=== PATIENT | female | born 1950 | race Caucasian/White ===

== ENCOUNTER → 2017-10-21 | Outpatient (CLI) | payer OTHER, SELFPAY ==
[~2017-10-21] MED LIST: ABAT250V; AMIL5 PO; ANAFRANIL PO; ASCO500 PO; ASPI81CH PO; ATEN25 PO; Ativan1 MG PO; CALCIUM CITRAT1 EAC7 PO; CHOL10002; CHOL10002 PO; CLON.5 PO; CLON1 PO; Calcium Citrat1 EA10 PO; Cipro250 MG PO; Clomipramine HC50 MG PO; DIVA250ER PO; ERGO400 PO; ESZO1 PO; ESZO3 PO; FISH OIL OMEGA1 EAC2 PO; FISH1000 PO; FLUV50 PO; FLUVOXAMINE MA150 MG PO; Fludrocortison0.1 MG; Fludrocortison0.1 MG PO; GABA300 PO; HYDACE5 PO; HYDMOR2 PO; Hydrocodone-Ap1 EA20 PO; LAVAP17G PO; LINZESS145 MCG PO; LISI20 PO; LISI5 PO; LORA1 PO; LOVA20 PO; LOVA40; LOVA40 PO; METCAR500 PO; METO25; METO25ER PO; MIDO2.5; MIDO5 PO; MSM; MSM PO; MSM1000 MG PO; MSM500 MG PO; MULVITMIND PO; MYRBETRIQ50 MG PO; Midodrine HCl10 MG PO; Multivitamin1 EAC1 PO; NORTHERA100 MG PO; NORTHERA300 MG PO; NUVIGIL50 MG PO; Norco 10-325 T1 EACH PO; OLAN2.5 PO; OLAN5 PO; OMEP20ER; POTCIT10 PO; SERT100 PO; SOLI5; SOLI5 PO; SUMA25 PO; Sm Glucosamine1 EACH PO; TRAZ50 PO; VIT B6 PO; Vesicare10 MG PO; [UNRECOGNIZED DRUG - OTHER] PO
[2017-10-21 15:15] LABS: Microalbumin, Urine Quant. <5.000 mg/L (0.000-20.000); Protein, Urine Quantitative <5.0 mg/dL (0.0-11.9)
== END ==
LOC: LAB SHORT 14:22
PROVIDERS: Internal Medicine Nephrology
DX: N18.3 Chronic kidney disease, stage 3 (moderate) (principal); D63.1 Anemia in chronic kidney disease; R80.9 Proteinuria, unspecified
CPT/HCPCS: 81050; 82043; 82570; 84156

== ENCOUNTER 2017-11-24 10:57 | Day surgery (SDC) | payer OTHER, SELFPAY ==
[~2017-11-24 10:57] MED LIST changes: -ABAT250V; -CALCIUM CITRAT1 EAC7 PO; -Fludrocortison0.1 MG PO; -GABA300 PO; -MSM1000 MG PO; -Multivitamin1 EAC1 PO; -NORTHERA300 MG PO; -POTCIT10 PO; -SOLI5 PO; -SUMA25 PO; -Vesicare10 MG PO
[2017-11-24] MEDS ORDERED: GABA300 PO (14:11)
[2017-11-24] MEDS ORDERED: Fludrocortison0.1 MG PO (14:11)
[2017-11-24] MEDS ORDERED: MSM1000 MG PO (14:12)
[2017-11-24] MEDS ORDERED: POTCIT10 PO (14:13)
[2017-11-24] MEDS ORDERED: SUMA25 PO (14:13)
[2017-11-24] MEDS ORDERED: ABAT250V (14:14)
[2017-11-24] MEDS ORDERED: Vesicare10 MG PO (14:14)
== END 2017-11-24 15:45 | disposition home or self-care (01) ==
LOC: ATC 10:57
DX: E86.0 Dehydration (principal); I12.9 Hypertensive chronic kidney disease with stage 1 through stage 4 chronic kidney disease, or unspecified chronic kidney disease; N18.3 Chronic kidney disease, stage 3 (moderate); E87.1 Hypo-osmolality and hyponatremia; E83.30 Disorder of phosphorus metabolism, unspecified; E78.00 Pure hypercholesterolemia, unspecified; N25.81 Secondary hyperparathyroidism of renal origin; R03.1 Nonspecific low blood-pressure reading; E86.9 Volume depletion, unspecified; Z79.899 Other long term (current) drug therapy
CPT/HCPCS: 96360; 96361; J7030

== ENCOUNTER 2018-04-14 08:14 | Observation (INO) | payer OTHER, SELFPAY ==
[~2018-04-14] VITALS: Ht 162.6 cm; Wt 77.2 kg
[~2018-04-14 08:14] MED LIST changes: +ABAT250V; +Fludrocortison0.1 MG PO; +GABA300 PO; +MSM1000 MG PO; +POTCIT10 PO; +SUMA25 PO; +Vesicare10 MG PO
[2018-04-14] MEDS ORDERED: LINZESS145 MCG PO (08:29)
[2018-04-14] MEDS ORDERED: NORTHERA300 MG PO (08:33)
[2018-04-14] MEDS ORDERED: MSM1000 MG PO (08:34)
[2018-04-14] MEDS ORDERED: POTCIT10 PO (08:38)
[2018-04-14] MEDS ORDERED: SOLI5 PO (08:38)
[2018-04-14] MEDS ORDERED: OLAN5 PO (08:38)
[2018-04-14 09:34] LABS: BASOPHILS ABSOLUTE AUTO 0.04 K/mm3 (0.00-0.23); BASOPHILS PERCENT AUTO 1 % (0-2); EOSINOPHILS ABSOLUTE AUTO 0.36 K/mm3 (0.00-0.68); EOSINOPHILS PERCENT AUTO 5 % (0-6); Hematocrit 40.6 % (33.0-51.0); Hemoglobin 13.4 g/dL (11.5-16.0); IMMATURE GRAN ABSOLUTE AUTO 0.01 K/mm3 (0.00-0.10); IMMATURE GRAN PERCENT AUTO 0 % (0-1); LYMPHOCYTES ABSOLUTE AUTO 0.73 K/mm3 (0.84-5.20); LYMPHOCYTES PERCENT AUTO 9 % (21-46); MONOCYTES PERCENT AUTO 8 % (4-13); Mean Corpuscular HGB 31.8 pg (26.0-34.0); Mean Corpuscular Volume 96 fL (80-100); NEUTROPHILS ABSOLUTE AUTO 6.17 K/mm3 (1.96-9.15); NEUTROPHILS PERCENT AUTO 78 % (41-73); Platelet Count 261 K/mm3 (150-400); RDW Coefficient Variation 12.8 % (11.7-14.2); RDW Standard Deviation 45.8 fL (35.1-46.3); Red Blood Cell Count 4.21 M/mm3 (3.80-5.20); White Blood Cell Count 7.91 K/mm3 (4.00-11.30)
[2018-04-14 10:00] LABS: Ethanol (Alcohol), Blood, Med <3 mg/dL; Salicylate <1.7 mg/dL (2.8-20.0)
[2018-04-14 10:01] LABS: Alanine Aminotransfer (ALT/SGP 18 U/L (12-78); Albumin, Blood 2.7 g/dL (3.4-5.0); Albumin/Globulin Ratio 0.6 (0.8-1.8); Alk Phos 84 U/L (50-136); Anion Gap 8 mmol/L (6-16); Aspartate Aminotrans (AST/SGOT 19 U/L (12-37); Bilirubin, Total 0.1 mg/dL (0.1-1.0); Blood Urea Nitrogen 24 mg/dL (8-24); Bun/Creatinine Ratio 18.6 (12.0-20.0); CO2, Blood 24 mmol/L (21-32); Calcium, Blood 8.9 mg/dL (8.5-10.1); Chloride, Blood 107 mmol/L (98-108); Creatinine, Blood 1.29 mg/dL (0.40-1.00); Globulin, Blood 4.9 g/dL (2.2-4.0); Glomerular Filtration Rate 44 (60-); Glucose, Blood 145 mg/dL (70-99); Potassium, Blood 4.5 mmol/L (3.5-5.5); Sodium, Blood 139 mmol/L (136-145); Total Protein, Blood 7.6 g/dL (6.4-8.2)
[2018-04-14 10:30] LABS: Acetaminophen, Random <2.0 ug/mL (10.0-30.0)
[2018-04-14] MEDS ORDERED: CALCIUM CITRAT1 EAC7 PO (14:59)
[2018-04-14] MEDS ORDERED: METCAR500 PO (15:12)
[2018-04-14] MEDS ORDERED: MSM500 MG PO (15:14)
[2018-04-14] MEDS ORDERED: NUVIGIL50 MG PO (15:16)
[2018-04-14] MEDS ORDERED: Multivitamin1 EAC1 PO (15:17)
[2018-04-14 23:09] LABS: Source, Urine Voided
[2018-04-14 23:12] LABS: Bilirubin, Urine Neg (Neg); Blood, Urine Neg (Neg); Glucose Qualitative, Urine Neg (Neg); Ketones, Urine Neg (Neg); Leukocyte Esterase, Urine Neg (Neg); Nitrite, Urine Neg (Neg); Protein, Urine Neg (Neg); Specific Gravity, Urine 1.005 (1.003-1.022); Urobilinogen, Urine NORM (Normal)
[2018-04-14 23:17] LABS: Appearance, Urine Clear (Clear); Color, Urine Yellow (P-Yellow)
[2018-04-14 23:23] LABS: U Amphetamine Screen Not Detected; U Barbituate Screen Not Detected; U Benzodiazapine Screen DETECTED; U Buprenorphine Screen Not Detected; U Cannabinoids Screen Not Detected; U Cocaine Screen Not Detected; U Methadone Screen Not Detected; U Methamphetamine Screen Not Detected; U Opiates Screen Not Detected; U Oxycodone Screen Not Detected; U Phencyclidine Screen Not Detected; U Propoxyphene Screen Not Detected
[2018-04-15 04:18] LABS: BASOPHILS ABSOLUTE AUTO 0.03 K/mm3 (0.00-0.23); BASOPHILS PERCENT AUTO 1 % (0-2); EOSINOPHILS ABSOLUTE AUTO 0.43 K/mm3 (0.00-0.68); EOSINOPHILS PERCENT AUTO 7 % (0-6); Hematocrit 39.1 % (33.0-51.0); Hemoglobin 12.8 g/dL (11.5-16.0); IMMATURE GRAN ABSOLUTE AUTO 0.02 K/mm3 (0.00-0.10); IMMATURE GRAN PERCENT AUTO 0 % (0-1); LYMPHOCYTES ABSOLUTE AUTO 0.89 K/mm3 (0.84-5.20); LYMPHOCYTES PERCENT AUTO 14 % (21-46); MONOCYTES ABSOLUTE AUTO 0.43 K/mm3 (0.16-1.47); MONOCYTES PERCENT AUTO 7 % (4-13); Mean Corpuscular HGB 30.9 pg (26.0-34.0); Mean Corpuscular HGB Conc 32.7 g/dL (31.5-36.5); Mean Corpuscular Volume 94 fL (80-100); Mean Platelet Volume 10.2 fL (9.1-12.4); NEUTROPHILS ABSOLUTE AUTO 4.73 K/mm3 (1.96-9.15); NEUTROPHILS PERCENT AUTO 72 % (41-73); Platelet Count 239 K/mm3 (150-400); RDW Coefficient Variation 12.7 % (11.7-14.2); RDW Standard Deviation 44.2 fL (35.1-46.3); Red Blood Cell Count 4.14 M/mm3 (3.80-5.20); White Blood Cell Count 6.53 K/mm3 (4.00-11.30)
[2018-04-15 04:43] LABS: Bun/Creatinine Ratio 18.9 (12.0-20.0); Calcium, Blood 8.6 mg/dL (8.5-10.1); Creatinine, Blood 1.27 mg/dL (0.40-1.00); Potassium, Blood 4.1 mmol/L (3.5-5.5)
== END 2018-04-15 12:42 | disposition home or self-care (01) ==
LOC: ER 08:14 → PCU 08:15
PROVIDERS: Internal Medicine; Physician Assistant
DX: T42.8X1A Poisoning by antiparkinsonism drugs and other central muscle-tone depressants, accidental (unintentional), initial encounter (principal); F32.9 Major depressive disorder, single episode, unspecified; G89.29 Other chronic pain; Z79.82 Long term (current) use of aspirin; E03.9 Hypothyroidism, unspecified; I12.9 Hypertensive chronic kidney disease with stage 1 through stage 4 chronic kidney disease, or unspecified chronic kidney disease; N18.9 Chronic kidney disease, unspecified
CPT/HCPCS: 36415; 80048; 80053; 81003; 84443; 85025; 96372; 99285-25; G0378; G0480; J1650; J7030

== ENCOUNTER → 2018-10-09 | Outpatient (CLI) | payer MEDICARE, OTHER ==
[~2018-10-09] MED LIST changes: +CALCIUM CITRAT1 EAC7 PO; +Multivitamin1 EAC1 PO; +NORTHERA300 MG PO; +SOLI5 PO
[2018-10-13 12:15] LABS: Creatinine Urine 24.4 mg/dL (27.00-270.00)
[2018-10-13 13:32] LABS: Microalb/Creat Ratio UR, Rand Unable to Calculate mg/g (0.000-30.000); Microalbumin, Random Urine <5.000 mg/L (0.000-20.000); Protein, Urine Random <5.0 mg/dL (0.0-11.9); Protein/Creat Ratio, Ur Random Unable to Calculate
== END | disposition home or self-care (01) ==
LOC: LAB SHORT 11:45 → LAB 11:45 → LAB SHORT 10-13 08:14 → LAB 10-13 11:45
PROVIDERS: Family Medicine
DX: N18.3 Chronic kidney disease, stage 3 (moderate) (principal); D63.1 Anemia in chronic kidney disease; N25.81 Secondary hyperparathyroidism of renal origin; E55.9 Vitamin D deficiency, unspecified; E78.00 Pure hypercholesterolemia, unspecified; R76.9 Abnormal immunological finding in serum, unspecified; R94.5 Abnormal results of liver function studies; R94.6 Abnormal results of thyroid function studies
CPT/HCPCS: 81050; 82043; 82570; 84156

== ENCOUNTER → 2018-12-17 | Outpatient (CLI) | payer MEDICARE, OTHER ==
[2018-12-18 14:42] LABS: Microalbumin, Urine Quant. <5.000 mg/L (0.000-20.000); Protein, Urine Quantitative <5.0 mg/dL (0.0-11.9)
== END | disposition home or self-care (01) ==
LOC: EDSTATUS 12-14 14:25 → LAB FUT 12-14 14:25 → LAB SHORT 11:15 → LAB 11:15
PROVIDERS: Internal Medicine Nephrology
DX: N18.3 Chronic kidney disease, stage 3 (moderate) (principal); D63.1 Anemia in chronic kidney disease; R80.9 Proteinuria, unspecified
CPT/HCPCS: 81050; 82043; 82570; 84156

== ENCOUNTER 2019-03-17 13:48 | Day surgery (SDC) | payer MEDICARE, SELFPAY ==
[2019-03-17] MEDS ORDERED: FURO20 (14:45)
--- NOTE | 2019-03-17 15:35 | NUR ---
THIS DEPARTMENT HAD A CANCELLATION AND THIS RN CALLED DR. BOWER TO SEE IF WE COULD GIVE 1 LITER OVER 1 HOUR INSTEAD OF ORIGINAL ORDER OF 1.5 LITERS OVER 2 TO 3 HOURS. OUR SCHEDULE IS TIGHT TODAY AND DR. BOWER AGREED THAT PT COULD HAVE 1 LITER NORMAL SALINE OVER 1 HOUR AND WAS APPRECIATIVE THAT WE COULD ACCOMMADATE THIS PATIENT TODAY. HOWEVER THIS DEPARTMENT HAS SEEN THIS PT IN THE PAST AND STAFF HAS HAD ISSUES WITH BEING OVERBEARING AND AGGRESSIVE WITH STAFF. THIS RN WAS TRYING TO DO ADMITTING NURSING HX, PATIENTS KEPT ON INTERUPTING THE PATIENT AND MYSELF. THIS RN AND OTHER STAFF FEAR FOR THIS PATIENT, AND FEEL THAT THERE POSSIBLY COULD BE SOME TYPE OF MENTAL ABUSE GOING ON SINCE PT SAID "YES, I CAN ANSWER MY OWN QUESTION" WHEN ASKED BUT PT'S INTERRUPTS AND SAYS, "I HAVE CONTROL OVER HER MEDICATIONS AND SHE DOES NOT KNOW WHAT SHE HAS AND HASN'T" THIS RN STOPPED ASKING QUESTIONS AND CAME OUT AND CALLED DR. BOWER EXPRESSING MY CONCERNS AND ASKING IF PATIENT IS COMPETENT TO ANSWER HER OWN QUESTIONS. DR. BOWER SAID, THAT THE PATIENT IS COMPETENT ENOUGH TO ANSWER HER OWN QUESTIONS AND HE UNDERSTANDS THE CAN BE CONTROLLING. THIS RN INFORMED THE PATIENT AND THE MILO THAT DR. BOWER WAS CALLED AND HE SAID THAT THE PATIENT CAN ANSWER HER OWN HISTORY/ADMITTING QUESTIONS. PATIENT ANSWERED THEM APPROPRIATELY. THIS RN GOT THE PATIENT CRANBERRY JUICE AND WARM BLANKET. THIS RN ALSO CALLED THE NURSING VICE PRESIDENT REGULATORY FELIPE INMAN TO INFORM HIM OF THESE ISSUES.DURING INFUSION PTS WAS GOING IN AND OUT OF ROOM AND APPEARED UPSET. PT WAS INFUSED AND DISCHARGED HOME AND PT HAD NO COMPLAINTS.
== END 2019-03-17 22:42 | disposition home or self-care (01) ==
LOC: ATC 13:48
DX: E86.9 Volume depletion, unspecified (principal); I12.9 Hypertensive chronic kidney disease with stage 1 through stage 4 chronic kidney disease, or unspecified chronic kidney disease; N18.3 Chronic kidney disease, stage 3 (moderate); D63.1 Anemia in chronic kidney disease; E55.9 Vitamin D deficiency, unspecified; Z79.899 Other long term (current) drug therapy
CPT/HCPCS: 96360; J7030

== ENCOUNTER 2019-03-19 14:52 | Emergency (ER) | payer MEDICARE, SELFPAY ==
[~2019-03-19] VITALS: Ht 162.6 cm; Wt 77.1 kg
[~2019-03-19 14:52] MED LIST changes: +FURO20
[2019-03-19 15:30] LABS: BASOPHILS ABSOLUTE AUTO 0.04 K/mm3 (0.00-0.23); BASOPHILS PERCENT AUTO 1 % (0-2); EOSINOPHILS ABSOLUTE AUTO 0.42 K/mm3 (0.00-0.68); EOSINOPHILS PERCENT AUTO 7 % (0-6); Hematocrit 37.5 % (33.0-51.0); Hemoglobin 12.3 g/dL (11.5-16.0); IMMATURE GRAN ABSOLUTE AUTO 0.02 K/mm3 (0.00-0.10); IMMATURE GRAN PERCENT AUTO 0 % (0-1); LYMPHOCYTES ABSOLUTE AUTO 1.03 K/mm3 (0.84-5.20); LYMPHOCYTES PERCENT AUTO 16 % (21-46); MONOCYTES ABSOLUTE AUTO 0.59 K/mm3 (0.16-1.47); MONOCYTES PERCENT AUTO 9 % (4-13); Mean Corpuscular HGB 33.2 pg (26.0-34.0); Mean Corpuscular HGB Conc 32.8 g/dL (31.5-36.5); Mean Corpuscular Volume 101 fL (80-100); Mean Platelet Volume 10.3 fL (9.1-12.4); NEUTROPHILS ABSOLUTE AUTO 4.17 K/mm3 (1.96-9.15); NEUTROPHILS PERCENT AUTO 67 % (41-73); Platelet Count 241 K/mm3 (150-400); RDW Coefficient Variation 12.1 % (11.7-14.2); RDW Standard Deviation 44.8 fL (35.1-46.3); Red Blood Cell Count 3.71 M/mm3 (3.80-5.20); White Blood Cell Count 6.27 K/mm3 (4.00-11.30)
[2019-03-19 15:48] LABS: Albumin, Blood 2.8 g/dL (3.4-5.0); Albumin/Globulin Ratio 0.6 (0.8-1.8); Bilirubin, Total 0.2 mg/dL (0.1-1.0); Calcium, Blood 9.3 mg/dL (8.5-10.1); Creatinine, Blood 1.57 mg/dL (0.40-1.00); Globulin, Blood 4.4 g/dL (2.2-4.0); Potassium, Blood 4.4 mmol/L (3.5-5.5); Total Protein, Blood 7.2 g/dL (6.4-8.2)
[2019-03-19] MEDS ORDERED: DIVA125EC PO (16:27)
[2019-03-19] MEDS ORDERED: SIME80CH PO (16:29)
[2019-03-19] MEDS ORDERED: MOTION RELIEF25 MG PO (16:32)
[2019-03-19] MEDS ORDERED: NORTHERA300 MG PO (16:34)
[2019-03-19] MEDS ORDERED: MYRBETRIQ25 MG PO (16:34)
[2019-03-19] MEDS ORDERED: MODA200 PO (16:35)
[2019-03-19] MEDS ORDERED: ONDA8 PO (16:35)
[2019-03-19] MEDS ORDERED: POTA8 PO (16:35)
[2019-03-19] MEDS ORDERED: OLAN5 PO (16:35)
[2019-03-19] MEDS ORDERED: SUMA25 PO (16:36)
== END 2019-03-19 18:51 | disposition home or self-care (01) ==
LOC: ER 14:52
PROVIDERS: Physician Assistant
DX: I12.9 Hypertensive chronic kidney disease with stage 1 through stage 4 chronic kidney disease, or unspecified chronic kidney disease (principal); N18.9 Chronic kidney disease, unspecified; E86.9 Volume depletion, unspecified; E86.0 Dehydration; Z79.899 Other long term (current) drug therapy; Z79.82 Long term (current) use of aspirin; F32.9 Major depressive disorder, single episode, unspecified; E03.9 Hypothyroidism, unspecified
CPT/HCPCS: 80053; 85025; 93005; 93010; 96360; 96361; 99283-25; J7030

== ENCOUNTER 2019-03-20 10:34 | Day surgery (SDC) | payer MEDICARE, SELFPAY ==
[~2019-03-20 10:34] MED LIST changes: +DIVA125EC PO; +MODA200 PO; +MOTION RELIEF25 MG PO; +MYRBETRIQ25 MG PO; +ONDA8 PO; +POTA8 PO; +SIME80CH PO
--- NOTE | 2019-03-20 11:37 | NUR ---
1045: TELEPHONE ORDER FROM DR BOWER TO GIVE ANOTHER 1 LITER OF NS TOMORROW 03/21/19. DR NUÑEZ PT RECEIVED 1 LITER YESTERDAY IN ER AND IS RECEIVING 1 LITER TODAY THROUGH [facility].
== END 2019-03-20 11:59 | disposition home or self-care (01) ==
LOC: ATC 10:34
DX: E86.9 Volume depletion, unspecified (principal); N18.3 Chronic kidney disease, stage 3 (moderate); I12.9 Hypertensive chronic kidney disease with stage 1 through stage 4 chronic kidney disease, or unspecified chronic kidney disease; Z79.899 Other long term (current) drug therapy; D63.1 Anemia in chronic kidney disease; N25.81 Secondary hyperparathyroidism of renal origin; E78.00 Pure hypercholesterolemia, unspecified; E55.9 Vitamin D deficiency, unspecified
CPT/HCPCS: 96360; J7030

== ENCOUNTER 2019-03-21 10:47 | Day surgery (SDC) | payer MEDICARE, OTHER | END 2019-03-21 12:02 | disposition home or self-care (01) | LOC: ATC 10:47 | DX: E86.9 Volume depletion, unspecified (principal); I12.9 Hypertensive chronic kidney disease with stage 1 through stage 4 chronic kidney disease, or unspecified chronic kidney disease; N18.3 Chronic kidney disease, stage 3 (moderate); D63.1 Anemia in chronic kidney disease; E78.00 Pure hypercholesterolemia, unspecified; E55.9 Vitamin D deficiency, unspecified; Z79.899 Other long term (current) drug therapy | CPT/HCPCS: 96360; J7030 ==

== ENCOUNTER 2019-04-08 00:16 | Day surgery (SDC) | payer MEDICARE, OTHER ==
--- NOTE | 2019-04-08 17:20 | NUR ---
LABS DRAWN AFTER IV HYDRATION COMPLETED.
[2019-04-08 17:37] LABS: Albumin, Blood 2.1 g/dL (3.4-5.0); Anion Gap 8 mmol/L (6-16); Blood Urea Nitrogen 22 mg/dL (8-24); Bun/Creatinine Ratio 18.6 (12.0-20.0); CO2, Blood 23 mmol/L (21-32); Calcium, Blood 6.8 mg/dL (8.5-10.1); Chloride, Blood 117 mmol/L (98-108); Creatinine, Blood 1.18 mg/dL (0.40-1.00); Glomerular Filtration Rate 48 (60-); Glucose, Blood 114 mg/dL (70-99); Phosphorus, Blood 2.4 mg/dL (2.5-4.9); Potassium, Blood 3.3 mmol/L (3.5-5.5); Sodium, Blood 148 mmol/L (136-145)
== END 2019-04-08 17:12 | disposition home or self-care (01) ==
LOC: ATC 00:16
PROVIDERS: Internal Medicine Nephrology
DX: E86.9 Volume depletion, unspecified (principal); I12.9 Hypertensive chronic kidney disease with stage 1 through stage 4 chronic kidney disease, or unspecified chronic kidney disease; N18.3 Chronic kidney disease, stage 3 (moderate); D63.1 Anemia in chronic kidney disease; N25.81 Secondary hyperparathyroidism of renal origin; E78.00 Pure hypercholesterolemia, unspecified; E55.9 Vitamin D deficiency, unspecified; Z79.899 Other long term (current) drug therapy
CPT/HCPCS: 80069; 96360; 96361; J7030

== ENCOUNTER 2019-04-28 00:09 | Day surgery (SDC) | payer MEDICARE, OTHER | END 2019-04-28 15:42 | disposition home or self-care (01) | LOC: ATC 00:09 | DX: E86.9 Volume depletion, unspecified (principal); I12.9 Hypertensive chronic kidney disease with stage 1 through stage 4 chronic kidney disease, or unspecified chronic kidney disease; N18.3 Chronic kidney disease, stage 3 (moderate); D63.1 Anemia in chronic kidney disease; N25.81 Secondary hyperparathyroidism of renal origin; E55.9 Vitamin D deficiency, unspecified; Z79.899 Other long term (current) drug therapy; Z79.82 Long term (current) use of aspirin | CPT/HCPCS: 96360; 96361; J7030 ==

== ENCOUNTER 2019-05-24 00:19 | Day surgery (SDC) | payer MEDICARE, OTHER ==
[2019-05-24 16:10] LABS: Anion Gap 6 mmol/L (6-16); Blood Urea Nitrogen 28 mg/dL (8-24); Bun/Creatinine Ratio 21.5 (12.0-20.0); CO2, Blood 26 mmol/L (21-32); Calcium, Blood 9.7 mg/dL (8.5-10.1); Chloride, Blood 102 mmol/L (98-108); Glomerular Filtration Rate 43 (60-); Glucose, Blood 93 mg/dL (70-99); Phosphorus, Blood 3.5 mg/dL (2.5-4.9); Potassium, Blood 4.1 mmol/L (3.5-5.5); Sodium, Blood 134 mmol/L (136-145)
== END 2019-05-24 15:20 | disposition home or self-care (01) ==
LOC: ATC 00:19
PROVIDERS: Internal Medicine Nephrology
DX: E86.9 Volume depletion, unspecified (principal); I12.9 Hypertensive chronic kidney disease with stage 1 through stage 4 chronic kidney disease, or unspecified chronic kidney disease; N18.3 Chronic kidney disease, stage 3 (moderate); D63.1 Anemia in chronic kidney disease; E78.00 Pure hypercholesterolemia, unspecified; E55.9 Vitamin D deficiency, unspecified; N25.81 Secondary hyperparathyroidism of renal origin
CPT/HCPCS: 80069; 96360; J7030

== ENCOUNTER 2019-06-11 00:39 | Day surgery (SDC) | payer MEDICARE, OTHER | END 2019-06-11 15:25 | disposition home or self-care (01) | LOC: ATC 00:39 | DX: E86.9 Volume depletion, unspecified (principal); I12.9 Hypertensive chronic kidney disease with stage 1 through stage 4 chronic kidney disease, or unspecified chronic kidney disease; N18.3 Chronic kidney disease, stage 3 (moderate); N25.81 Secondary hyperparathyroidism of renal origin; D63.1 Anemia in chronic kidney disease; E78.00 Pure hypercholesterolemia, unspecified; Z79.82 Long term (current) use of aspirin; Z79.899 Other long term (current) drug therapy | CPT/HCPCS: 96360; J7030 ==

== ENCOUNTER 2019-07-02 00:23 | Day surgery (SDC) | payer MEDICARE, OTHER | END 2019-07-02 15:05 | disposition home or self-care (01) | LOC: ATC 00:23 | DX: E86.9 Volume depletion, unspecified (principal); I12.9 Hypertensive chronic kidney disease with stage 1 through stage 4 chronic kidney disease, or unspecified chronic kidney disease; N18.3 Chronic kidney disease, stage 3 (moderate); D63.1 Anemia in chronic kidney disease; N25.81 Secondary hyperparathyroidism of renal origin; E78.00 Pure hypercholesterolemia, unspecified; Z79.899 Other long term (current) drug therapy; Z79.82 Long term (current) use of aspirin | CPT/HCPCS: 96360; J7030 ==

== ENCOUNTER 2019-07-23 00:17 | Day surgery (SDC) | payer MEDICARE, OTHER | END 2019-07-23 15:39 | disposition home or self-care (01) | LOC: ATC 00:17 | DX: E86.9 Volume depletion, unspecified (principal); I12.9 Hypertensive chronic kidney disease with stage 1 through stage 4 chronic kidney disease, or unspecified chronic kidney disease; N18.3 Chronic kidney disease, stage 3 (moderate); D63.1 Anemia in chronic kidney disease; N25.81 Secondary hyperparathyroidism of renal origin; E78.00 Pure hypercholesterolemia, unspecified; Z79.82 Long term (current) use of aspirin; Z79.899 Other long term (current) drug therapy | CPT/HCPCS: 96360; J7030 ==

== ENCOUNTER 2019-08-13 00:17 | Day surgery (SDC) | payer MEDICARE, OTHER | END 2019-08-13 15:10 | disposition home or self-care (01) | LOC: ATC 00:17 | DX: E86.9 Volume depletion, unspecified (principal); I12.9 Hypertensive chronic kidney disease with stage 1 through stage 4 chronic kidney disease, or unspecified chronic kidney disease; N18.3 Chronic kidney disease, stage 3 (moderate); D63.1 Anemia in chronic kidney disease; N25.81 Secondary hyperparathyroidism of renal origin; E78.00 Pure hypercholesterolemia, unspecified; E55.9 Vitamin D deficiency, unspecified; Z79.82 Long term (current) use of aspirin; Z79.899 Other long term (current) drug therapy | CPT/HCPCS: 96360; J7030 ==

== ENCOUNTER 2019-08-24 00:09 | Day surgery (SDC) | payer MEDICARE, OTHER | END 2019-08-24 16:05 | disposition home or self-care (01) | LOC: ATC 00:09 | DX: E86.9 Volume depletion, unspecified (principal); I12.9 Hypertensive chronic kidney disease with stage 1 through stage 4 chronic kidney disease, or unspecified chronic kidney disease; N18.3 Chronic kidney disease, stage 3 (moderate); D63.1 Anemia in chronic kidney disease; N25.81 Secondary hyperparathyroidism of renal origin; E78.00 Pure hypercholesterolemia, unspecified; E55.9 Vitamin D deficiency, unspecified; R03.1 Nonspecific low blood-pressure reading; Z79.899 Other long term (current) drug therapy | CPT/HCPCS: 96360; J7030 ==

== ENCOUNTER 2019-09-08 00:03 | Day surgery (SDC) | payer MEDICARE, OTHER | END 2019-09-08 16:46 | disposition home or self-care (01) | LOC: ATC 00:03 | DX: E86.9 Volume depletion, unspecified (principal); I12.9 Hypertensive chronic kidney disease with stage 1 through stage 4 chronic kidney disease, or unspecified chronic kidney disease; N18.3 Chronic kidney disease, stage 3 (moderate); D63.1 Anemia in chronic kidney disease; N25.81 Secondary hyperparathyroidism of renal origin; E78.00 Pure hypercholesterolemia, unspecified; E55.9 Vitamin D deficiency, unspecified; Z79.82 Long term (current) use of aspirin; Z79.899 Other long term (current) drug therapy | CPT/HCPCS: 96360; J7030 ==

== ENCOUNTER 2019-09-11 14:53 | Day surgery (SDC) | payer MEDICARE, OTHER | END 2019-09-11 16:50 | disposition home or self-care (01) | LOC: ATC 14:53 | DX: E86.9 Volume depletion, unspecified (principal); I12.9 Hypertensive chronic kidney disease with stage 1 through stage 4 chronic kidney disease, or unspecified chronic kidney disease; N18.3 Chronic kidney disease, stage 3 (moderate); D63.1 Anemia in chronic kidney disease; N25.81 Secondary hyperparathyroidism of renal origin; E78.00 Pure hypercholesterolemia, unspecified; E55.9 Vitamin D deficiency, unspecified; Z79.82 Long term (current) use of aspirin; Z79.899 Other long term (current) drug therapy | CPT/HCPCS: 96360; J7030 ==

== ENCOUNTER 2019-10-29 00:33 | Day surgery (SDC) | payer MEDICARE, SELFPAY | END 2019-10-29 17:09 | disposition home or self-care (01) | LOC: ATC 00:33 | DX: E86.9 Volume depletion, unspecified (principal) | CPT/HCPCS: 96360; 96361; J7030 ==

== ENCOUNTER 2019-11-13 00:15 | Day surgery (SDC) | payer MEDICARE, SELFPAY | END 2019-11-13 15:20 | disposition home or self-care (01) | LOC: ATC 00:15 | DX: E86.9 Volume depletion, unspecified (principal); N18.3 Chronic kidney disease, stage 3 (moderate) | CPT/HCPCS: 96360; 96361; J7030 ==

== ENCOUNTER 2019-12-10 00:05 | Day surgery (SDC) | payer MEDICARE, SELFPAY ==
[2019-12-10 14:56] LABS: Albumin, Blood 3.2 g/dL (3.4-5.0); Anion Gap 7 mmol/L (6-16); Blood Urea Nitrogen 37 mg/dL (8-24); Bun/Creatinine Ratio 22.4 (12.0-20.0); CO2, Blood 27 mmol/L (21-32); Calcium, Blood 9.8 mg/dL (8.5-10.1); Chloride, Blood 104 mmol/L (98-108); Creatinine, Blood 1.65 mg/dL (0.40-1.00); Glomerular Filtration Rate 33 (60-); Glucose, Blood 99 mg/dL (70-99); Phosphorus, Blood 4.1 mg/dL (2.5-4.9); Potassium, Blood 4.7 mmol/L (3.5-5.5); Sodium, Blood 138 mmol/L (136-145)
== END 2019-12-10 16:28 | disposition home or self-care (01) ==
LOC: ATC 00:05
PROVIDERS: Internal Medicine Nephrology
DX: E86.9 Volume depletion, unspecified (principal); N18.3 Chronic kidney disease, stage 3 (moderate); Z79.52 Long term (current) use of systemic steroids; Z79.82 Long term (current) use of aspirin; Z79.899 Other long term (current) drug therapy
CPT/HCPCS: 80069; 85018; 96360; 96361; J7030; J7040

== ENCOUNTER 2020-01-03 00:11 | Day surgery (SDC) | payer MEDICARE, SELFPAY | END 2020-01-03 11:54 | disposition home or self-care (01) | LOC: ATC 00:11 | DX: E86.0 Dehydration (principal); I12.9 Hypertensive chronic kidney disease with stage 1 through stage 4 chronic kidney disease, or unspecified chronic kidney disease; N18.3 Chronic kidney disease, stage 3 (moderate); Z79.899 Other long term (current) drug therapy | CPT/HCPCS: 96360; 96361; J7070 ==

== ENCOUNTER → 2020-01-03 | Outpatient (CLI) | payer MEDICARE, SELFPAY ==
[2020-01-03 13:24] LABS: Microalbumin, Urine Quant. <5.000 mg/L (0.000-20.000); Protein, Urine Quantitative <5.0 mg/dL (0.0-11.9)
== END | disposition home or self-care (01) ==
LOC: LAB SHORT 09:00 → LAB 09:00
PROVIDERS: Internal Medicine Nephrology
DX: N18.3 Chronic kidney disease, stage 3 (moderate) (principal); D63.1 Anemia in chronic kidney disease; N25.81 Secondary hyperparathyroidism of renal origin; E55.9 Vitamin D deficiency, unspecified; E78.00 Pure hypercholesterolemia, unspecified; R76.9 Abnormal immunological finding in serum, unspecified; R94.5 Abnormal results of liver function studies; R94.6 Abnormal results of thyroid function studies
CPT/HCPCS: 81050; 82043; 82570; 84156

== ENCOUNTER 2020-01-10 00:18 | Day surgery (SDC) | payer MEDICARE, SELFPAY | END 2020-01-10 12:05 | disposition home or self-care (01) | LOC: ATC 00:18 | DX: E86.0 Dehydration (principal); I12.9 Hypertensive chronic kidney disease with stage 1 through stage 4 chronic kidney disease, or unspecified chronic kidney disease; N18.3 Chronic kidney disease, stage 3 (moderate); D63.1 Anemia in chronic kidney disease; N25.81 Secondary hyperparathyroidism of renal origin; E87.1 Hypo-osmolality and hyponatremia; E78.00 Pure hypercholesterolemia, unspecified; E55.9 Vitamin D deficiency, unspecified; Z79.899 Other long term (current) drug therapy | CPT/HCPCS: J7060; J7070 ==

== ENCOUNTER 2020-01-27 00:04 | Day surgery (SDC) | payer MEDICARE, SELFPAY | END 2020-01-27 11:32 | disposition home or self-care (01) | LOC: ATC 00:04 | DX: E86.0 Dehydration (principal); I12.9 Hypertensive chronic kidney disease with stage 1 through stage 4 chronic kidney disease, or unspecified chronic kidney disease; N18.3 Chronic kidney disease, stage 3 (moderate); Z79.899 Other long term (current) drug therapy; D63.1 Anemia in chronic kidney disease; N25.81 Secondary hyperparathyroidism of renal origin; E87.1 Hypo-osmolality and hyponatremia; E78.00 Pure hypercholesterolemia, unspecified; E55.9 Vitamin D deficiency, unspecified | CPT/HCPCS: 36415; 96360; 96361; J7070 ==

== ENCOUNTER 2020-02-03 00:06 | Day surgery (SDC) | payer MEDICARE, SELFPAY ==
[~2020-02-03 00:06] MED LIST changes: -FURO20; +FURO20 PO; +MECL25 PO; -MOTION RELIEF25 MG PO; +Robaxin-750750 MG PO
[2020-02-03] MEDS ORDERED: CLON.1 PO (16:16)
[2020-02-03] MEDS ORDERED: MIRALAX17 GM PO (16:48)
[2020-02-03] MEDS ORDERED: Potassium Citra5 MEQ PO (16:51)
[2020-02-03] MEDS ORDERED: TAMS.4ER PO (16:54)
== END 2020-02-03 13:02 | disposition home or self-care (01) ==
LOC: ATC 00:06
DX: E86.0 Dehydration (principal); I12.9 Hypertensive chronic kidney disease with stage 1 through stage 4 chronic kidney disease, or unspecified chronic kidney disease; N18.3 Chronic kidney disease, stage 3 (moderate); D63.1 Anemia in chronic kidney disease; N25.81 Secondary hyperparathyroidism of renal origin; E78.00 Pure hypercholesterolemia, unspecified; E55.9 Vitamin D deficiency, unspecified; Z79.899 Other long term (current) drug therapy; E23.6 Other disorders of pituitary gland
CPT/HCPCS: 96360; 96361; J7060; J7070

== ENCOUNTER → 2020-02-16 | Outpatient (CLI) | payer MEDICARE, OTHER ==
[~2020-02-16] MED LIST changes: +ACET325 PO; +AMOCLA500 PO; -ASPI81CH PO; +Aspirin EC81 MG PO; +CLON.1 PO; +Divalproex Sod125 M1 PO; +FISH OIL 1,0001 EAC4 PO; +K-TAB ER20 ME1 PO; +LIDO5TO TOP; +MIRALAX17 GM PO; +MOTION RELIEF25 MG PO; +MSM1000 M2 PO; +N-ACETYL-L-CYS600 MG PO; +NEURONTIN300 MG PO; +OLANZAPINE5 M1 PO; +PROBIOTIC ACID PO; +PYRI100 PO; +Pacerone400 MG PO; +Potassium Citra5 MEQ PO; +SODCHL1 PO; +TAMS.4ER PO; +TAMSULOSIN HCL0.4 M1 PO; +VITAMIN C 500500 MG PO; +Vitamin D2000 UNIT PO; +ZOFRAN4 MG PO
== END | disposition home or self-care (01) ==
LOC: LAB 14:16 → LAB SHORT 14:16
DX: N18.3 Chronic kidney disease, stage 3 (moderate) (principal); D63.1 Anemia in chronic kidney disease; N25.81 Secondary hyperparathyroidism of renal origin; E55.9 Vitamin D deficiency, unspecified; E78.00 Pure hypercholesterolemia, unspecified; R76.9 Abnormal immunological finding in serum, unspecified; R94.5 Abnormal results of liver function studies; R94.6 Abnormal results of thyroid function studies
CPT/HCPCS: 86335

== ENCOUNTER 2020-02-18 15:15 | Inpatient (IN) | payer MEDICARE, OTHER ==
[~2020-02-18] VITALS: Ht 162.6 cm; Wt 83.9 kg
[~2020-02-18 15:15] MED LIST changes: -ACET325 PO; -AMOCLA500 PO; -Divalproex Sod125 M1 PO; -FISH OIL 1,0001 EAC4 PO; -K-TAB ER20 ME1 PO; -LIDO5TO TOP; -MOTION RELIEF25 MG PO; -MSM1000 M2 PO; -N-ACETYL-L-CYS600 MG PO; -NEURONTIN300 MG PO; -OLANZAPINE5 M1 PO; -PROBIOTIC ACID PO; -PYRI100 PO; -Pacerone400 MG PO; -SODCHL1 PO; -TAMSULOSIN HCL0.4 M1 PO; -VITAMIN C 500500 MG PO; -Vitamin D2000 UNIT PO; -ZOFRAN4 MG PO
[2020-02-18] MEDS ORDERED: Clomipramine HC50 MG PO (19:40)
[2020-02-18] MEDS ORDERED: FISH OIL 1,0001 EAC4 PO (19:40)
[2020-02-18] MEDS ORDERED: K-TAB ER20 ME1 PO (19:41)
[2020-02-18] MEDS ORDERED: LIDO5TO TOP (19:42)
[2020-02-18] MEDS ORDERED: MSM1000 M2 PO (19:43)
[2020-02-18] MEDS ORDERED: MODA200 PO (19:44)
[2020-02-18] MEDS ORDERED: SODCHL1 PO (19:44)
[2020-02-18] MEDS ORDERED: PYRI100 PO (19:44)
[2020-02-18] MEDS ORDERED: VITAMIN C 500500 MG PO (19:45)
[2020-02-18] MEDS ORDERED: Vitamin D2000 UNIT PO (19:45)
[2020-02-18 20:50] LABS: BASOPHILS ABSOLUTE AUTO 0.06 K/mm3 (0.00-0.23); BASOPHILS PERCENT AUTO 1 % (0-2); EOSINOPHILS ABSOLUTE AUTO 0.08 K/mm3 (0.00-0.68); EOSINOPHILS PERCENT AUTO 1 % (0-6); Hematocrit 37.3 % (33.0-51.0); IMMATURE GRAN ABSOLUTE AUTO 0.08 K/mm3 (0.00-0.10); IMMATURE GRAN PERCENT AUTO 1 % (0-1); LYMPHOCYTES PERCENT AUTO 8 % (21-46); MONOCYTES ABSOLUTE AUTO 0.94 K/mm3 (0.16-1.47); MONOCYTES PERCENT AUTO 9 % (4-13); Mean Corpuscular HGB 31.4 pg (26.0-34.0); Mean Corpuscular HGB Conc 32.2 g/dL (31.5-36.5); Mean Corpuscular Volume 98 fL (80-100); Mean Platelet Volume 10.2 fL (9.1-12.4); NEUTROPHILS ABSOLUTE AUTO 8.23 K/mm3 (1.96-9.15); NEUTROPHILS PERCENT AUTO 81 % (41-73); Platelet Count 269 K/mm3 (150-400); RDW Coefficient Variation 13.8 % (11.7-14.2); RDW Standard Deviation 48.6 fL (35.1-46.3); Red Blood Cell Count 3.82 M/mm3 (3.80-5.20); White Blood Cell Count 10.19 K/mm3 (4.00-11.30)
[2020-02-18 21:15] LABS: Albumin, Blood 2.4 g/dL (3.4-5.0); Albumin/Globulin Ratio 0.5 (0.8-1.8); Bilirubin, Total 0.3 mg/dL (0.1-1.0); Bun/Creatinine Ratio 23.8 (12.0-20.0); Creatinine, Blood 1.85 mg/dL (0.40-1.00); Globulin, Blood 4.6 g/dL (2.2-4.0); Potassium, Blood 4.6 mmol/L (3.5-5.5)
[2020-02-18 21:23] LABS: Troponin I 0.552 ng/mL (0.000-0.040)
[2020-02-18] MEDS ORDERED: Divalproex Sod125 M1 PO (21:39)
[2020-02-18] MEDS ORDERED: LISI5 PO (21:40)
[2020-02-18] MEDS ORDERED: TAMSULOSIN HCL0.4 M1 PO (21:40)
[2020-02-18] MEDS ORDERED: OLANZAPINE5 M1 PO (21:40)
[2020-02-18] MEDS ORDERED: NEURONTIN300 MG PO (21:41)
[2020-02-19] MEDS ORDERED: Clomipramine HC50 MG PO (02:30)
[2020-02-19] MEDS ORDERED: CLON.1 PO (02:32)
[2020-02-19] MEDS ORDERED: Norco 10-325 T1 EACH PO (02:33)
[2020-02-19] MEDS ORDERED: MOTION RELIEF25 MG PO (02:35)
[2020-02-19] MEDS ORDERED: POTCIT10 PO (02:38)
[2020-02-19 05:47] LABS: Bun/Creatinine Ratio 21.8 (12.0-20.0); Calcium, Blood 8.8 mg/dL (8.5-10.1); Creatinine, Blood 1.88 mg/dL (0.40-1.00); Potassium, Blood 4.2 mmol/L (3.5-5.5)
[2020-02-19 05:53] LABS: Troponin I 0.759 ng/mL (0.000-0.040)
--- NOTE | 2020-02-19 06:28 | NUR ---
patient submitted for pneumonia with elevated Troponins with no complaints of chest pain and some slight complain of shortness of breath tolerating 2L nasal cannula well. Overnight the patient had a change in cardiac rhythm that appeared to be an intermittent LBBB, at which time the patient remained stable with no changes in vital signs or physical distress. At around 6 AM a critical lab results for troponin was reported to me and I notified Dr. Patel Cardenas, and I also notified him of the change in rhythm, to watch the plan still remains to do any cardio gram and further cardiac work up.
--- NOTE | 2020-02-19 11:43 | NUR ---
echocardiogram complete
--- NOTE | 2020-02-19 15:03 | NUR ---
PT HRR THIS MORNING WAS ELEVATED AT 115 WITH UNREADABLE RHYTHM ON THE MONITOR ORDER RECEIVED FOR EKG 12L SHOWS WIDE QRS WITH CONSISTENT PVC'S. PROVIDER MADE AWARE ORAL PRESSOR PRN GIVEN, PT TRANSITION BACK TO SINUS WITH BBB RATE STAYED ON THE 90'S. PT WAS ALSO GIVEN ATIVAN FOR ANXIETY. ORDER PLACED FOR IV LOPRESSOR 5MG PRN IF HR IS ABOVE 100'S. PT DENIES CHEST PAIN/PRESSURE. AT THE BEDSIDE, PT CONTINUES ON IV ABO FOR PNA. BP SYSTOLIC REMAINS ON 115'S, AFEBRILE, 94% ON 2L OF O2, SOB WITH EXERTION. WILL MONITOR
--- NOTE | 2020-02-19 19:26 | NUR ---
PT SUMMARY: SEE PREVIOUS NOTES PT CONVERTED BACK TO ABNORMAL RHYTHM WIDE QRS WITH CONSECUTIVE PVC'S RATE ON THE 100'S, PT IS ASYMPTOMATIC, IV 5MG METOPROLOL GIVEN X1 WITH NO EFFECT. PT ALSO GIVEN ATIVAN X2 FOR THE SHIFT PER REQUEST, BP SYSTOLIC 120'S, SATS ABOVE 94% ON 2L O2. CONTINUES ON IV ABO FOR PNA. PT CURRENTLY RESTING IN BED CALL LIGHTS WITHIN REACH. REPORT GIVEN TO DIET TECH NURSE
[2020-02-20 04:37] LABS: BASOPHILS ABSOLUTE AUTO 0.07 K/mm3 (0.00-0.23); BASOPHILS PERCENT AUTO 1 % (0-2); EOSINOPHILS ABSOLUTE AUTO 0.46 K/mm3 (0.00-0.68); EOSINOPHILS PERCENT AUTO 6 % (0-6); Hematocrit 39.3 % (33.0-51.0); Hemoglobin 12.3 g/dL (11.5-16.0); IMMATURE GRAN ABSOLUTE AUTO 0.04 K/mm3 (0.00-0.10); IMMATURE GRAN PERCENT AUTO 1 % (0-1); LYMPHOCYTES ABSOLUTE AUTO 1.33 K/mm3 (0.84-5.20); LYMPHOCYTES PERCENT AUTO 16 % (21-46); MONOCYTES ABSOLUTE AUTO 0.87 K/mm3 (0.16-1.47); MONOCYTES PERCENT AUTO 11 % (4-13); Mean Corpuscular HGB 31.3 pg (26.0-34.0); Mean Corpuscular HGB Conc 31.3 g/dL (31.5-36.5); Mean Corpuscular Volume 100 fL (80-100); Mean Platelet Volume 10.1 fL (9.1-12.4); NEUTROPHILS ABSOLUTE AUTO 5.44 K/mm3 (1.96-9.15); NEUTROPHILS PERCENT AUTO 66 % (41-73); Platelet Count 291 K/mm3 (150-400); RDW Coefficient Variation 14.1 % (11.7-14.2); Red Blood Cell Count 3.93 M/mm3 (3.80-5.20); White Blood Cell Count 8.21 K/mm3 (4.00-11.30)
[2020-02-20 04:56] LABS: Albumin, Blood 2.2 g/dL (3.4-5.0); Albumin/Globulin Ratio 0.5 (0.8-1.8); Bilirubin, Total 0.3 mg/dL (0.1-1.0); Calcium, Blood 8.5 mg/dL (8.5-10.1); Globulin, Blood 4.5 g/dL (2.2-4.0); Total Protein, Blood 6.7 g/dL (6.4-8.2)
--- NOTE | 2020-02-20 06:31 | NUR ---
patient admitted for pneumonia with elevated troponin's remain stable throughout the entire shift. Her troponin's peaked at 0.7X we are now down trending around 0.5X. Patient does not complain of chest pain, pressure, shortness of breath, palpitations, or any other cardio pulmonary related symptoms. patient vital signs remain stable throughout the shift on 2 L of oxygen maintain saturations in the high 90s.
--- NOTE | 2020-02-20 10:30 | NUR ---
PT WAS TACHYCARDIC UP TO 200'S THIS MORNING, PT WAS ASSISTED BY CLERGY MEMBER IN THE BATHROOM, PT WAS ASYMPTOMATIC NO CHEST PAIN/PALPITATIONS OR DIZZINESS. EKG 12L WAS DONE PT WAS SHOWING SVT ON THE 200'S-220'S. DR BARNES CAME BY AND SAW PT SINCE DR STRATTON ALREADY MADE HIM AWARE OF THE PT'S ELEVATED TROPONIN. DR BARNES ORDER TO GIVE PT ADENOSINE PUSH 6MG NOT EFFECTIVE PT ALSO INSTRUCTED TO DO VALSALVA MANEUVER AND WAS ALSO NOT EFFECTIVE. ANOTHER DOSE OF 12MG OF ADENOSINE WAS GIVEN AFTER STILL NOT EFFECTIVE. 5MG OF IV METOPROLOL WAS ADMINISTERED STILL NO RESPONSE, DR BARNES ORDER TO PROCEED WITH CARDIOVERSION. PROCEDURE STARTED AT 0905 WITH 3 RN'S, [address] BARNES IN THE ROOM PT WAS SEDATED WITH FENTANYL AND VERSED. 150J OF ELECTRICITY WAS DELIVERED AND PT CONVERTED BACK TO SINUS RHYTHM ON THE 80'S. PT TOLERATED THE PROCEDURE WELL BP STARTED DROPPING LOW ON THE 80'S-90'S 500CC ON NS BOLUS GIVEN. PT'S LAST BP SYSTOLIC ON THE 100'S. PT CURRENTLY NOW RESTING IN BED, DENIES CHEST PAIN/PRESSURE, SATS ABOVE 94% ON 3L OF O2, AT THE BEDSIDE AWARE OF THE SITUATION. DR STRATTON ALSO SAW PT PRE-PROCEDURE THIS MORNING. WILL MONITOR PT.
[2020-02-21 03:59] LABS: BASOPHILS ABSOLUTE AUTO 0.05 K/mm3 (0.00-0.23); BASOPHILS PERCENT AUTO 1 % (0-2); EOSINOPHILS PERCENT AUTO 5 % (0-6); Hematocrit 37.3 % (33.0-51.0); Hemoglobin 11.5 g/dL (11.5-16.0); IMMATURE GRAN ABSOLUTE AUTO 0.06 K/mm3 (0.00-0.10); IMMATURE GRAN PERCENT AUTO 1 % (0-1); LYMPHOCYTES ABSOLUTE AUTO 0.95 K/mm3 (0.84-5.20); LYMPHOCYTES PERCENT AUTO 11 % (21-46); MONOCYTES ABSOLUTE AUTO 0.81 K/mm3 (0.16-1.47); MONOCYTES PERCENT AUTO 9 % (4-13); Mean Corpuscular HGB Conc 30.8 g/dL (31.5-36.5); Mean Corpuscular Volume 101 fL (80-100); Mean Platelet Volume 9.8 fL (9.1-12.4); NEUTROPHILS ABSOLUTE AUTO 6.49 K/mm3 (1.96-9.15); NEUTROPHILS PERCENT AUTO 74 % (41-73); Platelet Count 293 K/mm3 (150-400); RDW Coefficient Variation 14.1 % (11.7-14.2); RDW Standard Deviation 50.5 fL (35.1-46.3); Red Blood Cell Count 3.71 M/mm3 (3.80-5.20); White Blood Cell Count 8.76 K/mm3 (4.00-11.30)
[2020-02-21 04:22] LABS: Albumin, Blood 2.1 g/dL (3.4-5.0); Albumin/Globulin Ratio 0.5 (0.8-1.8); Bilirubin, Total 0.3 mg/dL (0.1-1.0); Bun/Creatinine Ratio 17.5 (12.0-20.0); Calcium, Blood 8.3 mg/dL (8.5-10.1); Creatinine, Blood 1.77 mg/dL (0.40-1.00); Globulin, Blood 4.4 g/dL (2.2-4.0); Potassium, Blood 4.1 mmol/L (3.5-5.5); Total Protein, Blood 6.5 g/dL (6.4-8.2)
[2020-02-21 04:32] LABS: Troponin I 0.72 ng/mL (0.000-0.040)
--- NOTE | 2020-02-21 05:03 | NUR ---
assumed care of this patient at 7 PM on February 19, patient initially admitted for pneumonia and elevated troponin. No acute changes overnight. Troponin levels remain elevated but, patient denies chest pain chest pressure, shortness of breath. Patient remained in normal sinus rhythm with RBBB and occasional PVCs but no significant rhythm changes overnight. Amiodarone running at 0.5 mg/min with a stop time for around 7 PM February 20.
--- NOTE | 2020-02-21 06:40 | NUR ---
1224 TOTAL INFUSED AMOUNT SINCE IV PUMP LAST CLEARED, NOT TOTAL AMOUNT FOR SHIFT
[2020-02-21 14:31] LABS: International Normalized Ratio 1.07; Prothrombin Time Results 11.4 Sec (9.7-11.5)
--- NOTE | 2020-02-21 15:27 | NUR ---
PT ALERT AND ORIENTED, AFEBRILE, HRR STILL SR WITH BBB 70'S-80'S PT REMAINS ON THE AMIODARONE GTT AT 16.6MLS/HR PT TOLERATING WELL, PT HAD SHORT EVENT OF IDIOVENTRICULAR HEART RHYTHM ON THE 120'S UPON GETTING UP TO USE THE COMMODE CONVERTED BACK TO NSR WITH BBB AFTER PT WAS BACK IN BED. PT DENIES ANY CHEST PAIN/PALPITATIONS. DR MARTINEZ IS AWARE, PLAN TO GET DR BOWER CONSULTED REGARDING KIDNEY FUNCTION PRIOR TO DOING ANGIOGRAM DUE TO TROPONIN TRENDS, ORDER A LIFE VEST PRIOR TO DISCHARGE AND GET CARDIAC MRI OUTPATIENT. DR MARTINEZ DISCUSSED PLAN WITH IN THE ROOM. RAPID COVID DONE AND WAS NEGATIVE, ALSO PLAN TO DO TAP PROCEDURE LATEST CHEST XRAY PROCEDURE DONE SHOWS RIGH PLEURAL EFFUSION WITH 600MLS OF FLUIDS, PT HAD ASPIRIN AND LOVENOX THIS MORNING PROCEDURE WAS HELD TODAY WILL PROCEED IN THE MORNING. POWERGLIDE IN PLACE ON LEFT UPPER ARM SINGLE LUMEN PATENT FLUSHES WITH GOOD BLOOD RETURN. PT ABLE TO MAKE NEEDS KNOWN AT BEDSIDE CALL LIGHTS WITHIN REACH WILL MONITOR
[2020-02-22 03:33] LABS: BASOPHILS ABSOLUTE AUTO 0.05 K/mm3 (0.00-0.23); BASOPHILS PERCENT AUTO 1 % (0-2); EOSINOPHILS ABSOLUTE AUTO 0.37 K/mm3 (0.00-0.68); EOSINOPHILS PERCENT AUTO 4 % (0-6); Hematocrit 36.8 % (33.0-51.0); Hemoglobin 11.5 g/dL (11.5-16.0); IMMATURE GRAN ABSOLUTE AUTO 0.04 K/mm3 (0.00-0.10); IMMATURE GRAN PERCENT AUTO 0 % (0-1); LYMPHOCYTES ABSOLUTE AUTO 0.89 K/mm3 (0.84-5.20); LYMPHOCYTES PERCENT AUTO 10 % (21-46); MONOCYTES ABSOLUTE AUTO 0.85 K/mm3 (0.16-1.47); MONOCYTES PERCENT AUTO 9 % (4-13); Mean Corpuscular HGB Conc 31.3 g/dL (31.5-36.5); Mean Corpuscular Volume 99 fL (80-100); Mean Platelet Volume 9.8 fL (9.1-12.4); NEUTROPHILS ABSOLUTE AUTO 6.92 K/mm3 (1.96-9.15); NEUTROPHILS PERCENT AUTO 76 % (41-73); NRBC ABSOLUTE 0.02 K/mm3 (0.00-0.02); NRBC Auto 0.2 /100 WBC (0.0-0.2); Platelet Count 315 K/mm3 (150-400); RDW Coefficient Variation 14.3 % (11.7-14.2); Red Blood Cell Count 3.71 M/mm3 (3.80-5.20); White Blood Cell Count 9.12 K/mm3 (4.00-11.30)
[2020-02-22 03:47] LABS: Albumin, Blood 2.1 g/dL (3.4-5.0); Anion Gap 6 mmol/L (6-16); Blood Urea Nitrogen 30 mg/dL (8-24); Bun/Creatinine Ratio 18.5 (12.0-20.0); CO2, Blood 27 mmol/L (21-32); Calcium, Blood 8.3 mg/dL (8.5-10.1); Chloride, Blood 110 mmol/L (98-108); Creatinine, Blood 1.62 mg/dL (0.40-1.00); Glomerular Filtration Rate 33 (60-); Glucose, Blood 103 mg/dL (70-99); Magnesium, Blood 2.2 mg/dL (1.6-2.4); Phosphorus, Blood 3.1 mg/dL (2.5-4.9); Potassium, Blood 3.8 mmol/L (3.5-5.5); Sodium, Blood 143 mmol/L (136-145)
--- NOTE | 2020-02-22 05:33 | NUR ---
SHIFT SUMMARY PT SLEEPING IN ROOM COMFORTABLY AT THIS TIME. NO ACUTE CHANGES IN STATUS T/O NIGHT. PT SLEPT WELL. WOKE EASILY TO VERBAL. DENIED ANY CP OR SOB T/O NIGHT PT WORE 1L NC DURING SLEEP FOR COMFORT. RESP EVEN EVEN UNLABORED W/ SATS >92%. CALL LIGHT IN REACH.
[2020-02-22 12:34] LABS: Automated BF WBC Count 0.834 K/mm3 (0-999); Body Fluid WBC Count 834 /mm3 (0-999)
[2020-02-22 12:40] LABS: Glucose, Body Fluid 112 mg/dL
[2020-02-22 12:43] LABS: Lactate Dehydrogenase, Body Fl 132 U/L
[2020-02-22 13:14] LABS: RBC Count, Body Fluid 1425 /mm3 (0-0)
[2020-02-22 13:21] LABS: Appearance, Body Fluid Hazy (Clear); Color, Body Fluid Yellow (None-Yellow); Total Cell Count, Body Fluid 100
--- NOTE | 2020-02-22 17:07 | NUR ---
SHIFT SUMMARY PT A&Ox4; ANXIOUS BUT COOPERATIVE WITH CARE. PT RESTING IN BED DURING SHIFT, UP TO BATHROOM WITH 1 PERSON ASSIST. PT HAD US OF RENAL AND US THORACENTESIS THIS AM. PT DENIES PAIN, CHEST PAIN/PRESSURE, AND NAUSEA. PT REPORTS SOB WITH ACTIVITY. PT ON 1L O2 VIA NC FOR COMFORT. PT RECEIVING IV ANTIBIOTICS. VSS. NO OTHER ACUTE CHANGES NOTED DURING SHIFT. WILL CONTINUE TO MONITOR UNITL REPORT TO ONCOMING RN.
[2020-02-23 04:32] LABS: BASOPHILS ABSOLUTE AUTO 0.06 K/mm3 (0.00-0.23); BASOPHILS PERCENT AUTO 1 % (0-2); EOSINOPHILS ABSOLUTE AUTO 0.46 K/mm3 (0.00-0.68); EOSINOPHILS PERCENT AUTO 4 % (0-6); Hematocrit 39.6 % (33.0-51.0); IMMATURE GRAN ABSOLUTE AUTO 0.05 K/mm3 (0.00-0.10); IMMATURE GRAN PERCENT AUTO 1 % (0-1); LYMPHOCYTES ABSOLUTE AUTO 1.25 K/mm3 (0.84-5.20); LYMPHOCYTES PERCENT AUTO 12 % (21-46); MONOCYTES ABSOLUTE AUTO 1.15 K/mm3 (0.16-1.47); MONOCYTES PERCENT AUTO 11 % (4-13); Mean Corpuscular HGB 30.5 pg (26.0-34.0); Mean Corpuscular HGB Conc 30.3 g/dL (31.5-36.5); Mean Corpuscular Volume 101 fL (80-100); NEUTROPHILS ABSOLUTE AUTO 7.42 K/mm3 (1.96-9.15); NEUTROPHILS PERCENT AUTO 71 % (41-73); Platelet Count 342 K/mm3 (150-400); RDW Coefficient Variation 14.2 % (11.7-14.2); RDW Standard Deviation 51.8 fL (35.1-46.3); Red Blood Cell Count 3.93 M/mm3 (3.80-5.20); White Blood Cell Count 10.39 K/mm3 (4.00-11.30)
[2020-02-23 04:53] LABS: Magnesium, Blood 2.2 mg/dL (1.6-2.4)
[2020-02-23 04:54] LABS: Albumin, Blood 2.2 g/dL (3.4-5.0); Anion Gap 5 mmol/L (6-16); Blood Urea Nitrogen 26 mg/dL (8-24); CO2, Blood 28 mmol/L (21-32); Calcium, Blood 8.6 mg/dL (8.5-10.1); Chloride, Blood 109 mmol/L (98-108); Creatinine, Blood 1.63 mg/dL (0.40-1.00); Glomerular Filtration Rate 33 (60-); Glucose, Blood 91 mg/dL (70-99); Phosphorus, Blood 3.1 mg/dL (2.5-4.9); Potassium, Blood 3.8 mmol/L (3.5-5.5); Sodium, Blood 142 mmol/L (136-145)
--- NOTE | 2020-02-23 04:55 | NUR ---
SHIFT SUMMARY PT A&O; DENIES CHEST PAIN; VSS MOST OF SHIFT; ONE EPISODE OF TACHY WHEN ABULATED TO BATHROOM; HR 150'S; PO MEDS GIVEN, AMIODORONE & METOPROLOL; HR 80'S AFTER 45-50 MINUTES OF MEDS PASS; BSC USED FOR ADDITIONAL BATHROOM NEEDS; NO ADDITIONAL TACHY EPISODES NOTED; NSR W/ BBB & PVC'S PER PEDIATRIC IMMUNOLOGIST; O2 SATS >94 ON 1L NC; RESPIRATIONS EVEN/UNLABORED; DENIES SOB; PT CURRENTLY SLEEPING; CALL LIGHT IN REACH; BED IN LOWEST POSITION; BED ALARM ON; WILL CONTINUE TO MONITOR CLOSELY UNTIL HAND OFF TO DAY SHIFT RN.
--- NOTE | 2020-02-23 15:59 | NUR ---
Spiritual care visit attempted. Patient is lying in bed and alert. Spouse, Guido, is bedside. Guido is friendly and warm, patient acts annoyed at the disturbance of my questions and intrusion on her rest. Guido explains the patient's medical issues, and the care plan going forward. As Guido talks patient reaches over and squeezes Guido's hand and he stops talking and patient thanks me for coming. Patient states that she is not interested in visits from the spiritual care department in the future. I take that as my cue to go and I do so. I will continue to remain available to patient and family.
--- NOTE | 2020-02-23 19:43 | NUR ---
SHIFT SUMMARY PT A&Ox3; CALM AND COOPERATIVE WITH CARE. PT FORGETFUL AT TIMES. PT 1 PERSON ASSIST TO BSC; HR ELEVATED WITH ACTIVITY. PT DENIES PAIN, CHEST PAIN/PRESSURE, SOB, NAUSEA AND DIZZINESS. PT TO LABEL PINKER THIS AM, RIGHT RADIAL SITE; TR BAND RECOVERED PER ORDERS, TEGADERM IN PLACE. MINIMAL BRUISING NOTED AROUND CATH SITE. BRUISING NOTED ABOVED RADIAL SITE, OLD IV SITE. SPO2 > 90 ON 1L O2 VIA NC. PT HAD 2 EPISODES OF HR IN 120-140'S MEDICATED 1ST TIME WITH SCHEDULE AM MEDICATIONS AND 2ND TIME WITH PRN IV LOPRESSOR. OTHER VSS. NO OTHER ACUTE CHANGES NOTED DURING SHIFT. REPORT GIVEN TO ONCOMING RN.
[2020-02-24 06:14] LABS: BASOPHILS ABSOLUTE AUTO 0.08 K/mm3 (0.00-0.23); BASOPHILS PERCENT AUTO 1 % (0-2); EOSINOPHILS ABSOLUTE AUTO 0.39 K/mm3 (0.00-0.68); EOSINOPHILS PERCENT AUTO 5 % (0-6); Hematocrit 39.3 % (33.0-51.0); Hemoglobin 12.2 g/dL (11.5-16.0); IMMATURE GRAN ABSOLUTE AUTO 0.04 K/mm3 (0.00-0.10); IMMATURE GRAN PERCENT AUTO 1 % (0-1); LYMPHOCYTES ABSOLUTE AUTO 1.12 K/mm3 (0.84-5.20); LYMPHOCYTES PERCENT AUTO 14 % (21-46); MONOCYTES ABSOLUTE AUTO 0.72 K/mm3 (0.16-1.47); MONOCYTES PERCENT AUTO 9 % (4-13); Mean Corpuscular HGB 30.7 pg (26.0-34.0); Mean Corpuscular Volume 99 fL (80-100); Mean Platelet Volume 10.1 fL (9.1-12.4); NEUTROPHILS PERCENT AUTO 71 % (41-73); Platelet Count 367 K/mm3 (150-400); RDW Coefficient Variation 14.3 % (11.7-14.2); RDW Standard Deviation 51.3 fL (35.1-46.3); Red Blood Cell Count 3.98 M/mm3 (3.80-5.20); White Blood Cell Count 8.15 K/mm3 (4.00-11.30)
--- NOTE | 2020-02-24 06:24 | NUR ---
patient will overnight, no acute events. Patient's heart rate and heart rhythm stayed within normal limits throughout the shift. Patient on oxygen a 1 L with no respiratory distress or any other car do you pulmonary symptoms. Denies chest pain, chest pressure, shortness of breath
--- NOTE | 2020-02-24 06:25 | NUR ---
patient was admitted for a stroke and not eligible for TPA. Patient remained GCS of 10 throughout the shift which appear to be a change from his initial GCS in the emergency department. Teachers changing GCS we obtained a CT head without contrast overnight. By the end of the night the patient was able to speak some words which showed a slight improvement in GCS. Patient was able to move all extremities it's still remains slightly weaker on the right side. Sun remain at bedside all night to help with translation and comfort for the patient and was very cooperative and helpful in the care
[2020-02-24 06:41] LABS: Magnesium, Blood 2.3 mg/dL (1.6-2.4)
[2020-02-24 06:52] LABS: Albumin, Blood 2.2 g/dL (3.4-5.0); Anion Gap 6 mmol/L (6-16); Blood Urea Nitrogen 23 mg/dL (8-24); Bun/Creatinine Ratio 13.2 (12.0-20.0); CO2, Blood 27 mmol/L (21-32); Calcium, Blood 8.5 mg/dL (8.5-10.1); Chloride, Blood 110 mmol/L (98-108); Creatinine, Blood 1.74 mg/dL (0.40-1.00); Glomerular Filtration Rate 31 (60-); Glucose, Blood 95 mg/dL (70-99); Phosphorus, Blood 3.2 mg/dL (2.5-4.9); Potassium, Blood 4.1 mmol/L (3.5-5.5); Sodium, Blood 143 mmol/L (136-145)
--- NOTE | 2020-02-24 13:13 | NUR ---
DR STRATTON AND DR MARTINEZ CALLED PT HAS RETURNED TO A WIDE COMPLEX RHYTHM AT 120. NEW ORDERS OBTAINED FROM DR STRATTON. MESSAGE LEFT FOR DR MARTINEZ
[2020-02-24 13:18] LABS: Amylase, Blood 65 U/L (25-115)
[2020-02-24 13:31] LABS: Alanine Aminotransfer (ALT/SGP 28 U/L (12-78); Albumin, Blood 2.2 g/dL (3.4-5.0); Albumin/Globulin Ratio 0.5 (0.8-1.8); Alk Phos 86 U/L (50-136); Aspartate Aminotrans (AST/SGOT 20 U/L (12-37); Bilirubin, Direct <0.1 mg/dL (0.0-0.3); Bilirubin, Indirect Unable to Calculate mg/dL (0.1-0.7); Bilirubin, Total 0.4 mg/dL (0.1-1.0); Globulin, Blood 4.5 g/dL (2.2-4.0); Total Protein, Blood 6.7 g/dL (6.4-8.2)
[2020-02-24] MEDS ORDERED: ACET325 PO (13:51)
[2020-02-24] MEDS ORDERED: N-ACETYL-L-CYS600 MG PO (13:52)
[2020-02-24] MEDS ORDERED: Pacerone400 MG PO (13:53)
[2020-02-24] MEDS ORDERED: ZOFRAN4 MG PO (13:54)
[2020-02-24] MEDS ORDERED: AMOCLA500 PO (14:04)
[2020-02-24] MEDS ORDERED: PROBIOTIC ACID PO (14:05)
--- NOTE | 2020-02-24 17:33 | NUR ---
SHIFT NOTE PT A/O X3, ANSWERS QUESTIONS APPROPRIATELY. PT HAS REQUIRED ATIVAN T/O THE DAY FOR ANXIETY. PT DID HAVE A SHORT RUN OF A-FLUTTER WHICH RESOLVED WITHOUT MEDICATION INTERVENTION. PT WILL BE STAYING ANOTHER NIGHT TONIGHT HER LIFE VEST HAS NOT YET BEEN APPROVED, PT IS AWARE THAT SHE DUC BE STAYING TONIGHT. S/O AND SERVICE ANIMAL ARE AT BEDSIDE. PT HAS BEEN INDEPENDANT UP TO BATHROOM T/O THE DAY. DENIES CP AND SOB T/O THE DAY
[2020-02-25 04:55] LABS: BASOPHILS ABSOLUTE AUTO 0.06 K/mm3 (0.00-0.23); BASOPHILS PERCENT AUTO 1 % (0-2); EOSINOPHILS ABSOLUTE AUTO 0.44 K/mm3 (0.00-0.68); EOSINOPHILS PERCENT AUTO 5 % (0-6); Hematocrit 38.3 % (33.0-51.0); Hemoglobin 12.1 g/dL (11.5-16.0); IMMATURE GRAN ABSOLUTE AUTO 0.04 K/mm3 (0.00-0.10); IMMATURE GRAN PERCENT AUTO 1 % (0-1); LYMPHOCYTES ABSOLUTE AUTO 1.14 K/mm3 (0.84-5.20); LYMPHOCYTES PERCENT AUTO 14 % (21-46); MONOCYTES ABSOLUTE AUTO 0.73 K/mm3 (0.16-1.47); MONOCYTES PERCENT AUTO 9 % (4-13); Mean Corpuscular HGB 31.4 pg (26.0-34.0); Mean Corpuscular HGB Conc 31.6 g/dL (31.5-36.5); Mean Corpuscular Volume 100 fL (80-100); Mean Platelet Volume 10.1 fL (9.1-12.4); NEUTROPHILS ABSOLUTE AUTO 5.67 K/mm3 (1.96-9.15); NEUTROPHILS PERCENT AUTO 70 % (41-73); Platelet Count 344 K/mm3 (150-400); RDW Coefficient Variation 14.4 % (11.7-14.2); RDW Standard Deviation 51.8 fL (35.1-46.3); Red Blood Cell Count 3.85 M/mm3 (3.80-5.20); White Blood Cell Count 8.08 K/mm3 (4.00-11.30)
[2020-02-25 05:12] LABS: Bun/Creatinine Ratio 13.7 (12.0-20.0); Calcium, Blood 8.7 mg/dL (8.5-10.1); Creatinine, Blood 1.61 mg/dL (0.40-1.00); Magnesium, Blood 2.2 mg/dL (1.6-2.4)
--- NOTE | 2020-02-25 06:28 | NUR ---
patient did well overnight, with stable vital signs and no acute events. Patient denies chest pain, chest pressure, or any shortness of breath. Patient remains in 2 L of oxygen nasal cannula. patient was instructed to use the call light if needed assistance.
--- NOTE | 2020-02-25 10:35 | NUR ---
CARE ASSUMED REPORT RECEIVED, CARE ASSUMED AT 0700 FROM DONNA CARVALHO. PT RESTING IN BED, AROUSES EASILY FOR ASSESSMENT. VITALS STABLE. PT DENIES PAIN/DISCOMFORT. DISCHARGE PENDING DELIVERY OF [employer] FOR APPLICATION PRIOR TO DISCHARGE. PT AGREEABLE TO PLAN.
[2020-02-25] MEDS ORDERED: ELIQUIS2.5 MG PO (16:21)
[2020-02-25] MEDS ORDERED: AMOCLA500 PO (16:21)
--- NOTE | 2020-02-25 18:45 | NUR ---
DISCHARGE LIFE VEST PLACED BY [employer] REP. DISCHARGE EDUCATION COMPLETED WITH BOTH PT AND . ALL QUESTIONS ANSWERED. INSTRUCTED PT AND ON USE OF OXYGEN. [facility] CALLED WITH RX AT APPROX 1600. REQUESTING CONFIRMED AVAILABILITY OF MEDICATIONS WHICH WAS VERIFIED BY PHARMACIST. VITALS STABLE. PT DENIES PAIN/DISCOMFORT. ASSISTED BY [employer]AS[employer] TO 'S VEHICLE. PER , THEY ARE HEADED STRAIGHT TO PHARMACY TO DISEASE AND INSECT CONTROL BOSS PRESCRIPTIONS.
[2020-02-26 08:10] LABS: HBSAG SCREEN Negative (Negative); HEP B CORE AB, TOT Negative (Negative); HEP C VIRUS AB <0.1 (0.0-0.9)
[2020-04-14] MEDS ORDERED: ONDA4ODT MM (11:54)
[2020-04-14] MEDS ORDERED: CALCIUM CIT 311 EACH PO (11:54)
[2020-04-14] MEDS ORDERED: NORTHERA100 MG PO (11:55)
[2020-04-14] MEDS ORDERED: Depakote125 MG PO (11:55)
[2020-04-14] MEDS ORDERED: FISH OIL-VIT D1 EACH PO (11:56)
[2020-04-14] MEDS ORDERED: HYDMOR4 PO (11:56)
[2020-04-14] MEDS ORDERED: Robaxin750 MG PO (11:57)
[2020-04-14] MEDS ORDERED: NORTHERA300 MG PO (11:57)
[2020-04-14] MEDS ORDERED: MSM1000 M3 PO (11:57)
[2020-04-14] MEDS ORDERED: Vesicare10 MG PO (11:58)
[2020-04-14] MEDS ORDERED: LINZESS290 MCG PO (11:59)
[2020-04-14] MEDS ORDERED: GLUC500 PO (12:00)
== END 2020-02-25 18:30 | disposition home or self-care (01) | DRG 193 ==
LOC: ER 15:15 → PCU 15:16
PROVIDERS: Emergency Medicine; Family Medicine; Internal Medicine Nephrology; ADMIT Internal Medicine
PROC: 0W993ZZ Drainage of Right Pleural Cavity, Percutaneous Approach (ICD-10-PCS; principal; 2020-02-22)
PROC: B2111ZZ Fluoroscopy of Multiple Coronary Arteries using Low Osmolar Contrast (ICD-10-PCS; 2020-02-23)
DX: J18.9 Pneumonia, unspecified organism (principal); I21.A1 Myocardial infarction type 2; I50.23 Acute on chronic systolic (congestive) heart failure; N18.4 Chronic kidney disease, stage 4 (severe); N25.81 Secondary hyperparathyroidism of renal origin; N17.9 Acute kidney failure, unspecified; I48.92 Unspecified atrial flutter; I13.0 Hypertensive heart and chronic kidney disease with heart failure and stage 1 through stage 4 chronic kidney disease, or unspecified chronic kidney disease; Z79.82 Long term (current) use of aspirin; E03.9 Hypothyroidism, unspecified; F41.9 Anxiety disorder, unspecified; F32.9 Major depressive disorder, single episode, unspecified; E66.9 Obesity, unspecified; I95.9 Hypotension, unspecified; Z20.828 Contact with and (suspected) exposure to other viral communicable diseases; R32 Unspecified urinary incontinence; Z68.31 Body mass index [BMI] 31.0-31.9, adult; E88.09 Other disorders of plasma-protein metabolism, not elsewhere classified; I25.10 Atherosclerotic heart disease of native coronary artery without angina pectoris; R91.1 Solitary pulmonary nodule
CPT/HCPCS: 32555; 36415; 71045; 76705; 76770; 76937; 80048; 80053; 80069; 80076; 82150; 82248; 82945; 83615; 83690; 83735; 83880; 84484; 85025; 85610; 86704; 86708; 86803; 87070; 87205; 87340; 89051; 93005; 93010; 93306; 93454; 94761; 96365; 96372; 96375; 96376; 99152; 99153; 99285-25; A9270; A9270-GY; C1769; C1894; C8929; G0378; J0153; J0282; J1644; J1650; J1940; J2250; J2310; J2543; J3010; J7030; J7060; Q9957; Q9967; U0002

== ENCOUNTER → 2020-03-20 | Outpatient (CLI) | payer MEDICARE, OTHER ==
[~2020-03-20] MED LIST changes: +ACET325 PO; +AMOCLA500 PO; +CALCIUM CIT 311 EACH PO; +Depakote125 MG PO; +Divalproex Sod125 M1 PO; +ELIQUIS2.5 MG PO; +FISH OIL 1,0001 EAC4 PO; +FISH OIL-VIT D1 EACH PO; +GLUC500 PO; +HYDMOR4 PO; +K-TAB ER20 ME1 PO; +LIDO5TO TOP; +LINZESS290 MCG PO; +MOTION RELIEF25 MG PO; +MSM1000 M2 PO; +MSM1000 M3 PO; +N-ACETYL-L-CYS600 MG PO; +NEURONTIN300 MG PO; +OLANZAPINE5 M1 PO; +ONDA4ODT MM; +PROBIOTIC ACID PO; +PYRI100 PO; +Pacerone400 MG PO; +Robaxin750 MG PO; +SODCHL1 PO; +TAMSULOSIN HCL0.4 M1 PO; +VITAMIN C 500500 MG PO; +Vitamin D2000 UNIT PO; +ZOFRAN4 MG PO
[2020-03-20 15:14] LABS: Sodium, Urine 21 mmol/L (20-110)
[2020-03-20 15:22] LABS: Microalbumin, Urine Quant. <5.000 mg/L (0.000-20.000); Protein, Urine Quantitative <5.0 mg/dL (0.0-11.9)
== END | disposition home or self-care (01) ==
LOC: LAB SHORT 13:12 → LAB 13:12 → LAB FUT 12-31 13:50
PROVIDERS: Internal Medicine Nephrology
DX: N18.3 Chronic kidney disease, stage 3 (moderate) (principal); D63.1 Anemia in chronic kidney disease; N25.81 Secondary hyperparathyroidism of renal origin; E55.9 Vitamin D deficiency, unspecified; E78.00 Pure hypercholesterolemia, unspecified; R76.9 Abnormal immunological finding in serum, unspecified; R94.5 Abnormal results of liver function studies; R94.6 Abnormal results of thyroid function studies; R80.9 Proteinuria, unspecified
CPT/HCPCS: 81050; 82043; 82530; 82570; 84156; 84300

== ENCOUNTER 2020-04-17 06:59 | Day surgery (SDC) | payer MEDICARE, OTHER ==
[~2020-04-17] VITALS: Ht 162.6 cm; Wt 79.0 kg
--- NOTE | 2020-04-17 12:16 | NUR ---
PT RETURNED TO [facility] RECOVER ROOM POST ANESTHEIA. PT ABLE TO SPEAK IN SHORT SENTENCES WITHOUT COMPLICATIONS OR PAIN. VSS. PT SATS 96% ON ROOM AIR. HR MID 70'S. WILL CONTINUE TO MONITOR.
--- NOTE | 2020-04-17 12:30 | NUR ---
DRESSINGS INTACT ON MID AND LEFT CHEST WALL; PRESSURE DRESSING MID-CHEST INTACT. PT DENIES CHEST PAIN AND CALL LIGHT IN REACH.
--- NOTE | 2020-04-17 13:00 | NUR ---
DR MARTINEZ IN ROOM TO SEE PT.
--- NOTE | 2020-04-17 18:43 | NUR ---
SUMMARY PT ADMITTED FROM THE COURIER AFTER ICD PLACEMENT. SHE IS A&O X4, ON ROOM AIR, VSS, DENIES CP/PRESSURE. PT HAS VOIDED AND IS TOLERATING PO INTAKE WITH NO PROBLEMS. PT HAS 3 DRSG'S TO HER CHEST, ALL 3 REMAIN C/D/I. WASIN TO SPEAK WITH THE PT & HER AFTER THE PROCEDURE, BOTH STATED UNDERSTANDING & ASKED APPROPRIATE QUESTIONS. WCTM AT THIS TIME, REPORT TO BE GIVEN TO NOC RN. CALL LIGHT IN REACH
--- NOTE | 2020-04-18 04:51 | NUR ---
SHIFT SUMMARY: PATIENT ANXIOUS ABOUT HIGH BLOOD PRESSURES, AFTER PATIENT FELL TO SLEEP; HER SBP DROPPED DOWN INTO THE 120'S TO 130'S. ALL OTHER VSS. TYLENOL X1 FOR SURGICAL SITE PAIN, NO OTHER ISSUES. CALL LIGHT WITHIN REACH, BED LOW AND LOCKED.
--- NOTE | 2020-04-18 08:58 | NUR ---
UPDATE PT ALERT AND ORIENTED. PT MILDLY ANXIOUS THIS AM. VS STABLE. DR. MARTINEZ IN TO CHANGE DRESSING TO WOUNDS. DISCHARGE INSTRUCTIONS PROVIDED TO PT AND HER . PT EDUCATED ON MEDICATION CHANGES. ALL QUESTIONS ANSWERED. IV REMOVED. PT TO GET DRESSED AND BE TAKEN OUT BY WC.
== END 2020-04-18 09:13 | disposition home or self-care (01) ==
LOC: MHTC 06:59 → PCU 10:25 → MHTC 04-18 09:13
DX: I47.2 Ventricular tachycardia (principal); I42.8 Other cardiomyopathies; I12.9 Hypertensive chronic kidney disease with stage 1 through stage 4 chronic kidney disease, or unspecified chronic kidney disease; N18.9 Chronic kidney disease, unspecified; E78.5 Hyperlipidemia, unspecified; I48.92 Unspecified atrial flutter; E66.9 Obesity, unspecified; F32.9 Major depressive disorder, single episode, unspecified; J90 Pleural effusion, not elsewhere classified; Q61.3 Polycystic kidney, unspecified; I65.23 Occlusion and stenosis of bilateral carotid arteries; I25.10 Atherosclerotic heart disease of native coronary artery without angina pectoris; Z79.899 Other long term (current) drug therapy; Z79.82 Long term (current) use of aspirin; Z79.01 Long term (current) use of anticoagulants; Z68.30 Body mass index [BMI] 30.0-30.9, adult
CPT/HCPCS: 33270; 71045; 71046; A9270; A9270-GY; C1722; C1896; J0690; J1644; J2001; J2405; J3010; J7040; J7050; J7120

== ENCOUNTER → 2021-01-09 | Outpatient (CLI) | payer MEDICARE, SELFPAY ==
[2021-01-09 21:04] LABS: Microalbumin, Urine Quant. <5.000 mg/L (0.000-20.000); Protein, Urine Quantitative <5.0 mg/dL (0.0-11.9)
== END | disposition home or self-care (01) ==
LOC: LAB 07:00 → LAB SHORT 07:00
PROVIDERS: Internal Medicine Nephrology
DX: N18.30 Chronic kidney disease, stage 3 unspecified (principal); D63.1 Anemia in chronic kidney disease; R80.9 Proteinuria, unspecified; R76.9 Abnormal immunological finding in serum, unspecified
CPT/HCPCS: 81050; 82043; 82570; 84156

== ENCOUNTER 2021-06-12 14:51 | Inpatient (IN) | payer MEDICARE ==
[~2021-06-12] VITALS: Ht 162.6 cm; Wt 82.2 kg
[2021-06-12] MEDS ORDERED: Ativan1 MG PO (15:29)
[2021-06-12] MEDS ORDERED: CLOMIPRAMINE HC50 M1 PO ×2 (15:32→19:19)
[2021-06-12 15:37] LABS: BASOPHILS ABSOLUTE AUTO 0.06 K/mm3 (0.00-0.23); BASOPHILS PERCENT AUTO 1 % (0-2); EOSINOPHILS ABSOLUTE AUTO 0.39 K/mm3 (0.00-0.68); EOSINOPHILS PERCENT AUTO 4 % (0-6); Hematocrit 24.8 % (33.0-51.0); Hemoglobin 8.3 g/dL (11.5-16.0); IMMATURE GRAN ABSOLUTE AUTO 0.06 K/mm3 (0.00-0.10); IMMATURE GRAN PERCENT AUTO 1 % (0-1); LYMPHOCYTES ABSOLUTE AUTO 1.31 K/mm3 (0.84-5.20); LYMPHOCYTES PERCENT AUTO 13 % (21-46); MONOCYTES ABSOLUTE AUTO 0.76 K/mm3 (0.16-1.47); MONOCYTES PERCENT AUTO 7 % (4-13); Mean Corpuscular HGB Conc 33.5 g/dL (31.5-36.5); Mean Corpuscular Volume 102 fL (80-100); Mean Platelet Volume 10.4 fL (9.1-12.4); NEUTROPHILS ABSOLUTE AUTO 7.74 K/mm3 (1.96-9.15); NEUTROPHILS PERCENT AUTO 75 % (41-73); Platelet Count 296 K/mm3 (150-400); RDW Coefficient Variation 13.4 % (11.7-14.2); RDW Standard Deviation 47.8 fL (35.1-46.3); Red Blood Cell Count 2.44 M/mm3 (3.80-5.20); White Blood Cell Count 10.32 K/mm3 (4.00-11.30)
[2021-06-12 15:57] LABS: Albumin, Blood 2.6 g/dL (3.4-5.0); Albumin/Globulin Ratio 0.6 (0.8-1.8); Bilirubin, Total 0.2 mg/dL (0.1-1.0); Bun/Creatinine Ratio 22.5 (12.0-20.0); Calcium, Blood 8.8 mg/dL (8.5-10.1); Creatinine, Blood 1.69 mg/dL (0.40-1.00); Globulin, Blood 4.2 g/dL (2.2-4.0); Potassium, Blood 4.1 mmol/L (3.5-5.5); Total Protein, Blood 6.8 g/dL (6.4-8.2)
[2021-06-12] MEDS ORDERED: ELIQUIS2.5 M1 PO (16:58)
[2021-06-12] MEDS ORDERED: OLANZAPINE PO ×2 (16:59→17:01)
[2021-06-12] MEDS ORDERED: LORA1 PO (17:00)
[2021-06-12] MEDS ORDERED: IMITREX50 M2 PO (17:01)
[2021-06-12] MEDS ORDERED: POTASSIUM CITRA PO (17:01)
[2021-06-12] MEDS ORDERED: LOSA50 PO (17:01)
[2021-06-12] MEDS ORDERED: CLOMIPRAMINE HC PO (17:01)
[2021-06-12] MEDS ORDERED: NEURONTIN300 MG PO (17:02)
[2021-06-12] MEDS ORDERED: METOPROLOL SUCC25 MG PO (17:02)
[2021-06-12] MEDS ORDERED: MODAFINIL200 MG PO (17:02)
[2021-06-12] MEDS ORDERED: Divalproex Sod125 M1 PO (17:02)
[2021-06-12] MEDS ORDERED: AMLODIPINE BESYL5 MG PO (17:03)
[2021-06-12 18:20] LABS: SARS-Cov-2 (COVID-19) PCR, MMC NEGATIVE (NEGATIVE)
--- NOTE | 2021-06-12 19:00 | NUR ---
ADMISSION PATIENT ARRIVED FROM ER TO PCU 11, BESIDE REPORT RECIEVED FROM ER NURSE. BLOOD TRANSFUSION INFUSING. PATIENT ABLE TO STAND PIVOT TO PCU BED WITH MINIMAL ASSISTANCE. UPON COMPLETING ADMISSION HX, SUICIDE SCALE WAS DISCUSSED WITH PATIENT. MODERATE PRECAUTIONS GENERATED, PATIENT DENIES ANY CURRENT SI BUT HAS HAD AN ATTEMPT IN THE PAST. SPOKE WITH DAY AND NIGHT COURT SPECIALIST ABOUT PRECAUTIONS AND NO PRECAUTIONS IN PLACE AT THIS TIME.
[2021-06-12] MEDS ORDERED: HYDMOR2 PO (22:16)
[2021-06-12] MEDS ORDERED: FLUDROCORTISON0.1 M1 PO (22:17)
[2021-06-12] MEDS ORDERED: MECL25 PO (22:18)
[2021-06-12] MEDS ORDERED: MIDO5 PO (22:20)
[2021-06-12] MEDS ORDERED: NARCAN4 M1 ×2 (22:21→22:22)
[2021-06-12] MEDS ORDERED: NORTHERA300 MG PO (22:24)
[2021-06-12] MEDS ORDERED: ONDA4ODT (22:25)
[2021-06-12] MEDS ORDERED: Micro-K8 MEQ (22:27)
[2021-06-12] MEDS ORDERED: TAMS.4ER PO (22:28)
[2021-06-12 23:16] LABS: Hematocrit 26.5 % (33.0-51.0); Hemoglobin 8.9 g/dL (11.5-16.0)
[2021-06-13 03:54] LABS: Hematocrit 25.5 % (33.0-51.0); Hemoglobin 8.4 g/dL (11.5-16.0); Mean Corpuscular HGB 33.2 pg (26.0-34.0); Mean Corpuscular HGB Conc 32.9 g/dL (31.5-36.5); Mean Corpuscular Volume 101 fL (80-100); Mean Platelet Volume 10.4 fL (9.1-12.4); Platelet Count 260 K/mm3 (150-400); RDW Coefficient Variation 14.5 % (11.7-14.2); RDW Standard Deviation 51.5 fL (35.1-46.3); Red Blood Cell Count 2.53 M/mm3 (3.80-5.20); White Blood Cell Count 6.75 K/mm3 (4.00-11.30)
[2021-06-13 04:11] LABS: Albumin, Blood 2.3 g/dL (3.4-5.0); Anion Gap 4 mmol/L (6-16); Blood Urea Nitrogen 32 mg/dL (8-24); Bun/Creatinine Ratio 18.8 (12.0-20.0); CO2, Blood 27 mmol/L (21-32); Calcium, Blood 8.7 mg/dL (8.5-10.1); Chloride, Blood 114 mmol/L (98-108); Glomerular Filtration Rate 30 (60-); Glucose, Blood 97 mg/dL (70-99); Phosphorus, Blood 3.3 mg/dL (2.5-4.9); Potassium, Blood 4.4 mmol/L (3.5-5.5); Sodium, Blood 145 mmol/L (136-145)
--- NOTE | 2021-06-13 05:49 | NUR ---
SHIFT SUMMARY PATIENT ALERT AND ORIENTED T/O SHIFT. VSS. PATIENT RECIEVED 1 UNIT PRBC TOTAL. NO HEMATEMESIS OR BLOODY STOOL THIS SHIFT. SOFT B/P'S WHEN SLEEPING BUT AWAKES EASY AND BP INCREASES. PATIENT HAS BEEN SLEEPING MOST OF SHIFT. PATIENT REPORTED SHE WEARS A CPAP AT HOME BUT DOES NOT WANT TO WEAR ONE HERE, PLACED ON 2L NC DUE TO SATURATIONS MID 80'S WHEN SLEEPING. NO OTHER SIGNIFICANT CHANGES TO PATIENT'S STATUS THIS SHIFT.
[2021-06-13 11:12] LABS: Hematocrit 27.1 % (33.0-51.0)
[2021-06-13] MEDS ORDERED: CLOMIPRAMINE HC50 M1 PO (15:24)
[2021-06-13] MEDS ORDERED: MSM1000 M2 PO (15:47)
[2021-06-13] MEDS ORDERED: NORTHERA300 MG PO (15:51)
[2021-06-13] MEDS ORDERED: MULVITA PO (15:52)
[2021-06-13] MEDS ORDERED: LIDO5TO TOP (15:52)
[2021-06-13] MEDS ORDERED: SIME80CH PO (15:53)
[2021-06-13] MEDS ORDERED: SODCHL1 PO (15:54)
[2021-06-13] MEDS ORDERED: PYRI100 PO (15:55)
--- NOTE | 2021-06-13 17:18 | NUR ---
BROUGHT TO [facility] ADMISSION TO UNIT STARTED VSS.
--- NOTE | 2021-06-13 18:26 | NUR ---
06/13/21 1826 Cody Mendez See Anesthesia record DR JOSHUA. Bite Block Placed. History, Chart, Medications and Allergies reviewed before start of procedure. MONITOR INTACT WITH CONTINUOUS PULSE OXIMETRY AND INTERMITTENT BP. O2 VIA N/C INTACT THROUGHOUT SEDATION/PROCEDURE.
--- NOTE | 2021-06-13 19:21 | NUR ---
[facility] CAME IN AND TURNED BACK ON DEFIBILATTOR PATIENT TAKEN BACK TO PCU ROOM.
--- NOTE | 2021-06-13 19:32 | NUR ---
PT'S SUBQICD THERAPIES TURNED OFF EARLIER FOR DAY SURGERY UPPER ENDOSCOPY, TURNED BACK ON AFTER PROCEDURE
[2021-06-14 03:34] LABS: Hematocrit 29.5 % (33.0-51.0); Hemoglobin 9.8 g/dL (11.5-16.0); Mean Corpuscular HGB 33.7 pg (26.0-34.0); Mean Corpuscular HGB Conc 33.2 g/dL (31.5-36.5); Mean Corpuscular Volume 101 fL (80-100); Mean Platelet Volume 9.6 fL (9.1-12.4); Platelet Count 206 K/mm3 (150-400); RDW Coefficient Variation 14.4 % (11.7-14.2); RDW Standard Deviation 51.6 fL (35.1-46.3); Red Blood Cell Count 2.91 M/mm3 (3.80-5.20); White Blood Cell Count 6.52 K/mm3 (4.00-11.30)
[2021-06-14 03:49] LABS: Bun/Creatinine Ratio 14.7 (12.0-20.0); Calcium, Blood 8.6 mg/dL (8.5-10.1); Creatinine, Blood 1.56 mg/dL (0.40-1.00); Potassium, Blood 4.4 mmol/L (3.5-5.5)
--- NOTE | 2021-06-14 07:36 | NUR ---
SHFIT SUMMARY PATIENT IS RESTING COMFORTABLY IN BED. BED IS IN LOW POSTION. CALL LIGHT IS IN REACH. VITALS WERE STABLE DURING THE NIGHT. NO ACUTE EVENTS DURING THE SHIFT. THE PATIENT DID WELL DURING THE NIGHT ON A FULL LIQUID DIET AND HAS BEEN ASKED WHEN SHE CAN HAVE FOOD. PATIENT WAS ANIXIOUS DURING THE NIGHT AND WAS MEDICATED APPROPRIETES. NO OTHER COMPLAINTS. PATIENT NEEDED 2 L NC DURING THE NIGHT WHEN SHE WAS SLEEPING SHE DESTURATED TO 85% BUT WAS ABLE TO TURN IT OFF THE MORNING ABOVE 90% ON RA. NO COMPLAINTS OF N/V OR TARRY STOOL WILL CONTINUE TO MONITOR. REPORT GIVENT TO DAY SHIFT RN.
[2021-06-14] MEDS ORDERED: OMEPRAZOLE MAGN20 M1 PO (11:37)
--- NOTE | 2021-06-14 13:48 | NUR ---
PATIENT DISCHARGING VIA WHEELCHAIR. NO FURTHER COMPLAINTS OF WEAKNESS, DIZZINESS, BLOODY URINE OR STOOL (NO BM TODAY). NO S/S CARDIO PULMONARY DISTRESS OBSERVED OR NOTED. VERBALIZED UNDERSTANDING REGARDING ALL DISCHARGE TEACHING.
== END 2021-06-14 14:07 | disposition home or self-care (01) | DRG 811 ==
LOC: ER 14:51 → PCU 18:55
PROVIDERS: Emergency Medicine; Physician Assistant; Student in an Organized Health Care Education/Training Program; ADMIT Internal Medicine
PROC: 0DJ08ZZ Inspection of Upper Intestinal Tract, Via Natural or Artificial Opening Endoscopic (ICD-10-PCS; 2021-06-13)
PROC: 30233N1 Transfusion of Nonautologous Red Blood Cells into Peripheral Vein, Percutaneous Approach (ICD-10-PCS; principal; 2021-06-13 17:30)
DX: D62 Acute posthemorrhagic anemia (principal); K25.4 Chronic or unspecified gastric ulcer with hemorrhage; I48.92 Unspecified atrial flutter; N18.4 Chronic kidney disease, stage 4 (severe); Z20.822 Contact with and (suspected) exposure to COVID-19; I25.10 Atherosclerotic heart disease of native coronary artery without angina pectoris; E03.9 Hypothyroidism, unspecified; F32.9 Major depressive disorder, single episode, unspecified; K44.9 Diaphragmatic hernia without obstruction or gangrene; I12.9 Hypertensive chronic kidney disease with stage 1 through stage 4 chronic kidney disease, or unspecified chronic kidney disease; G47.33 Obstructive sleep apnea (adult) (pediatric); Z90.49 Acquired absence of other specified parts of digestive tract; Z79.01 Long term (current) use of anticoagulants; Z79.82 Long term (current) use of aspirin; Z79.899 Other long term (current) drug therapy
CPT/HCPCS: 36415; 36430; 71045; 80048; 80053; 80069; 82272; 83880; 84484; 85014; 85018; 85025; 85027; 86850; 86900; 86901; 86923; 93005; 93010; 93287; 96374; 99285-25; A9270; C9113; J2704; J7030; J7120; P9016; U0004

== ENCOUNTER 2021-07-12 05:31 | Day surgery (SDC) | payer MEDICARE ==
[~2021-07-12 05:31] MED LIST changes: +AMLODIPINE BESYL5 MG PO; +CLOMIPRAMINE HC PO; +CLOMIPRAMINE HC50 M1 PO; +ELIQUIS2.5 M1 PO; +FLUDROCORTISON0.1 M1 PO; +IMITREX50 M2 PO; +LOSA50 PO; +METOPROLOL SUCC25 MG PO; +MODAFINIL200 MG PO; +MULVITA PO; +Micro-K8 MEQ; +NARCAN4 M1; +OLANZAPINE PO; +OMEPRAZOLE MAGN20 M1 PO; +ONDA4ODT; +POTASSIUM CITRA PO
[2021-07-12] MEDS ORDERED: NAPR220 PO (16:57)
[2021-07-12] MEDS ORDERED: [UNRECOGNIZED DRUG - OTHER] PO (17:06)
[2021-07-12] MEDS ORDERED: GABA300 PO (17:11)
[2021-07-12] MEDS ORDERED: FURO20 PO (17:12)
[2021-07-12] MEDS ORDERED: ACET500 PO (17:21)
[2021-07-12] MEDS ORDERED: PYRI100 PO (17:21)
[2021-07-12] MEDS ORDERED: OLAN5 PO (17:23)
== END 2021-07-12 16:10 | disposition home or self-care (01) ==
LOC: ATC 05:31
DX: I12.9 Hypertensive chronic kidney disease with stage 1 through stage 4 chronic kidney disease, or unspecified chronic kidney disease (principal); N18.32 Chronic kidney disease, stage 3b; D63.1 Anemia in chronic kidney disease; N25.81 Secondary hyperparathyroidism of renal origin; E03.9 Hypothyroidism, unspecified
CPT/HCPCS: 96365; J2916

== ENCOUNTER 2021-07-13 04:27 | Day surgery (SDC) | payer MEDICARE, OTHER ==
[~2021-07-13 04:27] MED LIST changes: +ACET500 PO; +NAPR220 PO; +[UNRECOGNIZED DRUG - OTHER] PO
[2021-09-19] MEDS ORDERED: GLUCHON PO (08:52)
== END 2021-07-13 16:03 | disposition home or self-care (01) ==
LOC: ATC 04:27
DX: I12.9 Hypertensive chronic kidney disease with stage 1 through stage 4 chronic kidney disease, or unspecified chronic kidney disease (principal); N18.32 Chronic kidney disease, stage 3b; D63.1 Anemia in chronic kidney disease; N25.81 Secondary hyperparathyroidism of renal origin; Z79.899 Other long term (current) drug therapy
CPT/HCPCS: 96365; J2916

== ENCOUNTER 2021-07-14 14:52 | Day surgery (SDC) | payer MEDICARE, OTHER ==
[2021-09-19] MEDS ORDERED: GLUCHON PO (08:52)
== END 2021-07-14 16:00 | disposition home or self-care (01) ==
LOC: ATC 14:52
DX: I12.9 Hypertensive chronic kidney disease with stage 1 through stage 4 chronic kidney disease, or unspecified chronic kidney disease (principal); N18.4 Chronic kidney disease, stage 4 (severe); D63.1 Anemia in chronic kidney disease; N25.81 Secondary hyperparathyroidism of renal origin; E03.9 Hypothyroidism, unspecified; Z79.01 Long term (current) use of anticoagulants; Z79.82 Long term (current) use of aspirin; Z79.899 Other long term (current) drug therapy
CPT/HCPCS: 96365; J2916

== ENCOUNTER 2021-07-15 14:45 | Day surgery (SDC) | payer MEDICARE, OTHER ==
[2021-09-19] MEDS ORDERED: GLUCHON PO (08:52)
== END 2021-07-15 22:51 | disposition home or self-care (01) ==
LOC: ATC 14:45
DX: I12.9 Hypertensive chronic kidney disease with stage 1 through stage 4 chronic kidney disease, or unspecified chronic kidney disease (principal); N18.4 Chronic kidney disease, stage 4 (severe); D63.1 Anemia in chronic kidney disease; N25.81 Secondary hyperparathyroidism of renal origin; E03.9 Hypothyroidism, unspecified; Z79.01 Long term (current) use of anticoagulants; Z79.82 Long term (current) use of aspirin; Z79.899 Other long term (current) drug therapy
CPT/HCPCS: 96365; J2916

== ENCOUNTER 2021-07-16 00:02 | Day surgery (SDC) | payer MEDICARE ==
--- NOTE | 2021-07-16 14:53 | NUR ---
OLD IV SITE TO RFA IS RED AND WARM. 2 INCH DIAMETER OF REDNESS NOTED. NO DRAINAGE FROM SITE. APPEARS TO BE A POSSIBLE PHLEBITIS. INSTRUCTED PT TO USE WARM PACKS AND ELEVATE. PT ALSO INSTRUCTED TO CALL MD IF NO CHANGE, WORSENING SYMPTOMS OR IMPAIRED CIRCULATION TO R HAND/ARM NOTED. PT VERBALIZED UNDERSTANDING. WARM PACK APPLIED AND ELEVATED ON PILLOW AT THIS TIME.
== END 2021-07-16 15:31 | disposition home or self-care (01) ==
LOC: ATC 00:02
DX: I12.9 Hypertensive chronic kidney disease with stage 1 through stage 4 chronic kidney disease, or unspecified chronic kidney disease (principal); N18.4 Chronic kidney disease, stage 4 (severe); D63.1 Anemia in chronic kidney disease; N25.81 Secondary hyperparathyroidism of renal origin; E86.9 Volume depletion, unspecified; E55.9 Vitamin D deficiency, unspecified; Z95.810 Presence of automatic (implantable) cardiac defibrillator; E03.9 Hypothyroidism, unspecified; Z79.01 Long term (current) use of anticoagulants; F31.9 Bipolar disorder, unspecified
CPT/HCPCS: 96365; J2916

== ENCOUNTER → 2021-07-20 | Outpatient (CLI) | payer MEDICARE ==
[2021-07-24 13:54] LABS: Stool Occult Bld Immuno 1 Negative (NEGATIVE)
== END ==
LOC: LAB SHORT 11:00
PROVIDERS: Internal Medicine Gastroenterology
DX: D50.0 Iron deficiency anemia secondary to blood loss (chronic) (principal)
CPT/HCPCS: G0328

== ENCOUNTER 2021-09-07 10:41 | Emergency (ER) | payer OTHER ==
[~2021-09-07] VITALS: Ht 162.6 cm; Wt 79.4 kg
[2021-09-07 11:22] LABS: BASOPHILS ABSOLUTE AUTO 0.02 K/mm3 (0.00-0.23); BASOPHILS PERCENT AUTO 0 % (0-2); EOSINOPHILS ABSOLUTE AUTO 0.28 K/mm3 (0.00-0.68); EOSINOPHILS PERCENT AUTO 5 % (0-6); Hematocrit 38.2 % (33.0-51.0); Hemoglobin 12.7 g/dL (11.5-16.0); IMMATURE GRAN ABSOLUTE AUTO 0.02 K/mm3 (0.00-0.10); IMMATURE GRAN PERCENT AUTO 0 % (0-1); LYMPHOCYTES ABSOLUTE AUTO 0.91 K/mm3 (0.84-5.20); LYMPHOCYTES PERCENT AUTO 16 % (21-46); MONOCYTES PERCENT AUTO 9 % (4-13); Mean Corpuscular HGB 30.6 pg (26.0-34.0); Mean Corpuscular HGB Conc 33.2 g/dL (31.5-36.5); Mean Corpuscular Volume 92 fL (80-100); Mean Platelet Volume 10.2 fL (9.1-12.4); NEUTROPHILS ABSOLUTE AUTO 3.92 K/mm3 (1.96-9.15); NEUTROPHILS PERCENT AUTO 69 % (41-73); Platelet Count 284 K/mm3 (150-400); RDW Coefficient Variation 16.1 % (11.7-14.2); RDW Standard Deviation 55.7 fL (35.1-46.3); Red Blood Cell Count 4.15 M/mm3 (3.80-5.20); White Blood Cell Count 5.65 K/mm3 (4.00-11.30)
[2021-09-07 11:33] LABS: Alanine Aminotransfer (ALT/SGP 22 U/L (12-78); Albumin, Blood 2.9 g/dL (3.4-5.0); Albumin/Globulin Ratio 0.6 (0.8-1.8); Alk Phos 80 U/L (50-136); Anion Gap 8 mmol/L (6-16); Aspartate Aminotrans (AST/SGOT 16 U/L (12-37); Bilirubin, Total 0.2 mg/dL (0.1-1.0); Blood Urea Nitrogen 37 mg/dL (8-24); Bun/Creatinine Ratio 21.5 (12.0-20.0); CO2, Blood 22 mmol/L (21-32); Chloride, Blood 103 mmol/L (98-108); Creatinine, Blood 1.72 mg/dL (0.40-1.00); Globulin, Blood 5.2 g/dL (2.2-4.0); Glomerular Filtration Rate 29 (60-); Glucose, Blood 114 mg/dL (70-99); Potassium, Blood 4.9 mmol/L (3.5-5.5); Sodium, Blood 133 mmol/L (136-145); Total Protein, Blood 8.1 g/dL (6.4-8.2); Troponin I <0.015 ng/mL (0.000-0.040)
--- NOTE | 2021-09-08 09:41 | NUR ---
Received a phone call from pt's Guido asking for the name of the mechanic industrial truck who was adoption coordinator when Renetta visited the ER on 09/07/21. No name of mechanic industrial truck found in ER documentation. Guido states he will contact the hospital bias machine operator to see if they are able to let him know which mechanic industrial truck was on when pt was in the ER.
== END 2021-09-07 15:25 | disposition home or self-care (01) ==
LOC: ER 10:41
PROVIDERS: Physician Assistant
DX: T82.897A Other specified complication of cardiac prosthetic devices, implants and grafts, initial encounter (principal); I12.9 Hypertensive chronic kidney disease with stage 1 through stage 4 chronic kidney disease, or unspecified chronic kidney disease; N18.9 Chronic kidney disease, unspecified; E03.9 Hypothyroidism, unspecified; Z79.899 Other long term (current) drug therapy; Z79.01 Long term (current) use of anticoagulants; Y83.1 Surgical operation with implant of artificial internal device as the cause of abnormal reaction of the patient, or of later complication, without mention of misadventure at the time of the procedure
CPT/HCPCS: 36415; 80053; 84484; 85025; 93005; 93010

== ENCOUNTER 2021-09-28 10:48 | Day surgery (SDC) | payer OTHER ==
[~2021-09-28] VITALS: Ht 162.6 cm; Wt 84.9 kg
[~2021-09-28 10:48] MED LIST changes: +GLUCHON PO
--- NOTE | 2021-09-28 12:25 | NUR ---
09/28/21 1225 Thad Baker AWAITING [facility] FROM [facility] TO TURN OFF DIBILLATOR FOR PROCEDURE.
--- NOTE | 2021-09-28 12:47 | NUR ---
09/28/21 1247 Thad Baker SPOKE WITH PATIENT AND . DIFIBILLATOR DOESNT NEED TO BE TURNED OFF AND MAGNET WILL BE USED IF NEEDED.
== END 2021-09-28 13:27 | disposition home or self-care (01) ==
LOC: ORSCSDS 10:48
PROVIDERS: Internal Medicine Gastroenterology
PROC: 0DB78ZX Excision of Stomach, Pylorus, Via Natural or Artificial Opening Endoscopic, Diagnostic (ICD-10-PCS; principal; 2021-09-28 12:00)
DX: K25.9 Gastric ulcer, unspecified as acute or chronic, without hemorrhage or perforation (principal); K29.70 Gastritis, unspecified, without bleeding; K44.9 Diaphragmatic hernia without obstruction or gangrene; I10 Essential (primary) hypertension; I25.10 Atherosclerotic heart disease of native coronary artery without angina pectoris; G47.33 Obstructive sleep apnea (adult) (pediatric); N18.9 Chronic kidney disease, unspecified; I48.92 Unspecified atrial flutter; Z79.01 Long term (current) use of anticoagulants; Z79.899 Other long term (current) drug therapy
CPT/HCPCS: 88305; 88341; 88342; J2001; J2704; J7120

== ENCOUNTER 2021-11-03 11:01 | Inpatient (IN) | payer OTHER ==
[~2021-11-03] VITALS: Ht 162.6 cm; Wt 83.5 kg
[2021-11-03 11:52] LABS: BASOPHILS ABSOLUTE AUTO 0.01 K/mm3 (0.00-0.23); BASOPHILS PERCENT AUTO 0 % (0-2); EOSINOPHILS ABSOLUTE AUTO 0.16 K/mm3 (0.00-0.68); EOSINOPHILS PERCENT AUTO 2 % (0-6); Hematocrit 38.7 % (33.0-51.0); Hemoglobin 12.6 g/dL (11.5-16.0); IMMATURE GRAN ABSOLUTE AUTO 0.06 K/mm3 (0.00-0.10); IMMATURE GRAN PERCENT AUTO 1 % (0-1); LYMPHOCYTES PERCENT AUTO 14 % (21-46); MONOCYTES ABSOLUTE AUTO 0.68 K/mm3 (0.16-1.47); MONOCYTES PERCENT AUTO 8 % (4-13); Mean Corpuscular HGB Conc 32.6 g/dL (31.5-36.5); Mean Corpuscular Volume 95 fL (80-100); Mean Platelet Volume 10.5 fL (9.1-12.4); NEUTROPHILS PERCENT AUTO 75 % (41-73); Platelet Count 290 K/mm3 (150-400); RDW Standard Deviation 44.9 fL (35.1-46.3); Red Blood Cell Count 4.06 M/mm3 (3.80-5.20); White Blood Cell Count 8.31 K/mm3 (4.00-11.30)
[2021-11-03 12:00] LABS: Calcium, Ionized (POC) 1.25 mmol/L (1.10-1.46); Chloride (POC) 102 mmol/L (98-108); Creatinine (POC) 1.8 mg/dL (0.6-1.0); Glucose (ISTAT POC) 116 mg/dL (70-99); Hemoglobin (POC) 13.6 g/dL (12.0-16.0); Potassium (POC) 5.3 mmol/L (3.5-5.5); Sodium (POC) 135 mmol/L (135-148); Total CO2 (POC) 26 mmol/L (21-32)
[2021-11-03 12:09] LABS: Bun/Creatinine Ratio 18.7 (12.0-20.0); Calcium, Blood 9.8 mg/dL (8.5-10.1); Creatinine, Blood 1.55 mg/dL (0.40-1.00); Potassium, Blood 5.7 mmol/L (3.5-5.5); Thyroid Stimulating Hormone 0.156 uIU/mL (0.360-4.800)
[2021-11-03] MEDS ORDERED: OLAN10 PO (15:01)
[2021-11-03] MEDS ORDERED: METO25 (15:30)
[2021-11-03] MEDS ORDERED: OMEP20ER PO (15:31)
[2021-11-03] MEDS ORDERED: SOLI5 (15:32)
[2021-11-03 17:03] LABS: Influenza A, PCR NEGATIVE (NEGATIVE); Influenza B, PCR NEGATIVE (NEGATIVE); Resp Syncytial Virus, PCR NEGATIVE (NEGATIVE); SARS-Cov-2 (COVID-19) PCR, MMC NEGATIVE (NEGATIVE)
[2021-11-03 17:29] LABS: International Normalized Ratio 1.04; Prothrombin Time Results 10.9 Sec (9.7-11.5)
--- NOTE | 2021-11-03 19:19 | NUR ---
SHIFT SUMMARY PT ARRIVED FROM TIRE ROOM SUPERVISOR AT 1400. A&OX4. TEMPORARY PACEMAKER INSERTION SITE IS R UPPER ARM. SITE WNL. RATE: 60, OUPUT: 10. SENS: 1. PT IN INTRINSIC SR. PLACED ON 2L NC. TREATED FOR ANXIETY WITH PO ATIVAN PER PT REQUEST. AT BEDSIDE.
--- NOTE | 2021-11-03 19:29 | NUR ---
REPORT CALLED TO RN AT [facility]
--- NOTE | 2021-11-03 20:57 | NUR ---
Summary. Assumed care at 1900, report received from usman THOMPSON. Pt resting in bed, on via NC at 2 L/min. Stable VS. Transvenous pacer in place, SHERICE access, rate 60, output 10, sens 1. IV access in L/AC. Pt alert and oriented, awaiting transfer to [place]. Report given [facility] transport team, Pt transferred at 2044.
== END 2021-11-03 20:45 | disposition short-term general hospital (02) | DRG 260 ==
LOC: ER 11:01 → ICUW 12:56 → ICUE 13:46
PROVIDERS: Student in an Organized Health Care Education/Training Program; ADMIT Internal Medicine
PROC: 02HK3JZ Insertion of Pacemaker Lead into Right Ventricle, Percutaneous Approach (ICD-10-PCS; principal; 2021-11-03)
PROC: 5A1223Z Performance of Cardiac Pacing, Continuous (ICD-10-PCS; 2021-11-03)
DX: I44.2 Atrioventricular block, complete (principal); R57.0 Cardiogenic shock; I42.8 Other cardiomyopathies; I13.0 Hypertensive heart and chronic kidney disease with heart failure and stage 1 through stage 4 chronic kidney disease, or unspecified chronic kidney disease; Z20.822 Contact with and (suspected) exposure to COVID-19; I48.92 Unspecified atrial flutter; I47.2 Ventricular tachycardia; I50.9 Heart failure, unspecified; G47.33 Obstructive sleep apnea (adult) (pediatric); N18.9 Chronic kidney disease, unspecified; E03.9 Hypothyroidism, unspecified; F32.A Depression, unspecified; I25.10 Atherosclerotic heart disease of native coronary artery without angina pectoris; Z79.899 Other long term (current) drug therapy; Z28.21 Immunization not carried out because of patient refusal; Z95.810 Presence of automatic (implantable) cardiac defibrillator; Z90.722 Acquired absence of ovaries, bilateral; Z79.01 Long term (current) use of anticoagulants
CPT/HCPCS: 0241U; 33210; 80047; 80048; 83880; 84443; 84484; 85014; 85025; 85610; 85730; 93005; 93010; 93308; 93321; 96365-59; 99285-25; A9270; C1769; C1894; J0461; J1265; J1644; J7030; J7050

== ENCOUNTER → 2021-11-22 | Outpatient (CLI) | payer OTHER ==
[~2021-11-22] MED LIST changes: +OLAN10 PO; +OMEP20ER PO
[2021-11-23 11:10] LABS: BASOPHILS ABSOLUTE AUTO 0.01 K/mm3 (0.00-0.23); BASOPHILS PERCENT AUTO 0 % (0-2); EOSINOPHILS ABSOLUTE AUTO 0.25 K/mm3 (0.00-0.68); EOSINOPHILS PERCENT AUTO 3 % (0-6); Hematocrit 37.6 % (33.0-51.0); IMMATURE GRAN ABSOLUTE AUTO 0.05 K/mm3 (0.00-0.10); IMMATURE GRAN PERCENT AUTO 1 % (0-1); LYMPHOCYTES ABSOLUTE AUTO 1.12 K/mm3 (0.84-5.20); LYMPHOCYTES PERCENT AUTO 13 % (21-46); MONOCYTES ABSOLUTE AUTO 0.51 K/mm3 (0.16-1.47); MONOCYTES PERCENT AUTO 6 % (4-13); Mean Corpuscular HGB Conc 31.9 g/dL (31.5-36.5); Mean Corpuscular Volume 97 fL (80-100); Mean Platelet Volume 11.2 fL (9.1-12.4); NEUTROPHILS ABSOLUTE AUTO 6.54 K/mm3 (1.96-9.15); NEUTROPHILS PERCENT AUTO 77 % (41-73); Platelet Count 290 K/mm3 (150-400); RDW Coefficient Variation 13.6 % (11.7-14.2); RDW Standard Deviation 48.1 fL (35.1-46.3); Red Blood Cell Count 3.87 M/mm3 (3.80-5.20); White Blood Cell Count 8.48 K/mm3 (4.00-11.30)
[2021-11-23 11:20] LABS: Albumin, Blood 2.9 g/dL (3.4-5.0); Albumin/Globulin Ratio 0.7 (0.8-1.8); Bilirubin, Total 0.2 mg/dL (0.1-1.0); Bun/Creatinine Ratio 13.8 (12.0-20.0); Calcium, Blood 9.7 mg/dL (8.5-10.1); Creatinine, Blood 1.67 mg/dL (0.40-1.00); Globulin, Blood 4.3 g/dL (2.2-4.0); Potassium, Blood 4.7 mmol/L (3.5-5.5); Thyroid Stimulating Hormone 1.31 uIU/mL (0.360-4.800); Total Protein, Blood 7.2 g/dL (6.4-8.2)
== END | disposition home or self-care (01) ==
LOC: LAB SHORT 09:47 → LAB 09:47
PROVIDERS: Family Medicine
DX: I10 Essential (primary) hypertension (principal); M62.81 Muscle weakness (generalized); M85.80 Other specified disorders of bone density and structure, unspecified site; E88.09 Other disorders of plasma-protein metabolism, not elsewhere classified; F32.A Depression, unspecified
CPT/HCPCS: 80053; 82306; 84134; 84443; 85025

== ENCOUNTER 2022-01-20 05:59 | Emergency (ER) | payer OTHER ==
[~2022-01-20] VITALS: Ht 157.5 cm; Wt 81.7 kg
[2022-01-20 06:40] LABS: Hematocrit 36.3 % (33.0-51.0); Mean Corpuscular HGB Conc 33.1 g/dL (31.5-36.5); Mean Corpuscular Volume 100 fL (80-100); Mean Platelet Volume 9.7 fL (9.1-12.4); Platelet Count 237 K/mm3 (150-400); RDW Coefficient Variation 13.4 % (11.7-14.2); RDW Standard Deviation 49.2 fL (35.1-46.3); Red Blood Cell Count 3.64 M/mm3 (3.80-5.20); White Blood Cell Count 7.46 K/mm3 (4.00-11.30)
[2022-01-20 07:11] LABS: BAND PERCENT MAN 38 % (0-8); BASOPHILS PERCENT MAN 0 % (0-2); EOSINOPHILS ABSOLUTE MAN 0.29 K/mm3 (0.00-0.68); EOSINOPHILS PERCENT MAN 4 % (0-6); LYMPHOCYTES ABSOLUTE MAN 1.04 K/mm3 (0.84-5.20); LYMPHOCYTES PERCENT MAN 14 % (21-46); MONOCYTES ABSOLUTE MAN 0.59 K/mm3 (0.16-1.47); MONOCYTES PERCENT MAN 8 % (4-13); NEUTROPHILS ABSOLUTE MAN 5.52 K/mm3 (1.96-9.15); SEG NEUTROPHILS PERCENT MAN 36 % (41-73); TOTAL CELLS COUNTED 100
[2022-01-20 07:40] LABS: Albumin, Blood 2.5 g/dL (3.4-5.0); Albumin/Globulin Ratio 0.5 (0.8-1.8); Bilirubin, Total 0.3 mg/dL (0.1-1.0); Bun/Creatinine Ratio 15.2 (12.0-20.0); Calcium, Blood 8.7 mg/dL (8.5-10.1); Creatinine, Blood 1.91 mg/dL (0.40-1.00); Globulin, Blood 4.6 g/dL (2.2-4.0); Potassium, Blood 3.7 mmol/L (3.5-5.5); Total Protein, Blood 7.1 g/dL (6.4-8.2)
[2022-01-20 07:41] LABS: Source, Urine Clean Catch
[2022-01-20 07:49] LABS: Appearance, Urine Clear (Clear); Bilirubin, Urine Neg (Neg); Blood, Urine 2+ (Neg); Color, Urine Yellow (P-Yellow); Glucose Qualitative, Urine Neg (Neg); Ketones, Urine Neg (Neg); Leukocyte Esterase, Urine 3+ (Neg); Nitrite, Urine Pos (Neg); Protein, Urine 1+ (Neg); Urobilinogen, Urine NORM (Normal)
[2022-01-20 07:52] LABS: Thyroid Stimulating Hormone 2.55 uIU/mL (0.360-4.800)
[2022-01-20 07:59] LABS: Bacteria Many /hpf; Red Blood Cells, Urine 0-2 /hpf (0-2); Squamous Epithelial Cells Mod /hpf (Few)
[2022-01-20] MEDS ORDERED: CEFD300 PO (10:19)
== END 2022-01-20 11:20 | disposition home or self-care (01) ==
LOC: ER 05:59
PROVIDERS: Emergency Medicine
DX: N39.0 Urinary tract infection, site not specified (principal); R53.1 Weakness; I13.0 Hypertensive heart and chronic kidney disease with heart failure and stage 1 through stage 4 chronic kidney disease, or unspecified chronic kidney disease; N18.9 Chronic kidney disease, unspecified; I50.9 Heart failure, unspecified; Z79.899 Other long term (current) drug therapy; Z79.01 Long term (current) use of anticoagulants
CPT/HCPCS: 80053; 81001; 83735; 84443; 85025; J0696; P9612

== ENCOUNTER 2022-01-20 19:22 | Emergency (ER) | payer OTHER ==
[~2022-01-20] VITALS: Ht 157.5 cm; Wt 81.7 kg
[~2022-01-20 19:22] MED LIST changes: +CEFD300 PO; +FURO40 PO; -OLAN10 PO; -POTASSIUM CITRA PO
[2022-01-20 20:24] LABS: BASOPHILS ABSOLUTE AUTO 0.03 K/mm3 (0.00-0.23); BASOPHILS PERCENT AUTO 0 % (0-2); Hematocrit 39.2 % (33.0-51.0); Hemoglobin 12.8 g/dL (11.5-16.0); LYMPHOCYTES PERCENT AUTO 7 % (21-46); MONOCYTES ABSOLUTE AUTO 1.02 K/mm3 (0.16-1.47); MONOCYTES PERCENT AUTO 11 % (4-13); Mean Corpuscular HGB 32.3 pg (26.0-34.0); Mean Corpuscular HGB Conc 32.7 g/dL (31.5-36.5); Mean Corpuscular Volume 99 fL (80-100); Mean Platelet Volume 9.9 fL (9.1-12.4); Platelet Count 224 K/mm3 (150-400); RDW Coefficient Variation 13.3 % (11.7-14.2); RDW Standard Deviation 48.3 fL (35.1-46.3); Red Blood Cell Count 3.96 M/mm3 (3.80-5.20); White Blood Cell Count 9.42 K/mm3 (4.00-11.30)
[2022-01-20 20:26] LABS: EOSINOPHILS ABSOLUTE AUTO 0.05 K/mm3 (0.00-0.68); EOSINOPHILS PERCENT AUTO 1 % (0-6); IMMATURE GRAN ABSOLUTE AUTO 0.06 K/mm3 (0.00-0.10); IMMATURE GRAN PERCENT AUTO 1 % (0-1); NEUTROPHILS ABSOLUTE AUTO 7.56 K/mm3 (1.96-9.15); NEUTROPHILS PERCENT AUTO 80 % (41-73)
[2022-01-20 20:43] LABS: Albumin, Blood 2.5 g/dL (3.4-5.0); Albumin/Globulin Ratio 0.5 (0.8-1.8); Bilirubin, Total 0.3 mg/dL (0.1-1.0); Bun/Creatinine Ratio 14.9 (12.0-20.0); Calcium, Blood 9.4 mg/dL (8.5-10.1); Creatinine, Blood 2.01 mg/dL (0.40-1.00); Globulin, Blood 4.7 g/dL (2.2-4.0); Potassium, Blood 3.4 mmol/L (3.5-5.5); Total Protein, Blood 7.2 g/dL (6.4-8.2)
== END 2022-01-20 23:59 | disposition home or self-care (01) ==
LOC: ER 19:22
PROVIDERS: Emergency Medicine
DX: N39.0 Urinary tract infection, site not specified (principal); E03.9 Hypothyroidism, unspecified; I13.0 Hypertensive heart and chronic kidney disease with heart failure and stage 1 through stage 4 chronic kidney disease, or unspecified chronic kidney disease; N18.30 Chronic kidney disease, stage 3 unspecified; I50.9 Heart failure, unspecified; Z95.810 Presence of automatic (implantable) cardiac defibrillator; Z79.899 Other long term (current) drug therapy; Z79.01 Long term (current) use of anticoagulants
CPT/HCPCS: 36415; 80053; 83605; 85025; 93005; 93010; 99284-25

== ENCOUNTER 2022-01-22 00:25 | Inpatient (IN) | payer OTHER ==
[~2022-01-22] VITALS: Ht 157.5 cm; Wt 84.2 kg
[2022-01-22 02:37] LABS: Hematocrit 34.1 % (33.0-51.0); Mean Corpuscular HGB 32.4 pg (26.0-34.0); Mean Corpuscular HGB Conc 32.3 g/dL (31.5-36.5); Mean Corpuscular Volume 100 fL (80-100); Mean Platelet Volume 10.1 fL (9.1-12.4); Platelet Count 213 K/mm3 (150-400); RDW Coefficient Variation 13.2 % (11.7-14.2); RDW Standard Deviation 48.9 fL (35.1-46.3); White Blood Cell Count 10.35 K/mm3 (4.00-11.30)
[2022-01-22 02:42] LABS: Albumin, Blood 2.2 g/dL (3.4-5.0); Albumin/Globulin Ratio 0.5 (0.8-1.8); Bilirubin, Total 0.2 mg/dL (0.1-1.0); Bun/Creatinine Ratio 15.3 (12.0-20.0); Calcium, Blood 8.6 mg/dL (8.5-10.1); Creatinine, Blood 2.42 mg/dL (0.40-1.00); Globulin, Blood 4.5 g/dL (2.2-4.0); Potassium, Blood 3.7 mmol/L (3.5-5.5); Total Protein, Blood 6.7 g/dL (6.4-8.2)
[2022-01-22 03:17] LABS: BAND PERCENT MAN 7 % (0-8); BASOPHILS PERCENT MAN 0 % (0-2); EOSINOPHILS PERCENT MAN 0 % (0-6); LYMPHOCYTES PERCENT MAN 1 % (21-46); MONOCYTES ABSOLUTE MAN 0.51 K/mm3 (0.16-1.47); MONOCYTES PERCENT MAN 5 % (4-13); NEUTROPHILS ABSOLUTE MAN 9.72 K/mm3 (1.96-9.15); SEG NEUTROPHILS PERCENT MAN 87 % (41-73); TOTAL CELLS COUNTED 100
[2022-01-22 05:49] LABS: Free Thyroxine 0.93 ng/dL (0.70-1.60)
[2022-01-22 05:50] LABS: Thyroid Stimulating Hormone 1.41 uIU/mL (0.360-4.800)
[2022-01-22 07:45] LABS: Hematocrit 32.4 % (33.0-51.0); Hemoglobin 10.8 g/dL (11.5-16.0); Mean Corpuscular HGB 32.9 pg (26.0-34.0); Mean Corpuscular HGB Conc 33.3 g/dL (31.5-36.5); Mean Corpuscular Volume 99 fL (80-100); Mean Platelet Volume 9.7 fL (9.1-12.4); Platelet Count 210 K/mm3 (150-400); RDW Coefficient Variation 13.3 % (11.7-14.2); RDW Standard Deviation 48.5 fL (35.1-46.3); Red Blood Cell Count 3.28 M/mm3 (3.80-5.20); White Blood Cell Count 10.17 K/mm3 (4.00-11.30)
[2022-01-22 08:10] LABS: BAND PERCENT MAN 35 % (0-8); BASOPHILS PERCENT MAN 0 % (0-2); EOSINOPHILS PERCENT MAN 1 % (0-6); LYMPHOCYTES PERCENT MAN 3 % (21-46); MONOCYTES PERCENT MAN 4 % (4-13); NEUTROPHILS ABSOLUTE MAN 9.35 K/mm3 (1.96-9.15); SEG NEUTROPHILS PERCENT MAN 57 % (41-73); TOTAL CELLS COUNTED 100
[2022-01-22 08:19] LABS: Albumin, Blood 2.1 g/dL (3.4-5.0); Albumin/Globulin Ratio 0.5 (0.8-1.8); Bilirubin, Total 0.2 mg/dL (0.1-1.0); Bun/Creatinine Ratio 16.7 (12.0-20.0); Calcium, Blood 8.8 mg/dL (8.5-10.1); Creatinine, Blood 2.09 mg/dL (0.40-1.00); Globulin, Blood 4.3 g/dL (2.2-4.0); Potassium, Blood 3.5 mmol/L (3.5-5.5); Total Protein, Blood 6.4 g/dL (6.4-8.2)
[2022-01-22 11:33] LABS: Source, Urine Straight Cath
[2022-01-22 11:55] LABS: Influenza A, PCR NEGATIVE (NEGATIVE); Influenza B, PCR NEGATIVE (NEGATIVE); Resp Syncytial Virus, PCR NEGATIVE (NEGATIVE); SARS-Cov-2 (COVID-19) PCR, MMC NEGATIVE (NEGATIVE)
[2022-01-22 12:02] LABS: Appearance, Urine Clear (Clear); Bilirubin, Urine Neg (Neg); Blood, Urine Neg (Neg); Color, Urine Yellow (P-Yellow); Glucose Qualitative, Urine Neg (Neg); Ketones, Urine Neg (Neg); Leukocyte Esterase, Urine Neg (Neg); Nitrite, Urine Neg (Neg); Protein, Urine 1+ (Neg); Urobilinogen, Urine NORM (Normal)
--- NOTE | 2022-01-22 13:23 | NUR ---
NURSING PCU DAYSHIFT: Assumed care of pt at approx 1130. Arrived from ER via delores buenrostro to unit bed via slider sheet. Lethargic/weak though will respond slowly to verbal stimuli. Skin is cool/clammy and pale. No significant breakdown noted though blanchable red/purple area present on buttocks/coccyx. Denies any pain/discomfort at rest. Tele in place, NSR, no c/o CP/pressure, SBP 115 upon arrival, no noted edema, ICD present in LCW. L/S w/bibasilar crackles, c/o dyspnea w/minimal exertion, O2 sat low to mid 90's on 4L NC, occ dry/KINDERGARTEN TEACHER cough. Abd SNT, BT+, FC w/stat lock in place and draining well. 22g PIV to L hand, 20g PG placed to RUE, NS infusing at 100cc/hr w/abx as scheduled. Pt appears to be resting comfortably at this time w/no s/s of acute distress. New d/o from PMD received and reviewed. Pt denies any current needs or questions regarding plan of care, call light in reach, bed alarm set for safety purposes
[2022-01-22] MEDS ORDERED: DROXIDOPA100 MG PO (15:14)
[2022-01-22] MEDS ORDERED: POTA10T PO (15:23)
[2022-01-22] MEDS ORDERED: MYRBETRIQ50 MG PO (15:25)
[2022-01-22] MEDS ORDERED: OLAN10 PO (15:25)
[2022-01-22] MEDS ORDERED: SUCR1 PO (15:34)
--- NOTE | 2022-01-22 17:38 | NUR ---
NURSING PCU DAYSHIFT SUMMARY: Pt has been more awake t/o the afternoon since arrival to unit. Currently sitting up in bed watching tv and having supper w/SO at bedside and small dog laying on the bed. BP remains stable at 107, HR 80's. O2 sat mid 90's on 2L NC, respiratory status otherwise unchanged. S/O provided with and update, plan of care discussed, questions answered. Home meds brought in for verification, med list updated, PMD notified and orders received. Pt appears to be comfortable at this time w/no s/s of acute distress. Call light remains in reach, bed alarm set. Cont to monitor for any changes.
[2022-01-23 04:19] LABS: BASOPHILS ABSOLUTE AUTO 0.04 K/mm3 (0.00-0.23); BASOPHILS PERCENT AUTO 1 % (0-2); Hematocrit 32.1 % (33.0-51.0); Hemoglobin 10.4 g/dL (11.5-16.0); LYMPHOCYTES ABSOLUTE AUTO 0.67 K/mm3 (0.84-5.20); LYMPHOCYTES PERCENT AUTO 8 % (21-46); MONOCYTES ABSOLUTE AUTO 1.05 K/mm3 (0.16-1.47); MONOCYTES PERCENT AUTO 13 % (4-13); Mean Corpuscular HGB 32.3 pg (26.0-34.0); Mean Corpuscular HGB Conc 32.4 g/dL (31.5-36.5); Mean Corpuscular Volume 100 fL (80-100); Mean Platelet Volume 10.9 fL (9.1-12.4); Platelet Count 200 K/mm3 (150-400); RDW Coefficient Variation 13.2 % (11.7-14.2); RDW Standard Deviation 48.5 fL (35.1-46.3); Red Blood Cell Count 3.22 M/mm3 (3.80-5.20); White Blood Cell Count 8.13 K/mm3 (4.00-11.30)
[2022-01-23 04:23] LABS: EOSINOPHILS PERCENT AUTO 3 % (0-6); IMMATURE GRAN ABSOLUTE AUTO 0.07 K/mm3 (0.00-0.10); IMMATURE GRAN PERCENT AUTO 1 % (0-1); NEUTROPHILS PERCENT AUTO 75 % (41-73)
[2022-01-23 04:37] LABS: Bun/Creatinine Ratio 15.9 (12.0-20.0); Calcium, Blood 8.2 mg/dL (8.5-10.1); Creatinine, Blood 1.95 mg/dL (0.40-1.00); Potassium, Blood 3.7 mmol/L (3.5-5.5)
--- NOTE | 2022-01-23 05:39 | NUR ---
[employer] MAINFRAME DEVELOPER SUMMARY THE PT REMAINS VERY LETHARGIC BUT IS AROUSABLE TO SPEECH. PT COMMUNICATING BUT IS CONFUSED AND GETS LOST MID CONVERSATION. BP REMAINS LOW BUT WNL. TELE SHOWING SR80-90'S THIS SHIFT. PT HAD PEAK TEMP OF 100.9 THIS SHIFT. O2 SATS >90% ON 4-5L NC. VIVAS CATHETER PATENT AND DRAINING 1100ML CLEAR YELLOW URINE THIS SHIFT. PT DENYING ANY PAIN OR NAUSEA THIS SHIFT. WILL REPORT TO ONCOMING RN.
--- NOTE | 2022-01-23 18:21 | NUR ---
PT HAS BECOME MORE ALERT AND ORIENTED T/O THE DAY. ATE LUNCH AND DINNER, DRINKING PLENTY OF PO FLUIDS, GOOD URINE OUTPUT. BPs 90-100s TODAY. 02 NEEDS DECREASED FROM 5L TO 2L THIS EVENING. AT BEDSIDE, BROUGHT IN HOME MEDICATION, CONTACTED DR FRIAS FOR ORDERS TO USE, MEDICATION SENT TO [facility] FOR LABEL. PT DECLINED PT/OT EVALS TODAY. DISCHARGE PLANNING IN PROGRESS, SEE CASE MANAGEMENT NOTES. NO ACUTE EVENTS. PT ABLE TO USE CALL LIGHT APPROPRIATELY. WILL CONTINUE TO MONITOR AND GIVE REPORT TO ONCOMING NOC SHIFT RN.
[2022-01-23 19:45] LABS: Adenovirus F 40/41 Not Detected (NOT DETECT); Astrovirus Not Detected (NOT DETECT); Campylobacter Sp Not Detected (NOT DETECT); Cryptosporidium Not Detected (NOT DETECT); Cyclospora Cayetanensis Not Detected (NOT DETECT); E. Coli O157 Not Detected (NOT DETECT); Entamoeba Histolytica Not Detected (NOT DETECT); Enteroaggregative E. coli-EAEC Not Detected (NOT DETECT); Enteropathogenic E. coli-EPEC Not Detected (NOT DETECT); Enterotoxigenic E. coli-ETEC Not Detected (NOT DETECT); Giardia Lamblia Not Detected (NOT DETECT); Norovirus GI/GII Not Detected (NOT DETECT); Plesiomonas Shigelloides Not Detected (NOT DETECT); Rotavirus A Not Detected (NOT DETECT); Salmonella Sp Not Detected (NOT DETECT); Sapovirus Not Detected (NOT DETECT); Shiga Toxin-prod E. coli-STEC Not Detected (NOT DETECT); Shigella/Enteroin E. coli-EIEC Not Detected (NOT DETECT); Vibrio Cholerae Not Detected (NOT DETECT); Vibrio Sp Not Detected (NOT DETECT); Yersinia Enterocolitica Not Detected (NOT DETECT)
[2022-01-24 04:33] LABS: Hematocrit 30.5 % (33.0-51.0); Hemoglobin 10.1 g/dL (11.5-16.0); Mean Corpuscular HGB 32.5 pg (26.0-34.0); Mean Corpuscular HGB Conc 33.1 g/dL (31.5-36.5); Mean Corpuscular Volume 98 fL (80-100); Mean Platelet Volume 10.1 fL (9.1-12.4); Platelet Count 197 K/mm3 (150-400); RDW Coefficient Variation 13.3 % (11.7-14.2); RDW Standard Deviation 47.8 fL (35.1-46.3); Red Blood Cell Count 3.11 M/mm3 (3.80-5.20); White Blood Cell Count 5.48 K/mm3 (4.00-11.30)
[2022-01-24 04:52] LABS: Bun/Creatinine Ratio 17.1 (12.0-20.0); Calcium, Blood 8.7 mg/dL (8.5-10.1); Creatinine, Blood 1.64 mg/dL (0.40-1.00); Potassium, Blood 3.4 mmol/L (3.5-5.5)
[2022-01-24 05:24] LABS: BAND PERCENT MAN 25 % (0-8); BASOPHILS PERCENT MAN 0 % (0-2); EOSINOPHILS PERCENT MAN 2 % (0-6); LYMPHOCYTES ABSOLUTE MAN 0.21 K/mm3 (0.84-5.20); LYMPHOCYTES PERCENT MAN 4 % (21-46); MONOCYTES ABSOLUTE MAN 0.43 K/mm3 (0.16-1.47); MONOCYTES PERCENT MAN 8 % (4-13); NEUTROPHILS ABSOLUTE MAN 4.71 K/mm3 (1.96-9.15); SEG NEUTROPHILS PERCENT MAN 61 % (41-73); TOTAL CELLS COUNTED 100
--- NOTE | 2022-01-24 05:47 | NUR ---
MEDICAL LEGAL INVESTIGATOR SUMMARY PT IS MUCH MORE ALERT THIS SHIFT COMPARED TO PREVIOUS NIGHTSHIFT. O2 SATS >90% ON 2L NC AND CPAP W3L BLEEDIN WHILE ASLEEP. BP WNL AND STABLE THIS SHIFT. TELE SHOWING SR IN THE 90'S THIS SHIFT. PT AFEBRILE THIS SHIFT. PT HAD 2 LARGE LOOSE STOOLS THIS SHIFT. PT SLEPT FOR MAJORITY OF THE NIGHT WITH THE CALL LIGHT WITHIN REACH. WILL REPOR TO ONCOMING RN.
--- NOTE | 2022-01-24 17:55 | NUR ---
ASSUMED CARE OF PT AT 0700. MULTIPLE LOOSE WATERY STOOLS T/O THE DAY, PT IS INCONTENENT. PT WORKED WITH PT/OT AND WAS UP TO CHAIR FOR SEVERAL HOURS TODAY, BACK TO BED AFTER LUNCH AND APPEARED TO SLEEP FOR A FEW HOURS. O2 2L NC APPLIED WHILE SLEEPING FOR SATS 88% ON RA. PT USED I.S. AND FLUTTER VALVE AT BEDSIDE. TMAX TODAY OF 101.3, RESPONDED WELL TO TYLENOL. PT HAS GOOD PO INTAKE AND URINE OUTPUT. SEE DOCUMENTED VS FOR SHIFT. NO ACUTE EVENTS. PT COOPERATIVE, ADAM AND ABLE TO USE CALL LIGHT APPROPRIATELY. AT BEDSIDE THIS EVENING. WILL CONTINUE TO MONITOR AND GIVE REPORT TO NOC SHIFT RN.
--- NOTE | 2022-01-24 18:20 | NUR ---
Met with pt today, introduced myself. She was pleasant, alert and oriented. I introduced myself and she began to tell me about her new pacemaker. We talked for several minutes, when I asked her if she was familiar with the term "Code Status". She states she vaguely is, and asked more about it. I began by explaining that her current "Code Status" is a full code. We continued our conversation, but she abruptly tells me, "This is just not something I was to talk about at all while i'm in the hospital, but thank you anyway". I quickly changed the subject, and we finished up chatting shortly after. This appears to be an uncomfortable subject for the patient at this time, so no further questions will be asked by this RN regarding POLST or Code Status.
[2022-01-25 04:21] LABS: Albumin, Blood 1.5 g/dL (3.4-5.0); Anion Gap 7 mmol/L (6-16); Blood Urea Nitrogen 25 mg/dL (8-24); Bun/Creatinine Ratio 15.2 (12.0-20.0); CO2, Blood 22 mmol/L (21-32); Calcium, Blood 8.6 mg/dL (8.5-10.1); Chloride, Blood 111 mmol/L (98-108); Creatinine, Blood 1.64 mg/dL (0.40-1.00); Glomerular Filtration Rate 33 (60-); Glucose, Blood 113 mg/dL (70-99); Magnesium, Blood 1.9 mg/dL (1.6-2.4); Phosphorus, Blood 2.3 mg/dL (2.5-4.9); Potassium, Blood 3.4 mmol/L (3.5-5.5); Sodium, Blood 140 mmol/L (136-145)
--- NOTE | 2022-01-25 06:02 | NUR ---
SHIFT SUMMARY NO ACUTE CHANGES OVERNIGHT. PT ALERT, ORIENTED. PT'S IN ROOM WITH DOG UNTIL ABOUT 2129. FEBRILE, TYLENOL GIVEN X1 WITH SUCCESS. SOFT BP THIS AM. PT DENIED PAIN. VIVAS CATHETER DRAINING TO GRAVITY. ONE SMALL SMEAR BM THIS SHIFT. C/D ATTENDS IN PLACE. PT REPOSITIONED OFTEN W/ PILLOWS IN BED. PT SLEPT MOST OF NIGHT, LETHARGIC BUT WOULD AWAKEN TO ANSWER QUESTIONS. NS INFUSED PER EMAR. CALL LIGHT IN REACH.
[2022-01-25 08:11] LABS: Hematocrit 30.8 % (33.0-51.0); Hemoglobin 9.9 g/dL (11.5-16.0); Mean Corpuscular HGB 32.4 pg (26.0-34.0); Mean Corpuscular HGB Conc 32.1 g/dL (31.5-36.5); Mean Corpuscular Volume 101 fL (80-100); Mean Platelet Volume 11.4 fL (9.1-12.4); Platelet Count 209 K/mm3 (150-400); RDW Coefficient Variation 13.4 % (11.7-14.2); RDW Standard Deviation 50.5 fL (35.1-46.3); Red Blood Cell Count 3.06 M/mm3 (3.80-5.20); White Blood Cell Count 8.24 K/mm3 (4.00-11.30)
[2022-01-25 08:40] LABS: BAND PERCENT MAN 22 % (0-8); BASOPHILS ABSOLUTE MAN 0.08 K/mm3 (0.00-0.23); BASOPHILS PERCENT MAN 1 % (0-2); EOSINOPHILS ABSOLUTE MAN 0.16 K/mm3 (0.00-0.68); EOSINOPHILS PERCENT MAN 2 % (0-6); LYMPHOCYTES ABSOLUTE MAN 0.08 K/mm3 (0.84-5.20); LYMPHOCYTES PERCENT MAN 1 % (21-46); MONOCYTES ABSOLUTE MAN 0.41 K/mm3 (0.16-1.47); MONOCYTES PERCENT MAN 5 % (4-13); MYELOCYTE ABSOLUTE MAN 0.08 K/mm3 (0.00-0.00); MYELOCYTE PERCENT MAN 1 % (0-0); NEUTROPHILS ABSOLUTE MAN 7.41 K/mm3 (1.96-9.15); SEG NEUTROPHILS PERCENT MAN 68 % (41-73); TOTAL CELLS COUNTED 100
--- NOTE | 2022-01-25 09:51 | NUR ---
CARE ASSUMPTION THIS RN ASSUMED CARE FROM JEANNETTE THOMPSON AT 0700. VSS. SPO2 >90% ON RA. PATIENT NEURO IS INTACT, ALERT AND ORIENTED X4. PERRLA. PATIENT NEEDED POSITIVE ENCOURAGEMENT WHEN EATING THIS MORNING, STATING SHE IS UNABLE TO FEED HERSELF. THIS RN ASSESSED HER AND PATIENT IS ABLE TO FEED HERSELF, JUST NEEDED ENCOURAGEMENT. LUNG SOUNDS CLEAR DIM, NO SHORTNESS OF BREATH. NO CHEST PAIN. STRONG RADIA AND PEDIS. NO EDEMA NOTED. ABD SOFT NONTENDER AND DISTENSION THAT PATIENT STATES IS NORMAL. NO BM THIS AM, WILL MONITOR. VIVAS CATH DRAINING WIH GRAVITY. SKIN HAS REDDNESS TO BOTTOM. PATIENT REPROTS NO PAIN. SEE SHIFT ASSESSMEN FOR FURTHER DETAILS. MD FONSECA AND MD CAUSEY IN TO SEE PATIENT THIS AM. PATIENT IS AWARE OF THE PLAN OF CARE AND HAS NO QUESTIONS OR CONCERNS AT THIS TIME. PATIENT USES CALL LIGHT APPRORPIATELY. PATIENT ABLE TO PERFOROM HER OWN ADLS, AND IS A STAND BY ASSIST. THIS RN USED THERAPEUTIC COMMUNICATION AND ACTIVE LISTENING WITH ALL COMMUNICATION. CALL LIGHT WITHIN REACH AND PATIENT SITING IN CHAIR. WILL CONTINUE TO MONITOR AND PROVIDE CARE UNTIL HAND OFF WITH NEXT SHIFT.
[2022-01-25 16:49] LABS: SARS-Cov-2 (COVID-19) PCR, MMC NEGATIVE (NEGATIVE)
--- NOTE | 2022-01-25 17:01 | NUR ---
SHIFT SUMMARY PATIENT IS MED STATUS WITH TELE. COVID TEST CAME BACK NEGATIVE. PLAN IS FOR PATIENT TO GO TO [facility] TOMORROW. VSS. NO ACUTE CHANGES THIS SHIFT. PATIENT HAS REFUSED REPOSITIONING THROUGHOUT THE SHIFT. PATIENT HAD A SMALL BM THIS AFTERNOON. CALL LIGHT WITHIN REACH AND BED IN LOWEST POSITION. WILL CONTINUE TO MONITOR AND PROVIDE CARE UNTIL HAND OFF WITH NEXT SHIFT.
--- NOTE | 2022-01-25 20:00 | NUR ---
RECIEVED HAND OFF FROM JILLIAN FIELD USING SBAR. AAO X3 WITH MILD CONFUSION, DELAYED SPEECH, AND DELAYED MOVEMENT NOTED. SPOUSE AT BEDSIDE WITH THEIR 3 YR OLD FEMALE TOY POODLE. IS COOPERATIVE WITH ASSESSMENT AND ABLE TO ANSWER QUESTIONS WHEN ASKED. REORIENTED TO ROOM, CALL SYSTEM, AND POC, VOICES UNDERSTANDING. RESPIRATIONS EVEN AND UNLABORED ON ROOM AIR, O2 SAT >90%. HYPOACTIVE BOWEL TONES NOTED IN ALL QUADS. CONTACT PRECAUTIONS FOR (+) C. DIFF CULTURE. VIVAS CATH DRAINING CLEAR YELLOW URINE TO GRAVITY. SCATTERED ABRASION NOTED TO BLE. DENIES FURTHER NEEDS OR WANTS AT THIS TIME. SAFETY MEASURES IN PLACE. WILL CONTINUE TO MONITOR AND ADDRESS NEEDS THEY ARISE.
--- NOTE | 2022-01-26 02:00 | NUR ---
3RD LOOSE, BROWN, MODERATE SIZED BM CLEANED THIS SHIFT. ABRADED BLEEDING AREA NOTED TO ABNER REGALADO APPLIED FOR COMFORT. GIVEN ICE WATER PER REQUEST. DENIES FURTHER NEEDS AT THIS TIME. SAFETY MEAURES IN PLACE. WILL CONTINUE TO MONITOR AND ATTEND TO NEEDS THEY ARISE.
--- NOTE | 2022-01-26 02:26 | NUR ---
GIVEN TYLENOL PER REQUEST FOR LEFT SIDED PAIN OF 03/10. DENIES FURTHER NEEDS OR WANTS AT THIS TIME. SAFETY MEASURES IN PLACE. WILL CONTINUE TO MONITOR AND ADDRESS NEEDS THEY ARISE.
[2022-01-26 04:58] LABS: Albumin, Blood 1.6 g/dL (3.4-5.0); Anion Gap 6 mmol/L (6-16); Blood Urea Nitrogen 23 mg/dL (8-24); Bun/Creatinine Ratio 16.1 (12.0-20.0); CO2, Blood 23 mmol/L (21-32); Calcium, Blood 8.9 mg/dL (8.5-10.1); Chloride, Blood 114 mmol/L (98-108); Creatinine, Blood 1.43 mg/dL (0.40-1.00); Glomerular Filtration Rate 39 (60-); Glucose, Blood 96 mg/dL (70-99); Phosphorus, Blood 2.8 mg/dL (2.5-4.9); Potassium, Blood 3.4 mmol/L (3.5-5.5); Sodium, Blood 143 mmol/L (136-145)
--- NOTE | 2022-01-26 06:14 | NUR ---
SHIFT SUMMARY LYING IN HIGH FOWLERS WITH EYES CLOSED. AAO X3, ADAM, FOLLOWS ALL COMMANDS. HAS RESTED WELL THIS SHIFT. ON CONTACT PREAUTION D/T C. DIFF IN FECES. CONTINUES TO HAVE MULTIPLE LOOSE STOOLS PER SHIFT. ALEEVEN APPLIED TO COCCYX REDENED AREA WITH SMALL AMOUNT OF BLEEDING NOTED TO AREA. TELE SHOWS SR WITH PVC'S 83 PER TT. DENIES PAIN, DISCOMFORT, OR OTHER NEEDS AT THIS TIME. WILL GIVE HAND OFF TO ONCOMING SHIFT USING SBAR AND CONTINUE TO MONITOR AND ADDRESS ALL NEEDS THEY ARISE.
--- NOTE | 2022-01-26 13:57 | NUR ---
TRANSFER SUMMARY: PATIENT HAS BEEN IMPROVING THROUGHT THE DAY, BLOOD PRESSURE NORMOTENSIVE, DENIES CHEST PAIN, SOB. ALERT AND ORIENTED X 3-4, PATIENT HAS HAD MULTIPLE LIQUID BM'S, HAS JUST BEEN CHANGED INTO CLEAN LINENS AND SHEETS. PATIENT HAS IS LESS ANXIOUS AFTER PRN ANXIETY MEDICATION AND KNOWING PLAN OF DC TO SNF TOMORROW. PATIENT HAS BEEN A 1-2 TRANSFER WITH FWW AND GAIT BELT. PATIENT IS IN BED AND GOING TO BE TRANSFERRED TO ROOM 341 MEDICAL RN AROUND 1430. REPORT HAS ALREADY BEEN GIVEN JUST AWAITING AGREED ON TIME TO TRANSPORT. PATIENT HAS BEEN EDUCATED AND AGREES TO PLAN WITH NO QUESTIONS COMMENTS OR CONCERNS.
--- NOTE | 2022-01-26 15:19 | NUR ---
ASSUMED CARE OF PT. REPORT RECEIVED FROM ALVIN THOMPSON. PT ARRIVED TO UNIT IN . TX TO BED WITH ONE PERSON ASSIST. PT A/O X4. PT DENIED PAIN/NAUSEA ON ARRIVAL. PT ASSISTED TO BED AND ORIENTED TO CALL LIGHT/MED FLOOR. BED IN LOW POSITION AND BED ALARM INITIATED FOR PT SAFETY. PT GIVEN ICE WATER AND NEW PILLOW REQUESTED. HOME MEDICATIONS PLACED IN LOCKED DRAWER OUTSIDE OF ROOM. NO ACUTE CONCERNS AT THIS TIME.
--- NOTE | 2022-01-26 18:50 | NUR ---
SHIFT SUMMARY: PT A/O X 4 ONE PERSON ASSIST W/GB & WALKER. PT PLEASANT AND COOPERATIVE WITH CARES. PT CONTINUES TO HAVE SOFT BROWN GRAINY STOOLS. CATHETER PATENT AND DRAINING CLEAR YELLOW URINE. PT TOLERATING PO MEDICATIONS BUT HAS POOR APPETITE. PT DEVELOPING EXCORIATION TO BOTTOM. CALMOSEPTINE APPLIED DURING BRIEF CHANGES.
[2022-01-27 06:07] LABS: Albumin, Blood 1.7 g/dL (3.4-5.0); Anion Gap 7 mmol/L (6-16); Blood Urea Nitrogen 18 mg/dL (8-24); Bun/Creatinine Ratio 14.4 (12.0-20.0); CO2, Blood 24 mmol/L (21-32); Calcium, Blood 9.3 mg/dL (8.5-10.1); Chloride, Blood 113 mmol/L (98-108); Creatinine, Blood 1.25 mg/dL (0.40-1.00); Glomerular Filtration Rate 46 (60-); Glucose, Blood 101 mg/dL (70-99); Phosphorus, Blood 3.7 mg/dL (2.5-4.9); Potassium, Blood 3.4 mmol/L (3.5-5.5); Sodium, Blood 144 mmol/L (136-145)
--- NOTE | 2022-01-27 06:18 | NUR ---
DIRECTOR PROCESS ENGINEERING SUMMARY ADMITTED FOR HYPOTENSION (RESOLVED). SHE IS A FULL CODE. PT IS C. DIFF POSITIVE AND HAVING BMS VERY FREQUENTLY. PT HAS VIVAS IN PLACE DRAINING CLEAR YELLOW URINE - LARGE OUTPUT. SHE IS ALERT AND ORIENTED X3-4. PT HAS HISTORY OF OCD AND IS VERY OBSESSIVE OVER HER BANANA FLAKES SAYING "I CAN'T EAT ANYTHING SO THOSE ARE MY FOOD." PT AT 92% ON RA BUT DROPS TO 88% WHEN LYING FLAT DURING ATTENDS CHANGES. PLAN FOR DC TO SNF TODAY.
--- NOTE | 2022-01-27 15:38 | NUR ---
AOX3, WITH FOGETFUL MOMENTS, ASKS REPEATIVE QUESTIONS. ISO PRECATION FOR C-DIFF; MULTIPLE STOOLS DURING SHIFT. REDDENED AREA AROUND ANUS AND COCCYX; CLEANSED AND ALEEVEN APPLIED TO AREAS. 1 PERSON ASST WITH FWW AT BASELINE. PT COOPERATIVE WITH MEDICATIONS AND CARE. PT HAS VIVAS; PATENT, OUTPUT CLEAR AND YELLOW. CURRENTLY DENIES PAIN. NO ACUTE CHANGES. CALL-LIGHT WITHIN REACH, BED IN LOWEST POSITION.
--- NOTE | 2022-01-28 03:49 | NUR ---
SHIFT SUMMARY NO ACUTE CHANGES OVERNIGHT. PT TOLERATING PO INTAKE. DENIES NAUSEA/ VOMITING. VSS. PT ON ROOMAIR, USE CPAP AT NIGHT. VIVAS IN PLACE, PATENT, GRAVITY AND OFF FLOOR. PT SLEPT GOOD ALMOST ALL NIGHT. PT HAD 2 STOOL/BM LAST NIGHT. PT REPORTS SOME L SIDE THIGH PAIN, MEDICATED WITH TYELNOL. ENC REPOSITIONING. CALL LIGHT WITHIN REACH. WILL CONTINUE TO MONITOR AND WILL PROVIDE REPORT TO ONCOMING NURSE.
[2022-01-28 05:29] LABS: Hematocrit 34.1 % (33.0-51.0); Hemoglobin 11.1 g/dL (11.5-16.0); Mean Corpuscular HGB Conc 32.6 g/dL (31.5-36.5); Mean Corpuscular Volume 98 fL (80-100); Mean Platelet Volume 10.3 fL (9.1-12.4); Platelet Count 311 K/mm3 (150-400); RDW Coefficient Variation 13.4 % (11.7-14.2); RDW Standard Deviation 47.6 fL (35.1-46.3); Red Blood Cell Count 3.47 M/mm3 (3.80-5.20); White Blood Cell Count 6.67 K/mm3 (4.00-11.30)
[2022-01-28 05:46] LABS: Albumin, Blood 1.8 g/dL (3.4-5.0); Anion Gap 8 mmol/L (6-16); Blood Urea Nitrogen 14 mg/dL (8-24); Bun/Creatinine Ratio 11.4 (12.0-20.0); CO2, Blood 25 mmol/L (21-32); Calcium, Blood 9.2 mg/dL (8.5-10.1); Chloride, Blood 114 mmol/L (98-108); Creatinine, Blood 1.23 mg/dL (0.40-1.00); Glomerular Filtration Rate 47 (60-); Glucose, Blood 94 mg/dL (70-99); Magnesium, Blood 2.1 mg/dL (1.6-2.4); Phosphorus, Blood 4.4 mg/dL (2.5-4.9); Potassium, Blood 3.4 mmol/L (3.5-5.5); Sodium, Blood 147 mmol/L (136-145)
[2022-01-28 05:59] LABS: BAND PERCENT MAN 8 % (0-8); BASOPHILS PERCENT MAN 0 % (0-2); EOSINOPHILS ABSOLUTE MAN 0.13 K/mm3 (0.00-0.68); EOSINOPHILS PERCENT MAN 2 % (0-6); LYMPHOCYTES PERCENT MAN 18 % (21-46); METAMYELOCYTE PERCENT MAN 3 % (0-0); MONOCYTES ABSOLUTE MAN 0.53 K/mm3 (0.16-1.47); MONOCYTES PERCENT MAN 8 % (4-13); MYELOCYTE PERCENT MAN 6 % (0-0); NEUTROPHILS ABSOLUTE MAN 4.13 K/mm3 (1.96-9.15); PROMYELOCYTE ABSOLUTE MAN 0.06 K/mm3 (0.00-0.00); PROMYELOCYTE PERCENT MAN 1 % (0-0); SEG NEUTROPHILS PERCENT MAN 54 % (41-73); TOTAL CELLS COUNTED 100
--- NOTE | 2022-01-28 17:34 | NUR ---
SHIFT SUMMARY A/OX4, 1 ASSIST WITH FWW AND GB. ANXIOUS AT TIMES, MEDICATED PER EMAR. MINIMAL ASSISTANCE FOR ATTENDS CHANGE. APPROX FIVE LOOSE BM'S THIS SHIFT. DENIES PAIN OR SOB. VSS, NO ACUTE CHANGES AT THIS TIME. BED IN LOWEST POSITION WITH CALL LIGHT IN REACH. WILL CONTINUE TO MONITOR AND REPORT TO ONCOMING RN.
--- NOTE | 2022-01-29 06:38 | NUR ---
SUMMARY NO NEW ISSUES REPORTED. PT HAD NO NOTABLE BM THIS SHIFT. PT SLEPT COMFORTABLY T/OUT SHIFT. PT CURRENTLY BREATHING EASY ON O2 @ 2LPM, NC. PT SPO2 >90%. CALL LIGHT IN REACH.
[2022-01-29 07:16] LABS: Bun/Creatinine Ratio 11.9 (12.0-20.0); Calcium, Blood 9.9 mg/dL (8.5-10.1); Creatinine, Blood 1.18 mg/dL (0.40-1.00); Potassium, Blood 4.1 mmol/L (3.5-5.5)
[2022-01-29 13:00] LABS: SARS-Cov-2 (COVID-19) PCR, MMC NEGATIVE (NEGATIVE)
[2022-01-29] MEDS ORDERED: VANCOCIN HCL125 MG PO (15:48)
[2022-01-29] MEDS ORDERED: BANATROL PLUS1 EAC1 PO (15:49)
[2022-01-29] MEDS ORDERED: VISBIOME 112.51 EACH PO (15:50)
--- NOTE | 2022-01-29 18:05 | NUR ---
DISCHARGE SUMMARY PATIENT IS ALERT AND ORIENTED X3. PATIENT IS PLEASENT AND COOPERATIVE WITH CARE. PATIENT HAD NO ACUTE EVENTS THIS SHIFT. VITAL SIGNS REVIEWED. PATIENT WAS DISCHARGE TO SNF. [facility] TRANSFER WHEELED OUT PATIENT AT 1800.
== END 2022-01-29 17:56 | DRG 871 ==
LOC: ER 00:25 → ICUW 04:49 → PCU 04:49 → MEDS 01-26 14:52
PROVIDERS: Emergency Medicine; Family Medicine; Internal Medicine; Student in an Organized Health Care Education/Training Program; ADMIT Internal Medicine
PROC: 3E03329 Introduction of Other Anti-infective into Peripheral Vein, Percutaneous Approach (ICD-10-PCS; principal; 2022-01-22)
PROC: 5A09357 Assistance with Respiratory Ventilation, Less than 24 Consecutive Hours, Continuous Positive Airway Pressure (ICD-10-PCS; 2022-01-23)
DX: A41.9 Sepsis, unspecified organism (principal); J96.01 Acute respiratory failure with hypoxia; J18.9 Pneumonia, unspecified organism; N17.9 Acute kidney failure, unspecified; I48.92 Unspecified atrial flutter; A04.72 Enterocolitis due to Clostridium difficile, not specified as recurrent; N39.0 Urinary tract infection, site not specified; Z51.5 Encounter for palliative care; I13.0 Hypertensive heart and chronic kidney disease with heart failure and stage 1 through stage 4 chronic kidney disease, or unspecified chronic kidney disease; Z20.822 Contact with and (suspected) exposure to COVID-19; I95.9 Hypotension, unspecified; R65.20 Severe sepsis without septic shock; N18.30 Chronic kidney disease, stage 3 unspecified; I50.9 Heart failure, unspecified; F32.A Depression, unspecified; E03.9 Hypothyroidism, unspecified; Z95.0 Presence of cardiac pacemaker; Z90.721 Acquired absence of ovaries, unilateral; Z98.890 Other specified postprocedural states; Z79.01 Long term (current) use of anticoagulants; Z79.899 Other long term (current) drug therapy
CPT/HCPCS: 0241U; 36415; 51702; 71045; 80048; 80053; 80069; 83605; 83735; 83880; 84145; 84439; 84443; 85025; 87040; 87324; 87507; 93005; 93010; 94660; 94760; 94762; 96374-59; 97110; 97116; 97162; 97166; 97530; 97535; 99285-25; A9270; C1751; J0696; J0744; J1956; J3480; J7030; J7040; U0004

== ENCOUNTER 2022-06-20 09:46 | Day surgery (SDC) | payer OTHER ==
[~2022-06-20] VITALS: Ht 210.8 cm; Wt 83.3 kg
[~2022-06-20 09:46] MED LIST changes: +BANATROL PLUS1 EAC1 PO; +DROXIDOPA100 MG PO; +OLAN10 PO; +POTA10T PO; +SUCR1 PO; +VANCOCIN HCL125 MG PO; +VISBIOME 112.51 EACH PO
[2022-06-20] MEDS ORDERED: CALCIUM CIT 311 EAC7 (10:21)
[2022-06-20] MEDS ORDERED: DIVA125 (10:21)
[2022-06-20] MEDS ORDERED: SUCR1 (10:22)
[2022-06-20] MEDS ORDERED: SIME40L (10:22)
[2022-06-20] MEDS ORDERED: METO100ER (10:22)
[2022-06-20] MEDS ORDERED: NARCAN4 M1 (10:22)
[2022-06-20] MEDS ORDERED: MIDO5 (10:22)
--- NOTE | 2022-06-20 10:50 | NUR ---
06/20/22 1050 Kay Holley TWO ATTEMPTS AT IV. FIRST ATTEMPT BY LUPE IN R HAND VEIM COLLAPSED. SECOND ATTEMPT IM R HAND BY RN SUCESSFUL.
== END 2022-06-20 12:00 | disposition home or self-care (01) ==
LOC: ORSCSDS 09:46
PROVIDERS: Internal Medicine Gastroenterology
PROC: 0D758ZZ Dilation of Esophagus, Via Natural or Artificial Opening Endoscopic (ICD-10-PCS; principal; 2022-06-20 11:15)
DX: R11.2 Nausea with vomiting, unspecified (principal); Z87.11 Personal history of peptic ulcer disease; K20.80 Other esophagitis without bleeding; K22.2 Esophageal obstruction; K44.9 Diaphragmatic hernia without obstruction or gangrene; I25.2 Old myocardial infarction; I25.10 Atherosclerotic heart disease of native coronary artery without angina pectoris; E78.5 Hyperlipidemia, unspecified; R06.02 Shortness of breath; G47.33 Obstructive sleep apnea (adult) (pediatric); I12.9 Hypertensive chronic kidney disease with stage 1 through stage 4 chronic kidney disease, or unspecified chronic kidney disease; N18.9 Chronic kidney disease, unspecified; E66.9 Obesity, unspecified; Z68.33 Body mass index [BMI] 33.0-33.9, adult; Z79.899 Other long term (current) drug therapy; Z79.01 Long term (current) use of anticoagulants
CPT/HCPCS: C1726; J2704; J7120

== ENCOUNTER 2022-06-26 02:25 | Day surgery (SDC) | payer OTHER ==
[~2022-06-26 02:25] MED LIST changes: +CALCIUM CIT 311 EAC7; +DIVA125; +METO100ER; +MIDO5; +SIME40L; +SUCR1
== END 2022-06-26 14:45 | disposition home or self-care (01) ==
LOC: ATC 02:25
DX: I12.9 Hypertensive chronic kidney disease with stage 1 through stage 4 chronic kidney disease, or unspecified chronic kidney disease (principal); N18.4 Chronic kidney disease, stage 4 (severe); E86.9 Volume depletion, unspecified; E55.9 Vitamin D deficiency, unspecified; Z79.82 Long term (current) use of aspirin
CPT/HCPCS: 96360; J7030

== ENCOUNTER → 2022-07-08 | Outpatient (CLI) | payer OTHER ==
[2022-07-08 15:46] LABS: Hematocrit 41.3 % (33.0-51.0); Hemoglobin 13.3 g/dL (11.5-16.0)
[2022-07-08 17:51] LABS: Albumin, Blood 3.3 g/dL (3.4-5.0); Anion Gap 5 mmol/L (6-16); Blood Urea Nitrogen 30 mg/dL (8-24); Bun/Creatinine Ratio 13.2 (12.0-20.0); CO2, Blood 28 mmol/L (21-32); Calcium, Blood 9.8 mg/dL (8.5-10.1); Chloride, Blood 104 mmol/L (98-108); Creatinine, Blood 2.27 mg/dL (0.40-1.00); Glomerular Filtration Rate 23 (60-); Glucose, Blood 105 mg/dL (70-99); Phosphorus, Blood 3.8 mg/dL (2.5-4.9); Potassium, Blood 4.3 mmol/L (3.5-5.5); Sodium, Blood 137 mmol/L (136-145)
== END ==
LOC: LAB SHORT 12:00 → LAB 12:00
PROVIDERS: Family Medicine
DX: N18.30 Chronic kidney disease, stage 3 unspecified (principal)
CPT/HCPCS: 80069; 85014; 85018

== ENCOUNTER 2022-07-09 03:49 | Day surgery (SDC) | payer OTHER ==
--- NOTE | 2022-07-09 16:24 | NUR ---
PTS ANNOYED AT THIS RN ASKING ABOUT ALLERGIES AND MEDICATION CHANGE. INFORMED HIM POLITELY THAT WE REQUIRE THESE QUESTIONS AT EVERY VISIT. THIS PTS HAS BEEN A PROBLEM BEFORE. SEE PREVIOUS VISITS THROUGHOUT PTS HISTORY A PT HERE IN ATC/MATTHIEU
== END 2022-07-09 12:15 | disposition home or self-care (01) ==
LOC: ATC 03:49
DX: E86.9 Volume depletion, unspecified (principal); N18.4 Chronic kidney disease, stage 4 (severe)
CPT/HCPCS: 96360; J7030

== ENCOUNTER 2022-07-12 00:51 | Day surgery (SDC) | payer OTHER | END 2022-07-12 11:41 | disposition home or self-care (01) | LOC: ATC 00:51 | DX: E86.9 Volume depletion, unspecified (principal); N18.4 Chronic kidney disease, stage 4 (severe); I12.9 Hypertensive chronic kidney disease with stage 1 through stage 4 chronic kidney disease, or unspecified chronic kidney disease; D63.1 Anemia in chronic kidney disease; N25.81 Secondary hyperparathyroidism of renal origin; E55.9 Vitamin D deficiency, unspecified | CPT/HCPCS: 96360; J7030 ==

== ENCOUNTER 2022-07-16 09:12 | Day surgery (SDC) | payer OTHER | END 2022-07-16 11:45 | disposition home or self-care (01) | LOC: ATC 09:12 | DX: E86.9 Volume depletion, unspecified (principal); N18.4 Chronic kidney disease, stage 4 (severe); I12.9 Hypertensive chronic kidney disease with stage 1 through stage 4 chronic kidney disease, or unspecified chronic kidney disease; D63.1 Anemia in chronic kidney disease; N25.81 Secondary hyperparathyroidism of renal origin; D50.9 Iron deficiency anemia, unspecified; E55.9 Vitamin D deficiency, unspecified; N28.1 Cyst of kidney, acquired | CPT/HCPCS: 96360; J7030 ==

== ENCOUNTER 2022-07-19 00:18 | Day surgery (SDC) | payer OTHER ==
[2022-07-19 15:25] LABS: BASOPHILS ABSOLUTE AUTO 0.01 K/mm3 (0.00-0.23); BASOPHILS PERCENT AUTO 0 % (0-2); EOSINOPHILS ABSOLUTE AUTO 0.18 K/mm3 (0.00-0.68); EOSINOPHILS PERCENT AUTO 3 % (0-6); Hematocrit 37.5 % (33.0-51.0); Hemoglobin 12.6 g/dL (11.5-16.0); IMMATURE GRAN ABSOLUTE AUTO 0.02 K/mm3 (0.00-0.10); IMMATURE GRAN PERCENT AUTO 0 % (0-1); LYMPHOCYTES ABSOLUTE AUTO 0.89 K/mm3 (0.84-5.20); LYMPHOCYTES PERCENT AUTO 14 % (21-46); MONOCYTES ABSOLUTE AUTO 0.51 K/mm3 (0.16-1.47); MONOCYTES PERCENT AUTO 8 % (4-13); Mean Corpuscular HGB 29.7 pg (26.0-34.0); Mean Corpuscular HGB Conc 33.6 g/dL (31.5-36.5); Mean Corpuscular Volume 88 fL (80-100); Mean Platelet Volume 12.3 fL (9.1-12.4); NEUTROPHILS ABSOLUTE AUTO 4.62 K/mm3 (1.96-9.15); NEUTROPHILS PERCENT AUTO 74 % (41-73); Platelet Count 296 K/mm3 (150-400); RDW Coefficient Variation 14.6 % (11.7-14.2); RDW Standard Deviation 46.5 fL (35.1-46.3); Red Blood Cell Count 4.24 M/mm3 (3.80-5.20); White Blood Cell Count 6.23 K/mm3 (4.00-11.30)
== END 2022-07-19 11:48 | disposition home or self-care (01) ==
LOC: ATC 00:18
PROVIDERS: Internal Medicine Nephrology
DX: E86.9 Volume depletion, unspecified (principal); N18.4 Chronic kidney disease, stage 4 (severe); I12.9 Hypertensive chronic kidney disease with stage 1 through stage 4 chronic kidney disease, or unspecified chronic kidney disease; D63.1 Anemia in chronic kidney disease; E55.9 Vitamin D deficiency, unspecified; N28.1 Cyst of kidney, acquired; D50.9 Iron deficiency anemia, unspecified
CPT/HCPCS: 85025; 96360; J7030

== ENCOUNTER 2022-07-26 00:14 | Day surgery (SDC) | payer OTHER ==
[2022-07-26 12:20] LABS: BASOPHILS ABSOLUTE AUTO 0.01 K/mm3 (0.00-0.23); BASOPHILS PERCENT AUTO 0 % (0-2); EOSINOPHILS PERCENT AUTO 3 % (0-6); Hematocrit 39.7 % (33.0-51.0); IMMATURE GRAN ABSOLUTE AUTO 0.03 K/mm3 (0.00-0.10); IMMATURE GRAN PERCENT AUTO 0 % (0-1); LYMPHOCYTES ABSOLUTE AUTO 0.99 K/mm3 (0.84-5.20); LYMPHOCYTES PERCENT AUTO 13 % (21-46); MONOCYTES ABSOLUTE AUTO 0.57 K/mm3 (0.16-1.47); MONOCYTES PERCENT AUTO 7 % (4-13); Mean Corpuscular HGB 29.1 pg (26.0-34.0); Mean Corpuscular HGB Conc 32.7 g/dL (31.5-36.5); Mean Corpuscular Volume 89 fL (80-100); Mean Platelet Volume 11.2 fL (9.1-12.4); NEUTROPHILS ABSOLUTE AUTO 6.04 K/mm3 (1.96-9.15); NEUTROPHILS PERCENT AUTO 77 % (41-73); Platelet Count 266 K/mm3 (150-400); RDW Coefficient Variation 13.9 % (11.7-14.2); RDW Standard Deviation 45.4 fL (35.1-46.3); Red Blood Cell Count 4.47 M/mm3 (3.80-5.20); White Blood Cell Count 7.84 K/mm3 (4.00-11.30)
[2022-07-26 13:04] LABS: Alanine Aminotransfer (ALT/SGP 18 U/L (12-78); Albumin, Blood 3.2 g/dL (3.4-5.0); Albumin/Globulin Ratio 0.6 (0.8-1.8); Alk Phos 95 U/L (50-136); Anion Gap 7 mmol/L (6-16); Aspartate Aminotrans (AST/SGOT 19 U/L (12-37); Bilirubin, Direct <0.1 mg/dL (0.0-0.3); Bilirubin, Indirect Unable to Calculate mg/dL (0.1-0.7); Bilirubin, Total 0.2 mg/dL (0.1-1.0); Blood Urea Nitrogen 38 mg/dL (8-24); Bun/Creatinine Ratio 19.4 (12.0-20.0); CO2, Blood 28 mmol/L (21-32); Calcium, Blood 9.8 mg/dL (8.5-10.1); Chloride, Blood 103 mmol/L (98-108); Creatinine, Blood 1.96 mg/dL (0.40-1.00); Globulin, Blood 5.1 g/dL (2.2-4.0); Glomerular Filtration Rate 27 (60-); Glucose, Blood 135 mg/dL (70-99); Phosphorus, Blood 3.2 mg/dL (2.5-4.9); Potassium, Blood 3.6 mmol/L (3.5-5.5); Sodium, Blood 138 mmol/L (136-145); Total Protein, Blood 8.3 g/dL (6.4-8.2)
== END 2022-07-26 11:45 | disposition home or self-care (01) ==
LOC: ATC 00:14
PROVIDERS: Internal Medicine Nephrology
DX: I12.9 Hypertensive chronic kidney disease with stage 1 through stage 4 chronic kidney disease, or unspecified chronic kidney disease (principal); N18.4 Chronic kidney disease, stage 4 (severe); D63.1 Anemia in chronic kidney disease; R94.5 Abnormal results of liver function studies; N25.81 Secondary hyperparathyroidism of renal origin; E55.9 Vitamin D deficiency, unspecified
CPT/HCPCS: 80053; 82248; 84100; 85025; J7030

== ENCOUNTER 2022-07-27 01:15 | Day surgery (SDC) | payer OTHER | END 2022-07-27 09:16 | disposition home or self-care (01) | LOC: ATC 01:15 | DX: E86.9 Volume depletion, unspecified (principal); I12.9 Hypertensive chronic kidney disease with stage 1 through stage 4 chronic kidney disease, or unspecified chronic kidney disease; N18.4 Chronic kidney disease, stage 4 (severe); D63.1 Anemia in chronic kidney disease; N25.81 Secondary hyperparathyroidism of renal origin; D50.9 Iron deficiency anemia, unspecified; E55.9 Vitamin D deficiency, unspecified | CPT/HCPCS: J7030 ==

== ENCOUNTER 2022-07-30 00:13 | Day surgery (SDC) | payer OTHER | END 2022-07-30 12:07 | disposition home or self-care (01) | LOC: ATC 00:13 | DX: E86.9 Volume depletion, unspecified (principal); N18.4 Chronic kidney disease, stage 4 (severe); I12.9 Hypertensive chronic kidney disease with stage 1 through stage 4 chronic kidney disease, or unspecified chronic kidney disease; D63.1 Anemia in chronic kidney disease; D50.9 Iron deficiency anemia, unspecified; E56.9 Vitamin deficiency, unspecified; N28.1 Cyst of kidney, acquired | CPT/HCPCS: 96360; J7030 ==

== ENCOUNTER 2022-08-01 03:36 | Day surgery (SDC) | payer OTHER ==
--- NOTE | 2022-08-01 10:43 | NUR ---
PT DECLINES LABWORK TODAY. IV LINE TO RIGHT AC IS NOT DRAWING BACK ADEQUATE AMOUNT OF BLOOD VOLUME TO DRAW ALL LABS OFF IV LINE PER HOSPITAL PROTOCOL. PT REPORTS SHE WOULD PREFER LABS DRAWN TOMORROW WITH POWERGLIDE PLACEMENT.
== END 2022-08-01 11:41 | disposition home or self-care (01) ==
LOC: ATC 03:36
DX: E86.9 Volume depletion, unspecified (principal); N18.4 Chronic kidney disease, stage 4 (severe); I12.9 Hypertensive chronic kidney disease with stage 1 through stage 4 chronic kidney disease, or unspecified chronic kidney disease; D63.1 Anemia in chronic kidney disease; N25.81 Secondary hyperparathyroidism of renal origin; E55.9 Vitamin D deficiency, unspecified; N28.1 Cyst of kidney, acquired
CPT/HCPCS: 96360; J7030

== ENCOUNTER 2022-08-10 12:43 | Day surgery (SDC) | payer OTHER | END 2022-08-10 14:10 | disposition home or self-care (01) | LOC: ATC 12:43 | DX: I12.9 Hypertensive chronic kidney disease with stage 1 through stage 4 chronic kidney disease, or unspecified chronic kidney disease (principal); N18.4 Chronic kidney disease, stage 4 (severe); E86.9 Volume depletion, unspecified; D63.1 Anemia in chronic kidney disease; N25.81 Secondary hyperparathyroidism of renal origin | CPT/HCPCS: 96360; J7030 ==

== ENCOUNTER 2022-08-30 23:18 | Emergency (ER) | payer OTHER ==
[~2022-08-30] VITALS: Ht 157.5 cm; Wt 82.5 kg
[2022-08-31 00:13] LABS: BASOPHILS ABSOLUTE AUTO 0.02 K/mm3 (0.00-0.23); BASOPHILS PERCENT AUTO 0 % (0-2); EOSINOPHILS ABSOLUTE AUTO 0.03 K/mm3 (0.00-0.68); EOSINOPHILS PERCENT AUTO 0 % (0-6); Hematocrit 39.6 % (33.0-51.0); Hemoglobin 13.2 g/dL (11.5-16.0); IMMATURE GRAN ABSOLUTE AUTO 0.04 K/mm3 (0.00-0.10); IMMATURE GRAN PERCENT AUTO 0 % (0-1); LYMPHOCYTES ABSOLUTE AUTO 0.52 K/mm3 (0.84-5.20); LYMPHOCYTES PERCENT AUTO 4 % (21-46); MONOCYTES ABSOLUTE AUTO 0.88 K/mm3 (0.16-1.47); MONOCYTES PERCENT AUTO 6 % (4-13); Mean Corpuscular HGB 29.1 pg (26.0-34.0); Mean Corpuscular HGB Conc 33.3 g/dL (31.5-36.5); Mean Corpuscular Volume 87 fL (80-100); Mean Platelet Volume 10.3 fL (9.1-12.4); NEUTROPHILS ABSOLUTE AUTO 12.52 K/mm3 (1.96-9.15); NEUTROPHILS PERCENT AUTO 89 % (41-73); Platelet Count 194 K/mm3 (150-400); RDW Coefficient Variation 14.6 % (11.7-14.2); RDW Standard Deviation 46.9 fL (35.1-46.3); Red Blood Cell Count 4.53 M/mm3 (3.80-5.20); White Blood Cell Count 14.01 K/mm3 (4.00-11.30)
[2022-08-31 00:31] LABS: Albumin, Blood 2.9 g/dL (3.4-5.0); Albumin/Globulin Ratio 0.5 (0.8-1.8); Bilirubin, Total 0.5 mg/dL (0.1-1.0); Bun/Creatinine Ratio 15.2 (12.0-20.0); Calcium, Blood 9.7 mg/dL (8.5-10.1); Creatinine, Blood 1.97 mg/dL (0.40-1.00); Globulin, Blood 5.5 g/dL (2.2-4.0); Total Protein, Blood 8.4 g/dL (6.4-8.2)
[2022-08-31 02:07] LABS: Influenza A, PCR NEGATIVE (NEGATIVE); Influenza B, PCR NEGATIVE (NEGATIVE); Resp Syncytial Virus, PCR NEGATIVE (NEGATIVE); SARS-Cov-2 (COVID-19) PCR, MMC NEGATIVE (NEGATIVE)
[2022-08-31 04:49] LABS: Source, Urine Clean Catch
[2022-08-31 04:56] LABS: Bilirubin, Urine Neg (Neg); Blood, Urine 5+ (Neg); Glucose Qualitative, Urine Neg (Neg); Ketones, Urine Neg (Neg); Leukocyte Esterase, Urine 3+ (Neg); Nitrite, Urine Pos (Neg); Protein, Urine 2+ (Neg); Specific Gravity, Urine 1.005 (1.003-1.022); Urobilinogen, Urine NORM (Normal)
[2022-08-31 05:27] LABS: Appearance, Urine Hazy (Clear); Color, Urine Yellow (P-Yellow)
[2022-08-31 05:29] LABS: Red Blood Cells, Urine 0-2 /hpf (0-2)
[2022-08-31 05:30] LABS: Bacteria Many /hpf; Squamous Epithelial Cells Rare /hpf (Few)
[2022-08-31] MEDS ORDERED: CEPH500 PO (06:44)
== END 2022-08-31 08:01 | disposition home or self-care (01) ==
LOC: ER 23:18
PROVIDERS: Student in an Organized Health Care Education/Training Program
DX: N39.0 Urinary tract infection, site not specified (principal); D72.829 Elevated white blood cell count, unspecified; I13.0 Hypertensive heart and chronic kidney disease with heart failure and stage 1 through stage 4 chronic kidney disease, or unspecified chronic kidney disease; N18.30 Chronic kidney disease, stage 3 unspecified; I50.9 Heart failure, unspecified; Z79.01 Long term (current) use of anticoagulants; Z79.899 Other long term (current) drug therapy
CPT/HCPCS: 0241U; 36415; 71046; 80053; 81001; 84484; 85025; 87077; 87086; 87186; 93005; 93010; 96365; 96366; 99285-25; J0696; J7030

== ENCOUNTER 2022-09-18 04:40 | Day surgery (SDC) | payer OTHER ==
[~2022-09-18 04:40] MED LIST changes: +CEPH500 PO
== END 2022-09-18 10:44 | disposition home or self-care (01) ==
LOC: ATC 04:40
DX: N39.0 Urinary tract infection, site not specified (principal)
CPT/HCPCS: 51798

== ENCOUNTER → 2023-02-03 | Outpatient (CLI) | payer OTHER ==
[2023-02-03 15:51] LABS: Source, Urine Voided
[2023-02-03 16:39] LABS: Appearance, Urine Clear (Clear); Bilirubin, Urine Neg (Neg); Blood, Urine Neg (Neg); Color, Urine Yellow (P-Yellow); Glucose Qualitative, Urine Neg (Neg); Ketones, Urine Neg (Neg); Leukocyte Esterase, Urine Neg (Neg); Nitrite, Urine Neg (Neg); Protein, Urine Neg (Neg); Urobilinogen, Urine NORM (Normal)
== END | disposition home or self-care (01) ==
LOC: LAB 15:49 → LAB SHORT 15:49
PROVIDERS: Family Medicine
DX: N39.0 Urinary tract infection, site not specified (principal)
CPT/HCPCS: 81003

== ENCOUNTER → 2023-03-10 | Outpatient (CLI) | payer OTHER ==
[2023-03-10 12:39] LABS: Source, Urine Clean Catch
[2023-03-10 14:29] LABS: Appearance, Urine Clear (Clear); Bilirubin, Urine Neg (Neg); Blood, Urine Neg (Neg); Color, Urine Yellow (P-Yellow); Glucose Qualitative, Urine Neg (Neg); Ketones, Urine Neg (Neg); Leukocyte Esterase, Urine Neg (Neg); Nitrite, Urine Neg (Neg); Protein, Urine Neg (Neg); Urobilinogen, Urine NORM (Normal)
== END | disposition home or self-care (01) ==
LOC: LAB 12:38 → LAB SHORT 12:38
PROVIDERS: Family Medicine
DX: N39.0 Urinary tract infection, site not specified (principal)
CPT/HCPCS: 81003

== ENCOUNTER → 2023-04-25 | Outpatient (CLI) | payer OTHER ==
[~2023-04-25] MED LIST changes: +DIVA500EC PO; -SIME40L; +SIME40L PO; +THERA-D2000 UNIT PO; -Vitamin D2000 UNIT PO
[2023-04-25 14:02] LABS: BASOPHILS PERCENT AUTO 0 % (0-2); EOSINOPHILS ABSOLUTE AUTO 0.26 K/mm3 (0.00-0.68); EOSINOPHILS PERCENT AUTO 3 % (0-6); Hematocrit 38.3 % (33.0-51.0); Hemoglobin 12.8 g/dL (11.5-16.0); IMMATURE GRAN ABSOLUTE AUTO 0.05 K/mm3 (0.00-0.10); IMMATURE GRAN PERCENT AUTO 1 % (0-1); LYMPHOCYTES ABSOLUTE AUTO 1.34 K/mm3 (0.84-5.20); LYMPHOCYTES PERCENT AUTO 15 % (21-46); MONOCYTES ABSOLUTE AUTO 0.85 K/mm3 (0.16-1.47); MONOCYTES PERCENT AUTO 9 % (4-13); Mean Corpuscular HGB 30.7 pg (26.0-34.0); Mean Corpuscular HGB Conc 33.4 g/dL (31.5-36.5); Mean Corpuscular Volume 92 fL (80-100); Mean Platelet Volume 10.6 fL (9.1-12.4); NEUTROPHILS ABSOLUTE AUTO 6.77 K/mm3 (1.96-9.15); NEUTROPHILS PERCENT AUTO 73 % (41-73); Platelet Count 240 K/mm3 (150-400); RDW Coefficient Variation 14.2 % (11.7-14.2); RDW Standard Deviation 47.9 fL (35.1-46.3); Red Blood Cell Count 4.17 M/mm3 (3.80-5.20); White Blood Cell Count 9.27 K/mm3 (4.00-11.30)
[2023-04-25 14:25] LABS: Albumin, Blood 2.9 g/dL (3.4-5.0); Anion Gap 6 mmol/L (6-16); Blood Urea Nitrogen 42 mg/dL (8-24); Bun/Creatinine Ratio 21.6 (12.0-20.0); CO2, Blood 29 mmol/L (21-32); Calcium, Blood 9.7 mg/dL (8.5-10.1); Chloride, Blood 104 mmol/L (98-108); Creatinine, Blood 1.94 mg/dL (0.40-1.00); Glomerular Filtration Rate 27 (60-); Glucose, Blood 100 mg/dL (70-99); Phosphorus, Blood 3.2 mg/dL (2.5-4.9); Potassium, Blood 3.7 mmol/L (3.5-5.5); Sodium, Blood 139 mmol/L (136-145)
== END ==
LOC: LAB SHORT 13:00 → LAB 13:00
PROVIDERS: Internal Medicine Nephrology
DX: N18.4 Chronic kidney disease, stage 4 (severe) (principal); D63.1 Anemia in chronic kidney disease
CPT/HCPCS: 80069; 85025

== ENCOUNTER 2023-05-03 18:47 | Inpatient (IN) | payer OTHER ==
[~2023-05-03] VITALS: Ht 160 cm; Wt 79.3 kg
[~2023-05-03 18:47] MED LIST changes: -DIVA500EC PO
[2023-05-03 19:39] LABS: BASOPHILS ABSOLUTE AUTO 0.02 K/mm3 (0.00-0.23); BASOPHILS PERCENT AUTO 0 % (0-2); EOSINOPHILS ABSOLUTE AUTO 0.02 K/mm3 (0.00-0.68); EOSINOPHILS PERCENT AUTO 0 % (0-6); Hematocrit 43.6 % (33.0-51.0); Hemoglobin 14.7 g/dL (11.5-16.0); IMMATURE GRAN ABSOLUTE AUTO 0.06 K/mm3 (0.00-0.10); IMMATURE GRAN PERCENT AUTO 1 % (0-1); LYMPHOCYTES ABSOLUTE AUTO 0.85 K/mm3 (0.84-5.20); LYMPHOCYTES PERCENT AUTO 8 % (21-46); MONOCYTES ABSOLUTE AUTO 0.82 K/mm3 (0.16-1.47); MONOCYTES PERCENT AUTO 7 % (4-13); Mean Corpuscular HGB 30.9 pg (26.0-34.0); Mean Corpuscular HGB Conc 33.7 g/dL (31.5-36.5); Mean Corpuscular Volume 92 fL (80-100); Mean Platelet Volume 10.4 fL (9.1-12.4); NEUTROPHILS ABSOLUTE AUTO 9.24 K/mm3 (1.96-9.15); NEUTROPHILS PERCENT AUTO 84 % (41-73); Platelet Count 238 K/mm3 (150-400); RDW Coefficient Variation 14.2 % (11.7-14.2); RDW Standard Deviation 47.8 fL (35.1-46.3); Red Blood Cell Count 4.75 M/mm3 (3.80-5.20); White Blood Cell Count 11.01 K/mm3 (4.00-11.30)
[2023-05-03 19:55] LABS: Albumin/Globulin Ratio 0.6 (0.8-1.8); Bilirubin, Total 0.3 mg/dL (0.1-1.0); Bun/Creatinine Ratio 19.7 (12.0-20.0); Calcium, Blood 10.1 mg/dL (8.5-10.1); Creatinine, Blood 2.44 mg/dL (0.40-1.00); Globulin, Blood 5.1 g/dL (2.2-4.0); Potassium, Blood 3.4 mmol/L (3.5-5.5); Total Protein, Blood 8.1 g/dL (6.4-8.2)
[2023-05-03 20:08] LABS: C-REACTIVE PROTEIN, EXT RANGE 1.22 mg/dL (0.000-0.300); Magnesium, Blood 2.6 mg/dL (1.6-2.4)
[2023-05-03 20:11] LABS: Source, Urine Straight Cath
[2023-05-03 20:13] LABS: Bilirubin, Urine Neg (Neg); Blood, Urine Neg (Neg); Glucose Qualitative, Urine Neg (Neg); Ketones, Urine Neg (Neg); Leukocyte Esterase, Urine 1+ (Neg); Nitrite, Urine Neg (Neg); Protein, Urine Neg (Neg); Urobilinogen, Urine NORM (Normal)
[2023-05-03 20:23] LABS: Appearance, Urine Clear (Clear); Bacteria Mod /hpf; Color, Urine Yellow (P-Yellow); Red Blood Cells, Urine Not Seen /hpf (0-2); Squamous Epithelial Cells Few /hpf (Few)
[2023-05-04 00:44] VITALS: BP 134/82
[2023-05-04 01:06] LABS: Free Thyroxine 0.77 ng/dL (0.70-1.60); Phosphorus, Blood 3.5 mg/dL (2.5-4.9); Thyroid Stimulating Hormone 1.3 uIU/mL (0.360-4.800)
--- NOTE | 2023-05-04 01:21 | NUR ---
ADMIT NOTE; PT ARRIVES FROM ED VIA GURNEY, THE PT IS AXO X4 UPON ADMIT. THE PT IS MILDLY ANXIOUS. THE PT ARRIVES W/ 2L NC IN PLACE WELL NS AND KCL INFUSING. THE PT DENIES ANY ACUTE NEEDS AT TIME OF ARRIVAL. THE PT ENDORSES OVERALL WEAKNESS. THE PT IS NPO, LEMON SWABS OFFERED. THE PT IS BEDREST R/T TO WEAKNESS THEREFORE A PUREWICK WAS PLACED. THE PT DENIES ANY SOB, CHEST PAIN/PRESSURE, N/V OR PAIN. CURRENTLY THE PT IS SLEEPING IN BED WITH THE BED IN THE LOWEST POSITION AND THE CALL LIGHT AT BEDSIDE.
[2023-05-04] MEDS ORDERED: DIVA500EC PO (02:13)
--- NOTE | 2023-05-04 04:24 | NUR ---
SHIFT SUMMARY; NO ACUTE CHANGES SINCE ADMIT. THE PT IS AXO X3-4, ANXIOUS AT TIMES. THE PT IS BEDREST R/T TO INCREASED WEAKNESS. THE PT IS INCONTINENT SO A PUREWICK IS IN PLACE. THE PT IS ON TELE-NSR IN THE 'S. THE PT DOES HAVE A SLIGHT TREMOR IN HER BILAT HANDS, PT STATES BASELINE SINCE ONSET OF WEAKNESS IN JANUARY OF 2023. THE PT DENIES ANY SOB, CHEST PAIN/PRESSURE, PAIN OR N/V. CURRENTLY THE PT IS SLEEPING IN BED WITH THE BED IN THE LOWEST POSITION AND THE CALL LIGHT AT BEDSIDE. FIRE SAFETY MAINTAINED T/O THE NIGHT.
[2023-05-04 04:35] VITALS: BP 105/65
[2023-05-04 05:20] LABS: BASOPHILS ABSOLUTE AUTO 0.01 K/mm3 (0.00-0.23); BASOPHILS PERCENT AUTO 0 % (0-2); EOSINOPHILS ABSOLUTE AUTO 0.12 K/mm3 (0.00-0.68); EOSINOPHILS PERCENT AUTO 1 % (0-6); Hematocrit 42.6 % (33.0-51.0); Hemoglobin 14.3 g/dL (11.5-16.0); IMMATURE GRAN ABSOLUTE AUTO 0.06 K/mm3 (0.00-0.10); IMMATURE GRAN PERCENT AUTO 1 % (0-1); LYMPHOCYTES ABSOLUTE AUTO 1.75 K/mm3 (0.84-5.20); LYMPHOCYTES PERCENT AUTO 21 % (21-46); MONOCYTES ABSOLUTE AUTO 0.89 K/mm3 (0.16-1.47); MONOCYTES PERCENT AUTO 11 % (4-13); Mean Corpuscular HGB 31.2 pg (26.0-34.0); Mean Corpuscular HGB Conc 33.6 g/dL (31.5-36.5); Mean Corpuscular Volume 93 fL (80-100); Mean Platelet Volume 10.4 fL (9.1-12.4); NEUTROPHILS ABSOLUTE AUTO 5.53 K/mm3 (1.96-9.15); NEUTROPHILS PERCENT AUTO 66 % (41-73); Platelet Count 232 K/mm3 (150-400); RDW Coefficient Variation 14.5 % (11.7-14.2); RDW Standard Deviation 49.3 fL (35.1-46.3); Red Blood Cell Count 4.58 M/mm3 (3.80-5.20); White Blood Cell Count 8.36 K/mm3 (4.00-11.30)
[2023-05-04 05:42] LABS: Albumin, Blood 2.9 g/dL (3.4-5.0); Albumin/Globulin Ratio 0.6 (0.8-1.8); Bilirubin, Total 0.4 mg/dL (0.1-1.0); Bun/Creatinine Ratio 19.8 (12.0-20.0); Calcium, Blood 9.6 mg/dL (8.5-10.1); Creatinine, Blood 2.37 mg/dL (0.40-1.00); Globulin, Blood 4.9 g/dL (2.2-4.0); Potassium, Blood 3.7 mmol/L (3.5-5.5); Total Protein, Blood 7.8 g/dL (6.4-8.2)
[2023-05-04 07:57] VITALS: BP 120/56
--- NOTE | 2023-05-04 14:39 | NUR ---
NOTE: NOTIFIED BY TELE OF A [address] BE[address] RUN OF [address]ACH. [address] GAXIOLA NOTIFIED. NO NEW ORDERS AT THIS TIME. THE TELE STRIP IS LOCATED IN THE CHART.
[2023-05-04 17:05] VITALS: BP 109/61
[2023-05-04 20:14] VITALS: BP 109/53
--- NOTE | 2023-05-05 04:35 | NUR ---
SHIFT SUMMARY; NO ACUTE CHANGES OVERNIGHT. THE PT IS AXO X3-4 AND BEDREST R/T WEAKNESS. THE PT HAS 3L NC IN PLACE, O2 SATS HAVE BEEN 91-95% T/O THE NIGHT. THE PT HAS TELE IN PLACE-NSR IN THE 'S. THE PT HAS A PUREWICK IN PLACE. THE PT DENIES ANY SOB, CHEST PAIN/PRESSURE, N/V OR PAIN T/O THE NIGHT. CURRENTLY THE PT IS SLEEPING IN BED WITH THE BED IN THE LOWEST POSITION AND THE CALL LIGHT AT BEDSIDE. FIRE SAFETY MAINTAINED T/O THE NIGHT.
[2023-05-05 05:49] VITALS: BP 116/61
[2023-05-05 07:18] VITALS: BP 112/63
[2023-05-05 08:15] LABS: Bun/Creatinine Ratio 21.8 (12.0-20.0); Calcium, Blood 9.8 mg/dL (8.5-10.1); Creatinine, Blood 2.16 mg/dL (0.40-1.00); Potassium, Blood 3.1 mmol/L (3.5-5.5)
[2023-05-05 15:30] VITALS: BP 113/63
--- NOTE | 2023-05-05 16:37 | NUR ---
SHIFT SUMMARY PT AOX4, I ASSIST PIVOT TO THE CHAIR. PT WORKED WITH HER TODAY AND GOT HER INTO A CHAIR, SHE IS TOLERATING IT WELL. THIS NURSE INFORMED HER THAT WE SHOULD ATTEMPT TO EAT MEALS IN THE CHAIR, PT ADVISED WELL. POTASSIUM WAS REPLACED WITH ORAL SUPPLEMENT THIS SHIFT. PT C/O A COLON POTENTIAL MIGRAINE AND WAS MEDICATED PER THE EMAR. NO OTHER COMPLAINTS AT THIS TIME. STILL WAITING FOR HER TO BRING IN HER NECESSARY HOME MEDICATION. CALL LIGHT WITHIN REACH, BED IN THE LOWEST POSITION. WILL REPORT TO ONCOMING NURSE.
[2023-05-05 19:26] VITALS: BP 117/63
--- NOTE | 2023-05-05 22:02 | NUR ---
NURSE NOTE AWAKE, TOLERATED HAS MEDS WELL, VOICED "SHAKING" (NOTED SLIGHT SHAKLING OF HAND) STATED HX OF ANXIETY AND REQUSETED "ATIVAN". MD NOTIFIED AND PT TAKES 0.5 MF PO Q 8 PRN AT HOME, SO MD ORDERED IT HERE IN THE HOSPITAL. PT VOICED THANKS. NO NOTED S/S DISTRESS OTHERWISE. VSS. O2 PER NC AT 3L/MIN. SATS IN THE 90'S. PUREWICK IN USE. CALL LIGHT IN REACH. WILL CONTINUE TO MONITOR
[2023-05-06 04:06] VITALS: BP 113/69
--- NOTE | 2023-05-06 04:07 | NUR ---
CENTER MAKER HAND SUMMARY VSS. ALERT AND ORIENTED X 4. O2 AT 3L/MIN PER NC. SATS IN THE 90'S WITH CONT BIOX. MED TELE SINUS BRIGETTE. VOICED ANXIETY, NOTIFIED AND ATIVAN ORDERED. MED GIVEN, HAS BEEN RESTING QUIETLY WITH FEW INTERRUPTIONS. CALL LIGHT IN REACH. PUREWICK IN USE. REPOSITIONED FOR COMFORT INTERMITTENTLY. WILL CONTINUE TO MONITOR
[2023-05-06 05:49] LABS: Bun/Creatinine Ratio 22.7 (12.0-20.0); Creatinine, Blood 1.98 mg/dL (0.40-1.00); Potassium, Blood 3.2 mmol/L (3.5-5.5)
[2023-05-06 07:19] VITALS: BP 105/68
[2023-05-06 11:21] LABS: Influenza A, PCR NEGATIVE (NEGATIVE); Influenza B, PCR NEGATIVE (NEGATIVE); Resp Syncytial Virus, PCR NEGATIVE (NEGATIVE); SARS-Cov-2 (COVID-19) PCR, MMC NEGATIVE (NEGATIVE)
[2023-05-06] MEDS ORDERED: Sanctura20 MG PO (13:28)
[2023-05-06] MEDS ORDERED: CEFU250T47 PO (13:28)
[2023-05-06 14:48] LABS: Source, Urine Clean Catch
[2023-05-06 15:15] LABS: Appearance, Urine Clear (Clear); Bilirubin, Urine Neg (Neg); Blood, Urine Neg (Neg); Color, Urine Yellow (P-Yellow); Glucose Qualitative, Urine Neg (Neg); Ketones, Urine Neg (Neg); Leukocyte Esterase, Urine Neg (Neg); Nitrite, Urine Pos (Neg); Protein, Urine 1+ (Neg); Specific Gravity, Urine 1.015 (1.003-1.022); Urobilinogen, Urine NORM (Normal)
[2023-05-06 15:53] LABS: Bacteria Few /hpf; Red Blood Cells, Urine Not Seen /hpf (0-2); Squamous Epithelial Cells Rare /hpf (Few); White Blood Cells, Urine 0-2 /hpf (0-5)
--- NOTE | 2023-05-06 18:06 | NUR ---
SHIFT SUMMARY- PT IS ALERT, PLESANT AND COOPERATIVE. SHE IS EATING AND DRINKING WELL. WAS UP TO THE CHAIR FOR MEALS THIS SHIFT. PURWIC IN PLACE AND DRAINING TO SUCTION. FAMILY AT BEDSIDE. DISCHARGE PENDING INSURANCE AUTH. POSSIBLE DX TOMORROW. BED IS IN THE LOW POSITON AND CALL LIGHT IS WITHIN REACH.
[2023-05-06 19:20] VITALS: BP 115/57
[2023-05-07 03:26] VITALS: BP 119/81
--- NOTE | 2023-05-07 04:19 | NUR ---
SHIFT SUMMARY PATIENT IS ALERT AND ORIENTED. PATIENT HAS BEEN PLEASENT AND COOPERATIVE THIS SHIFT. PATIENT HAS HAD NO ACUTE EVENTS THIS SHIFT. VITAL SIGNS REVIEWED. PATIENT HAS BEEN USING PUREWICK WITH GOOD RESULTS. PATIENT IS PLANNING ON DISCHARGING TO SNF TODAY. PATIENT HAS NOT COMPLAINED OF PAIN, NAUSEA, SOB OR VOMITTING THIS SHIFT. BED IN LOCKED AND LOWEST POSITION. CALL LIGHT IN PLACE. WILL MONITOR UNTIL SHIFT CHANGE.
[2023-05-07 07:19] VITALS: BP 110/83
[2023-05-07 09:11] LABS: Bun/Creatinine Ratio 21.7 (12.0-20.0); Calcium, Blood 9.6 mg/dL (8.5-10.1); Creatinine, Blood 1.89 mg/dL (0.40-1.00); Potassium, Blood 3.4 mmol/L (3.5-5.5)
[2023-05-07 11:55] LABS: Influenza A, PCR NEGATIVE (NEGATIVE); Influenza B, PCR NEGATIVE (NEGATIVE); Resp Syncytial Virus, PCR NEGATIVE (NEGATIVE); SARS-Cov-2 (COVID-19) PCR, MMC NEGATIVE (NEGATIVE)
[2023-05-07 15:55] VITALS: BP 112/78
--- NOTE | 2023-05-07 17:00 | NUR ---
DISCHARGE PATIENT TRANSPORTED VIA GURNEY BY [facility] TO [facility]. BELONGINGS SENT WITH PATIENT AND . IV'S REMOVED BY JENNIFER ROSE. REPORT GIVEN TO KARLY STRATTON NURSE. DISCHARGE INSTRUCTIONS AND MEDICATION LIST FAXED TO [facility].
== END 2023-05-07 17:03 | DRG 689 ==
LOC: ER 18:47 → MEDS 22:03 → ENPENDDIS 05-06 10:09 → MEDS 05-06 15:17
PROVIDERS: Internal Medicine; Student in an Organized Health Care Education/Training Program; ADMIT Internal Medicine
DX: N39.0 Urinary tract infection, site not specified (principal); J96.01 Acute respiratory failure with hypoxia; N17.9 Acute kidney failure, unspecified; I13.0 Hypertensive heart and chronic kidney disease with heart failure and stage 1 through stage 4 chronic kidney disease, or unspecified chronic kidney disease; I48.92 Unspecified atrial flutter; N18.4 Chronic kidney disease, stage 4 (severe); J98.11 Atelectasis; I50.22 Chronic systolic (congestive) heart failure; G93.49 Other encephalopathy; E87.6 Hypokalemia; F32.A Depression, unspecified; E03.9 Hypothyroidism, unspecified; E86.0 Dehydration; B95.4 Other streptococcus as the cause of diseases classified elsewhere; Z20.822 Contact with and (suspected) exposure to COVID-19; Z79.01 Long term (current) use of anticoagulants; Z79.899 Other long term (current) drug therapy; Z90.721 Acquired absence of ovaries, unilateral; Z95.810 Presence of automatic (implantable) cardiac defibrillator; Z86.79 Personal history of other diseases of the circulatory system; Z99.89 Dependence on other enabling machines and devices; Z87.01 Personal history of pneumonia (recurrent)
CPT/HCPCS: 0241U; 36415; 71045; 80048; 80053; 80400; 81001; 82306; 82533; 83735; 83880; 84100; 84439; 84443; 85025; 85651; 86140; 87086; 93005; 93010; 94660; 94762; 96365; 96366; 96372-59; 96375; 97110; 97161; 97166; 97530; 97535; 99285-25; A9270; J0696; J0834; J1644; J3480; J7030; J7050; P9612

== ENCOUNTER 2023-06-05 16:07 | Emergency (ER) | payer OTHER ==
[~2023-06-05] VITALS: Ht 160 cm; Wt 79.4 kg
[~2023-06-05 16:07] MED LIST changes: +CEFU250T47 PO; +DIVA500EC PO; +Sanctura20 MG PO
[2023-06-05 18:37] LABS: BASOPHILS ABSOLUTE AUTO 0.01 K/mm3 (0.00-0.23); BASOPHILS PERCENT AUTO 0 % (0-2); EOSINOPHILS ABSOLUTE AUTO 0.23 K/mm3 (0.00-0.68); EOSINOPHILS PERCENT AUTO 3 % (0-6); Hematocrit 39.4 % (33.0-51.0); Hemoglobin 12.7 g/dL (11.5-16.0); IMMATURE GRAN ABSOLUTE AUTO 0.07 K/mm3 (0.00-0.10); IMMATURE GRAN PERCENT AUTO 1 % (0-1); LYMPHOCYTES PERCENT AUTO 15 % (21-46); MONOCYTES ABSOLUTE AUTO 0.86 K/mm3 (0.16-1.47); MONOCYTES PERCENT AUTO 12 % (4-13); Mean Corpuscular HGB 31.1 pg (26.0-34.0); Mean Corpuscular HGB Conc 32.2 g/dL (31.5-36.5); Mean Corpuscular Volume 96 fL (80-100); Mean Platelet Volume 10.2 fL (9.1-12.4); NEUTROPHILS ABSOLUTE AUTO 4.98 K/mm3 (1.96-9.15); NEUTROPHILS PERCENT AUTO 69 % (41-73); Platelet Count 235 K/mm3 (150-400); RDW Coefficient Variation 14.2 % (11.7-14.2); Red Blood Cell Count 4.09 M/mm3 (3.80-5.20); White Blood Cell Count 7.25 K/mm3 (4.00-11.30)
[2023-06-05 19:12] LABS: Albumin, Blood 2.5 g/dL (3.4-5.0); Albumin/Globulin Ratio 0.5 (0.8-1.8); Bilirubin, Total 0.3 mg/dL (0.1-1.0); Bun/Creatinine Ratio 16.3 (12.0-20.0); Calcium, Blood 9.7 mg/dL (8.5-10.1); Creatinine, Blood 1.96 mg/dL (0.40-1.00); Globulin, Blood 4.7 g/dL (2.2-4.0); Potassium, Blood 3.9 mmol/L (3.5-5.5); Total Protein, Blood 7.2 g/dL (6.4-8.2)
[2023-06-05 22:16] LABS: Source, Urine Straight Cath
[2023-06-05 22:27] LABS: Bilirubin, Urine Neg (Neg); Blood, Urine 2+ (Neg); Glucose Qualitative, Urine Neg (Neg); Ketones, Urine Neg (Neg); Leukocyte Esterase, Urine 3+ (Neg); Nitrite, Urine Neg (Neg); Protein, Urine 1+ (Neg); Urobilinogen, Urine NORM (Normal)
[2023-06-05 22:54] LABS: Appearance, Urine Cloudy (Clear); Color, Urine Yellow (P-Yellow)
[2023-06-05 22:56] LABS: Bacteria Many /hpf; Red Blood Cells, Urine 0-2 /hpf (0-2); Squamous Epithelial Cells Not Seen /hpf (Few); White Blood Cells, Urine TNTC /hpf (0-5)
[2023-06-06] MEDS ORDERED: CEPH500 PO (00:25)
[2023-06-06 06:37] VITALS: BP 103/88
== END 2023-06-06 20:10 | disposition home or self-care (01) ==
LOC: ER 16:07
PROVIDERS: Emergency Medicine
DX: N39.0 Urinary tract infection, site not specified (principal); E03.9 Hypothyroidism, unspecified; I10 Essential (primary) hypertension; Z79.899 Other long term (current) drug therapy
CPT/HCPCS: 51798; 74177; 80053; 81001; 83690; 85025; 87077; 87086; 87186; 96361; 96365; 99284-25; J0696; J7030; Q9967

== ENCOUNTER → 2023-07-10 | Outpatient (CLI) | payer OTHER ==
[2023-07-10 16:02] LABS: Follicle Stimulating Hormone 65.3 mIU/ml; Luteinizing Hormone 22.4 mIU/ml; Prolactin 21.4 ng/mL (2.74-19.64)
[2023-07-13 21:49] LABS: Free Thyroxine 0.94 ng/dL (0.70-1.60); Thyroid Stimulating Hormone 3.66 uIU/mL (0.360-4.800)
== END | disposition home or self-care (01) ==
LOC: LAB 08:25 → LAB SHORT 08:25
PROVIDERS: Family Medicine
DX: R22.0 Localized swelling, mass and lump, head (principal); M62.81 Muscle weakness (generalized)
CPT/HCPCS: 82024; 82533; 83001; 83002; 84146; 84305; 84439; 84443

== ENCOUNTER 2023-07-24 10:37 | Day surgery (SDC) | payer OTHER ==
[2023-07-24 10:50] VITALS: BP 127/93
[2023-07-24 11:21] VITALS: BP 148/95
== END 2023-07-24 11:29 | disposition home or self-care (01) ==
LOC: ATC 10:37
DX: I13.0 Hypertensive heart and chronic kidney disease with heart failure and stage 1 through stage 4 chronic kidney disease, or unspecified chronic kidney disease (principal); N18.4 Chronic kidney disease, stage 4 (severe); R09.02 Hypoxemia; Z99.81 Dependence on supplemental oxygen; E03.9 Hypothyroidism, unspecified; I50.9 Heart failure, unspecified; Z79.899 Other long term (current) drug therapy
CPT/HCPCS: 71045; 80053; 83880; 84484; 85025; 93005; 93010; 96365; 99285-25; J1940

== ENCOUNTER 2023-07-25 11:06 | Day surgery (SDC) | payer OTHER ==
[2023-07-25 15:26] VITALS: BP 139/94
[2023-07-26] MEDS ORDERED: SOAANZ40 M1 PO (11:39)
== END 2023-07-25 15:38 | disposition home or self-care (01) ==
LOC: ATC 11:06
DX: I12.9 Hypertensive chronic kidney disease with stage 1 through stage 4 chronic kidney disease, or unspecified chronic kidney disease (principal); N18.4 Chronic kidney disease, stage 4 (severe); N25.81 Secondary hyperparathyroidism of renal origin; E55.9 Vitamin D deficiency, unspecified
CPT/HCPCS: 96374; J1940

== ENCOUNTER 2023-07-26 04:29 | Day surgery (SDC) | payer OTHER ==
[2023-07-26 10:53] VITALS: BP 147/94
[2023-07-26] MEDS ORDERED: SOAANZ40 M1 PO (11:39)
== END 2023-07-26 11:20 | disposition home or self-care (01) ==
LOC: ATC 04:29
DX: I12.9 Hypertensive chronic kidney disease with stage 1 through stage 4 chronic kidney disease, or unspecified chronic kidney disease (principal); N18.4 Chronic kidney disease, stage 4 (severe); N25.81 Secondary hyperparathyroidism of renal origin
CPT/HCPCS: 96365; J1940

== ENCOUNTER 2023-08-02 03:20 | Day surgery (SDC) | payer OTHER ==
[~2023-08-02 03:20] MED LIST changes: +SOAANZ40 M1 PO
[2023-08-02 11:01] VITALS: BP 140/91
== END 2023-08-02 11:17 | disposition home or self-care (01) ==
LOC: ATC 03:20
DX: E87.70 Fluid overload, unspecified (principal); I12.9 Hypertensive chronic kidney disease with stage 1 through stage 4 chronic kidney disease, or unspecified chronic kidney disease; N18.4 Chronic kidney disease, stage 4 (severe); N25.81 Secondary hyperparathyroidism of renal origin; D50.9 Iron deficiency anemia, unspecified; E55.9 Vitamin D deficiency, unspecified
CPT/HCPCS: 96374

== ENCOUNTER 2023-08-03 04:12 | Day surgery (SDC) | payer OTHER ==
[2023-08-03 10:41] VITALS: BP 115/80
== END 2023-08-03 10:52 | disposition home or self-care (01) ==
LOC: ATC 04:12
DX: E87.70 Fluid overload, unspecified (principal); N18.4 Chronic kidney disease, stage 4 (severe); I12.9 Hypertensive chronic kidney disease with stage 1 through stage 4 chronic kidney disease, or unspecified chronic kidney disease; D63.1 Anemia in chronic kidney disease; N25.81 Secondary hyperparathyroidism of renal origin; D50.9 Iron deficiency anemia, unspecified
CPT/HCPCS: 96374

== ENCOUNTER 2023-08-04 04:12 | Day surgery (SDC) | payer OTHER ==
[2023-08-04 10:58] VITALS: BP 121/81
== END 2023-08-04 11:09 | disposition home or self-care (01) ==
LOC: ATC 04:12
DX: E87.70 Fluid overload, unspecified (principal); I12.9 Hypertensive chronic kidney disease with stage 1 through stage 4 chronic kidney disease, or unspecified chronic kidney disease; N18.4 Chronic kidney disease, stage 4 (severe); N25.81 Secondary hyperparathyroidism of renal origin; E55.9 Vitamin D deficiency, unspecified
CPT/HCPCS: 96374

== ENCOUNTER 2023-08-12 04:06 | Day surgery (SDC) | payer OTHER ==
[~2023-08-12 04:06] MED LIST changes: -CALCIUM CIT 311 EAC7; +CALCIUM CIT 311 EAC7 PO; +CLOMIPRAMINE HC75 M1 PO; -MIDO5; +MIDODRINE HCL10 M1 PO; +Methocarbamol500 MG PO; +OLAN7.5 PO; -ONDA4ODT; +ONDA4ODT PO; -Robaxin750 MG PO
[2023-08-12 11:53] VITALS: BP 100/69
[2023-08-15 11:04] LABS: ALBUMIN 3.39 g/dL (3.75-5.01); ALPHA 1 GLOBULIN 0.41 g/dL (0.19-0.46); ALPHA 2 GLOBULIN 0.85 g/dL (0.48-1.05); BETA GLOBULIN 0.91 g/dL (0.48-1.10); GAMMA 1.75 g/dL (0.62-1.51); IMMUNOFIXATION IFE Done; IMMUNOGLOBULIN A 268 mg/dL (68-408); IMMUNOGLOBULIN G 1262 mg/dL (768-1632); IMMUNOGLOBULIN M 871 mg/dL (35-263); KAPPA/LAMBDA FLC RATIO 0.89 (0.26-1.65); LAMBDA QNT FREE LIGHT CHAINS 86.06 mg/L (5.71-26.30); MONOCLONAL PROTEIN 0.88 g/dL; TOTAL PROTEIN, SERUM 7.3 g/dL (6.3-8.2)
== END 2023-08-12 12:01 | disposition home or self-care (01) ==
LOC: ATC 04:06
PROVIDERS: Internal Medicine Hematology & Oncology
DX: E87.70 Fluid overload, unspecified (principal); D47.2 Monoclonal gammopathy; I12.9 Hypertensive chronic kidney disease with stage 1 through stage 4 chronic kidney disease, or unspecified chronic kidney disease; N18.4 Chronic kidney disease, stage 4 (severe); N25.81 Secondary hyperparathyroidism of renal origin; D50.9 Iron deficiency anemia, unspecified; E55.9 Vitamin D deficiency, unspecified; Z79.899 Other long term (current) drug therapy
CPT/HCPCS: 82784; 83521; 84155; 84165; 86334; 96374

== ENCOUNTER 2023-08-13 02:59 | Day surgery (SDC) | payer OTHER ==
[~2023-08-13 02:59] MED LIST changes: +CALCIUM CIT 311 EAC7; -CALCIUM CIT 311 EAC7 PO; -CLOMIPRAMINE HC75 M1 PO; +MIDO5; -MIDODRINE HCL10 M1 PO; -Methocarbamol500 MG PO; -OLAN7.5 PO; +ONDA4ODT; -ONDA4ODT PO; +Robaxin750 MG PO
[2023-08-13 11:17] VITALS: BP 114/81
== END 2023-08-13 11:32 | disposition home or self-care (01) ==
LOC: ATC 02:59
DX: E87.70 Fluid overload, unspecified (principal); I12.9 Hypertensive chronic kidney disease with stage 1 through stage 4 chronic kidney disease, or unspecified chronic kidney disease; N18.4 Chronic kidney disease, stage 4 (severe); D63.1 Anemia in chronic kidney disease; N25.81 Secondary hyperparathyroidism of renal origin; Z79.82 Long term (current) use of aspirin; Z79.899 Other long term (current) drug therapy
CPT/HCPCS: 36600; 82803; 96374

== ENCOUNTER 2023-08-16 10:13 | Day surgery (SDC) | payer OTHER ==
--- NOTE | 2023-08-15 17:32 | NUR ---
PT'S CALLED THIS MORNING AND RESCHEDULED TODAY'S APPOINTMENT FOR TOMORROW AT 1000.
[~2023-08-16 10:13] MED LIST changes: -ACET500 PO; +Acetaminophen650 M1 PO; -CALCIUM CIT 311 EAC7; +CALCIUM CIT 311 EAC7 PO; +CLOMIPRAMINE HC75 M1 PO; -MIDO5; +MIDODRINE HCL10 M1 PO; +Methocarbamol500 MG PO; +OLAN7.5 PO; -ONDA4ODT; +ONDA4ODT PO; -Robaxin750 MG PO
[2023-08-16 10:45] VITALS: BP 114/66
[2023-08-17] MEDS ORDERED: METO5 PO (18:31)
[2023-08-17] MEDS ORDERED: FURO40 PO (18:32)
[2023-08-17] MEDS ORDERED: TUMS500 MG PO (18:33)
[2023-08-17] MEDS ORDERED: Sanctura20 MG PO (21:46)
[2023-08-17] MEDS ORDERED: Methocarbamol500 MG PO (21:50)
[2023-08-17] MEDS ORDERED: CLOMIPRAMINE HC PO (21:52)
== END 2023-08-16 11:00 | disposition home or self-care (01) ==
LOC: ATC 10:13
DX: E87.70 Fluid overload, unspecified (principal); I12.9 Hypertensive chronic kidney disease with stage 1 through stage 4 chronic kidney disease, or unspecified chronic kidney disease; N18.4 Chronic kidney disease, stage 4 (severe); D63.1 Anemia in chronic kidney disease; N25.81 Secondary hyperparathyroidism of renal origin; E55.9 Vitamin D deficiency, unspecified; D50.9 Iron deficiency anemia, unspecified
CPT/HCPCS: 96374

== ENCOUNTER 2023-08-17 11:43 | Inpatient (IN) | payer OTHER ==
[~2023-08-17] VITALS: Ht 160 cm; Wt 78.8 kg
[2023-08-17 12:42] LABS: Source, Urine Fem Cath
[2023-08-17 13:01] LABS: Appearance, Urine Hazy (Clear); Bilirubin, Urine Neg (Neg); Blood, Urine 4+ (Neg); Color, Urine Yellow (P-Yellow); Glucose Qualitative, Urine Neg (Neg); Ketones, Urine Neg (Neg); Leukocyte Esterase, Urine 3+ (Neg); Nitrite, Urine Neg (Neg); Protein, Urine 1+ (Neg); Specific Gravity, Urine 1.015 (1.003-1.022); Urobilinogen, Urine NORM (Normal)
[2023-08-17 13:08] LABS: Alanine Aminotransfer (ALT/SGP 22 U/L (12-78); Albumin, Blood 2.9 g/dL (3.4-5.0); Albumin/Globulin Ratio 0.5 (0.8-1.8); Alk Phos 85 U/L (50-136); Anion Gap 12 mmol/L (6-16); Aspartate Aminotrans (AST/SGOT 40 U/L (12-37); Bilirubin, Total 0.2 mg/dL (0.1-1.0); Blood Urea Nitrogen 101 mg/dL (8-24); Bun/Creatinine Ratio 36.7 (12.0-20.0); CO2, Blood 36 mmol/L (21-32); Calcium, Blood 9.1 mg/dL (8.5-10.1); Chloride, Blood 80 mmol/L (98-108); Creatinine, Blood 2.75 mg/dL (0.40-1.00); Globulin, Blood 5.5 g/dL (2.2-4.0); Glomerular Filtration Rate 18 (60-); Glucose, Blood 122 mg/dL (70-99); Potassium, Blood 2.7 mmol/L (3.5-5.5); Sodium, Blood 128 mmol/L (136-145); Total Protein, Blood 8.4 g/dL (6.4-8.2); Valproic Acid 65.2 ug/mL (50.0-100.0)
[2023-08-17 13:19] LABS: BASOPHILS ABSOLUTE AUTO 0.03 K/mm3 (0.00-0.23); BASOPHILS PERCENT AUTO 0 % (0-2); EOSINOPHILS PERCENT AUTO 1 % (0-6); Hematocrit 41.5 % (33.0-51.0); Hemoglobin 14.7 g/dL (11.5-16.0); IMMATURE GRAN ABSOLUTE AUTO 0.09 K/mm3 (0.00-0.10); IMMATURE GRAN PERCENT AUTO 1 % (0-1); LYMPHOCYTES ABSOLUTE AUTO 1.38 K/mm3 (0.84-5.20); LYMPHOCYTES PERCENT AUTO 13 % (21-46); MONOCYTES ABSOLUTE AUTO 1.07 K/mm3 (0.16-1.47); MONOCYTES PERCENT AUTO 10 % (4-13); Mean Corpuscular HGB 32.5 pg (26.0-34.0); Mean Corpuscular HGB Conc 35.4 g/dL (31.5-36.5); Mean Corpuscular Volume 92 fL (80-100); Mean Platelet Volume 11.1 fL (9.1-12.4); NEUTROPHILS ABSOLUTE AUTO 8.23 K/mm3 (1.96-9.15); NEUTROPHILS PERCENT AUTO 76 % (41-73); Platelet Count 257 K/mm3 (150-400); RDW Standard Deviation 43.4 fL (35.1-46.3); Red Blood Cell Count 4.53 M/mm3 (3.80-5.20)
[2023-08-17 13:47] LABS: U Amphetamine Screen Not Detected; U Barbituate Screen Not Detected; U Benzodiazapine Screen DETECTED; U Buprenorphine Screen Not Detected; U Cannabinoids Screen Not Detected; U Cocaine Screen Not Detected; U Methadone Screen Not Detected; U Methamphetamine Screen Not Detected; U Opiates Screen Not Detected; U Oxycodone Screen Not Detected; U Phencyclidine Screen Not Detected
[2023-08-17 13:51] LABS: Bacteria Many /hpf; Red Blood Cells, Urine 25-50 /hpf (0-2); Squamous Epithelial Cells Few /hpf (Few); Transitional Epithelial Cells Few /hpf (0-Rare); White Blood Cells, Urine 50-100 /hpf (0-5)
[2023-08-17 17:14] LABS: Base Excess Venous 18.4 mmol/L; Bicarbonate Venous 39.7 mmol/L (24.0-30.0); PCO2 Venous 51.9 mmHg (38-42); pH Blood Venous 7.51 (7.34-7.37)
[2023-08-17 18:04] LABS: Thyroid Stimulating Hormone 1.21 uIU/mL (0.360-4.800)
[2023-08-17 18:07] VITALS: BP 123/62
[2023-08-17] MEDS ORDERED: METO5 PO (18:31)
[2023-08-17] MEDS ORDERED: FURO40 PO (18:32)
[2023-08-17] MEDS ORDERED: TUMS500 MG PO (18:33)
[2023-08-17 19:50] VITALS: BP 135/81
[2023-08-17] MEDS ORDERED: Sanctura20 MG PO (21:46)
[2023-08-17] MEDS ORDERED: Methocarbamol500 MG PO (21:50)
[2023-08-17] MEDS ORDERED: CLOMIPRAMINE HC PO (21:52)
[2023-08-18 04:49] VITALS: BP 131/71
[2023-08-18 05:42] LABS: BASOPHILS ABSOLUTE AUTO 0.01 K/mm3 (0.00-0.23); BASOPHILS PERCENT AUTO 0 % (0-2); EOSINOPHILS PERCENT AUTO 5 % (0-6); Hematocrit 40.5 % (33.0-51.0); Hemoglobin 13.8 g/dL (11.5-16.0); IMMATURE GRAN ABSOLUTE AUTO 0.05 K/mm3 (0.00-0.10); IMMATURE GRAN PERCENT AUTO 1 % (0-1); LYMPHOCYTES ABSOLUTE AUTO 0.38 K/mm3 (0.84-5.20); LYMPHOCYTES PERCENT AUTO 5 % (21-46); MONOCYTES ABSOLUTE AUTO 0.82 K/mm3 (0.16-1.47); MONOCYTES PERCENT AUTO 10 % (4-13); Mean Corpuscular HGB 31.7 pg (26.0-34.0); Mean Corpuscular HGB Conc 34.1 g/dL (31.5-36.5); Mean Corpuscular Volume 93 fL (80-100); Mean Platelet Volume 10.4 fL (9.1-12.4); NEUTROPHILS ABSOLUTE AUTO 6.48 K/mm3 (1.96-9.15); NEUTROPHILS PERCENT AUTO 80 % (41-73); Platelet Count 220 K/mm3 (150-400); RDW Standard Deviation 44.6 fL (35.1-46.3); Red Blood Cell Count 4.36 M/mm3 (3.80-5.20); White Blood Cell Count 8.14 K/mm3 (4.00-11.30)
--- NOTE | 2023-08-18 05:53 | NUR ---
SHIFT SUMMARY 73 YR F ADMITTED ON 08/17/23 FOR ACUTE KIDNEY INJURY. FULL CODE. PT ARRIVED TO THIS UNIT FROM THE ED ACCOMPANIED BY HER , MILO. HE STAYED IN THE ROOM UNTIL ALL ASSESSMENTS AND MED PASSES WERE DONE. PT DID ALL OF THE TALKING AND ANSWERED ALL QUESTIONS THAT WERE DIRECTED TO HIS . WHEN PT DID TRY TO ANSWER, HER CORRECTED HER. THIS NURSE GOT THE FEELING THAT THE PT WAS NOT ALLOWED TO ANSWER FOR HERSELF. PT HUBBY CAME ACROSS OVER BEARING AND IN COMPLETE CONTROL OF PT'S MEDICATIONS AND MEDICAL TREATMENT. THIS NURSE SPOKE WITH THE CHARGE NURSE AND EXPRESSED CONCERNS FOR THE PT'S SAFETY AND WELL BEING. A CARE MANAGEMENT CONSULT WAS PUT IN. PT HAD NO C/O PAIN OR DISCOMFORT THIS SHIFT. SHE APPEARS TO HAVE RESTED COMFORTABLY WITH FEW INTERUPTIONS AFTER HER LEFT.
[2023-08-18 06:04] LABS: Albumin, Blood 2.6 g/dL (3.4-5.0); Anion Gap 7 mmol/L (6-16); Blood Urea Nitrogen 101 mg/dL (8-24); Bun/Creatinine Ratio 41.7 (12.0-20.0); CO2, Blood 37 mmol/L (21-32); Calcium, Blood 9.2 mg/dL (8.5-10.1); Chloride, Blood 89 mmol/L (98-108); Creatinine, Blood 2.42 mg/dL (0.40-1.00); Glomerular Filtration Rate 21 (60-); Glucose, Blood 115 mg/dL (70-99); Magnesium, Blood 2.9 mg/dL (1.6-2.4); Phosphorus, Blood 3.9 mg/dL (2.5-4.9); Potassium, Blood 2.8 mmol/L (3.5-5.5); Sodium, Blood 133 mmol/L (136-145)
--- NOTE | 2023-08-18 06:05 | NUR ---
NURSE NOTE CALL FROM VISION THERAPIST @ 0600 W/ REPORT OF A RUN OF 9 BEATS OF VTAC.
[2023-08-18 07:24] VITALS: BP 126/72
[2023-08-18 15:53] VITALS: BP 121/70
--- NOTE | 2023-08-18 18:31 | NUR ---
SHIFT SUMMARY PT AOX3-4, LETHARGIC TODAY BUT AROUSABLE. ON BEDREST AT THIS TIME, PURWICK IN PLACE AND PATENT. NO COMPLAINTS FROM THE PT. SHE IS SHAKEY AND CANNOT HOLD HER OWN BEVERAGES, MULTIPLE SPILT ON THE FLOOR. SPOKE WITH HER TODAY FOR UPDATES. CALL LIGHT WITHIN REACH, BED IN THE LOWEST POSITION. WILL REPORT TO ONCOMING NURSE.
[2023-08-18 19:35] VITALS: BP 124/76
[2023-08-19 03:47] VITALS: BP 112/78
--- NOTE | 2023-08-19 04:18 | NUR ---
SHIFT SUMMARY PT IS A&O X4, CONTINUE TO BE TIRED T/O SHIFT BUT EASILY AROUSABLE. CURRENTLY ON 8L IA OXIMIZER. TELEMTRY: NS @ 89. PT IS WEAK AND HAS A HARD TIME HOLDING THE PHONE OR DRINKS. ASSISED PT WITH DRINKING PO FLUIDS AND PROVIDED MOUTH MOISURIZER. PT DENIES ANY PAIN OR NEEDS AT THIS TIME. BED KEPT IN THE LOWEST POSIION WITH CALL LIGHT WITHIN REACH.
[2023-08-19 05:18] LABS: BASOPHILS ABSOLUTE AUTO 0.03 K/mm3 (0.00-0.23); BASOPHILS PERCENT AUTO 0 % (0-2); EOSINOPHILS ABSOLUTE AUTO 0.86 K/mm3 (0.00-0.68); EOSINOPHILS PERCENT AUTO 10 % (0-6); Hematocrit 41.7 % (33.0-51.0); Hemoglobin 13.5 g/dL (11.5-16.0); IMMATURE GRAN ABSOLUTE AUTO 0.05 K/mm3 (0.00-0.10); IMMATURE GRAN PERCENT AUTO 1 % (0-1); LYMPHOCYTES ABSOLUTE AUTO 0.47 K/mm3 (0.84-5.20); LYMPHOCYTES PERCENT AUTO 6 % (21-46); MONOCYTES ABSOLUTE AUTO 0.94 K/mm3 (0.16-1.47); MONOCYTES PERCENT AUTO 11 % (4-13); Mean Corpuscular HGB 31.1 pg (26.0-34.0); Mean Corpuscular HGB Conc 32.4 g/dL (31.5-36.5); Mean Corpuscular Volume 96 fL (80-100); Mean Platelet Volume 10.8 fL (9.1-12.4); NEUTROPHILS PERCENT AUTO 72 % (41-73); Platelet Count 215 K/mm3 (150-400); RDW Coefficient Variation 13.2 % (11.7-14.2); RDW Standard Deviation 46.8 fL (35.1-46.3); Red Blood Cell Count 4.34 M/mm3 (3.80-5.20); White Blood Cell Count 8.55 K/mm3 (4.00-11.30)
[2023-08-19 05:54] LABS: Albumin, Blood 2.6 g/dL (3.4-5.0); Anion Gap 5 mmol/L (6-16); Blood Urea Nitrogen 72 mg/dL (8-24); Bun/Creatinine Ratio 37.3 (12.0-20.0); CO2, Blood 37 mmol/L (21-32); Calcium, Blood 9.5 mg/dL (8.5-10.1); Chloride, Blood 97 mmol/L (98-108); Creatinine, Blood 1.93 mg/dL (0.40-1.00); Glomerular Filtration Rate 27 (60-); Glucose, Blood 107 mg/dL (70-99); Potassium, Blood 3.4 mmol/L (3.5-5.5); Sodium, Blood 139 mmol/L (136-145)
[2023-08-19 07:42] VITALS: BP 156/90
--- NOTE | 2023-08-19 17:47 | NUR ---
SHIFT SUMMARY O2 TITRATED TODAY DOWN TO 3L O2 VIA NC. PT TOLERATING THIS WELL. PT LETHARGIC NEEDIN STIMULI TO STAY AWAKE. MORE AWAKE LATE MORNING AND REQUESTED ATIVAN. CONFIRMED WITH DR. GARZA THAT ATIVAN ORDER WAS OKAY AND PT WAS GIVEN A DOSE. PT THEN BECAME DIFFICULTY TO ARROUSE, SLEEPING THROUGH REPOSITIONING IN BED. PT AGAIN A LITTLE MORE AWAKE AND AROUSABLE WHEN TALKING TO HER OR MOVING HER. PURE WIK IN PLACE. INCONTINENT AND BEDBOUND OTHERWISE. AT BEDSIDE MOST OF THE DAY. SPEAKS FOR THE PATIENT AND VERY INVOLVED IN HER PLAN OF CARE. WAS UPSET NO ONE TOLD THEM SHE HAD A UTI AND STATED THAT THEY WERE ONLY TOLD SHE HAD A BLADDER INFECTION. RN EDUCATED THAT THIS IS USED INTERCHANGABLY. SEEMS HAPPIER AFTER THIS EXPLAINATION. NO OTHER ACUTE CHANGES IN ASSESSMENT AT THIS TIME. VS REVEIWED. CALL LIGHT IN REACH.
[2023-08-19 19:30] VITALS: BP 150/65
[2023-08-20 02:29] VITALS: BP 115/72
--- NOTE | 2023-08-20 04:11 | NUR ---
NOC SHIFT SUMMARY: PT. WORE HER CPAP UNTIL 399. SHE ASKED TO TAKE IT OFF. NO C/O PAIN. PT. A&O X3. BRUISE NOTED UNDER HER RIGHT BREAST. INVOLVED IN CARE. INCONTINENT. REHAB/SNF PLACEMENT. CALL LIGHT WITHIN REACH. BED IN LOW POSITION.
[2023-08-20 04:55] LABS: Hematocrit 38.7 % (33.0-51.0); Hemoglobin 12.7 g/dL (11.5-16.0)
[2023-08-20 05:20] LABS: Albumin, Blood 2.3 g/dL (3.4-5.0); Anion Gap 4 mmol/L (6-16); Blood Urea Nitrogen 56 mg/dL (8-24); Bun/Creatinine Ratio 30.4 (12.0-20.0); CO2, Blood 36 mmol/L (21-32); Calcium, Blood 9.9 mg/dL (8.5-10.1); Chloride, Blood 96 mmol/L (98-108); Creatinine, Blood 1.84 mg/dL (0.40-1.00); Glomerular Filtration Rate 29 (60-); Glucose, Blood 109 mg/dL (70-99); Magnesium, Blood 2.4 mg/dL (1.6-2.4); Phosphorus, Blood 2.9 mg/dL (2.5-4.9); Potassium, Blood 3.5 mmol/L (3.5-5.5); Sodium, Blood 136 mmol/L (136-145)
[2023-08-20 08:23] VITALS: BP 124/71
[2023-08-20 16:28] VITALS: BP 106/73
--- NOTE | 2023-08-20 19:20 | NUR ---
SHIFT SUMMARY: NO ACUTE EVENTS. PT SOMNOLENT MUCH OF THE DAY, BUT DID WORK WITH PT/OT. NO EVENTS ON TELEMETRY, SR 70-80'S. ON O2 @ 2.5 L/MIN NC, USING HOME CPAP AT HS. TOLERATING CARDIAC DIET, NO N/V. IVF INFUSING AT 50 ML/HR. INCONTINENT OF B&B, ATTENDS IN PLACE. AWAITING D/C TO [facility] WHEN MEDICALLY STABLE FOR D/C.
[2023-08-20 19:54] VITALS: BP 108/68
[2023-08-21 03:53] VITALS: BP 116/79
--- NOTE | 2023-08-21 05:11 | NUR ---
NOC SHIFT SUMMARY: INCREASED ANXIETY TONIGHT. ATIVAN GIVEN AT BEDTIME. NO C/O PAIN. PATIENT TOOK PUREWICK OUT DURING THE NIGHT. PLACEMENT IS DISCHARGE PLAN. BED IN LOW POSITION. CALL LIGHT WITHIN REACH.
[2023-08-21 05:13] LABS: Hematocrit 37.6 % (33.0-51.0); Hemoglobin 12.5 g/dL (11.5-16.0)
[2023-08-21 05:39] LABS: Albumin, Blood 2.2 g/dL (3.4-5.0); Anion Gap 5 mmol/L (6-16); Blood Urea Nitrogen 54 mg/dL (8-24); Bun/Creatinine Ratio 33.5 (12.0-20.0); CO2, Blood 31 mmol/L (21-32); Calcium, Blood 9.6 mg/dL (8.5-10.1); Chloride, Blood 101 mmol/L (98-108); Creatinine, Blood 1.61 mg/dL (0.40-1.00); Glomerular Filtration Rate 34 (60-); Glucose, Blood 99 mg/dL (70-99); Magnesium, Blood 2.1 mg/dL (1.6-2.4); Phosphorus, Blood 2.8 mg/dL (2.5-4.9); Potassium, Blood 3.5 mmol/L (3.5-5.5); Sodium, Blood 137 mmol/L (136-145)
[2023-08-21 07:22] VITALS: BP 116/63
[2023-08-21 15:17] VITALS: BP 116/93
--- NOTE | 2023-08-21 18:43 | NUR ---
SHIFT SUMMARY: NO ACUTE EVENTS. QUITE ANXIOUS THIS MORNING, DOES NOT LIKE TO BE LEFT ALONE. OXYGEN TITRATED DOWN TO 1.5-2 L/MIN NC WITH O2 SATS 92-95%. RASH UNDER BREASTS NEARLY RESOLVED. FOUND PUREWICK UNCOMFORTABLE SO SHE REMOVED IT, ATTENDS IN PLACE. LBM WAS ELECTRICIAN OUTSIDE; MIRALAX GIVEN THIS MORNING WITH NO RESULT, AND SPOUSE REQUESTED FLEET ENEMA WHICH DR. BOWER GAVE TELEPHONE ORDER FOR. PLAN IS FOR D/C TO SNF TOMORROW.
[2023-08-21 19:22] VITALS: BP 104/64
[2023-08-22 03:10] VITALS: BP 128/86
--- NOTE | 2023-08-22 04:06 | NUR ---
SHIFT SUMMARY BRITNEY WAS ALERT AND ORIENTED TO SELF, PERSON, AND SITUATION AT START OF SHIFT AT BEDSIDE UNTIL 2100. PT IS CONFUSED AND ANXIOUS. ONE TIME FLEET ENEMA ORDER NOT USED, PT HAD A MEDIUM BM JUST PRIOR TO ADMINISTRATION. MEDICATED FOR ANXIETY ON REQUEST. NO ACUTE EVENTS TONIGHT, NO CHANGES IN PT CONDITION. PT RESTING IN BED AT A LOW POSITION, CALL LIGHT IN PLACE, PURWIC IN PLACE.
[2023-08-22 04:45] LABS: Hematocrit 38.3 % (33.0-51.0); Hemoglobin 12.8 g/dL (11.5-16.0)
[2023-08-22 05:12] LABS: Albumin, Blood 2.3 g/dL (3.4-5.0); Anion Gap 4 mmol/L (6-16); Blood Urea Nitrogen 47 mg/dL (8-24); Bun/Creatinine Ratio 29.4 (12.0-20.0); CO2, Blood 33 mmol/L (21-32); Chloride, Blood 101 mmol/L (98-108); Glomerular Filtration Rate 34 (60-); Glucose, Blood 97 mg/dL (70-99); Potassium, Blood 3.7 mmol/L (3.5-5.5); Sodium, Blood 138 mmol/L (136-145)
[2023-08-22 05:12] LABS: ALDOSTERONE/RENINACTIVITY CALC 4.3 ratio (<=25.0); RENIN ACTIVITY 38.7 ng/mL/hr
[2023-08-22 08:02] VITALS: BP 127/64
[2023-08-22 11:15] LABS: SARS-Cov-2 (COVID-19) PCR, MMC NEGATIVE (NEGATIVE)
[2023-08-22] MEDS ORDERED: Vitamin D1000 UNI1 PO (11:35)
[2023-08-22] MEDS ORDERED: SPIR25 PO (11:36)
[2023-08-22] MEDS ORDERED: VISBIOME 112.51 EACH PO (11:37)
[2023-08-22] MEDS ORDERED: CEPH500 PO (11:38)
--- NOTE | 2023-08-22 15:51 | NUR ---
[facility] IV AND TELE DC'D. ALL QUESTIONS ANSWERED. ALL BELONGINGS GATHERED AND SENT WITH PT. LOCKED DRAWER AND CABINET CHECKED FOR PERSONAL BELONGINGS. CALLED AND GAVE REPORT TO KARLY HORAN. PT TAKEN BY WHEELCHAIR TO WAITING TRANSPORT VEHICLE.
== END 2023-08-22 12:48 | DRG 91 ==
LOC: ER 11:43 → MEDS 16:09 → EDPENDDIS 08-22 09:45 → ENPENDDIS 08-22 09:45 → MEDS 08-22 12:48
PROVIDERS: Emergency Medicine; Internal Medicine Nephrology; ADMIT Family Medicine
PROC: 5A09357 Assistance with Respiratory Ventilation, Less than 24 Consecutive Hours, Continuous Positive Airway Pressure (ICD-10-PCS; principal; 2023-08-17)
DX: G92.8 Other toxic encephalopathy (principal); J96.01 Acute respiratory failure with hypoxia; N39.0 Urinary tract infection, site not specified; N17.9 Acute kidney failure, unspecified; E87.1 Hypo-osmolality and hyponatremia; J98.11 Atelectasis; I13.0 Hypertensive heart and chronic kidney disease with heart failure and stage 1 through stage 4 chronic kidney disease, or unspecified chronic kidney disease; T50.915A Adverse effect of multiple unspecified drugs, medicaments and biological substances, initial encounter; E87.6 Hypokalemia; N18.30 Chronic kidney disease, stage 3 unspecified; G47.30 Sleep apnea, unspecified; E03.9 Hypothyroidism, unspecified; I50.9 Heart failure, unspecified; E88.09 Other disorders of plasma-protein metabolism, not elsewhere classified; F32.A Depression, unspecified; Z79.01 Long term (current) use of anticoagulants; Z91.51 Personal history of suicidal behavior
CPT/HCPCS: 36415; 70450; 71045; 71250; 76770; 80053; 80069; 80164; 81001; 82088; 82330; 82435; 82550; 82803; 83735; 83880; 84132; 84244; 84295; 84443; 84484; 85014; 85018; 85025; 87077; 87086; 87186; 93005; 93010; 93971; 94660; 94762; 96365; 97110; 97162; 97165; 97530; 97535; 99285-25; A9270; J0696; J2060; J3480; J7030; J7050; U0002

== ENCOUNTER 2023-08-25 16:37 | Observation (INO) | payer OTHER ==
[~2023-08-25] VITALS: Ht 162.6 cm; Wt 90.7 kg
[~2023-08-25 16:37] MED LIST changes: +METO5 PO; +SPIR25 PO; +TUMS500 MG PO; +Vitamin D1000 UNI1 PO
[2023-08-25 17:19] LABS: BASOPHILS ABSOLUTE AUTO 0.04 K/mm3 (0.00-0.23); BASOPHILS PERCENT AUTO 0 % (0-2); EOSINOPHILS ABSOLUTE AUTO 0.05 K/mm3 (0.00-0.68); EOSINOPHILS PERCENT AUTO 1 % (0-6); Hematocrit 40.8 % (33.0-51.0); Hemoglobin 13.9 g/dL (11.5-16.0); IMMATURE GRAN ABSOLUTE AUTO 0.05 K/mm3 (0.00-0.10); IMMATURE GRAN PERCENT AUTO 1 % (0-1); LYMPHOCYTES PERCENT AUTO 7 % (21-46); MONOCYTES PERCENT AUTO 9 % (4-13); Mean Corpuscular HGB Conc 34.1 g/dL (31.5-36.5); Mean Corpuscular Volume 94 fL (80-100); NEUTROPHILS ABSOLUTE AUTO 8.93 K/mm3 (1.96-9.15); NEUTROPHILS PERCENT AUTO 82 % (41-73); Platelet Count 198 K/mm3 (150-400); RDW Coefficient Variation 13.2 % (11.7-14.2); Red Blood Cell Count 4.35 M/mm3 (3.80-5.20); White Blood Cell Count 10.87 K/mm3 (4.00-11.30)
[2023-08-25 17:26] LABS: Albumin, Blood 2.4 g/dL (3.4-5.0); Albumin/Globulin Ratio 0.5 (0.8-1.8); Bilirubin, Total 0.3 mg/dL (0.1-1.0); Bun/Creatinine Ratio 26.3 (12.0-20.0); Calcium, Blood 9.2 mg/dL (8.5-10.1); Creatinine, Blood 1.79 mg/dL (0.40-1.00); Globulin, Blood 4.7 g/dL (2.2-4.0); Potassium, Blood 3.9 mmol/L (3.5-5.5); Total Protein, Blood 7.1 g/dL (6.4-8.2)
[2023-08-25 18:57] LABS: Source, Urine Fem Cath
[2023-08-25 19:09] LABS: Appearance, Urine Hazy (Clear); Bilirubin, Urine Neg (Neg); Blood, Urine 3+ (Neg); Color, Urine Yellow (P-Yellow); Glucose Qualitative, Urine Neg (Neg); Ketones, Urine Neg (Neg); Leukocyte Esterase, Urine 2+ (Neg); Nitrite, Urine Neg (Neg); Protein, Urine Neg (Neg); Specific Gravity, Urine 1.015 (1.003-1.022); Urobilinogen, Urine NORM (Normal)
[2023-08-25 20:13] LABS: Amorphous Light (0-Heavy); Bacteria Many /hpf; Hyaline Casts 0-2 /lpf (0-2); Mucus Light (0-Heavy); Renal Epithelial Rare /hpf (0-Rare); Squamous Epithelial Cells Few /hpf (Few); Transitional Epithelial Cells Mod /hpf (0-Rare)
[2023-08-25 21:56] LABS: Valproic Acid 40.3 ug/mL (50.0-100.0)
[2023-08-26 00:44] VITALS: BP 133/73
[2023-08-26 01:52] LABS: Albumin, Blood 2.2 g/dL (3.4-5.0); Albumin/Globulin Ratio 0.5 (0.8-1.8); Bilirubin, Total 0.2 mg/dL (0.1-1.0); Bun/Creatinine Ratio 28.4 (12.0-20.0); Creatinine, Blood 1.69 mg/dL (0.40-1.00); Globulin, Blood 4.8 g/dL (2.2-4.0); Potassium, Blood 3.8 mmol/L (3.5-5.5)
--- NOTE | 2023-08-26 04:05 | NUR ---
ADMISSION NOTE: 0025: PT ARRIVED TO THE UNIT VIA GURNEY. THREE PERSON TRANSFER WITH SLIDE SHEET TO BED. OXYGEN AT 3LPM UPON ARRIVAL, PER REPORT PT USES 2LNC AT HOME. VSS, SPO2 OF 98%, TITRATED OXYGEN TO 2LPM, BASELINE, WILL MONITOR. PT IS A/O X2 OFF/ON. AT TIMES PT IS A/O TO SELF ONLY. REPORTEDLY PT HAD THREE STOOLS IN THE ED. THREE STOOLS AFTER ADMISSION TO THE UNIT. LARGE HARD STOOL SURROUNDED WITH LIQUID STOOL. REPORTEDLY PT HAD BEEN RECIEVING BOWEL CARE AT [facility]. ABDOMEN IS ROUND AND FIRM. PT REPORTED THAT SHE IS STARTING TO FEEL BETTER. JANAE CARE DONE AND PT POSITIONED IN BED FOR COMFORT. INCONTINENT OF STOOL AND URINE. TELEMETRY MAINTAINED, SEE EMR. PT HAS A DEFIBRILLATOR IMPLANT. WOUND UNDER LEFT BREAST, PHOTOS TAKEN, CLEANSED, AND FOAM DRESSING PLACED. PIV TO LEFT FOREARM IS PATENT. PT IS COOPERATIVE WITH CARE. FLUIDS RUNNING ORDERED. FLU SHOT GIVEN, SEE EMR. 1439: PT LAYING IN BED WITH EYES CLOSED, BREATHING IS EVEN AND UNLABORED, NO ACUTE DISTRESS. WILL CONTINUE TO MONITOR. BED ALARM IS ON, CALL LIGHT WITHIN REACH.
[2023-08-26 04:57] VITALS: BP 125/92
[2023-08-26 05:46] LABS: BASOPHILS ABSOLUTE AUTO 0.04 K/mm3 (0.00-0.23); BASOPHILS PERCENT AUTO 0 % (0-2); Hematocrit 43.4 % (33.0-51.0); Hemoglobin 14.6 g/dL (11.5-16.0); LYMPHOCYTES ABSOLUTE AUTO 0.83 K/mm3 (0.84-5.20); LYMPHOCYTES PERCENT AUTO 9 % (21-46); MONOCYTES ABSOLUTE AUTO 0.92 K/mm3 (0.16-1.47); MONOCYTES PERCENT AUTO 10 % (4-13); Mean Corpuscular HGB 31.5 pg (26.0-34.0); Mean Corpuscular HGB Conc 33.6 g/dL (31.5-36.5); Mean Corpuscular Volume 94 fL (80-100); Mean Platelet Volume 11.8 fL (9.1-12.4); Platelet Count 205 K/mm3 (150-400); RDW Coefficient Variation 13.3 % (11.7-14.2); RDW Standard Deviation 45.5 fL (35.1-46.3); Red Blood Cell Count 4.64 M/mm3 (3.80-5.20); White Blood Cell Count 9.03 K/mm3 (4.00-11.30)
[2023-08-26 05:56] LABS: EOSINOPHILS ABSOLUTE AUTO 0.01 K/mm3 (0.00-0.68); EOSINOPHILS PERCENT AUTO 0 % (0-6); IMMATURE GRAN ABSOLUTE AUTO 0.04 K/mm3 (0.00-0.10); IMMATURE GRAN PERCENT AUTO 0 % (0-1); NEUTROPHILS ABSOLUTE AUTO 7.19 K/mm3 (1.96-9.15); NEUTROPHILS PERCENT AUTO 80 % (41-73)
[2023-08-26 07:29] VITALS: BP 118/65
[2023-08-26 15:13] VITALS: BP 120/72
--- NOTE | 2023-08-26 18:44 | NUR ---
SUMMARY- PT AAOX4 THIS SHIFT. PT LETHARGIC AND WITHDRAWN THIS SHIFT, BUT WILLING TO ANSWER MINIMAL QUESTIONS. PAIN CONTROLLED WITH EMAR MEDS.
[2023-08-26 19:47] VITALS: BP 105/61
[2023-08-27 02:21] VITALS: BP 117/52
--- NOTE | 2023-08-27 03:09 | NUR ---
VOICED ANXIOUS FEELINGS. MD NOTIFIED. ATIVAN 0.5 MG PO X 1 ORDERED, WILL ASK AM RN TO F/U WITH MD TO ADDRESS FUTURE ANX.
--- NOTE | 2023-08-27 03:41 | NUR ---
MINE MOTOR OPERATOR SUMMARY VSS. HAS BEEN RESTING QUIETLY WITH OCCASIONAL INTERRUPTION FOR REQUESTS WITH ASSISTANCE WITH USE OF CALL LIGHT CONTROLS. INCONT X 1, CHANGED. ALERT TO QUESTIONS ASKED. LATER IN THE MIDDLE OF THE SHIFT, VOICED ANXIETY, NO ANX MED ORDERED. NOTIFIED AND ATIVAN PO X 1 OBTAINED, BUT UPON RETURN TO THE ROOM, WAS SLEEPING. MED HELD. CALL LIGHT IN REACH. RAILS UP X 3 FOR SAFETY. WILL CONTINUE TO MONITOR.
[2023-08-27 06:47] LABS: Bun/Creatinine Ratio 26.9 (12.0-20.0); Creatinine, Blood 1.45 mg/dL (0.40-1.00); Potassium, Blood 2.8 mmol/L (3.5-5.5)
[2023-08-27 07:50] VITALS: BP 101/67
[2023-08-27] MEDS ORDERED: FLUVOXAMINE MA150 MG PO (08:23)
[2023-08-27] MEDS ORDERED: OLAN7.5 PO (08:24)
[2023-08-27] MEDS ORDERED: LORA.5 PO (08:25)
[2023-08-27] MEDS ORDERED: CLOMIPRAMINE HC50 M1 PO (08:26)
[2023-08-27] MEDS ORDERED: DIVA500EC PO (08:28)
[2023-08-27] MEDS ORDERED: FLUV50 PO (11:00)
[2023-08-27 11:19] LABS: SARS-Cov-2 (COVID-19) PCR, MMC NEGATIVE (NEGATIVE)
--- NOTE | 2023-08-27 14:28 | NUR ---
PT DISCHARGED BACK TO . ATTEMPTED TO GIVE REPORT, CALLED 3 TIMES WITH NO ANSWER. PT IS ALERT AND ORIENTED X4. SLOW SPEECH. MAX ASSIST TO BEDSIDE COMMODE. FWW AND GAIT BELT. SPOUSE AT BEDSIDE. PT ABLE TO MAKE NEEDS KNOWN. DISCHARGE PACKET HANDED TO TRANSPORTATION. NO QUESTIONS OR CONCERNS AT THIS TIME. PT IS ON 2L NC, BASELINE.
== END 2023-08-27 13:59 | disposition home or self-care (01) ==
LOC: ER 16:37 → MEDS 16:38 → ENPENDDIS 08-26 16:46 → MEDS 08-27 13:59
PROVIDERS: Emergency Medicine; Family Medicine; Student in an Organized Health Care Education/Training Program; ADMIT Internal Medicine
DX: G93.40 Encephalopathy, unspecified (principal); N18.30 Chronic kidney disease, stage 3 unspecified; E03.9 Hypothyroidism, unspecified; F32.A Depression, unspecified; I50.9 Heart failure, unspecified; I13.0 Hypertensive heart and chronic kidney disease with heart failure and stage 1 through stage 4 chronic kidney disease, or unspecified chronic kidney disease
CPT/HCPCS: 36415; 70450; 71045; 74018; 80048; 80053; 80164; 81001; 82140; 83605; 83880; 84484; 85025; 87086; 93005; 93010; 96360; 96372-59; 97165; 97530; 99285-25; A9270; G0008; G0378; J1650; J7030; P9612; Q2036; U0002

== ENCOUNTER 2023-08-26 01:39 | Day surgery (SDC) | payer OTHER ==
[2023-08-27] MEDS ORDERED: FLUVOXAMINE MA150 MG PO (08:23)
[2023-08-27] MEDS ORDERED: OLAN7.5 PO (08:24)
[2023-08-27] MEDS ORDERED: LORA.5 PO (08:25)
[2023-08-27] MEDS ORDERED: CLOMIPRAMINE HC50 M1 PO (08:26)
[2023-08-27] MEDS ORDERED: DIVA500EC PO (08:28)
[2023-08-27] MEDS ORDERED: FLUV50 PO (11:00)
== END 2023-08-26 22:42 | disposition home or self-care (01) ==
LOC: ATC 01:39
DX: E87.70 Fluid overload, unspecified (principal); I12.9 Hypertensive chronic kidney disease with stage 1 through stage 4 chronic kidney disease, or unspecified chronic kidney disease; N18.4 Chronic kidney disease, stage 4 (severe); N25.81 Secondary hyperparathyroidism of renal origin; E55.9 Vitamin D deficiency, unspecified; D50.9 Iron deficiency anemia, unspecified; Z79.899 Other long term (current) drug therapy

== ENCOUNTER 2023-10-21 08:43 | Inpatient (IN) | payer OTHER ==
[~2023-10-21] VITALS: Ht 167.6 cm; Wt 78.8 kg
[2023-10-21] VITALS (40 sets, daily range): BP systolic 79–128; BP diastolic 45–86
[~2023-10-21 08:43] MED LIST changes: +ACETAMINOPHEN500 M2 PO; -Acetaminophen650 M1 PO; +LORA.5 PO; +OYSTER SHELL C500 MG PO; -TUMS500 MG PO
[2023-10-21] MEDS ORDERED: NS 1,000 ML IV SCH ×2 (08:50→11:15)
[2023-10-21] MEDS ORDERED: Naloxone HCl 0.4MG / ML 1ML Vial IV ONE ×2 (08:50→09:40)
[2023-10-21 09:16] LABS: BASOPHILS ABSOLUTE AUTO 0.01 K/mm3 (0.00-0.23); BASOPHILS PERCENT AUTO 0 % (0-2); EOSINOPHILS ABSOLUTE AUTO 0.42 K/mm3 (0.00-0.68); EOSINOPHILS PERCENT AUTO 6 % (0-6); Hematocrit 37.3 % (33.0-51.0); Hemoglobin 11.9 g/dL (11.5-16.0); IMMATURE GRAN ABSOLUTE AUTO 0.04 K/mm3 (0.00-0.10); IMMATURE GRAN PERCENT AUTO 1 % (0-1); LYMPHOCYTES ABSOLUTE AUTO 1.06 K/mm3 (0.84-5.20); LYMPHOCYTES PERCENT AUTO 14 % (21-46); MONOCYTES PERCENT AUTO 12 % (4-13); Mean Corpuscular HGB 32.5 pg (26.0-34.0); Mean Corpuscular HGB Conc 31.9 g/dL (31.5-36.5); Mean Corpuscular Volume 102 fL (80-100); Mean Platelet Volume 10.1 fL (9.1-12.4); NEUTROPHILS ABSOLUTE AUTO 5.16 K/mm3 (1.96-9.15); NEUTROPHILS PERCENT AUTO 68 % (41-73); Platelet Count 171 K/mm3 (150-400); RDW Standard Deviation 56.5 fL (35.1-46.3); Red Blood Cell Count 3.66 M/mm3 (3.80-5.20); White Blood Cell Count 7.59 K/mm3 (4.00-11.30)
[2023-10-21 09:43] LABS: Albumin, Blood 2.4 g/dL (3.4-5.0); Albumin/Globulin Ratio 0.5 (0.8-1.8); Bilirubin, Total 0.4 mg/dL (0.1-1.0); Bun/Creatinine Ratio 20.3 (12.0-20.0); Calcium, Blood 9.7 mg/dL (8.5-10.1); Creatinine, Blood 2.36 mg/dL (0.40-1.00); Globulin, Blood 4.5 g/dL (2.2-4.0); Potassium, Blood 4.8 mmol/L (3.5-5.5); Total Protein, Blood 6.9 g/dL (6.4-8.2)
[2023-10-21] MEDS ORDERED: Glucagon 1 MG/KIT VIAL IV ONE (09:50)
[2023-10-21] MEDS ORDERED: Calcium Gluconate 10% 100 MG/ML INJ IV ONE (09:50)
[2023-10-21 09:52] LABS: Source, Urine Foley catheter
[2023-10-21 09:55] LABS: Appearance, Urine Hazy (Clear); Bilirubin, Urine Neg (Neg); Blood, Urine 5+ (Neg); Color, Urine Yellow (P-Yellow); Glucose Qualitative, Urine Neg (Neg); Ketones, Urine Neg (Neg); Leukocyte Esterase, Urine 3+ (Neg); Nitrite, Urine Neg (Neg); Protein, Urine 1+ (Neg); Specific Gravity, Urine 1.005 (1.003-1.022); Urobilinogen, Urine NORM (Normal)
[2023-10-21] MEDS ORDERED: Ondansetron HCl 2 MG / ML 2ML Vial IV ONE (09:55)
[2023-10-21 10:02] LABS: Bacteria Many /hpf; Squamous Epithelial Cells Few /hpf (Few); White Blood Cells, Urine 25-50 /hpf (0-5)
[2023-10-21 10:06] LABS: U Amphetamine Screen Not Detected; U Barbituate Screen Not Detected; U Benzodiazapine Screen DETECTED; U Buprenorphine Screen Not Detected; U Cannabinoids Screen Not Detected; U Cocaine Screen Not Detected; U Methadone Screen Not Detected; U Methamphetamine Screen Not Detected; U Opiates Screen Not Detected; U Oxycodone Screen Not Detected; U Phencyclidine Screen Not Detected
[2023-10-21] MEDS ORDERED: CefTRIAXone Sodium 1,000 MG in NS 50 ML IV ONE (10:15)
[2023-10-21] MEDS ORDERED: Flumazenil 0.1 MG / ML 5ML Vial IV ONE (10:35)
[2023-10-21] MEDS ORDERED: DEXTROSE 5% IV SCH (10:40)
[2023-10-21] MEDS ORDERED: GLUCAGON IV SCH (10:40)
[2023-10-21] MEDS ORDERED: FLUMAZENIL 0.1 MG/ML IV PRN (11:10)
[2023-10-21] MEDS ORDERED: FLU VACC QS2023-24(6MOS UP)/PF 60 MCG/0.5 ML SYRINGE IM SCH (11:10)
[2023-10-21] MEDS ORDERED: Ondansetron HCl 2 MG / ML 2ML Vial IV PRN (11:15)
[2023-10-21] MEDS ORDERED: Acetaminophen 325 MG TABLET PO PRN (11:15)
[2023-10-21 11:20] LABS: Valproic Acid 65.8 ug/mL (50.0-100.0)
[2023-10-21 11:48] LABS: Base Excess Venous -0.8 mmol/L; Bicarbonate Venous 23.3 mmol/L (24.0-30.0); PCO2 Venous 48.4 mmHg (38-42); pH Blood Venous 7.32 (7.34-7.37)
[2023-10-21] MEDS ORDERED: Flumazenil 0.1 MG / ML 5ML Vial ONE (12:17)
[2023-10-21] MEDS ORDERED: Midodrine 5 MG Tab PO SCH (13:00)
--- NOTE | 2023-10-21 14:00 | NUR ---
PT ADMIT.... PT ARRIVED ON 3L NC WHICH WAS TITRATED UP TO 5L NC TO KEEP O2 SATS>90% L/S CELAR T/O DIM IN THE BASES WITH COARSE CRACKLES NOTED IN THE LLL. PTS BP IS SOFT WITH SOME MAPS <65. 1+ EDEMA NOTED TO BLE AND BUE. SHE IS 100% PACED IN THE 60'S. VIVAS IS PATENT AND DRAINING TO GRAVITY. PICC LINE PLACED TO START LEVOPHED FOR MAPS<65. PT IS LETHARGIC, PALE AND CLAMMY. SHE WAKES TO VERBAL STIMULI AND IS ABLE TO ANSWER QUESTIONS APPROPRIATELY BUT SPEECH IS MUMMBLED. SHE FALLS BACK ASLEEP QUICKLY. AT THE BEDSIDE TO ANSWER ADMIT QUESTIONS. WILL CONTINUE TO MONITOR.
[2023-10-21] MEDS ORDERED: Hydrocortisone Sod Succinate 100 MG Vial IV ONE (16:05)
[2023-10-21] MEDS ORDERED: Albumin Human 50 ML IV SCH (16:10)
[2023-10-21] MEDS ORDERED: Bumetanide 0.25 MG/ML 10ML Vial IV SCH (16:10)
[2023-10-21 16:14] LABS: Base Excess Venous 0.6 mmol/L; Bicarbonate Venous 23.9 mmol/L (24.0-30.0); PCO2 Venous 55.5 mmHg (38-42)
[2023-10-21] MEDS ORDERED: CLOMIPRAMINE HC75 M1 PO (16:26)
[2023-10-21] MEDS ORDERED: DEPAKOTE ER500 M2 PO (16:27)
[2023-10-21] MEDS ORDERED: DONA750 MG PO (16:29)
[2023-10-21] MEDS ORDERED: MECL25 PO (16:34)
[2023-10-21] MEDS ORDERED: Robaxin750 MG PO (16:36)
[2023-10-21] MEDS ORDERED: FLUDROCORTISON0.1 M1 PO (16:39)
[2023-10-21] MEDS ORDERED: MYRBETRIQ25 MG PO (16:43)
[2023-10-21] MEDS ORDERED: NARCAN4 M1 (16:44)
[2023-10-21] MEDS ORDERED: POTCIT10 PO (16:50)
[2023-10-21] MEDS ORDERED: PROP60 PO (16:51)
[2023-10-21] MEDS ORDERED: TORSE20 PO (16:54)
[2023-10-21] MEDS ORDERED: Dextrose 50% 50 ML Syringe IV PRN (17:00)
[2023-10-21] MEDS ORDERED: Dextrose 50% 50 ML Syringe IV ONE (17:00)
--- NOTE | 2023-10-21 18:37 | NUR ---
SHIFT SUMMARY.... LEVOPHED DRIP UP TO 4MCG/MIN TO KEEP MAPS>65. PT'S CBG WAS CHECKED AND FOUND TO BE 56, PROVIDER WAS CALLED AND 1 AMP OF DEXTROSE GIVEN, CBG RECHECK WAS 189. PT'S LETHARGY IMPROVED AFTER THE DEXTROSE WAS GIVEN. VIVAS IS PATENT AND DRAINING TO GRAVITY. PT IS ON HER HOME AVAPS SETTINGS WITH 5L BLEED IN. CALL LIGHT IN REACH WILL CONTINUE TO MONITOR.
[2023-10-21 19:52] LABS: PCO2 Venous 50.2 mmHg (38-42); pH Blood Venous 7.28 (7.34-7.37)
[2023-10-21 19:53] LABS: Base Excess Venous -3.5 mmol/L; Bicarbonate Venous 20.8 mmol/L (24.0-30.0)
--- NOTE | 2023-10-21 20:53 | NUR ---
ASSUMED CARE OF PT AT 1900. REPORT RECEIVED AT BEDSIDE. PT PRESENTS IN BED. WEARING HOME TRILOGY. VBG DONE WHICH REVEALS TRILOGY NO ADEQUATE AT THIS TIME. RESPIRATORY THERAPY SWITCHES PT OUT TO HOSPITAL BIPAP. PT TOLERATES THIS WELL. WILL REVIEW CHART AND PLAN OF CARE FOR THIS PT. HAVE TITRATED LEVOPHED FROM 4 MCG'S/MIN DOWN TO 2 MCG'S PER MIN. SEE FLOWSHEET FOR DETAILS.
[2023-10-21] MEDS ORDERED: Lactobacil 2-S.Thermo-Bifido 1 1 Cap PO SCH (21:00)
--- NOTE | 2023-10-21 22:21 | NUR ---
CALL RECEIVED FROM POISON CONTROL. LABS PROVIDED. NO NEW RECOMENDATIONS RECEIVED. PT HAS BEEN MORE ALERT THIS NIGHT. UPON LAST Q 2 HOUR TURN, PT WAS ABLE TO ASK QUESTIONS.
--- NOTE | 2023-10-21 22:38 | NUR ---
PT'S CALLS TO CHECK ON PT. UPDATE GIVEN. ANSWERED QUESTIONS.
[2023-10-22] VITALS (82 sets, daily range): BP systolic 73–134; BP diastolic 41–94
--- NOTE | 2023-10-22 05:14 | NUR ---
CHARTING REFLECTS [facility]. PT HAS TOLERATED TURNES Q 2 HOURS IN BED. WAS NOTED TO PULL OFF HER LEADS, AND WHEN THESE REPLACED, WAS SOMEWHAT DISORIENTED. HAS PULLED OFF HER GOWN AT ONE TIME. PT REMINDED THAT SHE WAS IN THE HOSPITAL, AND SHE HAS NOT PULLED AT GOWN OR LEADS ANY MORE. LEVOPHED CONTINUES AT 2 MCG'S/MIN. MAP MAINTAINS > 65. WILL MONITOR AND EVALUATE CONCERNING ABILITY TO TITRATE FURTHER. WILL CONTINUE TO MONITOR PT, AND WILL REPORT OFF TO ONCOMING RN.
[2023-10-22 06:03] LABS: BASOPHILS ABSOLUTE AUTO 0.01 K/mm3 (0.00-0.23); BASOPHILS PERCENT AUTO 0 % (0-2); EOSINOPHILS PERCENT AUTO 2 % (0-6); Hematocrit 33.9 % (33.0-51.0); Hemoglobin 11.1 g/dL (11.5-16.0); IMMATURE GRAN ABSOLUTE AUTO 0.05 K/mm3 (0.00-0.10); IMMATURE GRAN PERCENT AUTO 1 % (0-1); LYMPHOCYTES ABSOLUTE AUTO 0.57 K/mm3 (0.84-5.20); LYMPHOCYTES PERCENT AUTO 9 % (21-46); MONOCYTES ABSOLUTE AUTO 0.63 K/mm3 (0.16-1.47); MONOCYTES PERCENT AUTO 10 % (4-13); Mean Corpuscular HGB 33.3 pg (26.0-34.0); Mean Corpuscular HGB Conc 32.7 g/dL (31.5-36.5); Mean Corpuscular Volume 102 fL (80-100); Mean Platelet Volume 10.4 fL (9.1-12.4); NEUTROPHILS ABSOLUTE AUTO 4.89 K/mm3 (1.96-9.15); NEUTROPHILS PERCENT AUTO 78 % (41-73); Platelet Count 176 K/mm3 (150-400); RDW Coefficient Variation 14.6 % (11.7-14.2); RDW Standard Deviation 54.4 fL (35.1-46.3); Red Blood Cell Count 3.33 M/mm3 (3.80-5.20); White Blood Cell Count 6.25 K/mm3 (4.00-11.30)
[2023-10-22 07:00] LABS: Albumin, Blood 2.4 g/dL (3.4-5.0); Anion Gap 3 mmol/L (6-16); Blood Urea Nitrogen 47 mg/dL (8-24); Bun/Creatinine Ratio 24.5 (12.0-20.0); CO2, Blood 26 mmol/L (21-32); Calcium, Blood 9.7 mg/dL (8.5-10.1); Chloride, Blood 115 mmol/L (98-108); Creatinine, Blood 1.92 mg/dL (0.40-1.00); Glomerular Filtration Rate 27 (60-); Glucose, Blood 61 mg/dL (70-99); Magnesium, Blood 2.2 mg/dL (1.6-2.4); Phosphorus, Blood 5.6 mg/dL (2.5-4.9); Potassium, Blood 4.8 mmol/L (3.5-5.5); Sodium, Blood 144 mmol/L (136-145)
[2023-10-22 08:19] LABS: Bicarbonate Venous 23.2 mmol/L (24.0-30.0); PCO2 Venous 35 mmHg (38-42); pH Blood Venous 7.42 (7.34-7.37)
[2023-10-22 08:20] LABS: Base Excess Venous -1.7 mmol/L
[2023-10-22] MEDS ORDERED: Midodrine 5 MG Tab PO SCH (09:00)
[2023-10-22] MEDS ORDERED: CefTRIAXone Sodium 1,000 MG in NS 50 ML IV SCH (09:00)
[2023-10-22] MEDS ORDERED: FERSU300 PO (14:37)
--- NOTE | 2023-10-22 16:17 | NUR ---
PROVIDER UPDATE: Pt reports anxiety. Dr Rollins notified; see new orders.
[2023-10-22] MEDS ORDERED: HyDROXyzine HCl 25 MG Tab PO PRN (16:20)
--- NOTE | 2023-10-22 18:21 | NUR ---
SHIFT SUMMARY: Pt transitioned off BIPAP to NC this morning. She tolerated room air for some time before her requested she be placed on her trilogy on AVAPS with 2L bleed in to nap. Pt up in chair for much of day; She declines to return back to bed. SO states she sleeps reclined on the couch sometimes. Good PO intake today after she was seen by speech therapy. Atarax given once for anxiety.
--- NOTE | 2023-10-22 20:00 | NUR ---
ASSUMED CARE OF PT AT 1900. REPORT RECEIVED AT BEDSIDE. PT PRESENTS SITTING UP IN BEDSIDE RECLINER CHAIR. PT'S IN ROOM VISITING. PT DENIES DYSPNEA. 2 L/M PER NASAL CANNULA. MAINTAINS SATURATIONS > 90 PERCENT. LEVOPHED AT 2 MCG'S PER MINUTE. WILL REVIEW CHART AND PLAN OF CARE FOR THIS PT.
[2023-10-22] MEDS ORDERED: Apixaban 5 MG Tab PO SCH (21:00)
[2023-10-23] VITALS (21 sets, daily range): BP systolic 76–135; BP diastolic 53–98
[2023-10-23 03:25] LABS: BASOPHILS ABSOLUTE AUTO 0.01 K/mm3 (0.00-0.23); BASOPHILS PERCENT AUTO 0 % (0-2); EOSINOPHILS PERCENT AUTO 9 % (0-6); Hematocrit 30.3 % (33.0-51.0); Hemoglobin 9.9 g/dL (11.5-16.0); IMMATURE GRAN ABSOLUTE AUTO 0.04 K/mm3 (0.00-0.10); IMMATURE GRAN PERCENT AUTO 1 % (0-1); LYMPHOCYTES ABSOLUTE AUTO 0.56 K/mm3 (0.84-5.20); LYMPHOCYTES PERCENT AUTO 8 % (21-46); MONOCYTES ABSOLUTE AUTO 0.85 K/mm3 (0.16-1.47); MONOCYTES PERCENT AUTO 13 % (4-13); Mean Corpuscular HGB 32.9 pg (26.0-34.0); Mean Corpuscular HGB Conc 32.7 g/dL (31.5-36.5); Mean Corpuscular Volume 101 fL (80-100); Mean Platelet Volume 10.1 fL (9.1-12.4); NEUTROPHILS ABSOLUTE AUTO 4.75 K/mm3 (1.96-9.15); NEUTROPHILS PERCENT AUTO 70 % (41-73); Platelet Count 145 K/mm3 (150-400); RDW Coefficient Variation 14.6 % (11.7-14.2); RDW Standard Deviation 54.5 fL (35.1-46.3); Red Blood Cell Count 3.01 M/mm3 (3.80-5.20); White Blood Cell Count 6.81 K/mm3 (4.00-11.30)
[2023-10-23 03:42] LABS: Magnesium, Blood 1.8 mg/dL (1.6-2.4)
[2023-10-23 03:50] LABS: Albumin, Blood 2.4 g/dL (3.4-5.0); Anion Gap 1 mmol/L (6-16); Blood Urea Nitrogen 34 mg/dL (8-24); Bun/Creatinine Ratio 20.1 (12.0-20.0); CO2, Blood 28 mmol/L (21-32); Calcium, Blood 9.2 mg/dL (8.5-10.1); Chloride, Blood 111 mmol/L (98-108); Creatinine, Blood 1.69 mg/dL (0.40-1.00); Glomerular Filtration Rate 32 (60-); Glucose, Blood 87 mg/dL (70-99); Potassium, Blood 4.6 mmol/L (3.5-5.5); Sodium, Blood 140 mmol/L (136-145)
--- NOTE | 2023-10-23 05:12 | NUR ---
PT CONTINUES ON 24 HOUR URINE COLLECTION. PT HAS HAD 1200 ML OUT THIS NIGHT SO FAR. HAVE BEEN ABLE TO TITRATE LEVOPHED TO OFF THIS MORNING. PT MAINTAINS MAP > 65. NO COMPLAINTS VOICED BY PT. PT HAS TOLERATED Q 2 HOUR TURNS IN BED. WILL CONTINUE TO MONITOR PT, AND WILL REPORT OFF TO ONCOMING RN.
[2023-10-23] MEDS ORDERED: Omeprazole 20 MG CapCR PO SCH (06:00)
[2023-10-23] MEDS ORDERED: Sodium Phosphate 20 MM in Dextrose 5% 500 ML IV STA (06:12)
--- NOTE | 2023-10-23 07:00 | NUR ---
ASSUME CARE: I have assumed care of this patient.
--- NOTE | 2023-10-23 14:49 | NUR ---
24 HOUR URINE: RN notified of wet brief from [employer]. Lab called; Must restart 24-hour urine at this time.
[2023-10-23] MEDS ORDERED: Darbepoetin Alfa in Polysorbat 25 MCG/0.42 ML Syringe SC ONE (16:00)
--- NOTE | 2023-10-23 16:30 | NUR ---
SHIFT/TRANSFER SUMMARY: Pt taken to PCU 18 via stretcher. Burrows was replaced for 24 hour urine collection. Pt more alert today. Good PO intake for lunch. SO called for transfer update.
--- NOTE | 2023-10-23 18:07 | NUR ---
TRANSFER TO PCU. PATIENT TRANSFER TO PCU 18. ALERT AND ORIENTED. USED LIFT TO TRANSFER. PATIENT OVERALL WEAK BUT MOVING ALL EXTREMITIES. PERRLA, WEARING GLASSES. ORIENTED TO PCU UNIT. ON 2L NASAL CANNULA SATING MID 90'S. DENIES SOB, LUNGS SOUNDING CLEAR AND DIM. TELE SHOWING SR WITH HR 60-70'S. DENIES CHEST PAIN/PRESSURE/PALPITATIONS. SBP 110'S AT THIS TIME. PPP. IV FLUIDS INFUSING PER EMAR. VIVAS CATH IN PLACE, LEAKING AT SITE THIS GYPSUM BLOCK SETTER CATH AND WILL CONTINUE TO MONITOR IF LEAKING. 24 HOUR URINE ORDERS. AT BEDSIDE AND BROUGHT PATIENT CYRUS PEREIRA FOR DINNER. PATIENT SITTING UPRIGHT IN BED EATING DINNER AT THIS TIME. REMAINS AT BEDSIDE. CALL LIGHT IN REACH.
[2023-10-23 19:07] LABS: Source, Urine Foley catheter
[2023-10-23 19:09] LABS: Appearance, Urine Clear (Clear); Bilirubin, Urine Neg (Neg); Blood, Urine 1+ (Neg); Glucose Qualitative, Urine Neg (Neg); Ketones, Urine Neg (Neg); Leukocyte Esterase, Urine 1+ (Neg); Nitrite, Urine Neg (Neg); Protein, Urine Neg (Neg); Specific Gravity, Urine 1.015 (1.003-1.022); Urobilinogen, Urine NORM (Normal)
[2023-10-23 19:38] LABS: Color, Urine Pale Yellow (P-Yellow)
[2023-10-23 19:40] LABS: Bacteria Few /hpf; Red Blood Cells, Urine 0-2 /hpf (0-2); Squamous Epithelial Cells Rare /hpf (Few)
--- NOTE | 2023-10-23 22:45 | NUR ---
ASSUMPTION OF CARE: ASSUMPTION OF CARE PATIENT IS STIL INFUSING NS. PATIENT DENIES CHETS PAIN PRESSURE OR SOB. PATIENT ALERT AND ORIENTED X 4, SOME MINOR COMPLEX DECISION COMPLICATION SHE IS ENDORSING SHE IS NOT CALM SHE WOULD LIKE AND REQUESTING HER PSYCH MEDICATIONS ESPECIALLY HER ATIVAN, SPOKE WITH RESIDENT, BOTH I AND THE RESIDENT AGREE DUE TO ADMISSION DX AND PREVIOUS NEED FOR REVERSAL AGENTS, PATIENT WOULD NEED THOSE MEDS STARTED BY A HIGHER LEVEL OF CARE, DAY RN ENDORSED POTENTIAL FOR DAY HOSPITALIST PLACING A CONSULT FOR PSYCH PROVIDER, WILL ENDORSE ABOVE INFORMATION AGAIN TO NEXT RN TO ENSURE CONTINUATION OF CARE. EDUCATED THE PATIENT WELL WITH NO ACUTE CONCERNS AGREED TO TREATMENT PLAN, AND PATIENT EDUCATED APPROXIMATELY 30 MINUTES. VSS. AFEBRILE.DENIES CHEST PAIN PRESSURE OR SOB. SPO2 >92% ON 2.5L HOME TRILEGY AT BEDSIDE REQUESTING
[2023-10-24 04:11] LABS: Hematocrit 29.7 % (33.0-51.0); Hemoglobin 9.7 g/dL (11.5-16.0)
[2023-10-24 04:44] LABS: Albumin, Blood 2.2 g/dL (3.4-5.0); Anion Gap 1 mmol/L (6-16); Blood Urea Nitrogen 24 mg/dL (8-24); Bun/Creatinine Ratio 14.5 (12.0-20.0); CO2, Blood 27 mmol/L (21-32); Calcium, Blood 9.3 mg/dL (8.5-10.1); Chloride, Blood 113 mmol/L (98-108); Creatinine, Blood 1.66 mg/dL (0.40-1.00); Glomerular Filtration Rate 33 (60-); Glucose, Blood 89 mg/dL (70-99); Magnesium, Blood 1.9 mg/dL (1.6-2.4); Phosphorus, Blood 2.9 mg/dL (2.5-4.9); Potassium, Blood 4.5 mmol/L (3.5-5.5); Sodium, Blood 141 mmol/L (136-145)
[2023-10-24 05:15] VITALS: BP 138/85
[2023-10-24] MEDS ORDERED: Furosemide 10 MG / ML 2ML Vial IV ONE (06:25)
--- NOTE | 2023-10-24 07:40 | NUR ---
EOS: ONLYH CHANGES FROM ASSUMPTION OF CARE ARE DC TO NS AND 20mg OF LASIX PER NEPHROLOGY. PATIENT STILL ENDORSING WANTING TO START HOME MEDICATIONS. REQUESTED BENZODIAZAPINES A COUPLE OF TIMES FOR ANXIETY, EDCUATED PATIENT AND ON POTENTIALLY ALTERING MEDICATIONS AND CONFIRMED WITH NIGHT RESIDENT WELL WHOM AGREED WITH THIS COAL GETTER, PATIENT IN NO ACUTE DISTRESS, TREMOR NOTED WORSE THROUGH THE NIGHT, ADDITIONALLY DID HAVE TO REMIND PATIENT OF PILL ADMINISTRATION THROUGH THE NIGHT, REFUSED HOME TRILEGY AT ONE POINT, EDCUATED. PATIETN STILL ON 2.5L NC. AFEBRILE. CONCERNS NOTED ABOVE.
[2023-10-24 07:41] VITALS: BP 121/69
[2023-10-24 11:30] VITALS: BP 138/81
[2023-10-24 14:53] VITALS: BP 135/86
--- NOTE | 2023-10-24 16:05 | NUR ---
assumption of care this rn assumed care at 1600. patient is resting in room and is in no distress. bedside shift report done. plan of care is up to date at this time.
[2023-10-24 17:26] VITALS: BP 138/81
--- NOTE | 2023-10-24 17:42 | NUR ---
shift summary plan of care remains up to date. called wanting to speak to md hoffman and leave a message, this rn informed him unable to give out doctors numbers, and i can take a message. refused and then called back with the message. this rn called md hoffman and md said he would talk with the tomorrow during rounds. this rn called the to update him. md hoffman said patient can resume psych meds, this rn called md prince to inform him. vitals stable. no acute changes since this rn assumed care.
[2023-10-24] MEDS ORDERED: DICLOFENAC TOPICAL GEL TOP PRN (20:15)
[2023-10-24 20:22] VITALS: BP 139/83
[2023-10-24] MEDS ORDERED: Divalproex Sodium 500 MG TABLET.DR PO SCH (21:00)
[2023-10-24] MEDS ORDERED: OLANZapine 5 MG Tab PO SCH (21:00)
[2023-10-24] MEDS ORDERED: FluvoxaMINE Maleate 50 MG Tab PO SCH (21:00)
[2023-10-25] VITALS (7 sets, daily range): BP systolic 119–147; BP diastolic 67–93
[2023-10-25 03:35] LABS: Hematocrit 33.5 % (33.0-51.0); Hemoglobin 11.4 g/dL (11.5-16.0)
[2023-10-25 03:51] LABS: Albumin, Blood 2.5 g/dL (3.4-5.0); Anion Gap 2 mmol/L (6-16); Blood Urea Nitrogen 18 mg/dL (8-24); Bun/Creatinine Ratio 12.1 (12.0-20.0); CO2, Blood 29 mmol/L (21-32); Calcium, Blood 9.9 mg/dL (8.5-10.1); Chloride, Blood 111 mmol/L (98-108); Creatinine, Blood 1.49 mg/dL (0.40-1.00); Glomerular Filtration Rate 37 (60-); Glucose, Blood 91 mg/dL (70-99); Phosphorus, Blood 2.8 mg/dL (2.5-4.9); Potassium, Blood 4.2 mmol/L (3.5-5.5); Sodium, Blood 142 mmol/L (136-145)
--- NOTE | 2023-10-25 05:33 | NUR ---
SHIFT SUMMARY. PT HAS BEEN OVERALL DOING WELL THROUGHOUT COURSE OF SHIFT. AOX3-4, COOPERATIVE WITH CARE, ABLE TO MAKE NEEDS KNOWN. PT HAS DENIED PAIN THROUGHOUT COURSE OF SHIFT. TELE ON THROUGHOUT SHIFT, NO EVENTS OR CHANGES THUS FAR. PT WAS ABLE TO TOLERATE HOME TRILOGY THROUGHOUT MOST OF SHIFT UNTIL THIS MORNING WHEN SHE ELECTED TO TAKE IT OFF. REFUSED NC FOR ABOUT AN HOUR. WAS MAINTAINING SATURATION >90% FOR MOST OF THAT TIME UNTIL SHE DESATURATED INTO MID 80s. NC WAS THEN PUT IN PLACE AT 2.5 L AND PT HAS MAINTAINED >90% AWAKE AND ASLEEP SINCE. VIVAS CATHETER REMAINS IN PLACE DRAINING URINE TO GRAVITY WITH NO COMPLAINTS OF PAIN OR IRRITATION. 1 INCONTINENT BM THIS SHIFT, SOFT. Q2 HOUR REPOSITIONS. BED LOCKED IN LOWEST POSITION. CALL LIGHT LEFT WITHIN REACH. CONTINUING TO MONITOR.
--- NOTE | 2023-10-25 16:31 | NUR ---
TRANSFER: PT TRANSFERRED TO MEDICAL [facility] VIA BED. REPORT GIVEN TO MEDICAL RN. ALL BELONGINGS WITH PT. PT SPOUSE UPDATED ON ROOM CHANGED.
--- NOTE | 2023-10-25 16:39 | NUR ---
Received pt from PCU 18 awake and alert x3. Denies pain. Resp even nonlabored. LSCTA. RT informed of transfer and need for continuous pulse ox. Tele dc'd. VSS. Skin intact, rory knee bruising noted. Indwelling ayala intact with pale yellow output. Oriented to room and call light. No c/o at this time. Will continue to monitor.
[2023-10-25] MEDS ORDERED: Amoxicillin/Clavulanate K 500 MG Tab PO SCH (21:00)
--- NOTE | 2023-10-26 03:34 | NUR ---
345 Shift Summary Patient is a 73 year old female admitted with diagnosis of acute mental status change. She also has diagnosis of Chronic Kidney Disease, Bipolar disorder, hypotention and anemia. She has a PICC line in her left upper arm. It flushes without difficulty. No redness or swelling noted at sight. She has a ayala catheter is place with yellow urine noted in drainage bag. She has a flat affect and denies pain. Respirations are regular and unlabored on room air. She is on a trilogy at night. Side rails are up x 2. Bed in low position with call light in reach. Bed alarm on.
[2023-10-26 05:22] VITALS: BP 110/72
[2023-10-26 06:24] LABS: Albumin, Blood 2.5 g/dL (3.4-5.0); Anion Gap 0 mmol/L (6-16); Blood Urea Nitrogen 15 mg/dL (8-24); Bun/Creatinine Ratio 10.6 (12.0-20.0); CO2, Blood 31 mmol/L (21-32); Calcium, Blood 10.4 mg/dL (8.5-10.1); Chloride, Blood 109 mmol/L (98-108); Creatinine, Blood 1.41 mg/dL (0.40-1.00); Glomerular Filtration Rate 40 (60-); Glucose, Blood 88 mg/dL (70-99); Magnesium, Blood 1.9 mg/dL (1.6-2.4); Phosphorus, Blood 3.3 mg/dL (2.5-4.9); Potassium, Blood 4.4 mmol/L (3.5-5.5); Sodium, Blood 140 mmol/L (136-145)
[2023-10-26 07:36] VITALS: BP 120/70
--- NOTE | 2023-10-26 16:21 | NUR ---
REPORT RECEIVED VERIFIED PT A/O X4 DROWSY AND FALLING ASLEEP DURING BREAKFAST. NO C/O PAIN NO DISTRESS PT INC AND CHANGED, SKIN INTACT. PT CALLS APPROPRIATLY AND ABLE TO MAKE NEEDS KNOWN. MD AT BEDSIDE. PT REQUESTING MEDS FOR ANXIETY HAND TREMULOUS, MEDCATION HELPED WITH ANXITY AND PT MEDICATED FOR HEADACHE WITH RELIEF. VIVAS DRAINING NO CHANGE IN CONDITION.
[2023-10-26 19:36] VITALS: BP 135/79
--- NOTE | 2023-10-27 04:11 | NUR ---
END OF SHIFT SUMMARY PT A&O WITH PERIODS OF FORGETFULNESS AND ANXIETY. SPOUSE AT BEDSIDE TIL [phone]. RT CHECKING IN WITH PT SEVERAL TIMES TO PLACE ON HOME TRILOGY, WHICH PT KEPT DECLINING. PT BECAME IRRITABLE AND ANXIOUS REGARDING RT ASKING ABOUT TRILOGY AND REQUESTED ASSISTANCE TO CALL SPOUSE TO DISCUSS TRILOGY. THIS RN CALLED AND SPOKE PT'S SPOUSE, CLARIFYING NO CHANGES TO TRILOGY SETTINGS WERE MADE AND THAT RT ONLY WANTED TO ASSIST PT IN PLACING MASK WHEN READY. PT THEN AGREEABLE FOR MASK TO BE PLACED. VIVAS AND PICC LINE REMAINING IN PLACE.
[2023-10-27 05:02] VITALS: BP 139/81
[2023-10-27 05:10] LABS: Hematocrit 34.9 % (33.0-51.0); Hemoglobin 11.8 g/dL (11.5-16.0)
[2023-10-27 05:51] LABS: Albumin, Blood 2.5 g/dL (3.4-5.0); Anion Gap 2 mmol/L (6-16); Blood Urea Nitrogen 22 mg/dL (8-24); CO2, Blood 28 mmol/L (21-32); Calcium, Blood 10.1 mg/dL (8.5-10.1); Chloride, Blood 107 mmol/L (98-108); Creatinine, Blood 1.57 mg/dL (0.40-1.00); Glomerular Filtration Rate 35 (60-); Glucose, Blood 89 mg/dL (70-99); Magnesium, Blood 1.9 mg/dL (1.6-2.4); Phosphorus, Blood 4.1 mg/dL (2.5-4.9); Potassium, Blood 4.2 mmol/L (3.5-5.5); Sodium, Blood 137 mmol/L (136-145)
[2023-10-27 07:52] VITALS: BP 123/60
--- NOTE | 2023-10-27 14:52 | NUR ---
REPORT RECEIVED VERIFIED PT A/0 X 3 JUST WAKING UP AND PLACED IN 2,5 L NC. VERY QUIET WITH A FLAT AFFECT. REMINDED PT THAT IF SHE FEELS UP TO IT WE NEED TO START WORKING WITH PHYSICAL THERAPY DISCUSSED LAST NIGHT WITH MILO AT THE BEDSIDE. PT REPOSITIONED AND CHANGED. SPOKE WITH PHYSICAL THERAPY AND THEY STATED THAT PT JUST WAVED THEM OFF AND DIDNT WANT TO DO PHYSICAL THERAPY. I ASKED IF THEY WOULD PLEASE COME BACK BEFORE THEY LEFT AND I WOULD BRING A CHAIR WE COULD USE TO SIT HER IN. ORTEGA OLIVERA PER MD ORDER AND EXTERNAL URINARY DEVICE PLACED. PHYSICAL THERAPY IN TO SEE PT BUT PT REFUSED AGAIN SO THEY STATED THEY WOULD TRY AGAIN IN THE MORNING. NOTIFIED AND IS NOW DUE TO COME IN .
[2023-10-27 16:29] VITALS: BP 132/72
--- NOTE | 2023-10-27 16:53 | NUR ---
UP AT BEDSIDE. I DECIDED TO ASSIST PT AND SIT AT BEDSIDE. PT DID MOST OF THE HEAVEY MOVING FOR ME AND WAS ABLE TO STABLIZE SELF SITTING WITH FEET DANGLING FROM BED. PT WAS ABLE TO MAINTAIN HER BALANCE SITTING FOR ABOUT 3 MINS BEFOR WANTING TO LAY BACK DOWN. MILO CAME IN AND EXPLAINED THIS TO HIM WELL, HE ALSO FEELS SHE IS TOO WEAK PRESENTLY TO GO HOME.
[2023-10-27 19:56] VITALS: BP 121/70
[2023-10-28 03:34] VITALS: BP 146/88
--- NOTE | 2023-10-28 04:29 | NUR ---
END OF SHIFT SUMMARY PT A&OX4, FORGETFUL AND ANXIOUS AT TIMES AND DEFERS TO SPOUSE TO ANSWER SOME QUESTIONS. COOPERATIVE WITH CARE. TURN IN BED WITH 2 PERSON ASSIST, PERICARE PROVIDED ALONG WITH PUREWICK EXCHANGE. PT USING TRILOGY WITH 2L O2 AT NIGHT, REMAINS ON CONTINUOUS PULSE OX MONITORING WITH O2 SATS REMAINING >92. SPOUSE REQUESTING HE BE CALLED WHEN PT IS WORKING WITH PT IF HE IS NOT AT BEDSIDE. NO ACUTE EVENTS OVERNIGHT.
[2023-10-28 06:33] LABS: Hematocrit 36.3 % (33.0-51.0); Hemoglobin 12.3 g/dL (11.5-16.0)
[2023-10-28 06:50] LABS: Albumin, Blood 2.6 g/dL (3.4-5.0); Anion Gap 1 mmol/L (6-16); Blood Urea Nitrogen 23 mg/dL (8-24); Bun/Creatinine Ratio 14.7 (12.0-20.0); CO2, Blood 29 mmol/L (21-32); Calcium, Blood 10.4 mg/dL (8.5-10.1); Chloride, Blood 110 mmol/L (98-108); Creatinine, Blood 1.56 mg/dL (0.40-1.00); Glomerular Filtration Rate 35 (60-); Glucose, Blood 88 mg/dL (70-99); Magnesium, Blood 2.2 mg/dL (1.6-2.4); Phosphorus, Blood 3.5 mg/dL (2.5-4.9); Potassium, Blood 4.4 mmol/L (3.5-5.5); Sodium, Blood 140 mmol/L (136-145)
[2023-10-28 08:39] VITALS: BP 150/94
[2023-10-28 13:05] VITALS: BP 112/75
[2023-10-28] MEDS ORDERED: AUGMENTIN 500-1 EACH PO (15:36)
[2023-10-28] MEDS ORDERED: MIDODRINE HCL10 M1 PO (15:37)
[2023-10-28 15:42] VITALS: BP 127/75
--- NOTE | 2023-10-28 16:20 | NUR ---
PT DISCHARGED HOME AT 1605 WITH [facility] TO TRANSPORT VIA WHEEL CHAIR. DONALD WAS IN ROOM AT DISCHARGE. PT TOLERATED DRESSING AND GETTING READY WELL. PT WAS A TWO PERSON WITH WALKER TO BE LOADED INTO WHEELCHAIR. PAPER WORK WAS REVIEWED AND EDUCATIONAL MATERIAL SENT. PT'S COLLECTED ALL PERSONAL BELONGINGS. NO DISTRESS NOTED. PT AOX3 WITH CONFUSION.
[2023-10-29 09:46] LABS: CORTISOL,URINE FREE - PER 24H 50.4 ug/d (<=45.0); CREATININE,URINE - PER 24H 1035 mg/d (500-1400); CREATININE,URINE - PER VOLUME 23 mg/dL; HOURS COLLECTED 24 hr; TOTAL VOLUME 4500 mL
[2023-10-30] MEDS ORDERED: AMOCLA875 PO (00:14)
== END 2023-10-28 16:12 | disposition home health service (06) | DRG 92 ==
LOC: ER 08:43 → PCU 11:06 → MEDS 11:06 → ICUE 11:06 → PCU 10-23 16:30 → MEDS 10-25 16:05
PROVIDERS: Emergency Medicine; Internal Medicine Nephrology; ADMIT Family Medicine
PROC: 5A09357 Assistance with Respiratory Ventilation, Less than 24 Consecutive Hours, Continuous Positive Airway Pressure (ICD-10-PCS; principal; 2023-10-21)
PROC: 3E033XZ Introduction of Vasopressor into Peripheral Vein, Percutaneous Approach (ICD-10-PCS; 2023-10-21)
PROC: 02HV33Z Insertion of Infusion Device into Superior Vena Cava, Percutaneous Approach (ICD-10-PCS; 2023-10-21)
DX: G92.8 Other toxic encephalopathy (principal); E87.4 Mixed disorder of acid-base balance; I13.0 Hypertensive heart and chronic kidney disease with heart failure and stage 1 through stage 4 chronic kidney disease, or unspecified chronic kidney disease; I50.22 Chronic systolic (congestive) heart failure; N18.4 Chronic kidney disease, stage 4 (severe); N39.0 Urinary tract infection, site not specified; N17.9 Acute kidney failure, unspecified; T50.915A Adverse effect of multiple unspecified drugs, medicaments and biological substances, initial encounter; F31.9 Bipolar disorder, unspecified; I95.89 Other hypotension; G47.33 Obstructive sleep apnea (adult) (pediatric); D63.1 Anemia in chronic kidney disease; E88.09 Other disorders of plasma-protein metabolism, not elsewhere classified; E03.9 Hypothyroidism, unspecified; F41.9 Anxiety disorder, unspecified; K21.9 Gastro-esophageal reflux disease without esophagitis; E16.2 Hypoglycemia, unspecified; E83.39 Other disorders of phosphorus metabolism; E83.52 Hypercalcemia; Z74.09 Other reduced mobility; Z95.810 Presence of automatic (implantable) cardiac defibrillator
CPT/HCPCS: 36415; 36569; 51702; 51703; 70450; 71045; 76770; 80053; 80069; 80164; 81001; 82530; 82533; 82803; 82947; 83605; 83735; 83880; 84145; 84443; 84484; 85014; 85018; 85025; 87040; 87077; 87086; 87186; 92610; 93005; 93010; 93306; 94660; 94762; 96361-59; 96374-59; 96375-59; 96376-59; 97110; 97116; 97162; 99285-25; A9270; C1751; J0612; J0696; J0881; J1610; J1720; J1940; J2310; J2405; J7030; J7060; P9047

== ENCOUNTER → 2024-02-18 | Outpatient (CLI) | payer OTHER ==
[~2024-02-18] MED LIST changes: +ACET500 PO; +AMOCLA875 PO; +AUGMENTIN 500-1 EACH PO; +Acerola C500 MG PO; +BUSP10 PO; +CALCIUM CARBONATE PO; +CENTRUM SILVER1 EAC2 PO; +Calcium Carbon500 MG PO; +DEPAKOTE ER500 M2 PO; +DIFICID200 MG PO; +DONA750 MG PO; +ERTAPENEM1 G1 IV; +FERRO-TIME325 MG PO; +FERSU300 PO; +FLUDROCORTISON0.1 M1; +GLUC500; +GLUCOSAMINE HCL PO; +Inderal 20 mg T20 MG PO; +Inderal60 MG PO; +Inderal80 MG PO; +MELATONIN5 M1 PO; +METO25 PO; +METOPROLOL TART25 MG PO; +MOTION RELIEF25 MG; +NITR100CA PO; +ONDA4 PO; +PANT40 PO; +POLYETHYLENE G500 G1 PO; +POTA20LUD PO; +PROM25 PO; +PROP60 PO; +Robaxin750 MG PO; +SPIR25; +TORSE20 PO; +Vitamin B Comple1 EA PO
== END | disposition home or self-care (01) ==
LOC: LAB 17:31 → LAB SHORT 17:31
DX: N39.0 Urinary tract infection, site not specified (principal)
CPT/HCPCS: 87077; 87086; 87186

== ENCOUNTER → 2024-03-05 | Outpatient (CLI) | payer OTHER ==
[2024-03-11 15:52] LABS: ALPHA-1 %,URINE 11.3 %; ALPHA-2 %,URINE 39.2 %; BETA GLOBULIN %,URINE 0.9 %; GAMMA GLOBULIN %,URINE 18.6 %; HOURS COLLECTED Random hr; TOTAL VOLUME Random mL
== END ==
LOC: LAB 15:01 → LAB SHORT 15:01
PROVIDERS: Internal Medicine Nephrology
DX: N18.30 Chronic kidney disease, stage 3 unspecified (principal); R76.9 Abnormal immunological finding in serum, unspecified
CPT/HCPCS: 84156; 84166; 86335

== ENCOUNTER → 2024-03-12 | Outpatient (CLI) | payer OTHER | LOC: LAB SHORT 14:59 → LAB 14:59 | DX: N39.0 Urinary tract infection, site not specified (principal) | CPT/HCPCS: 87077; 87086; 87186 ==

== ENCOUNTER → 2024-04-12 | Outpatient (CLI) | payer OTHER ==
[~2024-04-12] MED LIST changes: +B-12500 MC2 PO; +CALCIUM 600 MG1 EA17 PO; +GEMTESA75 MG PO; +KLOR-CON 1010 ME9 PO
== END ==
LOC: LAB 11:00 → LAB SHORT 11:00
DX: N39.0 Urinary tract infection, site not specified (principal)
CPT/HCPCS: 87077; 87086; 87186

== ENCOUNTER → 2024-04-27 | Outpatient (CLI) | payer OTHER | LOC: LAB SHORT 18:40 → LAB 18:40 | DX: N39.0 Urinary tract infection, site not specified (principal) | CPT/HCPCS: 87077; 87086; 87186 ==

== ENCOUNTER → 2024-05-26 | Outpatient (CLI) | payer OTHER | LOC: LAB SHORT 17:31 → LAB 17:31 | DX: N39.0 Urinary tract infection, site not specified (principal) | CPT/HCPCS: 87077; 87086; 87186 ==

== ENCOUNTER → 2024-06-07 | Outpatient (CLI) | payer OTHER ==
[~2024-06-07] MED LIST changes: +DEPAKOTE500 M2 PO; +FAMO20 PO; +MIDODRINE HCL10 M2 PO
== END | disposition home or self-care (01) ==
LOC: LAB 15:12 → LAB SHORT 15:12
DX: N39.0 Urinary tract infection, site not specified (principal)
CPT/HCPCS: 87077; 87086; 87186

== ENCOUNTER → 2024-06-16 | Outpatient (CLI) | payer OTHER | LOC: LAB 15:07 → LAB SHORT 15:07 | DX: N39.0 Urinary tract infection, site not specified (principal) | CPT/HCPCS: 87086 ==

== ENCOUNTER → 2024-06-25 | Outpatient (CLI) | payer OTHER | LOC: LAB SHORT 17:23 → LAB 17:23 | DX: N39.0 Urinary tract infection, site not specified (principal) | CPT/HCPCS: 87077; 87086; 87186 ==

== ENCOUNTER → 2024-07-28 | Outpatient (CLI) | payer OTHER ==
[~2024-07-28] MED LIST changes: +B-6200 MG PO; +CIPR500 PO; +HIPREX1 G1 PO; +K-Dur10 MEQ; +[UNRECOGNIZED DRUG - OTHER] PO
== END | disposition home or self-care (01) ==
LOC: LAB 15:48 → LAB SHORT 15:48
DX: N39.0 Urinary tract infection, site not specified (principal)
CPT/HCPCS: 87077; 87086; 87186

== ENCOUNTER 2024-08-01 13:10 | Emergency (ER) | payer OTHER ==
[~2024-08-01] VITALS: Ht 160 cm; Wt 72.6 kg
[~2024-08-01 13:10] MED LIST changes: -B-6200 MG PO; -CIPR500 PO; -HIPREX1 G1 PO; -K-Dur10 MEQ; -[UNRECOGNIZED DRUG - OTHER] PO
[2024-08-01 13:58] VITALS: BP 144/88
[2024-08-01 14:41] LABS: BASOPHILS ABSOLUTE AUTO 0.04 K/mm3 (0.00-0.23); BASOPHILS PERCENT AUTO 0 % (0-2); EOSINOPHILS ABSOLUTE AUTO 0.62 K/mm3 (0.00-0.68); EOSINOPHILS PERCENT AUTO 6 % (0-6); Hematocrit 42.7 % (33.0-51.0); Hemoglobin 13.9 g/dL (11.5-16.0); IMMATURE GRAN ABSOLUTE AUTO 0.04 K/mm3 (0.00-0.10); IMMATURE GRAN PERCENT AUTO 0 % (0-1); LYMPHOCYTES ABSOLUTE AUTO 1.53 K/mm3 (0.84-5.20); LYMPHOCYTES PERCENT AUTO 14 % (21-46); MONOCYTES ABSOLUTE AUTO 1.27 K/mm3 (0.16-1.47); MONOCYTES PERCENT AUTO 12 % (4-13); Mean Corpuscular HGB 33.3 pg (26.0-34.0); Mean Corpuscular HGB Conc 32.6 g/dL (31.5-36.5); Mean Corpuscular Volume 102 fL (80-100); Mean Platelet Volume 10.1 fL (9.1-12.4); NEUTROPHILS ABSOLUTE AUTO 7.32 K/mm3 (1.96-9.15); NEUTROPHILS PERCENT AUTO 68 % (41-73); Platelet Count 149 K/mm3 (150-400); RDW Coefficient Variation 12.9 % (11.7-14.2); RDW Standard Deviation 49.2 fL (35.1-46.3); Red Blood Cell Count 4.17 M/mm3 (3.80-5.20); White Blood Cell Count 10.82 K/mm3 (4.00-11.30)
[2024-08-01 15:17] LABS: Bun/Creatinine Ratio 22.4 (12.0-20.0); Calcium, Blood 10.6 mg/dL (8.5-10.1); Creatinine, Blood 1.96 mg/dL (0.40-1.00); Potassium, Blood 4.8 mmol/L (3.5-5.5)
[2024-08-01] MEDS ORDERED: Ciprofloxacin 500 MG Tab PO ONE (15:25)
[2024-08-01] MEDS ORDERED: B-6200 MG PO (15:35)
[2024-08-01] MEDS ORDERED: K-Dur10 MEQ (15:45)
[2024-08-01] MEDS ORDERED: NORTHERA100 MG PO (15:45)
[2024-08-01] MEDS ORDERED: HIPREX1 G1 PO (15:46)
[2024-08-01] MEDS ORDERED: [UNRECOGNIZED DRUG - OTHER] PO (15:47)
[2024-08-01] MEDS ORDERED: CIPR500 PO (15:49)
== END 2024-08-01 16:48 | disposition home or self-care (01) ==
LOC: ER 13:10
PROVIDERS: Emergency Medicine
DX: T83.511A Infection and inflammatory reaction due to indwelling urethral catheter, initial encounter (principal); N39.0 Urinary tract infection, site not specified; R41.0 Disorientation, unspecified; N18.9 Chronic kidney disease, unspecified; E03.9 Hypothyroidism, unspecified; I11.0 Hypertensive heart disease with heart failure; I50.9 Heart failure, unspecified; Z79.899 Other long term (current) drug therapy
CPT/HCPCS: 51702; 71045; 80048; 85025; 87077; 87086; 87186; 99284-25; A9270

== ENCOUNTER → 2024-08-16 | Outpatient (CLI) | payer OTHER ==
[~2024-08-16] MED LIST changes: +B-6200 MG PO; +CIPR500 PO; +HIPREX1 G1 PO; +K-Dur10 MEQ; +[UNRECOGNIZED DRUG - OTHER] PO
== END ==
LOC: LAB 15:23 → LAB SHORT 15:23
DX: N39.0 Urinary tract infection, site not specified (principal)
CPT/HCPCS: 87086

== ENCOUNTER 2024-09-09 15:00 | Inpatient (IN) | payer OTHER ==
[~2024-09-09] VITALS: Ht 160 cm; Wt 69.9 kg
[~2024-09-09 15:00] MED LIST changes: -OXYB5 PO; -SODIUM FLUORID100 ML UD; -methenamine hippurat PO
[2024-09-09 15:29] LABS: BASOPHILS ABSOLUTE AUTO 0.08 K/mm3 (0.00-0.23); BASOPHILS PERCENT AUTO 1 % (0-2); EOSINOPHILS ABSOLUTE AUTO 0.34 K/mm3 (0.00-0.68); EOSINOPHILS PERCENT AUTO 2 % (0-6); Hematocrit 41.3 % (33.0-51.0); Hemoglobin 13.4 g/dL (11.5-16.0); IMMATURE GRAN ABSOLUTE AUTO 0.25 K/mm3 (0.00-0.10); IMMATURE GRAN PERCENT AUTO 2 % (0-1); LYMPHOCYTES ABSOLUTE AUTO 3.14 K/mm3 (0.84-5.20); LYMPHOCYTES PERCENT AUTO 23 % (21-46); MONOCYTES ABSOLUTE AUTO 1.15 K/mm3 (0.16-1.47); MONOCYTES PERCENT AUTO 8 % (4-13); Mean Corpuscular HGB 33.4 pg (26.0-34.0); Mean Corpuscular HGB Conc 32.4 g/dL (31.5-36.5); Mean Corpuscular Volume 103 fL (80-100); Mean Platelet Volume 9.9 fL (9.1-12.4); NEUTROPHILS ABSOLUTE AUTO 8.98 K/mm3 (1.96-9.15); NEUTROPHILS PERCENT AUTO 65 % (41-73); Platelet Count 294 K/mm3 (150-400); RDW Coefficient Variation 12.7 % (11.7-14.2); RDW Standard Deviation 48.1 fL (35.1-46.3); Red Blood Cell Count 4.01 M/mm3 (3.80-5.20); White Blood Cell Count 13.94 K/mm3 (4.00-11.30)
[2024-09-09 15:56] LABS: Albumin, Blood 2.4 g/dL (3.4-5.0); Albumin/Globulin Ratio 0.4 (0.8-1.8); Bilirubin, Total 0.3 mg/dL (0.1-1.0); Bun/Creatinine Ratio 15.9 (12.0-20.0); Calcium, Blood 10.7 mg/dL (8.5-10.1); Creatinine, Blood 2.32 mg/dL (0.40-1.00); Globulin, Blood 5.5 g/dL (2.2-4.0); Potassium, Blood 5.1 mmol/L (3.5-5.5); Total Protein, Blood 7.9 g/dL (6.4-8.2)
[2024-09-09] MEDS ORDERED: Cefepime HCl 2,000 MG in NS 100 ML IV ONE (16:10)
[2024-09-09 16:17] LABS: Source, Urine Foley catheter
[2024-09-09 16:21] LABS: Appearance, Urine Hazy (Clear); Bilirubin, Urine Neg (Neg); Blood, Urine 1+ (Neg); Color, Urine Yellow (P-Yellow); Glucose Qualitative, Urine Neg (Neg); Ketones, Urine Neg (Neg); Leukocyte Esterase, Urine 3+ (Neg); Nitrite, Urine Neg (Neg); Protein, Urine Neg (Neg); Urobilinogen, Urine NORM (Normal); pH, Urine 6.5 (5.0-8.0)
[2024-09-09 16:26] LABS: Base Excess Venous -4.4 mmol/L; Bicarbonate Venous 20.7 mmol/L (24.0-30.0); PCO2 Venous 43.5 mmHg (38-42); pH Blood Venous 7.31 (7.34-7.37)
[2024-09-09 16:36] LABS: White Blood Cells, Urine TNTC /hpf (0-5)
[2024-09-09 16:37] LABS: Bacteria Few /hpf; Squamous Epithelial Cells Few /hpf (Few)
[2024-09-09 17:44] LABS: U Amphetamine Screen Not Detected; U Barbituate Screen Not Detected; U Benzodiazapine Screen Not Detected; U Buprenorphine Screen Not Detected; U Cannabinoids Screen Not Detected; U Cocaine Screen Not Detected; U Methadone Screen Not Detected; U Methamphetamine Screen Not Detected; U Opiates Screen DETECTED; U Oxycodone Screen DETECTED; U Phencyclidine Screen Not Detected
[2024-09-09] MEDS ORDERED: Vancomycin HCL 1,000 MG in NS 250 ML IV ONE (18:15)
[2024-09-09 19:45] VITALS: BP 81/68
[2024-09-09 20:00] VITALS: BP 112/97
[2024-09-09] MEDS ORDERED: FLU VACC TS2024-25(6MOS UP)/PF 45 MCG/0.5 ML SYRINGE IM ONE (20:00)
[2024-09-09 20:30] VITALS: BP 128/95
[2024-09-09] MEDS ORDERED: D5W-NS 1,000 ML IV SCH (20:30)
[2024-09-09] MEDS ORDERED: Apixaban 5 MG Tab PO SCH (21:00)
[2024-09-09] MEDS ORDERED: Apixaban 5 MG Tab PT SCH (21:00)
[2024-09-09] MEDS ORDERED: Dextrose 50% 50 ML Vial ONE (21:01)
[2024-09-09] MEDS ORDERED: Dextrose 50% 50 ML Vial IV ONE (21:20)
[2024-09-09 22:15] VITALS: BP 117/71
[2024-09-09] MEDS ORDERED: propofoL 100 ML IV SCH (22:35)
[2024-09-09 23:30] VITALS: BP 83/73
[2024-09-09] MEDS ORDERED: Lactated Ringer's 1,000 ML IV ONE (23:30)
[2024-09-09 23:45] VITALS: BP 84/68
[2024-09-10] VITALS (66 sets, daily range): BP systolic 76–135; BP diastolic 52–117
[2024-09-10] MEDS ORDERED: Hydrogen Peroxide 1.5 % Solution MT SCH
[2024-09-10] MEDS ORDERED: Naloxone HCl 1MG / ML 2ML SYR IV ONE (01:25)
[2024-09-10] MEDS ORDERED: NS 250 ML IV PRN (01:50)
[2024-09-10] MEDS ORDERED: D5W NS IV SCH (03:25)
[2024-09-10 03:50] LABS: BASOPHILS ABSOLUTE AUTO 0.16 K/mm3 (0.00-0.23); BASOPHILS PERCENT AUTO 1 % (0-2); EOSINOPHILS ABSOLUTE AUTO 0.06 K/mm3 (0.00-0.68); EOSINOPHILS PERCENT AUTO 0 % (0-6); Hematocrit 37.6 % (33.0-51.0); Hemoglobin 12.4 g/dL (11.5-16.0); IMMATURE GRAN ABSOLUTE AUTO 0.23 K/mm3 (0.00-0.10); IMMATURE GRAN PERCENT AUTO 1 % (0-1); LYMPHOCYTES ABSOLUTE AUTO 0.62 K/mm3 (0.84-5.20); LYMPHOCYTES PERCENT AUTO 3 % (21-46); MONOCYTES ABSOLUTE AUTO 0.97 K/mm3 (0.16-1.47); MONOCYTES PERCENT AUTO 4 % (4-13); Mean Corpuscular HGB 33.3 pg (26.0-34.0); Mean Corpuscular Volume 101 fL (80-100); Mean Platelet Volume 10.2 fL (9.1-12.4); NEUTROPHILS ABSOLUTE AUTO 20.88 K/mm3 (1.96-9.15); NEUTROPHILS PERCENT AUTO 91 % (41-73); Platelet Count 231 K/mm3 (150-400); RDW Coefficient Variation 12.6 % (11.7-14.2); RDW Standard Deviation 47.2 fL (35.1-46.3); Red Blood Cell Count 3.72 M/mm3 (3.80-5.20); White Blood Cell Count 22.92 K/mm3 (4.00-11.30)
[2024-09-10 04:05] LABS: International Normalized Ratio 1.03
[2024-09-10 04:20] LABS: Magnesium, Blood 1.9 mg/dL (1.6-2.4)
[2024-09-10 04:22] LABS: Alanine Aminotransfer (ALT/SGP 37 U/L (12-78); Albumin, Blood 1.8 g/dL (3.4-5.0); Albumin/Globulin Ratio 0.4 (0.8-1.8); Alk Phos 117 U/L (50-136); Anion Gap 10 mmol/L (3-11); Aspartate Aminotrans (AST/SGOT 42 U/L (12-37); Bilirubin, Total 0.3 mg/dL (0.1-1.0); Blood Urea Nitrogen 38 mg/dL (8-24); Bun/Creatinine Ratio 16.1 (12.0-20.0); CO2, Blood 24 mmol/L (21-32); Calcium, Blood 9.6 mg/dL (8.5-10.1); Chloride, Blood 111 mmol/L (98-108); Creatinine, Blood 2.36 mg/dL (0.40-1.00); Globulin, Blood 4.4 g/dL (2.2-4.0); Glomerular Filtration Rate 21 (60-); Glucose, Blood 130 mg/dL (70-99); Phosphorus, Blood 2.4 mg/dL (2.5-4.9); Potassium, Blood 4.3 mmol/L (3.5-5.5); Sodium, Blood 141 mmol/L (136-145); Total Protein, Blood 6.2 g/dL (6.4-8.2); Vancomycin, Random 24.5 ug/mL
--- NOTE | 2024-09-10 05:10 | NUR ---
SHIFT SUMMARY PT ARRIVED TO UNIT AT START OF SHIFT, INTUBATED W/O SEDATION. WAS NOT FOLLOWING COMMANDS, WITHDREW FROM PAINFUL STIMULI. PT WAS GIVEN A DOSE OF NARCAN AND BECAME MORE ALERT, OPENING EYES TO VERBAL STIMULI, ABLE TO FOLLOW COMMANDS AND NOD YES/NO TO QUESTIONS. QUICKLY BECAME INCREASINGLY AGITATED, BITING DOWN ON TUBE, COUGHING AND NOT TOLERATING VENT. PROPOFOL STARTED, PT BECAME MORE CALM W/ IMPROVED TOLERANCE OF THE VENT. ON CONTINUOUS ASSISTANT CREDIT MANAGER, HR 70-80'S, BP BECAME INCREASINGLY SOFT, MAPS BECAME < 65, VERY LABILE, LEVO STARTED. BP STILL SOFT BUT IMPROVED MAPS > 65. PT HAS PACER, HAS BEEN PACED MOST OF THIS SHIFT. ON VENT AC/VC 14/400/8/90%, SATS > 94%, TOLERATING VENT AT THIS TIME. PT HAS HAD MODERATE AMOUNT OF THIS SECRETIONS T/O SHIFT. L/S COARSE T/O. OGT SET TO LIS, POWERGLIDE PLACED THIS SHIFT, HX OF CHRONIC VIVAS- NEW TEMP VIVAS WAS PLACED IN ED, PATENT AND DRAINING TO GRAVITY.
[2024-09-10] MEDS ORDERED: Sodium Phosphate 10 MM in Dextrose 5% 250 ML IV ONE (06:20)
[2024-09-10] MEDS ORDERED: Cetylpyridinium Chloride 1 EA MISC MT SCH (08:00)
[2024-09-10] MEDS ORDERED: Sodium Phosphate 10 MM in Dextrose 5% 250 ML IV SCH (09:00)
[2024-09-10 09:10] LABS: Triglycerides 141 mg/dL (30-160)
[2024-09-10 15:21] LABS: Vancomycin, Random 14.3 ug/mL
[2024-09-10] MEDS ORDERED: Vancomycin HCL 750 MG in NS 250 ML IV ONE (16:00)
--- NOTE | 2024-09-10 17:24 | NUR ---
SHIFT SUMMARY PATIENT ALERT WHILE OFF OF PROPOFOL THIS AFTERNOON. OPENING HER EYES SPONTANEOUSLY. PATIENT BECAME ANXIOUS AROUND 1700 AND HER HEART RATE INCREASED. ATTEMPTED VARIOUS COMMUNICATION METHODS WITH NO SUCCESS. PATIENT BEGAN TO TRY TO TUG AT HER TUBE AND BECAME INCREASINGLY ANXIOUS AND AGITATED. PROPOFOL RESTARTED AT APPOX 1710. PATIENT UNABLE TO MAKE HER NEEDS KNOWN CURRENTLY AND IS INTUBATED. LUNGS CLEAR ANTERIORLY AND COARSE IN POSTERIOR BASES. SR OCCASIONALLY PACED WITH OCCASIONAL PVCS. HR 80S-100S SBP REMAIN SOFT 90S AND MAP MAINTAINING ABOVE 95% ABLE TO WEAN OFF LEVOPHED AFTER PROPOFOL STOPPED. STATED PROPOFOL RESTARTED DUE TO AGITATION APPROX 1715. GI: +CONSTIPATION, SOME VISIBLE DISTENTION WITH HYPOACTIVE BOWEL TONES. STARTED OG TUBE FEEDS TODAY, TOLERATING WELL. : VIVAS CATH IN PLACE DRAINING YELLOW/SEDIMENTED URINE SKIN: BRUISING VISIBLE TO L WRIST AND WOUND TO COCCYX.
[2024-09-10] MEDS ORDERED: Sodium Chloride 0.45% 1,000 ML IV SCH (17:25)
[2024-09-10] MEDS ORDERED: Cefepime HCl 1,000 MG in NS 100 ML IV SCH (18:00)
[2024-09-10] MEDS ORDERED: Arginine/Glutamine/Calcium Hmb 1 Packet PT SCH (21:00)
[2024-09-11] VITALS (41 sets, daily range): BP systolic 86–147; BP diastolic 58–99
--- NOTE | 2024-09-11 04:22 | NUR ---
SHIFT SUMMARY PT INTUBATED AND SEDATED, WITHDRAWS FROM PAINFUL STIMULI. NOT FOLLOWING COMMANDS. PROPOFOL INFUSING. ON CONE MACHINE FEEDER, HR 80-90'S, MAPS > 65. LEVO ON SB T/O ENTIRE SHIFT. VENT SETTINGS 16/400/8/60%, SATS > 94%, TOLERATING VENT. VIVAS DRAINING TO GRAVITY. NO BM THIS SHIFT. TF RUNNING AT GOAL OF 40 ML/H. CHG BATH DONE THIS SHIFT. NO ACUTE EVENTS.
[2024-09-11 04:29] LABS: BASOPHILS ABSOLUTE AUTO 0.06 K/mm3 (0.00-0.23); BASOPHILS PERCENT AUTO 0 % (0-2); EOSINOPHILS ABSOLUTE AUTO 0.37 K/mm3 (0.00-0.68); EOSINOPHILS PERCENT AUTO 2 % (0-6); Hematocrit 28.3 % (33.0-51.0); Hemoglobin 9.5 g/dL (11.5-16.0); IMMATURE GRAN ABSOLUTE AUTO 0.13 K/mm3 (0.00-0.10); IMMATURE GRAN PERCENT AUTO 1 % (0-1); LYMPHOCYTES ABSOLUTE AUTO 0.79 K/mm3 (0.84-5.20); LYMPHOCYTES PERCENT AUTO 5 % (21-46); MONOCYTES PERCENT AUTO 6 % (4-13); Mean Corpuscular HGB 33.8 pg (26.0-34.0); Mean Corpuscular HGB Conc 33.6 g/dL (31.5-36.5); Mean Corpuscular Volume 101 fL (80-100); Mean Platelet Volume 10.2 fL (9.1-12.4); NEUTROPHILS ABSOLUTE AUTO 13.69 K/mm3 (1.96-9.15); NEUTROPHILS PERCENT AUTO 85 % (41-73); Platelet Count 174 K/mm3 (150-400); RDW Coefficient Variation 12.9 % (11.7-14.2); RDW Standard Deviation 47.7 fL (35.1-46.3); Red Blood Cell Count 2.81 M/mm3 (3.80-5.20); White Blood Cell Count 16.04 K/mm3 (4.00-11.30)
[2024-09-11 05:15] LABS: Albumin, Blood 1.5 g/dL (3.4-5.0); Albumin/Globulin Ratio 0.4 (0.8-1.8); Bilirubin, Total 0.2 mg/dL (0.1-1.0); Bun/Creatinine Ratio 21.2 (12.0-20.0); Calcium, Blood 8.9 mg/dL (8.5-10.1); Creatinine, Blood 1.93 mg/dL (0.40-1.00); Magnesium, Blood 1.8 mg/dL (1.6-2.4); Phosphorus, Blood 3.1 mg/dL (2.5-4.9); Potassium, Blood 3.8 mmol/L (3.5-5.5); Total Protein, Blood 5.5 g/dL (6.4-8.2)
[2024-09-11] MEDS ORDERED: Sodium Chloride 0.45% 1,000 ML IV SCH (05:40)
[2024-09-11] MEDS ORDERED: Darbepoetin Alfa in Polysorbat 25 MCG/0.42 ML Syringe SC ONE (12:30)
[2024-09-11 15:28] LABS: Vancomycin, Random 16.5 ug/mL
[2024-09-11] MEDS ORDERED: Vancomycin HCL 750 MG in NS 250 ML IV ONE (16:00)
--- NOTE | 2024-09-11 18:24 | NUR ---
PATIENT REMAINS INTUBATED AND SEDATED. OPENS EYES TO VERBAL STIMULI, WITHDRAWS FROM PAIN. PUPILS ARE EQUAL AND REACTIVE. VSS. SR WITH OCCASIONAL PVCS. SBP REMAINED 110-120S. LUNGS CLEAR TO AUSCULATION, DIM IN POSTERIOR BASES. ABODMEN IS SOFT/NON TENDER. +CONSTIPATION. HYPOACTIVE BOWEL TONES. NEW MEPLIEX FOAM APPLIED TO COCCYX WOUND. ECCYMOSIS STILL PRESENT TO LFA. CALLED TO CHECK IN X2 TODAY.
--- NOTE | 2024-09-11 21:13 | NUR ---
ASSUMED CARE AT 1900 PATIENT IS INTUBATED AND SEDATED ON PROPOFOL. RESPONDS TO PAINFUL STIMULI. SP02 94% ON VENT, AC VC 18/400/8/50% RR 18, SPUTUM SAMPLE SENT. HR SR/PACED/PVCs, 90s. BP STABLE. OG WITH TUBE FEED AT GOAL 40 MLS/HR NEPRO, 30 MLS WATER FLUSHES Q4 HOURS. VIVAS PATENT AND DRAINING TO GRAVITY. PATIENT REPOSITONED AND ORAL CARE DONE.
[2024-09-12] VITALS (47 sets, daily range): BP systolic 103–164; BP diastolic 67–118
[2024-09-12 04:06] LABS: BASOPHILS ABSOLUTE AUTO 0.04 K/mm3 (0.00-0.23); BASOPHILS PERCENT AUTO 0 % (0-2); EOSINOPHILS ABSOLUTE AUTO 0.65 K/mm3 (0.00-0.68); EOSINOPHILS PERCENT AUTO 5 % (0-6); Hematocrit 30.1 % (33.0-51.0); Hemoglobin 10.2 g/dL (11.5-16.0); IMMATURE GRAN ABSOLUTE AUTO 0.12 K/mm3 (0.00-0.10); IMMATURE GRAN PERCENT AUTO 1 % (0-1); LYMPHOCYTES ABSOLUTE AUTO 0.79 K/mm3 (0.84-5.20); LYMPHOCYTES PERCENT AUTO 6 % (21-46); MONOCYTES ABSOLUTE AUTO 0.61 K/mm3 (0.16-1.47); MONOCYTES PERCENT AUTO 4 % (4-13); Mean Corpuscular HGB 33.8 pg (26.0-34.0); Mean Corpuscular HGB Conc 33.9 g/dL (31.5-36.5); Mean Corpuscular Volume 100 fL (80-100); Mean Platelet Volume 10.7 fL (9.1-12.4); NEUTROPHILS ABSOLUTE AUTO 11.66 K/mm3 (1.96-9.15); NEUTROPHILS PERCENT AUTO 84 % (41-73); Platelet Count 211 K/mm3 (150-400); RDW Coefficient Variation 13.1 % (11.7-14.2); RDW Standard Deviation 48.1 fL (35.1-46.3); Red Blood Cell Count 3.02 M/mm3 (3.80-5.20); White Blood Cell Count 13.87 K/mm3 (4.00-11.30)
[2024-09-12 04:19] LABS: Albumin, Blood 1.6 g/dL (3.4-5.0); Anion Gap 9 mmol/L (3-11); Blood Urea Nitrogen 50 mg/dL (8-24); Bun/Creatinine Ratio 32.3 (12.0-20.0); CO2, Blood 22 mmol/L (21-32); Chloride, Blood 117 mmol/L (98-108); Creatinine, Blood 1.55 mg/dL (0.40-1.00); Glomerular Filtration Rate 35 (60-); Glucose, Blood 116 mg/dL (70-99); Magnesium, Blood 2.1 mg/dL (1.6-2.4); Phosphorus, Blood 2.3 mg/dL (2.5-4.9); Potassium, Blood 4.1 mmol/L (3.5-5.5); Sodium, Blood 144 mmol/L (136-145)
[2024-09-12] MEDS ORDERED: Sodium Phosphate 10 MM in Dextrose 5% 250 ML IV ONE (05:15)
--- NOTE | 2024-09-12 06:14 | NUR ---
SHIFT SUMMARY PATIENT REMAINED INTUBATED AND SEDATED ON PROPOFOL, RESPONDS TO PAINFUL STIMULI. VENT AC VC 18/400/8/50%. HR SR WITH PVCs 80s. BP STABLE. OG WITH TF AT GOAL. VIVAS PATENT AND DRAINING TO GRAVITY
--- NOTE | 2024-09-12 07:15 | NUR ---
ASSUMPTION OF CARE: ASSUMTED CARE OF PATIENT. PATIENT RESTING COMFORTABLY AT THIS TIME. VENT SETTINGS AC/VC 18/400/8/50%. SPO2 >94%. PATIENT TOLERATING VENT. PROPOFOL CONTINUES AT 40 MCG/KG/MIN. SODIUM PHOS INFUSING. TUBE FEED NEPRO INFUSING THROUGH DOBHOFF AT 40ML/HR. VIVAS IN PLACE AND DRAINING FREELY LIGHT YELLOW URINE.
[2024-09-12] MEDS ORDERED: Polyethylene Glycol 3350 17 gm PT SCH (09:00)
--- NOTE | 2024-09-12 14:52 | NUR ---
LAB RESULT TO DR. BOWER: PER ORDER, NOTIFIED DR. BOWER OF SODIUM LEVEL OF 142. NO NEW ORDERS.
[2024-09-12] MEDS ORDERED: Bisacodyl 10 MG Supp PR PRN (18:35)
--- NOTE | 2024-09-12 19:45 | NUR ---
SHIFT SUMMARY: NEURO: PATIENT OPENS EYES TO NAME. PATIENT DID NOT FOLLOW DIRECTIONS. PATIENT WITHDRAWS FOR PAIN. TURN Q2HR. RESPIRATORY: PATIENT TOLERATING THE VENT WELL. SETTINGS AC/VC 16/400/8/40%. SPO2 >94%. NO DISTRESS THROUGHOUT THE DAY. PATIENT TOLERATED REPOSITIONING AND MOBILITY WELL. CARDIAC: VITALS STABLE WITH MAPS >65. HR IN THE 80S-90S. PULSES FAINT IN ALL EXTREMITIES. GI/: PATIENT TOLERATING TUBE FEED. NEPRO 1.8 INFUSING AT 40 ML/HR WITH Q4HR FLUSHES. NO BOWEL MOVEMENT SINCE ADMISSION. BOWEL CARE STARTED TODAY. GENTLE RECTAL EXAM REVEALED SMALL AMOUNTS OF BRIGHT BLOOD. DR. MOREJON AWARE. URINE WAS LEAKING AROUND THE VIVAS. VIVAS REPLACED PER DR. SCOTT TO LARGER SIZE. PATIENT TOLERATED WELL. PSYCHSOCIAL: PATIENT'S CALLED TWICE TODAY TO CHECK ON PATIENT.
[2024-09-13] VITALS (23 sets, daily range): BP systolic 106–164; BP diastolic 54–107
[2024-09-13 03:55] LABS: Hematocrit 30.2 % (33.0-51.0); Hemoglobin 10.3 g/dL (11.5-16.0)
[2024-09-13 05:00] LABS: Albumin, Blood 1.5 g/dL (3.4-5.0); Anion Gap 9 mmol/L (3-11); Blood Urea Nitrogen 50 mg/dL (8-24); Bun/Creatinine Ratio 38.2 (12.0-20.0); CO2, Blood 24 mmol/L (21-32); Calcium, Blood 10.2 mg/dL (8.5-10.1); Chloride, Blood 118 mmol/L (98-108); Creatinine, Blood 1.31 mg/dL (0.40-1.00); Glomerular Filtration Rate 43 (60-); Glucose, Blood 114 mg/dL (70-99); Phosphorus, Blood 2.8 mg/dL (2.5-4.9); Potassium, Blood 4.9 mmol/L (3.5-5.5); Sodium, Blood 146 mmol/L (136-145)
[2024-09-13] MEDS ORDERED: Dextrose 5% 1,000 ML IV SCH (05:15)
--- NOTE | 2024-09-13 06:39 | NUR ---
SHIFT SUMMARY PATIETNT TOLERATED TH EVENT ALL SHIFT. PATIENT WILL OPEN EYES WHEN NAME IS SPOKEN. PATIENT SQUEEZED NURSES HAND BILATERALLY. SBP 110-120'S, HR IN THE 80'S. TEMP GOT UP TO 100.1 UNCOVERED PATIENT AND PUT A FAN ON HER. VIVAS DRAINING TO GRAVITY YELLOW COLORED URINE. NEPRO TUBE FEEDING AT 40ML (GOAL) WITH 100ML FLUSHES Q6 PER BOWER. PROPOFOL @ 20 AND D5 STARTED AT 0600 RUNNING AT 50MLS/HR. VENT SETTINGS AT 18/400/8/35% O2 SATS 96%. CALL LIGHT WITHIN REACH.
--- NOTE | 2024-09-13 07:15 | NUR ---
ASSUMPTION OF CARE: ASSUMED CARE OF PATIENT. PATIENT TOLERATING THE VENT. VENT SETTINGS AC/VC /35%. SPO2 >90%. VITALS ARE STABLE WITH MAPS >65. PROPOFOL AT 20 MCG/KG/MIN. PATIENT'S EYES ARE OPEN WITH VERBAL STIMULI. PATIENT FOLLOWING COMMANDS TO SQUEEZE HER HAND. VIVAS IN PLACE DRAINING VERY LIGHT CLEAR YELLOW URINE. NO LEAKING OF VIVAS REPORTED OVERNIGHT. D5W INFUSING AT 50 ML/HR. NEPRO 1.8 INFUSING AT 40ML/HR WITH Q6HR 100ML WATER FLUSHES. NO SIGNS OR SYMPTOMS OF PAIN OR DISTRESS AT THIS TIME.
[2024-09-13] MEDS ORDERED: Cefepime HCl 1,000 MG in NS 100 ML IV SCH (09:00)
--- NOTE | 2024-09-13 11:00 | NUR ---
SBT: SPONTANEOUS BREATHING TRIAL STARTED AT 10:20. WITH NO STIMULOUS, RR IS IN THE HIGH TEENS TO LOW 20S AND VOLUMES ARE GENERALLY IN THE 200S-400S. PATIENT WILL HAVE PERIODS OF ELEVATED RR IN THE LOW 30S AND PERIODS OF LOW VOLUMES IN THE 100S-200S. DR. PROCTOR AT BEDSIDE. DISCUSSED FINDINGS. PLAN IS TO EXTUBATE TO BIPAP.
--- NOTE | 2024-09-13 12:30 | NUR ---
EXTUBATION: PATIENT EXTUBATED TO BIPAP AT 12:19. PATIENT DENIES ANXIETY. DR. PROCTOR AT BEDSIDE TO MAKE CHANGES TO SETTINGS.
--- NOTE | 2024-09-13 18:50 | NUR ---
SHIFT SUMMARY: PATIENT EXTUBATED TODAY AT 12:20. PATIENT TOLERATED WELL. EXTUBATED TO BIPAP WITH VPAP SETTINGS. PATIENT RR IN THE HIGH TEENS, VOLUMES IN THE 400S. PATIENT DENIED SHORTNESS OF BREATH, ANXIETY OR PAIN. PATIENT ABLE TO MAKE HER NEEDS KNOWN. PATIENT EXPERIENCED SOME ELEVATED BPS IN THE AM (SBP IN THE 160S). FOR THE REST OF THE AFTERNOON, SBP WERE IN THE 140S-150S. HR IN THE 80S. PATIENT WAS ABLE TO HAVE A BOWEL MOVEMENT TODAY - INCONTINENT. PATIENT'S URINE WAS CLEAR, LIGHT YELLOW. APS CESSPOOL CLEANER ANAIS CH. HE LEFT HIS CARD. D5W INFUSED AT 75 ML/HR AFTER NOON SODIUM CALLED TO DR. BOWER. END OF SHIFT SODIUM WAS 143 AND THIS WAS DECREASED BACK TO 50 ML/HR PER DR. BOWER.
--- NOTE | 2024-09-13 23:23 | NUR ---
UPDATE SWALLOW EVAL NURSE BEDSIDE SWALLOW EVAL DONE AT 2030. PATIENT HANDLED SWALLOWING 1/2 THICK WATER WITH SPOON. NO COUGHING OR GAGGING DURING SWALLOWING. PATEINT WAS ABLE TO TAKE SMALL HALF PILL WITH 1/2 THICK WATER.
[2024-09-14] VITALS (15 sets, daily range): BP systolic 119–181; BP diastolic 70–109
[2024-09-14 04:28] LABS: Hematocrit 30.6 % (33.0-51.0)
[2024-09-14 04:47] LABS: Albumin, Blood 1.7 g/dL (3.4-5.0); Anion Gap 8 mmol/L (3-11); Blood Urea Nitrogen 44 mg/dL (8-24); Bun/Creatinine Ratio 33.3 (12.0-20.0); CO2, Blood 26 mmol/L (21-32); Calcium, Blood 10.6 mg/dL (8.5-10.1); Chloride, Blood 115 mmol/L (98-108); Creatinine, Blood 1.32 mg/dL (0.40-1.00); Glomerular Filtration Rate 43 (60-); Glucose, Blood 102 mg/dL (70-99); Magnesium, Blood 2.2 mg/dL (1.6-2.4); Potassium, Blood 4.1 mmol/L (3.5-5.5); Sodium, Blood 145 mmol/L (136-145)
--- NOTE | 2024-09-14 06:13 | NUR ---
SHIFT SUMMARY PATIENT SLEPT MOST OF SHIFT ONCE LEFT BEDSIDE AROUND 2200. PATEINT WORE BIPAP FOR ABOUT 2 HOURS OF NIGHT BUT WANTED IT OFF. NURSE PUT ON O2 VIA NC @ 4L O2 SATS STAYED ABOVE 95%. A&0 X2 VERY SOFT SPOKEN AND SLOW TO MOVE. SBP 120-130'S, HR 80-90'S. VIVAS CATH DRAINING TO GRAVITY, HAD 2 LARGE BM AND CREAM APPLIED AFTER CLEANED TO BUTTOCKS. HAS 2 POWERGLIDES IN THE SHERICE AND LUANA. D5 RUNNING @ 75ML/HR. CALL LIGHT WITHIN REACH.
--- NOTE | 2024-09-14 07:00 | NUR ---
ASSUMPTION OF CARE PT RECEIVING D5 75ML/HR. PT IS A&OX3, SLOW TO RESPOND AND REPORTS FEELING "GROGGY". PT REPORTS BEING BEDBOUND AT HOME. PT IS ABLE TO MINIMALLY SQUEEZE WITH BOTH HANDS AND WIGGLE TOES. SHE IS ON 2L NC WITH SPO2 >94%. LUNGS CLEAR, DIMINISHED IN BASES. SINUS ON MONITOR WITH RATE IN 70S. BP STABLE WITH MAP >65. ABDOMEN SOFT, BOWEL TONES ACTIVE. TEMP VIVAS PATENT AND DRAINING TO GRAVITY. CORE TEMP 99.0. BED IN LOW POSITION, CALL LIGHT WITHIN REACH.
--- NOTE | 2024-09-14 09:40 | NUR ---
DISCUSSION WITH SPOUSE PT'S SPOUSE MILO UPDATED THIS AM. HE VOICES CONCERN REGARDING OXYGEN MONITORING DURING HOSPITALIZATION AND DISCHARGE PLAN. EXPLAINED CONTINUOUS SPO2 MONITORING AND HE VERBALIZES UNDERSTANDING. HOME TRILOGY IN ROOM. RT NOTIFIED TO SET UP. SHE IS CURRENTLY ON 2L NC, REFUSED BIPAP. MILO IS CONCERNED THAT PT MAY BE DISCHARGED WHILE SHE IS TOO WEAK FOR HIM TO SAFELY CARE FOR HER AND TRANSFER HER. HE STS HE WILL DISCUSS THIS WITH PROVIDER DURING THEIR ROUNDS.
[2024-09-14] MEDS ORDERED: HyDROXyzine HCl 25 MG Tab PO PRN (14:30)
[2024-09-14] MEDS ORDERED: Acetaminophen 325 MG TABLET PO PRN (15:15)
--- NOTE | 2024-09-14 17:15 | NUR ---
TRANSFER TO 338 PT IS A&OX3, SLOW TO ANSWER QUESTIONS AT TIMES. PT REPORTED ANXIETY, MEDICATED PER EMAR. PT REPORTS RELIEF. SHE WAS ON HER HOME TRILOGY THIS AFTERNOON AND TRANSITIONED BACK TO 2L NC WHILE AWAKE. NSR WITH PVCS ON MONITOR WITH RATE 70S-90S. BP STABLE, MAP >65. TEMP VIVAS PATENT AND DRAINING TO GRAVITY. SPOUSE MILO NOTIFIED OF MOVE TO ROOM 338 VIA TELEPHONE.
--- NOTE | 2024-09-14 17:37 | NUR ---
TRANSFER FROM ICU PATIENT ARRIVED TO UNIT FROM ICU. PATIENT ABLE TO ANSWER QUESTIONS AND HAS POWERGLIDES IN RIGHT AND LEFT UPPER ARMS. PATIENT HAS NOTED BRUISING ON HER WRISTS AND HANDS. PATIENT STATES SHE JUST FEELS OFF. PATIENT CURRENTLY ON 2L N/C, PULSE OX AT 97%, PATIENT HAS HOME TRILIGOLOY MACHINE AT BEDSIDE WHICH SHE USES AT NIGHT WHEN NEEDED. PATIENT HAS SLIGHT REDDNESS ON BOTTOM WHICH IS BLANCHABLE. PATIENT HAS CALL LIGHT AND ADVISED TO CALL FOR ASSISTANCE WHEN NEEDED.
--- NOTE | 2024-09-14 22:06 | NUR ---
PATIENTS CALLED FOR THIS RN WHEN AVALIABLE-THIS RN WAS JUST RELIEVED FOR BREAK-BREAK NURSE NYDIA NOTIFIED AND WENT TO PATIENTS ROOM-PATIENTS REQUESTED THIS RN-NYDIA NOTIFIED PATIENTS THAT THIS RN IS ON BREAK- SOUGHT OUT THIS RN WHILE ON BREAK-ASKED IF THIS RN WAS ON BREAK TO WHICH I RESPONDED THAT "I AM ON BREAK BUT CAN COME TO THE PATIENTS ROOM WHEN I AM OFF BREAK" PATIENTS CONTINUED TO TELL THIS NURSE THAT THERE WAS SOMETHING THAT HE WANTED TO POINT OUT TO THIS RN ABOUT HIS . PATIENT ALSO ASKED THIS RN TO CALL THE DOCTOR FOR DIURETICS FOR HIS HER LEGS ARE SWOLLEN-PER REPORT DOCTORS ARE AWARE OF SWELLING. PATIENTS REPORTS THAT HE SPOKE WITH DOCTOR BOWER AND DR. BOWER WOULD ADDRESS IT IN THE MORNING.
--- NOTE | 2024-09-15 04:09 | NUR ---
SHIFT SUMMARY. PATIENT IS A&OX3. PATIENT DOES NOT CALL. PATIENT IS INCONTINENT-BRIEF CHANGED NEEDED-PATIENT HAS CHRONIC VIVAS THAT IS PATENT AND DRAINING TO GRAVITY. NO ACUTE CHANGES NOTED TONIGHT. ASKED THIS RN TO ASK THE DOCTOR IN THE MORNING TO FIND OUT WHAT CAUSED THE BRUISING TO PATIENTS BILATERAL FA. REPORTS PATIENT HAS HAD BRUISES FOR A YEAR. PATIENT IS PLEASANT AND COOPERATIVE WITH CARE. BED IS LOCKED IN THE LOWEST POSITION WITH CALL LIGHT IN REACH. CARE IS ONGOING.
[2024-09-15 04:50] VITALS: BP 133/84
[2024-09-15 06:03] LABS: BASOPHILS ABSOLUTE AUTO 0.06 K/mm3 (0.00-0.23); BASOPHILS PERCENT AUTO 1 % (0-2); EOSINOPHILS ABSOLUTE AUTO 0.09 K/mm3 (0.00-0.68); EOSINOPHILS PERCENT AUTO 1 % (0-6); Hematocrit 33.3 % (33.0-51.0); Hemoglobin 11.3 g/dL (11.5-16.0); IMMATURE GRAN ABSOLUTE AUTO 0.23 K/mm3 (0.00-0.10); IMMATURE GRAN PERCENT AUTO 2 % (0-1); LYMPHOCYTES ABSOLUTE AUTO 0.51 K/mm3 (0.84-5.20); LYMPHOCYTES PERCENT AUTO 4 % (21-46); MONOCYTES ABSOLUTE AUTO 0.82 K/mm3 (0.16-1.47); MONOCYTES PERCENT AUTO 7 % (4-13); Mean Corpuscular HGB 33.3 pg (26.0-34.0); Mean Corpuscular HGB Conc 33.9 g/dL (31.5-36.5); Mean Corpuscular Volume 98 fL (80-100); Mean Platelet Volume 11.1 fL (9.1-12.4); NEUTROPHILS ABSOLUTE AUTO 10.04 K/mm3 (1.96-9.15); NEUTROPHILS PERCENT AUTO 85 % (41-73); Platelet Count 277 K/mm3 (150-400); RDW Coefficient Variation 12.3 % (11.7-14.2); RDW Standard Deviation 44.4 fL (35.1-46.3); Red Blood Cell Count 3.39 M/mm3 (3.80-5.20); White Blood Cell Count 11.75 K/mm3 (4.00-11.30)
[2024-09-15 06:38] LABS: Albumin, Blood 1.9 g/dL (3.4-5.0); Albumin/Globulin Ratio 0.4 (0.8-1.8); Bilirubin, Total 0.2 mg/dL (0.1-1.0); Bun/Creatinine Ratio 37.4 (12.0-20.0); Calcium, Blood 10.7 mg/dL (8.5-10.1); Creatinine, Blood 1.31 mg/dL (0.40-1.00); Magnesium, Blood 1.9 mg/dL (1.6-2.4); Phosphorus, Blood 2.1 mg/dL (2.5-4.9); Total Protein, Blood 6.9 g/dL (6.4-8.2)
[2024-09-15 07:33] VITALS: BP 149/92
[2024-09-15] MEDS ORDERED: Furosemide 10 MG / ML 2ML Vial IV ONE (08:00)
[2024-09-15] MEDS ORDERED: Potassium Phosphate Dibasic 20 MM in Dextrose 5% 500 ML IV STA (08:02)
--- NOTE | 2024-09-15 10:03 | NUR ---
MD CALL DR OROZCO NOTIFIED OF BRIEF EPISODE OF HR 150 AND MORE FREQUENT PVCS. PT DENIES ANY CHANGES IN STATUS. NO NEW ORDERS.
[2024-09-15 15:17] VITALS: BP 123/78
--- NOTE | 2024-09-15 15:59 | NUR ---
SHIFT NOTE MS OROZCO IS ORIENTATED TO HER NAME, TO HOSPITAL AND SAID SHE IS HERE FOR "ALL KINDS OF PROBLEMS" NOT TO DATE OR SEASON. SHE HAS HAD SEVERAL INCONTINENT EPISODES OF SOFT STOOL TODAY. VIVAS CATHETER IN PLACE WITH CLEAR YELLOW URINE. ON TELEMETRY ON SINUS TACH, ONCE UP TO 150 FOR SECONDS, MORE FREQUENT PVCS PER CORPORATE RECYCLING MANAGER. O2 90S ON CONTINUOUS PULSE OX ON 2.5LNC, SAT DOWN TO MID 80S WHEN SHE WAS LAID FLAT. WORKED WITH OT AFTER LUNCH TODAY. FED LUNCH AND CUP HELD FOR HER FOR FLUIDS. SHE ATE 80% OF LUNCH. REPOSITIONED Q 2 HRS AND PADDED WITH PILLOWS. BED LOW, CALL LIGHT IN REACH.
[2024-09-15 19:25] VITALS: BP 148/99
--- NOTE | 2024-09-16 01:09 | NUR ---
SHIFT SUMMARY ADMITTED TO ROOM 340 FROM ED THIS SHIFT FOR ETOH W/D. CIWA SCORED HAVE REMAINED 3. HAS NOT REQUIRED MEDICATION FOR W/D SINCE IN ED. HAS HX COPD AND LUNG SOUND ARE DIMINISHED, TELEMETRY /NSR. VSS. TO BEDSIDE COMMODE X1 ASSIST , CONTINENT BUT URGENCY CAUSING FUNCTIONAL INCONTINENCE, MAKE EXTERNAL PUREWICK USED AND URINE CLEAR YELLOW, REPORST CHROIC PAIN AT TOLERABLE LEVEL 4/10. CONTINUOUSE OXIMETRY HR & 02 SATS HAVE BEEN WNL ON ROOM AIR. HAS BEEN A&OX4.
[2024-09-16 04:30] VITALS: BP 119/76
[2024-09-16 06:09] LABS: Hematocrit 33.3 % (33.0-51.0); Hemoglobin 11.4 g/dL (11.5-16.0); Mean Corpuscular HGB 32.9 pg (26.0-34.0); Mean Corpuscular HGB Conc 34.2 g/dL (31.5-36.5); Mean Corpuscular Volume 96 fL (80-100); Mean Platelet Volume 10.4 fL (9.1-12.4); Platelet Count 274 K/mm3 (150-400); RDW Coefficient Variation 12.5 % (11.7-14.2); Red Blood Cell Count 3.47 M/mm3 (3.80-5.20); White Blood Cell Count 12.67 K/mm3 (4.00-11.30)
[2024-09-16 06:33] LABS: Magnesium, Blood 1.8 mg/dL (1.6-2.4)
[2024-09-16 06:34] LABS: Albumin, Blood 1.8 g/dL (3.4-5.0); Albumin/Globulin Ratio 0.4 (0.8-1.8); Bilirubin, Total 0.2 mg/dL (0.1-1.0); Bun/Creatinine Ratio 34.5 (12.0-20.0); Calcium, Blood 9.7 mg/dL (8.5-10.1); Creatinine, Blood 1.48 mg/dL (0.40-1.00); Globulin, Blood 4.8 g/dL (2.2-4.0); Phosphorus, Blood 3.2 mg/dL (2.5-4.9); Potassium, Blood 3.8 mmol/L (3.5-5.5); Total Protein, Blood 6.6 g/dL (6.4-8.2)
[2024-09-16 06:37] LABS: BAND PERCENT MAN 50 % (0-8); BASOPHILS PERCENT MAN 0 % (0-2); EOSINOPHILS PERCENT MAN 0 % (0-6); LYMPHOCYTES ABSOLUTE MAN 0.63 K/mm3 (0.84-5.20); LYMPHOCYTES PERCENT MAN 5 % (21-46); MONOCYTES PERCENT MAN 4 % (4-13); MYELOCYTE ABSOLUTE MAN 0.12 K/mm3 (0.00-0.00); MYELOCYTE PERCENT MAN 1 % (0-0); SEG NEUTROPHILS PERCENT MAN 40 % (41-73); TOTAL CELLS COUNTED 100
[2024-09-16 07:50] LABS: Eosinophils-Raw #,Urine 6
[2024-09-16 07:51] VITALS: BP 129/83
[2024-09-16] MEDS ORDERED: Potassium Chloride 20 MEQ/15 ML UDC PO ONE (09:25)
[2024-09-16] MEDS ORDERED: Magnesium Sulf 2 GM/Water 50ML 50 ML IV ONE (09:30)
[2024-09-16 16:22] VITALS: BP 135/89
--- NOTE | 2024-09-16 18:49 | NUR ---
SHIFT SUMMARY PT A&O TO SELF AND PLACE. SLOW TO REPONSE. PT ADMITTED DUE TO ENCEPALOPATHY. PT REPORTS NO PAIN. PT ON CONT PULSE OX. SPO2 IS 96% ON 3L VIA N/C. PT ON TELE. PT WAS TURNED Q2 HR. PT IS INC OF BOWEL. HAVING LOOSE STOOL, CHANGED PRN. PT HAS VIVAS IN, FLOWING FREELY WITH NO DEPENDENT LOOPS. PT TAKES MEDS WHOLE WITH WATER. PT ON REG DIET. PT IN ROOM. BED IN LOWEST POSITION. CALL LIGHT IN REACH. VSS. PT RECEIVED ANTIBIOTIC TODAY. PT HAS TWO WORKING POWERGLIDES SHERICE AND LUANA. PT RECEIVED CT TODAY. PT ATTEMPTED TO WORK WITH PT BUT PT REPORTED PT SLEEPING DURING TIME OF ASSESSMENT.
[2024-09-16] MEDS ORDERED: Divalproex Sodium 250 MG TABCR PO SCH (21:00)
[2024-09-16] MEDS ORDERED: GEMTESA75 MG PO (21:09)
[2024-09-16] MEDS ORDERED: OXYB5 PO (21:11)
[2024-09-16] MEDS ORDERED: SODIUM FLUORID100 ML UD (21:11)
[2024-09-16] MEDS ORDERED: NEURONTIN300 MG PO (21:13)
[2024-09-16] MEDS ORDERED: methenamine hippurat PO (21:14)
[2024-09-16 21:34] VITALS: BP 132/78
[2024-09-17 03:46] VITALS: BP 120/52
[2024-09-17 06:51] LABS: Hematocrit 30.5 % (33.0-51.0); Hemoglobin 10.3 g/dL (11.5-16.0); Mean Corpuscular HGB Conc 33.8 g/dL (31.5-36.5); Mean Corpuscular Volume 98 fL (80-100); Mean Platelet Volume 10.6 fL (9.1-12.4); Platelet Count 273 K/mm3 (150-400); RDW Coefficient Variation 12.6 % (11.7-14.2); RDW Standard Deviation 44.7 fL (35.1-46.3); Red Blood Cell Count 3.12 M/mm3 (3.80-5.20); White Blood Cell Count 16.12 K/mm3 (4.00-11.30)
[2024-09-17 07:12] LABS: Albumin, Blood 1.6 g/dL (3.4-5.0); Albumin/Globulin Ratio 0.3 (0.8-1.8); Bilirubin, Total 0.2 mg/dL (0.1-1.0); Bun/Creatinine Ratio 37.1 (12.0-20.0); Calcium, Blood 9.8 mg/dL (8.5-10.1); Creatinine, Blood 1.43 mg/dL (0.40-1.00); Globulin, Blood 4.8 g/dL (2.2-4.0); Magnesium, Blood 2.5 mg/dL (1.6-2.4); Phosphorus, Blood 2.4 mg/dL (2.5-4.9); Total Protein, Blood 6.4 g/dL (6.4-8.2)
[2024-09-17] MEDS ORDERED: Furosemide 10 MG / ML 2ML Vial IV ONE (07:25)
[2024-09-17] MEDS ORDERED: Potassium Phosphate Dibasic 10 MM in Dextrose 5% 250 ML IV STA (07:29)
[2024-09-17 07:47] LABS: BAND PERCENT MAN 4 % (0-8); BASOPHILS PERCENT MAN 0 % (0-2); EOSINOPHILS ABSOLUTE MAN 0.16 K/mm3 (0.00-0.68); EOSINOPHILS PERCENT MAN 1 % (0-6); LYMPHOCYTES ABSOLUTE MAN 0.64 K/mm3 (0.84-5.20); LYMPHOCYTES PERCENT MAN 4 % (21-46); MONOCYTES ABSOLUTE MAN 1.77 K/mm3 (0.16-1.47); MONOCYTES PERCENT MAN 11 % (4-13); NEUTROPHILS ABSOLUTE MAN 13.54 K/mm3 (1.96-9.15); SEG NEUTROPHILS PERCENT MAN 80 % (41-73); TOTAL CELLS COUNTED 100
[2024-09-17 09:41] VITALS: BP 110/72
[2024-09-17 14:50] VITALS: BP 116/73
--- NOTE | 2024-09-17 19:31 | NUR ---
SHIFT SUMMARY PT A&OX SELF AND PLACE. SLOW TO RESPONSE. PT ADMITTED DUE TO ENCEPALOPATHY. PT REPORTS PAIN IN LEGS. REPORTS PT TAKING A MUSCLE RELAXER WITH TWO TYLENOL AT HOME. ASKED DR. CALDERÓN FOR ORDER FOR MUSCLE RELAXER, NO NEW ORDERS CAME THROUGH TO EMAR. THIS RN NOTICED INCREASE IN SLEEPING DURING SHIFT, NOTIFIED DR. SKINNER, HE REPORTED WILL CHECK ON PT IN MORNING. PT RECEIVED ANTIBIOTIC TODAY, ALSO LASIX AND POTASSIUM PHOS. BED IN LOWEST POSITION. CALL LIGHT IN REACH. PT ATTEMPTED TO WORK WITH PT BUT PT REPORTED PT SLEEPING DURING TIME OF ASSESSMENT. GAVE NIGHT NURSE UPDATES ON DAY. PT HAS VIVAS IN, FLOWING FREELY WITH NO DEPENDENT LOOPS. PT TAKE MEDS WHOLE WITH WATER. PT DECLINED BREAKFAST. PT WAS TOO SLEEPY FOR LUNCH. PT AT BEDSIDE FOR DINNER AND ASSISTED IN FEEDING HER. PT ON CONT. PULSE OX. SPO2 IS 94% ON 2L O2. PT TURNED Q2 HOURS.
[2024-09-17 20:05] VITALS: BP 80/71
[2024-09-17 21:08] VITALS: BP 142/53
[2024-09-18 02:55] VITALS: BP 103/71
--- NOTE | 2024-09-18 05:01 | NUR ---
SHIFT SUMMARY: Pt admitted for Encephalopathy and is a full code. Is alert and able to make most needs known. ADLs have been 2p and did not get out of bed. Pain has been managed with PRN medication. Powerglide to bi-lateral upper arms are patent with dressing that are CDI. layne reports sinus tach varying in the 100s to 110s with a bundle branch and PVCs. folly in place and draining clear sirena urine.
[2024-09-18 05:47] LABS: Hematocrit 30.3 % (33.0-51.0); Hemoglobin 10.3 g/dL (11.5-16.0); Mean Corpuscular HGB 33.4 pg (26.0-34.0); Mean Corpuscular Volume 98 fL (80-100); Mean Platelet Volume 10.4 fL (9.1-12.4); Platelet Count 282 K/mm3 (150-400); RDW Coefficient Variation 12.6 % (11.7-14.2); Red Blood Cell Count 3.08 M/mm3 (3.80-5.20); White Blood Cell Count 19.18 K/mm3 (4.00-11.30)
[2024-09-18 06:06] LABS: BAND PERCENT MAN 1 % (0-8); BASOPHILS PERCENT MAN 0 % (0-2); EOSINOPHILS ABSOLUTE MAN 0.19 K/mm3 (0.00-0.68); EOSINOPHILS PERCENT MAN 1 % (0-6); LYMPHOCYTES ABSOLUTE MAN 1.15 K/mm3 (0.84-5.20); LYMPHOCYTES PERCENT MAN 6 % (21-46); MONOCYTES ABSOLUTE MAN 1.34 K/mm3 (0.16-1.47); MONOCYTES PERCENT MAN 7 % (4-13); NEUTROPHILS ABSOLUTE MAN 16.49 K/mm3 (1.96-9.15); SEG NEUTROPHILS PERCENT MAN 85 % (41-73); TOTAL CELLS COUNTED 100
[2024-09-18 06:09] LABS: Magnesium, Blood 2.3 mg/dL (1.6-2.4)
[2024-09-18 06:10] LABS: Albumin, Blood 1.7 g/dL (3.4-5.0); Albumin/Globulin Ratio 0.4 (0.8-1.8); Bilirubin, Total 0.2 mg/dL (0.1-1.0); Bun/Creatinine Ratio 38.3 (12.0-20.0); Calcium, Blood 9.9 mg/dL (8.5-10.1); Creatinine, Blood 1.28 mg/dL (0.40-1.00); Globulin, Blood 4.6 g/dL (2.2-4.0); Phosphorus, Blood 2.5 mg/dL (2.5-4.9); Potassium, Blood 3.8 mmol/L (3.5-5.5); Total Protein, Blood 6.3 g/dL (6.4-8.2)
[2024-09-18 07:10] VITALS: BP 130/85
[2024-09-18] MEDS ORDERED: Potassium Chloride 10 Meq Tablet SA PO ONE (07:20)
[2024-09-18] MEDS ORDERED: Furosemide 10 MG / ML 2ML Vial IV ONE (07:20)
--- NOTE | 2024-09-18 09:00 | NUR ---
pt laying in bed, she is a/ox1, cooperative with care, doesn't like to be moved, she currently is on 2 liters o2 via n/c, that is her baseline, no cough noted, lungs are clear in upper chanel, course in bases, reps even and unlabored, hrr, tele in place running sr to st per monitor, see strip, chronic ayala in place draining yellow urine, skin c/w/d, not moving herself, two person to turn her in bed, has power glides to b/l upper arms, roberta, call light in reach.
[2024-09-18 14:23] VITALS: BP 113/80
--- NOTE | 2024-09-18 18:26 | NUR ---
pt had a large soft brown stool this am, she had some therapy, not wanting to be moved, has been turned, bed bath given with linen change, had an episode of clamminess this afternoon, notified Dr. Webb, no further chages this shift. call light in reach.
[2024-09-18 19:29] VITALS: BP 122/72
[2024-09-19 02:48] VITALS: BP 120/76
--- NOTE | 2024-09-19 04:44 | NUR ---
SHIFT SUMMARY: Pt admitted for Encephalopathy and is a full code. Is alert and able to make most needs known. ADLs have been 1-2p and did not get out of bed. Pain has been managed with PRN medication. Powerglide to bi-lateral upper arms are patent with dressing that are CDI. layne reports sinus tach varying in the 80s PVCs. folly in place and draining clear sirena urine.
[2024-09-19 07:44] VITALS: BP 141/82
[2024-09-19 08:11] LABS: BASOPHILS ABSOLUTE AUTO 0.09 K/mm3 (0.00-0.23); BASOPHILS PERCENT AUTO 1 % (0-2); EOSINOPHILS ABSOLUTE AUTO 0.34 K/mm3 (0.00-0.68); EOSINOPHILS PERCENT AUTO 3 % (0-6); Hematocrit 30.4 % (33.0-51.0); Hemoglobin 10.4 g/dL (11.5-16.0); IMMATURE GRAN ABSOLUTE AUTO 0.28 K/mm3 (0.00-0.10); IMMATURE GRAN PERCENT AUTO 2 % (0-1); LYMPHOCYTES ABSOLUTE AUTO 1.07 K/mm3 (0.84-5.20); LYMPHOCYTES PERCENT AUTO 8 % (21-46); MONOCYTES ABSOLUTE AUTO 1.06 K/mm3 (0.16-1.47); MONOCYTES PERCENT AUTO 8 % (4-13); Mean Corpuscular HGB Conc 34.2 g/dL (31.5-36.5); Mean Corpuscular Volume 97 fL (80-100); Mean Platelet Volume 10.3 fL (9.1-12.4); NEUTROPHILS ABSOLUTE AUTO 10.52 K/mm3 (1.96-9.15); NEUTROPHILS PERCENT AUTO 79 % (41-73); Platelet Count 331 K/mm3 (150-400); RDW Coefficient Variation 12.5 % (11.7-14.2); RDW Standard Deviation 43.6 fL (35.1-46.3); Red Blood Cell Count 3.15 M/mm3 (3.80-5.20); White Blood Cell Count 13.36 K/mm3 (4.00-11.30)
[2024-09-19 08:26] LABS: Albumin, Blood 1.7 g/dL (3.4-5.0); Albumin/Globulin Ratio 0.4 (0.8-1.8); Bilirubin, Total 0.2 mg/dL (0.1-1.0); Calcium, Blood 9.9 mg/dL (8.5-10.1); Creatinine, Blood 1.17 mg/dL (0.40-1.00); Globulin, Blood 4.7 g/dL (2.2-4.0); Magnesium, Blood 2.1 mg/dL (1.6-2.4); Phosphorus, Blood 2.4 mg/dL (2.5-4.9); Potassium, Blood 3.9 mmol/L (3.5-5.5); Total Protein, Blood 6.4 g/dL (6.4-8.2)
[2024-09-19] MEDS ORDERED: Furosemide 10 MG / ML 2ML Vial IV ONE (08:45)
[2024-09-19] MEDS ORDERED: Potassium Phosphate Dibasic 10 MM in Dextrose 5% 250 ML IV STA (09:05)
[2024-09-19 16:13] VITALS: BP 141/98
--- NOTE | 2024-09-19 18:21 | NUR ---
SHIFT SUMMARY: PATIENT A/O TO SELF AND PLACED. PATIENT REPORTS PAIN TO BLE'S, MEDICATED FOR PAIN X2 AND FOR ANXIETY X1 c GOOD EFFECT. PATIENT STILL ON TELE, SR/ST HR IN IN THE 80'S TO LOW 100'S BPM, COUPLE EPISODE OF HR IN THE 150'S BRIEFLY AND BACK DOWN TO LOW 100'S BPM. PATIENT IS A FEED ASSIST c ALL MEALS, MOD APPETITE, CHRONIC VIVAS, PATENT DRAINING CLEAR YELLOW URINE TO GRAVITY. PATIENT RECEIVED BEDBATH/LINEN CHANGED AND Q2 TURN. PATIENT RECEIVED SCHEDULED MEDS PER EMAR. VITAL SIGNS REVIEWED. BED ALARM ON FOR SAFETY. CALL LIGHT IN REACH.
[2024-09-19 19:12] VITALS: BP 144/81
[2024-09-20 04:19] VITALS: BP 121/79
[2024-09-20 07:15] LABS: Albumin, Blood 1.9 g/dL (3.4-5.0); Albumin/Globulin Ratio 0.4 (0.8-1.8); Bilirubin, Total 0.3 mg/dL (0.1-1.0); Bun/Creatinine Ratio 32.1 (12.0-20.0); Calcium, Blood 9.8 mg/dL (8.5-10.1); Creatinine, Blood 1.12 mg/dL (0.40-1.00); Globulin, Blood 4.6 g/dL (2.2-4.0); Magnesium, Blood 2.2 mg/dL (1.6-2.4); Phosphorus, Blood 2.8 mg/dL (2.5-4.9); Potassium, Blood 4.1 mmol/L (3.5-5.5); Total Protein, Blood 6.5 g/dL (6.4-8.2)
--- NOTE | 2024-09-20 07:22 | NUR ---
SHIFT SUMMARY: alert and able to make most needs known. is a full code. ADLs have been 1-2 depending on activity. denied pain or discomfort when asked. folly in place and draining clear yellow urine.
--- NOTE | 2024-09-20 07:44 | NUR ---
ASSUMED CARE OF PATIENT. SLEEPING DURING SHIFT-CHANGE REPORT. SUPINE IN BED, SNORING. DID NOT WAKE.
[2024-09-20 07:47] VITALS: BP 132/81
[2024-09-20 08:21] LABS: Hematocrit 30.9 % (33.0-51.0); Hemoglobin 10.4 g/dL (11.5-16.0); Mean Corpuscular HGB 32.5 pg (26.0-34.0); Mean Corpuscular HGB Conc 33.7 g/dL (31.5-36.5); Mean Corpuscular Volume 97 fL (80-100); RDW Coefficient Variation 12.4 % (11.7-14.2); RDW Standard Deviation 43.7 fL (35.1-46.3); White Blood Cell Count 8.16 K/mm3 (4.00-11.30)
[2024-09-20 08:38] LABS: Platelet Count 310 K/mm3 (150-400)
[2024-09-20 09:05] LABS: BASOPHILS ABSOLUTE MAN 0.08 K/mm3 (0.00-0.23); BASOPHILS PERCENT MAN 1 % (0-2); EOSINOPHILS ABSOLUTE MAN 0.08 K/mm3 (0.00-0.68); EOSINOPHILS PERCENT MAN 1 % (0-6); LYMPHOCYTES ABSOLUTE MAN 0.73 K/mm3 (0.84-5.20); LYMPHOCYTES PERCENT MAN 9 % (21-46); MONOCYTES ABSOLUTE MAN 0.81 K/mm3 (0.16-1.47); MONOCYTES PERCENT MAN 10 % (4-13); MYELOCYTE ABSOLUTE MAN 0.08 K/mm3 (0.00-0.00); MYELOCYTE PERCENT MAN 1 % (0-0); NEUTROPHILS ABSOLUTE MAN 6.36 K/mm3 (1.96-9.15); SEG NEUTROPHILS PERCENT MAN 78 % (41-73); TOTAL CELLS COUNTED 100
[2024-09-20 15:51] VITALS: BP 137/94
--- NOTE | 2024-09-20 16:46 | NUR ---
MAINTENANCE NOTIFIED OF STRONG SMELL OF ROTTON EGGS IN PATIENT ROOM. FACILITIES NOTIFIED WHO TREATED SHOWER DRAIN. PATIENT NOT BOTHERED.
--- NOTE | 2024-09-20 18:00 | NUR ---
LIQUID STOOL x2 TODAY. VERY MALODOROUS. SAMPLE TO LAB TO R/O C-DIFF.
[2024-09-20 19:52] VITALS: BP 128/85
--- NOTE | 2024-09-20 19:53 | NUR ---
END OF SHIFT SUMMARY: A&Ox3. DROWSY AND SLEEPING ALL DAY. NONCONTRIBUTORY TO ADLs AND REFUSED TO WORK WITH PT/OT. DID NOT USE CALL LIGHT TODAY. INCONTINENT OF BOWEL; LARGE, LOOSE BOWEL MOVEMENT TODAY. CHRONIC VIVAS FOR RETENTION. HAS NOT TRANSFERRED OR AMBULATED TODAY D/T REFUSAL TO PARTICIPATE IN ADLs. MEDS WHOLE WITH FLUIDS. NO PAIN. VERY FATIGUED AND SLEEPY MUCH OF THE DAY. 2LPM/NC; REFUSING TO USE BEDSIDE TRELLEGY. BILATERAL POWERGLIDES; RIGHT FLUSHES AND DRAWS. HAS DECLINED ALL PO INTAKE TODAY. IN TO VISIT; WANTS TO TRANSFER BRITNEY, HIMSELF, SO THAT HE CAN SHOW HER THAT SHE CAN TRANSFER AND STATES, "SHE HAS TO, OR ELSE I LL DIVORCE HER." BED IN LOWEST POSITION, CALL LIGHT WITHIN REACH, ALL NEEDS MET. REPORT TO ONCOMING NURSE.
[2024-09-20 20:01] LABS: Adenovirus F 40/41 Not Detected (NOT DETECT); Astrovirus Not Detected (NOT DETECT); Campylobacter Sp Not Detected (NOT DETECT); Cryptosporidium Not Detected (NOT DETECT); Cyclospora Cayetanensis Not Detected (NOT DETECT); E. Coli O157 Not Detected (NOT DETECT); Entamoeba Histolytica Not Detected (NOT DETECT); Enteroaggregative E. coli-EAEC Not Detected (NOT DETECT); Enteropathogenic E. coli-EPEC Not Detected (NOT DETECT); Enterotoxigenic E. coli-ETEC Not Detected (NOT DETECT); Giardia Lamblia Not Detected (NOT DETECT); Norovirus GI/GII Not Detected (NOT DETECT); Plesiomonas Shigelloides Not Detected (NOT DETECT); Rotavirus A Not Detected (NOT DETECT); Salmonella Sp Not Detected (NOT DETECT); Sapovirus Not Detected (NOT DETECT); Shiga Toxin-prod E. coli-STEC Not Detected (NOT DETECT); Shigella/Enteroin E. coli-EIEC Not Detected (NOT DETECT); Vibrio Cholerae Not Detected (NOT DETECT); Vibrio Sp Not Detected (NOT DETECT); Yersinia Enterocolitica Not Detected (NOT DETECT)
[2024-09-20] MEDS ORDERED: Vancomycin HCl 250 MG Cap PO SCH (21:00)
[2024-09-21 02:14] VITALS: BP 126/79
--- NOTE | 2024-09-21 05:26 | NUR ---
SHIFT SUMMARY; PATIENT SLEPT IN LONG INTERVALS, REMAINS IN C DIFFS ISOLATION. TELE SR 89 WITH BBB.
[2024-09-21 08:35] LABS: Hematocrit 31.6 % (33.0-51.0); Hemoglobin 10.7 g/dL (11.5-16.0); Mean Corpuscular HGB 32.5 pg (26.0-34.0); Mean Corpuscular HGB Conc 33.9 g/dL (31.5-36.5); Mean Corpuscular Volume 96 fL (80-100); Mean Platelet Volume 10.2 fL (9.1-12.4); Platelet Count 360 K/mm3 (150-400); RDW Coefficient Variation 12.5 % (11.7-14.2); RDW Standard Deviation 43.3 fL (35.1-46.3); Red Blood Cell Count 3.29 M/mm3 (3.80-5.20); White Blood Cell Count 6.08 K/mm3 (4.00-11.30)
[2024-09-21 08:55] LABS: Albumin/Globulin Ratio 0.4 (0.8-1.8); Bilirubin, Total 0.2 mg/dL (0.1-1.0); Bun/Creatinine Ratio 39.3 (12.0-20.0); Creatinine, Blood 1.17 mg/dL (0.40-1.00); Globulin, Blood 4.6 g/dL (2.2-4.0); Magnesium, Blood 2.1 mg/dL (1.6-2.4); Phosphorus, Blood 3.2 mg/dL (2.5-4.9); Potassium, Blood 4.2 mmol/L (3.5-5.5); Total Protein, Blood 6.6 g/dL (6.4-8.2)
[2024-09-21 09:41] LABS: BAND PERCENT MAN 4 % (0-8); BASOPHILS ABSOLUTE MAN 0.06 K/mm3 (0.00-0.23); BASOPHILS PERCENT MAN 1 % (0-2); EOSINOPHILS ABSOLUTE MAN 0.18 K/mm3 (0.00-0.68); EOSINOPHILS PERCENT MAN 3 % (0-6); LYMPHOCYTES ABSOLUTE MAN 1.94 K/mm3 (0.84-5.20); LYMPHOCYTES PERCENT MAN 32 % (21-46); METAMYELOCYTE ABSOLUTE MAN 0.06 K/mm3 (0.00-0.00); METAMYELOCYTE PERCENT MAN 1 % (0-0); MONOCYTES ABSOLUTE MAN 0.54 K/mm3 (0.16-1.47); MONOCYTES PERCENT MAN 9 % (4-13); MYELOCYTE ABSOLUTE MAN 0.24 K/mm3 (0.00-0.00); MYELOCYTE PERCENT MAN 4 % (0-0); NEUTROPHILS ABSOLUTE MAN 3.04 K/mm3 (1.96-9.15); SEG NEUTROPHILS PERCENT MAN 46 % (41-73); TOTAL CELLS COUNTED 100
--- NOTE | 2024-09-21 13:43 | NUR ---
1200 PT TOO SLEEPY TO TAKE MED. HELD. GAVE LATER.
[2024-09-21 16:34] VITALS: BP 131/86
--- NOTE | 2024-09-21 19:31 | NUR ---
PT PLEASANT COOP TODAY. ALERT 2-3. DOES PRESENT SOMULENT AT TIMES. GENERALIZED PAIN TREATED TO PT SATISFACTION WITH TYLENOL. STUART IN THIS KP. HE REQUEST DR VISIT. DR BARAJAS AGREED SEE PT TOMORROW 9AM. DIARRHEA CONTINUES. TAKING ABX PRESCRIBED. TURNING PT Q2 HRS. DURING BEDSIDE SHIFT CHANGE REPORT WITH SAMANTHA THOMPSON, PT STUART STATES SHE SPILLED WATER ON SELF AND IS PRESENTLY PASSING STOOL. REQUEST CLEAN UP. PASSED INFORMTION TO SAMANTHA ROSE ALSO. NO OTHER NEW CONCERNS NOTED. BED IN LOW [facility], CALL LITE IN REACH, CALLS APPROP
[2024-09-21 20:11] VITALS: BP 141/76
[2024-09-22 02:40] VITALS: BP 142/85
--- NOTE | 2024-09-22 04:33 | NUR ---
SHIFT SUMMARY: PT IS ALERT AND ORIENTED WITH SOME CONFUSION. IN THE ROOM AT THE START OF SHIFT. PT BEDBOUND AT BASELINE, STAND AND PIVOT WITH MAX ASSIST, NOT OUT OF BED OVERNIGHT. PT DENIES PAIN, NAUSEA, VOMITING, AND SOB. PT SLEPT INTERMITTENTLY T/O THE NIGHT. SEVERAL INCONTINENNT BOWEL MOVEMENTS, CHANGED AND CLEANED NEEDED. VIVAS PATENT AND DRAINING YELLOW URINE. NO ACUTE CHANGES OR COMPLICATIONS THIS SHIFT. BED IN LOW POSITION, CALL LIGHT WITHIN REACH. WILL CONTINUE TO MONITOR.
[2024-09-22 06:08] LABS: Hemoglobin 9.8 g/dL (11.5-16.0)
[2024-09-22 06:34] LABS: Albumin, Blood 1.8 g/dL (3.4-5.0); Anion Gap 9 mmol/L (3-11); Blood Urea Nitrogen 53 mg/dL (8-24); Bun/Creatinine Ratio 44.5 (12.0-20.0); CO2, Blood 26 mmol/L (21-32); Calcium, Blood 10.1 mg/dL (8.5-10.1); Chloride, Blood 106 mmol/L (98-108); Creatinine, Blood 1.19 mg/dL (0.40-1.00); Glomerular Filtration Rate 48 (60-); Glucose, Blood 105 mg/dL (70-99); Magnesium, Blood 1.8 mg/dL (1.6-2.4); Phosphorus, Blood 2.7 mg/dL (2.5-4.9); Potassium, Blood 4.1 mmol/L (3.5-5.5); Sodium, Blood 137 mmol/L (136-145)
[2024-09-22 07:37] VITALS: BP 137/86
[2024-09-22] MEDS ORDERED: Simethicone 80 MG Chew PO PRN (10:25)
[2024-09-22] MEDS ORDERED: Vancomycin HCl 250 MG Cap PO SCH (12:00)
[2024-09-22 17:37] VITALS: BP 123/72
--- NOTE | 2024-09-22 18:41 | NUR ---
PT PLEASANT TODAY. WAXES AND WANES WITH ALERTNESS. PAIN MANAGED [facility] AVAIL MEDS. IN TO VISIT THIS AM AND THIS KP. VSS. CONTINUES TO HAVE LOOSE STOOL. PO SHERLYN ADMIN PER ORDERS. PHYSICAL THERAPY GOT UP IN CHAIR THIS DAY, TOOK 2 PEOPLE TO GET BACK TO BED. NO OTHER CONCERNS NOTED. BED IN LOW POSITION, CALL LITE IN REACH, CALLS APPROP
[2024-09-22 19:55] VITALS: BP 127/82
[2024-09-23 05:24] VITALS: BP 138/77
--- NOTE | 2024-09-23 06:29 | NUR ---
SHIFT SUMMARY PT ALERT AND ORIENTED TIMES 2. PT ADMITTED FOR ENCEPHALOPATHY AND FAILURE TO THRIVE. PT HAS POSITIVE TEST FOR C-DIF, HAS A CHRONIC VIVAS AND POWERGLIDE BILATERAL, OF WHICH LEFT SIDE IS THE ONLY DRAW. PT ON TELE SINUS RHYTHM, BUNDLE BRANCH BLOCK. PACEMAKER LEFT SIDE CHEST. PT IS ON 2 L O2. MILO AT BEDSIDE WITH SERVICE DOG. PT APPEARED TO SLEEP THROUGH THE NIGHT. CATH CARE DONE. CATH IS CLEAN AND DRAINING WELL WITH GRAVITY. BED IN LOW POSITION, CALL LIGHT WITHIN REACH, RAILS TIMES 2.
[2024-09-23 08:51] VITALS: BP 126/73
[2024-09-23 09:38] LABS: Hematocrit 30.7 % (33.0-51.0); Hemoglobin 10.4 g/dL (11.5-16.0)
[2024-09-23 09:53] LABS: Albumin, Blood 2.1 g/dL (3.4-5.0); Anion Gap 9 mmol/L (3-11); Blood Urea Nitrogen 40 mg/dL (8-24); Bun/Creatinine Ratio 34.5 (12.0-20.0); CO2, Blood 29 mmol/L (21-32); Calcium, Blood 10.6 mg/dL (8.5-10.1); Chloride, Blood 108 mmol/L (98-108); Creatinine, Blood 1.16 mg/dL (0.40-1.00); Glomerular Filtration Rate 50 (60-); Glucose, Blood 98 mg/dL (70-99); Phosphorus, Blood 3.3 mg/dL (2.5-4.9); Potassium, Blood 4.4 mmol/L (3.5-5.5); Sodium, Blood 142 mmol/L (136-145)
--- NOTE | 2024-09-23 14:49 | NUR ---
Spiritual care visit conducted. Pt was alert and appeared to be in extreme pain. Pt displayed difficulty speaking and uncontrollable shaking. Pt described being unable to put her hands together. Attempted to address pt's prognoisis. Pt politely declined this line of discussion. Prayer offered. Pt thanked me for the prayer.
[2024-09-23 15:30] VITALS: BP 124/77
[2024-09-23 19:28] VITALS: BP 130/91
[2024-09-23] MEDS ORDERED: Methocarbamol 500 MG Tab PO SCH (21:00)
[2024-09-24 03:38] VITALS: BP 131/78
--- NOTE | 2024-09-24 05:49 | NUR ---
PT A&OX3, VSS, TAKES TIME TO RESPOND TO QUESTIONS-WHEN SPOUSE IS PRESENT HE QUICKLY WILL RESPOND FOR HER WITHOUT ALLOWING TIME OR ASKING PT; SHE IS ABLE TO APPROPIATELY RESPOND. DENIED PAIN THIS SHIFT, DID YELL OUT A FEW TIMES BUT DID NOT EXPRESS ANY NEEDS, NO BM'S THIS SHIFT, SLEEPING AT THIS TIME, CALL LIGHT IN REACH, WILL CONT TO MONITOR UNTIL REPORT GIVEN TO ONCOMING NURSE.
[2024-09-24 06:02] LABS: Hematocrit 30.6 % (33.0-51.0); Hemoglobin 10.2 g/dL (11.5-16.0)
[2024-09-24 06:25] LABS: Albumin, Blood 2.1 g/dL (3.4-5.0); Anion Gap 10 mmol/L (3-11); Blood Urea Nitrogen 41 mg/dL (8-24); Bun/Creatinine Ratio 33.1 (12.0-20.0); CO2, Blood 28 mmol/L (21-32); Calcium, Blood 10.6 mg/dL (8.5-10.1); Chloride, Blood 106 mmol/L (98-108); Creatinine, Blood 1.24 mg/dL (0.40-1.00); Glomerular Filtration Rate 46 (60-); Glucose, Blood 92 mg/dL (70-99); Potassium, Blood 4.2 mmol/L (3.5-5.5); Sodium, Blood 140 mmol/L (136-145)
[2024-09-24 07:39] VITALS: BP 136/83
--- NOTE | 2024-09-24 14:48 | NUR ---
Spiritual care visit conducted. Attempted visit. Pt was awake and alert and was being fed by attending nurse. Pt was not receptive to vocal stimuli. Exited shortly after two attempts at speaking with pt.
--- NOTE | 2024-09-24 17:17 | NUR ---
TELE NOTIFIED THIS RN AT APPROX 1715 THAT PT HAD ALTERNATING BUNDLES AT 1400 AND 1600 X2 AND A 5 BEAT RUN OF VTACH AT 1530. PT ASYMPTOMATIC DURING EVENTS. THIS RN NOTIFIED . NO NEW ORDERS AT THIS TIME.
[2024-09-24 17:39] VITALS: BP 141/90
--- NOTE | 2024-09-24 18:41 | NUR ---
SHIFT SUMMARY PT A&OX2 SLOW TO RESPOND, FLAT EFFECT, AND WITHDRAWN, VSS, DID NOT AMB THIS SHIFT, TOLERATING MINIMAL PO, VOIDING, AND DENIED PAIN. PT HAD SEVERAL TELE EVENTS, PROVIDER AWARE, SEE PREVIOUS NOTE. NO OTHER ACUTE CHANGES. CALL LIGHT WITHIN REACH AND PT ABLE TO MAKE NEEDS KNOWN.
[2024-09-24 19:47] VITALS: BP 151/89
[2024-09-25 01:49] VITALS: BP 132/87
[2024-09-25 05:45] LABS: Hematocrit 30.4 % (33.0-51.0); Hemoglobin 10.2 g/dL (11.5-16.0)
[2024-09-25 06:16] LABS: Albumin, Blood 2.2 g/dL (3.4-5.0); Anion Gap 9 mmol/L (3-11); Blood Urea Nitrogen 46 mg/dL (8-24); Bun/Creatinine Ratio 35.7 (12.0-20.0); CO2, Blood 28 mmol/L (21-32); Calcium, Blood 10.8 mg/dL (8.5-10.1); Chloride, Blood 106 mmol/L (98-108); Creatinine, Blood 1.29 mg/dL (0.40-1.00); Glomerular Filtration Rate 44 (60-); Glucose, Blood 98 mg/dL (70-99); Magnesium, Blood 1.8 mg/dL (1.6-2.4); Phosphorus, Blood 3.4 mg/dL (2.5-4.9); Potassium, Blood 4.3 mmol/L (3.5-5.5); Sodium, Blood 139 mmol/L (136-145)
[2024-09-25 07:36] VITALS: BP 145/82
--- NOTE | 2024-09-25 09:58 | NUR ---
TELE CALLED POLICE DETECTIVE TO REPORT THAT PT HAD BIGEMINY PVCS. WHEN DISCUSSED WITH PRIMARY NURSE, NURSE STATED PT ALSO HAD A RUN OF PVCS THIS AM AND RUNS OF VTACH AND ALTERNATING BUNDLES YESTERDAY. UPON REVIEWING MED REC, IT SHOWS [facility] AT HOME. CALL TO DR VERDIN AND DISCUSSED THIS WELL REVIEWED LABS. STATES HE WILL COME SEE PT AND REVIEW CHART FURTHER.
[2024-09-25 11:25] VITALS: BP 138/112
[2024-09-25] MEDS ORDERED: NS 1,000 ML IV SCH (12:00)
[2024-09-25] MEDS ORDERED: Metoprolol Succinate 25 MG TABCR PO SCH (12:00)
[2024-09-25 15:37] VITALS: BP 171/95
[2024-09-25] MEDS ORDERED: Darbepoetin Alfa in Polysorbat 25 MCG/0.42 ML Syringe SC SCH (16:00)
--- NOTE | 2024-09-25 18:44 | NUR ---
SHIFT SUMMARY PT HAD SEVERAL TELE EVENTS THIS SHIFT, SEE PREVIOUS NOTE. PT ASYMPTOMATIC DURING EVENTS. MD AWARE AND ORDER TO GIVE PO METOPROLOL AND INFUSE 1 BAG OF NS @ 100 COMPLETED. THIS RN NOTIFIED OF PT'S PRESSURE ULCER AND WOUND CARE/DRESSING ORDER RECEIVED AND IN EMAR. NEW PICTURE TAKEN AND PLACED IN CHART. IMRPOVED FROM LAST PHOTO TAKEN. AT APPROX 1815, PT'S REQUESTED THIS RN TO COME INTO THE ROOM. PRIOR TO GOING INTO THE ROOM, THE PT'S STATED, "THE REPOSITIONING IS NOT ENOUGH. SHE NEEDS STRONGER PAIN MEDICATION." TO MILTON MERCEDES. THIS RN WENT INTO THE ROOM WHERE PT'S ASKED IF THIS RN COULD GIVE THE PT ROBAXIN. THIS RN EXPLAINED THAT IT WAS SCHEDULED AND NOT AVAILABLE TO ADMINISTER AT THE TIME. PT'S ASKED IF THIS RN COULD "JUST GIVE HER A DOSE". TYLENOL ADMINISTERED FOR PAIN AND HEATING PAD OFFERED. PT DID NOT STATE THAT SHE WAS IN PAIN T/O SHIFT, BUT STATED THAT SHE WAS IN PAIN W/ AT BEDSIDE. PT VERBALIZED 1-2 WORDS W/ THIS RN T/O SHIFT, BUT SPOKE IN COMPLETE SENTENCES W/ AT BEDSIDE W/ CUES FROM . NO OTHER ACUTE CHANES. CALL LIGHT WITHIN REACH.
[2024-09-25 20:21] VITALS: BP 131/92
[2024-09-25] MEDS ORDERED: Lidocaine 5% Ointment 35 gm TOP SCH (21:00)
[2024-09-26 05:13] VITALS: BP 136/84
--- NOTE | 2024-09-26 05:40 | NUR ---
A&0 W/FORGETFULNESS, VSS, MEDICATED FOR PAIN AND ANXIETY PER MAR, PER HUSBANDS REQ CALLED HOSP TO REQ LIDOCAINE FOR PRESSURE SORE (NEW ORDERS ON OCT, FIRST DOSE APPLIED), SLEPT T/O SHIFT, WAKING EASILY FOR CARES, REPOS Q2, 1 SOFT BM THIS SHIFT, SLEEPING AT THIS TIME, CALL LIGHT IN REACH, WILL CONT TO MONITOR UNTIL REPORT GIVEN TO ONCOMING NURSE.
[2024-09-26 06:35] LABS: Hematocrit 31.6 % (33.0-51.0); Hemoglobin 10.3 g/dL (11.5-16.0)
[2024-09-26 07:22] LABS: Cortisol, AM 18.3 ug/dL (6.7-22.6)
[2024-09-26 07:27] LABS: Albumin, Blood 2.2 g/dL (3.4-5.0); Anion Gap 9 mmol/L (3-11); Blood Urea Nitrogen 41 mg/dL (8-24); Bun/Creatinine Ratio 28.1 (12.0-20.0); CO2, Blood 28 mmol/L (21-32); Calcium, Blood 10.6 mg/dL (8.5-10.1); Chloride, Blood 108 mmol/L (98-108); Creatinine, Blood 1.46 mg/dL (0.40-1.00); Glomerular Filtration Rate 38 (60-); Glucose, Blood 88 mg/dL (70-99); Magnesium, Blood 2.1 mg/dL (1.6-2.4); Phosphorus, Blood 3.9 mg/dL (2.5-4.9); Potassium, Blood 4.3 mmol/L (3.5-5.5); Sodium, Blood 141 mmol/L (136-145)
[2024-09-26 08:30] VITALS: BP 128/85
[2024-09-26 18:00] VITALS: BP 134/68
[2024-09-26 19:41] VITALS: BP 141/84
--- NOTE | 2024-09-26 19:49 | NUR ---
SHIFT SUMMARY: PT ORIENTED TO SELF AND PLACE. PT HOLLERS OUT FOR HELP AND DOES NOT USE CALL LIGHT APPROPRIATELY. TYLENOL PROVIDED TWICE THIS SHIFT FOR PAIN IN BILAT FEET. CONTACT ENTERIC FOR CDIFF. PT HAD 3 LARGE BM THIS SHIFT. ORAL VANCOMYCIN BEING PROVIDED. PT HAS DECREASED APPETITE. PT ONLY WANTED TO EAT DINNER THIS SHIFT. CALLED PT SEVERAL TIMES THIS SHIFT. UPDATE PROVIDED TO BY THIS RN. PT REFUSED TO GET OOB THIS SHIFT. REPOSITIONED Q2. MEPILEX CHANGED PRN FOR SACRAL STAGE 1 SORE. CALL LIGHT IN REACH. BED IN LOWEST POSITION.
[2024-09-26] MEDS ORDERED: BusPIRone HCl 10 MG Tab PO SCH (21:00)
[2024-09-26] MEDS ORDERED: Melatonin 5 MG Tablet PO PRN (23:10)
--- NOTE | 2024-09-26 23:18 | NUR ---
PT SPOUSE MILO REQUESTED THAT HE BE CONTACTED IN AM WHEN PT/OT SEES PT SO THAT HE CAN ASK QUESTIONS ABOUT TAKING CARE OF PT AT HOME. PT SPOUSE ALSO REPORTS THAT PCP DR GARCIA HAS INQUIRED ABOUT RESTARTING PT PSCYH MEDICATIONS.
[2024-09-27] MEDS ORDERED: Metoprolol Tartrate 1 MG/ML 5 ML VIAL IV ONE (02:45)
--- NOTE | 2024-09-27 02:56 | NUR ---
NOTIFIED BY BUTTON STATION WORKER THAT PT HAS BEEN RUNNING SINUS TACH IN 130'S FOR >25 MINUTES. PT ASLEEP WHEN CHECKED. HOSPITALIST NOTIFIED AND ORDER FOR LOPRESSOR IV 5 MG X 1 GIVEN. PT NOW RUNNING SINUS TACH IN LOW 100'S.
[2024-09-27 03:50] VITALS: BP 129/69
--- NOTE | 2024-09-27 05:20 | NUR ---
SHIFT SUMMARY NOC PT A/O TO SELF AND SPOUSE. PLEASANT AND COOPERATIVE WITH CARE. PT CALL OUT AT TIMES FOR HELP, BUT IN NO DISTRESS WHEN ASSESSED. PT SPOUSE WAS IN ROOM AT BEGINNNING OF SHIFT AND REQUESTED THAT HE BE CALLED WHEN PT/OT IS WITH BT HE IS ONLY 10 MINUTES AWAY, HE ALSO WAS INQUIRING WHY PSCYH MEDS HAVE NOT BEEN RESTARTED. PT BUSPAR WAS RESTARTED @ 2100 LST NIGHT. PT HAD C/O OF NOT BEING ABLE TO SLEEP AND ORDER FOR MELATONIN OBTAINED. PT HAD >30 MINUTES OF SINUS TACH IN 130'S IN EARLY AM, PT ASSESSED AND ASLEEP, HOSPITALIST NOTIFIED AND LOPRESSOR IV 5 MG ORDER GIVEN AND HR 100'S AFTER DOSE. PT HAS CHRONIC VIVAS IN PLACE DRAINING CLEAR YELLOW URINE. BILATERAL UPPER ARM POWERGLIDES THAT DRAW. PT SPOUSE BROUGHT IN PRESSURE RELIEIVING PAD FROM PT WHEELCHAIR AND PT REPORTS INCREASED COMFORT WHILE LYING IN BED. PT REMAINS IN ENTERIC CONTACT ISOLATION FOR C DIFF. PT REFUSED HOME CPAP FOR SLEEP, SPO2 >92% ON RA. PT HAS HAD 2 LOOSE FROTHY INC BM DURING SHIFT AND MEPILEX CHANGED X 2 ONCE WITH LIDOCAINE OINTMENT. PT CURRENTLY RESTING WITH BED ALARM ON, BED IN LOWEST POSITION, AND CALL LIGHT WITHIN REACH
[2024-09-27 06:44] LABS: Hematocrit 30.1 % (33.0-51.0); Hemoglobin 10.1 g/dL (11.5-16.0)
[2024-09-27 06:58] LABS: Albumin, Blood 2.2 g/dL (3.4-5.0); Anion Gap 12 mmol/L (3-11); Blood Urea Nitrogen 39 mg/dL (8-24); Bun/Creatinine Ratio 27.5 (12.0-20.0); CO2, Blood 25 mmol/L (21-32); Calcium, Blood 10.2 mg/dL (8.5-10.1); Chloride, Blood 105 mmol/L (98-108); Creatinine, Blood 1.42 mg/dL (0.40-1.00); Glomerular Filtration Rate 39 (60-); Glucose, Blood 122 mg/dL (70-99); Magnesium, Blood 1.7 mg/dL (1.6-2.4); Phosphorus, Blood 3.6 mg/dL (2.5-4.9); Potassium, Blood 4.2 mmol/L (3.5-5.5); Sodium, Blood 138 mmol/L (136-145)
[2024-09-27 08:39] VITALS: BP 136/92
--- NOTE | 2024-09-27 09:38 | NUR ---
pt laying in bed calling for help, asked her whats wrong she replies she doesn't feel good, gave tylenol for pain, took medications without diff, repositioned her a bit, feels some better, lungs are clear dim in bases, resp even and unlabored, on r/a, no cough noted, hrr, no edema noted, ppp+1, cap refill<3 sec, vs stable, afebrile, power glide to r and l ua's, sites are clear and patent, btx4, abd flat soft nontender, voids via chronic ayala cath, skin c/w/d, roberta shaffer, call light in reach.
--- NOTE | 2024-09-27 12:42 | NUR ---
pt became very somulant after am meds, is more awake now, not crying out since this am. no acute changes, call light in reach.
[2024-09-27 16:49] VITALS: BP 119/81
--- NOTE | 2024-09-27 18:07 | NUR ---
pt has been awake speaking the rest of the day, spouce in room inquiring about medication changes, answered his questions, no further changes this shift. call light in reach.
[2024-09-27 20:49] VITALS: BP 109/70
[2024-09-28 02:12] VITALS: BP 139/89
--- NOTE | 2024-09-28 04:14 | NUR ---
SHIFT SUMMARY PT IS A/O X3, CALLING OUT "HELP", WHEN ASSISTED, PT NOT ABLE TO EXPRESS HER NEEDS TO THE STAFF MEMBERS. PT CALLING OUT "HELP" AT TIMES, PROVIDED CARE, ASSURED SAFETY. CATHETER DRAINING YELLOW COLOR URINE. BY THE BEDSIDE ANSWERING PT'S QUESTIONS. SHOWED LETTER TO THIS VENEER DRIER TAILER, WANTS BLADDER TRAINING AND TRIAL TO TAKE OUT THE VIVAS CATH. VSS. NO ACUTE EVENTS DURING THIS SHIFT. BED AT THE LOWEST POSITION, REPOSITIONED Q2HRS T/O THIS SHIFT. CALL LIGHT W/I REACH.
[2024-09-28 06:01] LABS: Hematocrit 29.2 % (33.0-51.0); Hemoglobin 9.7 g/dL (11.5-16.0)
[2024-09-28 06:40] LABS: Anion Gap 11 mmol/L (3-11); Blood Urea Nitrogen 47 mg/dL (8-24); Bun/Creatinine Ratio 30.3 (12.0-20.0); CO2, Blood 25 mmol/L (21-32); Calcium, Blood 10.1 mg/dL (8.5-10.1); Chloride, Blood 106 mmol/L (98-108); Creatinine, Blood 1.55 mg/dL (0.40-1.00); Glomerular Filtration Rate 35 (60-); Glucose, Blood 103 mg/dL (70-99); Magnesium, Blood 1.8 mg/dL (1.6-2.4); Phosphorus, Blood 4.2 mg/dL (2.5-4.9); Potassium, Blood 4.2 mmol/L (3.5-5.5); Sodium, Blood 138 mmol/L (136-145)
[2024-09-28 07:39] VITALS: BP 140/97
[2024-09-28] MEDS ORDERED: MELATONIN 5 MG1 EACH PO (12:23)
[2024-09-28] MEDS ORDERED: Vancocin HCl250 MG PO (12:24)
[2024-09-28] MEDS ORDERED: HyDROXyzine HCl 25 MG Tab PO PRN (12:32)
[2024-09-28] MEDS ORDERED: BusPIRone HCl 10 MG Tab PO SCH (14:00)
[2024-09-28 15:26] VITALS: BP 145/80
--- NOTE | 2024-09-28 17:39 | NUR ---
PT DISCHARGED AT 1730 VIA [facility]. PT'S WAS NOTIFIED OF PT COMMING HOME AT CRM COORDINATOR. ALL BELONGINGS WERE COLLECTED ALONG WITH PT'S TRIOLOGY MACHINE AND TAKEN WITH PER TRANSPORT TEAM. PT HAS BEEN AOX2 AND CONFUSED NO DISTRESS NOTED. CHRONIC VIVAS PATIENT AND PT WAS INCONTENT OF BOWEL.
[2024-09-30 20:39] LABS: HOURS COLLECTED Random hr; TOTAL VOLUME Random mL
== END 2024-09-28 17:34 | disposition home health service (06) | DRG 917 ==
LOC: ER 15:00 → MEDS 17:54 → ICUE 17:54 → MEDS 09-14 17:23
PROVIDERS: Emergency Medicine; Family Medicine; Hospitalist; Internal Medicine Critical Care Medicine; Internal Medicine Nephrology; ADMIT Family Medicine
PROC: 0B21XEZ Change Endotracheal Airway in Trachea, External Approach (ICD-10-PCS; principal; 2024-09-09)
PROC: 5A1945Z Respiratory Ventilation, 24-96 Consecutive Hours (ICD-10-PCS; 2024-09-09)
PROC: 0T2BX0Z Change Drainage Device in Bladder, External Approach (ICD-10-PCS; 2024-09-09)
PROC: 5A09357 Assistance with Respiratory Ventilation, Less than 24 Consecutive Hours, Continuous Positive Airway Pressure (ICD-10-PCS; 2024-09-13)
PROC: 3E033XZ Introduction of Vasopressor into Peripheral Vein, Percutaneous Approach (ICD-10-PCS; 2024-09-13)
DX: T40.2X1A Poisoning by other opioids, accidental (unintentional), initial encounter (principal); G92.8 Other toxic encephalopathy; J96.22 Acute and chronic respiratory failure with hypercapnia; J96.21 Acute and chronic respiratory failure with hypoxia; J69.0 Pneumonitis due to inhalation of food and vomit; J15.69 Pneumonia due to other Gram-negative bacteria; A04.72 Enterocolitis due to Clostridium difficile, not specified as recurrent; N39.0 Urinary tract infection, site not specified; N17.9 Acute kidney failure, unspecified; I47.20 Ventricular tachycardia, unspecified; Z16.24 Resistance to multiple antibiotics; N25.81 Secondary hyperparathyroidism of renal origin; I48.92 Unspecified atrial flutter; I13.0 Hypertensive heart and chronic kidney disease with heart failure and stage 1 through stage 4 chronic kidney disease, or unspecified chronic kidney disease; E87.0 Hyperosmolality and hypernatremia; F41.8 Other specified anxiety disorders; Z74.01 Bed confinement status; F31.9 Bipolar disorder, unspecified; L89.151 Pressure ulcer of sacral region, stage 1; B96.89 Other specified bacterial agents as the cause of diseases classified elsewhere; Z95.810 Presence of automatic (implantable) cardiac defibrillator; D64.9 Anemia, unspecified; E88.09 Other disorders of plasma-protein metabolism, not elsewhere classified; E83.39 Other disorders of phosphorus metabolism; G47.33 Obstructive sleep apnea (adult) (pediatric); Z79.01 Long term (current) use of anticoagulants; N18.31 Chronic kidney disease, stage 3a; I50.9 Heart failure, unspecified; Z79.899 Other long term (current) drug therapy; Z91.51 Personal history of suicidal behavior; E86.9 Volume depletion, unspecified; E83.52 Hypercalcemia; G43.909 Migraine, unspecified, not intractable, without status migrainosus
CPT/HCPCS: 31500; 36415; 51702; 70450; 71045; 71046; 74177; 80053; 80069; 80202; 81001; 82330; 82533; 82550; 82803; 82947; 83605; 83690; 83735; 83880; 83970; 84100; 84145; 84295; 84443; 84478; 84484; 85007; 85014; 85018; 85025; 85027; 85610; 86334; 87040; 87070; 87077; 87086; 87186; 87205; 87324; 87507; 93005; 93010; 94002; 94003; 94660; 94760; 94762; 96365-59; 97110; 97161; 97165; 97530; 97535; 99285-25; A9270; C1751; J0692; J0881; J1940; J2310; J2704; J3370; J3475; J7030; J7042; J7050; J7060; J7070; J7120; J7799; Q9967

== ENCOUNTER → 2024-09-09 | Outpatient (CLI) | payer OTHER ==
[~2024-09-09] MED LIST changes: -K-Dur10 MEQ; +K-Dur10 MEQ PO; +OXYB5 PO; +SODIUM FLUORID100 ML UD; +methenamine hippurat PO
== END ==
LOC: LAB SHORT 09:00 → LAB 09:00
DX: N39.0 Urinary tract infection, site not specified (principal)
CPT/HCPCS: 87077; 87086; 87186

== ENCOUNTER → 2024-11-10 | Outpatient (CLI) | payer OTHER ==
[~2024-11-10] MED LIST changes: +HYDHCL25 PO; +MELATONIN 5 MG1 EACH PO; +OXYB5 PO; +SODIUM FLUORID100 ML UD; +Vancocin HCl250 MG PO; +methenamine hippurat PO
[2024-11-10 17:24] LABS: Creatinine Urine 37.4 mg/dL (27.00-270.00); Microalbumin, Urine Quant. 37.5 mg/L (0.000-20.000); Protein, Urine Quantitative 23.3 mg/dL (0.0-11.9)
== END ==
LOC: LAB 13:50 → LAB SHORT 13:50
PROVIDERS: Internal Medicine Nephrology
DX: N18.30 Chronic kidney disease, stage 3 unspecified (principal); D75.1 Secondary polycythemia; N25.81 Secondary hyperparathyroidism of renal origin; E55.9 Vitamin D deficiency, unspecified; R76.9 Abnormal immunological finding in serum, unspecified; R94.5 Abnormal results of liver function studies; R94.6 Abnormal results of thyroid function studies
CPT/HCPCS: 82043; 82570; 84156

== ENCOUNTER → 2024-11-12 | Outpatient (CLI) | payer OTHER ==
[2024-11-12 16:13] LABS: Source, Urine Voided
[2024-11-12 17:59] LABS: Bacteria Mod /hpf; Squamous Epithelial Cells Rare /hpf (Few)
[2024-11-12 19:39] LABS: C DIFFICILE DNA POSITIVE (Negative)
== END ==
LOC: LAB SHORT 16:11 → LAB 16:11
PROVIDERS: Internal Medicine Nephrology
DX: N39.0 Urinary tract infection, site not specified (principal); N18.30 Chronic kidney disease, stage 3 unspecified; A07.4 Cyclosporiasis
CPT/HCPCS: 81015; 87077; 87086; 87186; 87324; 87493

== ENCOUNTER 2024-11-21 11:52 | Inpatient (IN) | payer OTHER ==
[~2024-11-21] VITALS: Ht 157.5 cm; Wt 70.3 kg
[2024-11-21] VITALS (9 sets, daily range): BP systolic 77–108; BP diastolic 53–71
[~2024-11-21 11:52] MED LIST changes: -DEPAKOTE ER500 M2 PO; +FLUVOXAMINE MA100 M1 PO; +METHENAMINE HIPPURATE PO; -methenamine hippurat PO
[2024-11-21] MEDS ORDERED: Naloxone HCl 0.4MG / ML 1ML Vial IV ONE (12:15)
[2024-11-21] MEDS ORDERED: Naloxone HCl 0.4MG / ML 1ML Vial ONE (12:15)
[2024-11-21 12:35] LABS: PCO2 Arterial 45.5 mmHg (35-45); PO2 Arterial 70.4 mmHg (80-100); pH Blood Arterial 7.34 (7.35-7.45)
[2024-11-21 12:37] LABS: BASOPHILS ABSOLUTE AUTO 0.03 K/mm3 (0.00-0.23); BASOPHILS PERCENT AUTO 0 % (0-2); EOSINOPHILS ABSOLUTE AUTO 0.38 K/mm3 (0.00-0.68); EOSINOPHILS PERCENT AUTO 6 % (0-6); Hematocrit 34.1 % (33.0-51.0); Hemoglobin 10.4 g/dL (11.5-16.0); IMMATURE GRAN ABSOLUTE AUTO 0.04 K/mm3 (0.00-0.10); IMMATURE GRAN PERCENT AUTO 1 % (0-1); LYMPHOCYTES ABSOLUTE AUTO 1.36 K/mm3 (0.84-5.20); LYMPHOCYTES PERCENT AUTO 20 % (21-46); MONOCYTES PERCENT AUTO 10 % (4-13); Mean Corpuscular HGB 30.6 pg (26.0-34.0); Mean Corpuscular HGB Conc 30.5 g/dL (31.5-36.5); Mean Corpuscular Volume 100 fL (80-100); Mean Platelet Volume 10.1 fL (9.1-12.4); NEUTROPHILS ABSOLUTE AUTO 4.28 K/mm3 (1.96-9.15); NEUTROPHILS PERCENT AUTO 63 % (41-73); Platelet Count 290 K/mm3 (150-400); RDW Coefficient Variation 15.2 % (11.7-14.2); RDW Standard Deviation 55.9 fL (35.1-46.3); White Blood Cell Count 6.79 K/mm3 (4.00-11.30)
[2024-11-21 12:59] LABS: Albumin, Blood 2.4 g/dL (3.4-5.0); Albumin/Globulin Ratio 0.4 (0.8-1.8); Bilirubin, Total 0.3 mg/dL (0.1-1.0); Bun/Creatinine Ratio 14.2 (12.0-20.0); Calcium, Blood 9.7 mg/dL (8.5-10.1); Creatinine, Blood 1.97 mg/dL (0.40-1.00); Globulin, Blood 5.4 g/dL (2.2-4.0); Magnesium, Blood 2.6 mg/dL (1.6-2.4); Potassium, Blood 4.7 mmol/L (3.5-5.5); Total Protein, Blood 7.8 g/dL (6.4-8.2)
[2024-11-21] MEDS ORDERED: Naloxone HCl 1MG / ML 2ML SYR IV ONE (13:00)
[2024-11-21] MEDS ORDERED: Furosemide 10 MG / ML 2ML Vial IV ONE (13:00)
[2024-11-21] MEDS ORDERED: Ondansetron HCl 2 MG / ML 2ML Vial IV ONE (13:05)
[2024-11-21] MEDS ORDERED: FLU VACC TS2024-25(6MOS UP)/PF 45 MCG/0.5 ML SYRINGE IM SCH (14:25)
[2024-11-21 14:39] LABS: Base Excess Venous 0.2 mmol/L; Bicarbonate Venous 24.1 mmol/L (24.0-30.0); PCO2 Venous 53.8 mmHg (38-42)
--- NOTE | 2024-11-21 17:04 | NUR ---
CASE CONFRENCE- DISCUSSED WITH PCU INTEGRITY ENGINEER AND DR. GARZA. ON PREVIOUS ADMISSION HER HAD FILLED OUT A POLST AND AGREED TO PATIENT GOING HOME ON HOSPICE. AFTER PATIENT MADE IT HOME PATIENTS SPOUSE CHANGED HIS MIND AND CAME OFF HOSPICE SERVICES. HE CAME TO THE OFFICE AND FILLED OUT A NEW POLST REFLECTING FULL CODE AND FULL TREATMENT. INSTRUCTED TO TAKE TO [facility] PRIMARY CARE PROVIDER TO SIGN.
[2024-11-21 17:06] LABS: U Amphetamine Screen Not Detected; U Barbituate Screen Not Detected; U Benzodiazapine Screen Not Detected; U Buprenorphine Screen Not Detected; U Cannabinoids Screen Not Detected; U Cocaine Screen Not Detected; U Methadone Screen Not Detected; U Methamphetamine Screen Not Detected; U Opiates Screen DETECTED; U Oxycodone Screen DETECTED; U Phencyclidine Screen Not Detected
[2024-11-21] MEDS ORDERED: CLOMIPRAMINE HC50 M1 PO (17:06)
[2024-11-21] MEDS ORDERED: Inderal 20 mg T20 MG PO (17:08)
[2024-11-21] MEDS ORDERED: Albuterol 2.5 MG/3 ML VIAL INH PRN (17:30)
[2024-11-21] MEDS ORDERED: SUCR1 PO ×2 (17:32→17:33)
[2024-11-21] MEDS ORDERED: Methocarbamol500 MG PO (17:40)
[2024-11-21 17:49] LABS: Source, Urine Straight Cath
[2024-11-21 18:09] LABS: Appearance, Urine Clear (Clear); Bilirubin, Urine Neg (Neg); Blood, Urine 1+ (Neg); Glucose Qualitative, Urine Neg (Neg); Ketones, Urine Neg (Neg); Leukocyte Esterase, Urine 3+ (Neg); Nitrite, Urine Neg (Neg); Protein, Urine Neg (Neg); Urobilinogen, Urine NORM (Normal)
[2024-11-21 18:15] LABS: Color, Urine Pale Yellow (P-Yellow)
[2024-11-21 18:18] LABS: Bacteria Few /hpf; Red Blood Cells, Urine 0-2 /hpf (0-2); Squamous Epithelial Cells Not Seen /hpf (Few)
--- NOTE | 2024-11-21 18:18 | NUR ---
PT ARRIVED IN THE UNIT VIA ED BED, PT WAS TRANSFERRED TO PCU BED VIA SLIDER SHEET. PT ON BIPAP UPON ARRIVAL SETTINGS 14/6 40% FIO2 SATS KEPT ABOVE 90%, HRR APACED 63, SBP 100'S, AFEBRILE. PT RESPONSIVE ONLY TO VERBAL STIMULI, WAS ABLE TO TOLERATE OXYMASK ON 4L DURING CT SCAN PROCEDURE. UTOX AND UA DONE VIA STRAIGHT CATH AWAITING FOR RESULT. AND DOG CURRENTLY AT THE BEDSIDE. HISTORY INFORMATION GATHERED FROM . PT HAS BRUISES ON BOTH KNEES AND LEFT ARM, REDNESS/BLANCHABLE ON COCCYX. NO OTHER ISSUES AT THIS TIME WILL REPORT TO ONCOMING SHIFT
[2024-11-21] MEDS ORDERED: Naloxone HCl 0.4MG / ML 1ML Vial IV PRN (19:00)
[2024-11-21 19:08] LABS: PCO2 Arterial 55.1 mmHg (35-45); pH Blood Arterial 7.32 (7.35-7.45)
--- NOTE | 2024-11-21 19:37 | NUR ---
ASSUMPTION OF CARE ASSUMED PT'S CARE AT 1900,BEDSIDE REPORT COMPLETED WITH [facility] NURSE.PT'S SPOUSE AT BEDSIDE WITH FAMILY DOG.PT SOMNOLENT,AROUSES WITH DIFFICULTY.ON BIPAP WHICH KEEP ALARMING,RT TO LOOK AT IT.PT DENIES PAIN,DENIES NEEDS.PLAN OF CARE REVIEWED.CALL LIGHT AND PT'S ITEMS WITHN REACH.WILL CONTINUE TO MONITOR.
[2024-11-22] VITALS (26 sets, daily range): BP systolic 74–129; BP diastolic 51–80
[2024-11-22 03:47] LABS: BASOPHILS ABSOLUTE AUTO 0.05 K/mm3 (0.00-0.23); BASOPHILS PERCENT AUTO 1 % (0-2); EOSINOPHILS ABSOLUTE AUTO 0.46 K/mm3 (0.00-0.68); EOSINOPHILS PERCENT AUTO 6 % (0-6); Hematocrit 31.2 % (33.0-51.0); Hemoglobin 9.3 g/dL (11.5-16.0); IMMATURE GRAN ABSOLUTE AUTO 0.06 K/mm3 (0.00-0.10); IMMATURE GRAN PERCENT AUTO 1 % (0-1); LYMPHOCYTES ABSOLUTE AUTO 1.27 K/mm3 (0.84-5.20); LYMPHOCYTES PERCENT AUTO 15 % (21-46); MONOCYTES ABSOLUTE AUTO 0.91 K/mm3 (0.16-1.47); MONOCYTES PERCENT AUTO 11 % (4-13); Mean Corpuscular HGB 29.8 pg (26.0-34.0); Mean Corpuscular HGB Conc 29.8 g/dL (31.5-36.5); Mean Corpuscular Volume 100 fL (80-100); NEUTROPHILS ABSOLUTE AUTO 5.65 K/mm3 (1.96-9.15); NEUTROPHILS PERCENT AUTO 67 % (41-73); Platelet Count 276 K/mm3 (150-400); RDW Coefficient Variation 15.3 % (11.7-14.2); RDW Standard Deviation 56.1 fL (35.1-46.3); Red Blood Cell Count 3.12 M/mm3 (3.80-5.20)
[2024-11-22 04:09] LABS: Albumin, Blood 2.2 g/dL (3.4-5.0); Albumin/Globulin Ratio 0.5 (0.8-1.8); Bilirubin, Total 0.3 mg/dL (0.1-1.0); Bun/Creatinine Ratio 13.2 (12.0-20.0); Calcium, Blood 9.3 mg/dL (8.5-10.1); Creatinine, Blood 2.27 mg/dL (0.40-1.00); Globulin, Blood 4.8 g/dL (2.2-4.0); Potassium, Blood 4.6 mmol/L (3.5-5.5)
--- NOTE | 2024-11-22 06:29 | NUR ---
PT HAS BEEN SONMOLENT THROUGHOUT THE NIGHT,OPENS EYES TO VERBAL COMMAND BUT DOES NOT KEEP THEM OPEN.ON BIPAP.GENERALIZED WEAKNESS.NEURO ASSESSMENT REVEALED UNEQUAL PUPILS,R>L (4MM,3MM CONSECUTIVELY) AND SLUGGISH.PT'S BP SOFT,SBP 74-103.BP PROGRESSIVELY GOT BETTER. NOTIFIED OF THE UNEQUAL PUPILS AND SOFT BP.HE ASSESSED PT AND SAID TO CONTINUE MONITORING.PT APPEARS TO BE RESTING COMFORTABLY AT THIS TIME ,NO S/S OF PAIN/DISCOMFOT NOTED.CALL LIGHT AND PT'S ITEMS WITHIN REACH.WILL GIVE REPORT TO DAYSHIFT NURSE FOR CONTINUITY OF CARE.
--- NOTE | 2024-11-22 08:47 | NUR ---
AM NOTE: PATIENT OPENS EYES BRIEFLY TO VOICE, SHAKING HEAD YES AND NO TO SOME QUESTIONS. PUPILS UNEQUAL WITH RIGHT BEING SLIGHTLY LARGER THAN LEFT. BILATERAL PUPILS CLOUDY AND SLUGGISH TO PEN LIGHT. FOLLOWING SIMPLE COMMANDS: SQUEEZING HANDS, STICKING OUT TONGUE, WIGGLING TOES AND MOVING EXTREMITIES. WEAKNESS NOTED THROUGHOUT. BEDREST AT THIS TIME WITH Q2 TURNING. TELE SHOWING SINUS RHYTHM WITH OCCASIONAL PVC'S. HR 60-80'S. SBP 90-100'S. SHAKES HEAD NO TO CHEST PAIN. MINIMAL EDEMA NOTED TO BUE AND BLE. IV'S SALINE LOCKED. PPP. BRUISING NOTED TO BILATERAL KNEES AND LEFT ARM. WEARING BIPAP WITH AVAP SETTINGS, FIO2 25%. RR 14-16. LUNG SOUNDS CLEAR AND DIM IN BASES. SUCTION AT BEDSIDE. Q4 ORAL CARE. BOWEL TONES PRESENT IN ALL 4 QUADRANTS. NPO AT THIS TIME. PUREWICK IN PLACE WITH YELLOW URINE. ATTENDS IN PLACE. SHAKES HEAD NO TO ABDOMINAL PAIN/NAUSEA. SKIN PALE WITH SCATTERED BRUISING. CALL LIGHT IN REACH. BED ALARM IN PLACE.
[2024-11-22] MEDS ORDERED: Furosemide 10 MG / ML 2ML Vial IV SCH (09:00)
[2024-11-22] MEDS ORDERED: Enoxaparin 30 MG/0.3 ML SYR SC SCH (09:00)
[2024-11-22] MEDS ORDERED: D5W-1/2NS 1,000 ML IV SCH (09:30)
[2024-11-22] MEDS ORDERED: GABA300 PO (10:09)
[2024-11-22] MEDS ORDERED: GLUCOSAMINE SULFATE PO (10:11)
[2024-11-22] MEDS ORDERED: MSM1000 M2 PO (10:14)
[2024-11-22] MEDS ORDERED: MIDODRINE HCL10 M1 PO (10:14)
[2024-11-22] MEDS ORDERED: NORTHERA100 MG PO (10:16)
[2024-11-22] MEDS ORDERED: SPIR25 PO (10:18)
[2024-11-22] MEDS ORDERED: TORSE20 PO (10:18)
--- NOTE | 2024-11-22 11:22 | NUR ---
UPDATE: DR. GARZA AT BEDSIDE FOR ROUNDING, THIS RN PRESENT. ULTRASOUND BEING DONE AT TIME. PATIENT MORE AWAKE AND VERBAL RESPONSE. BED BATH GIVEN AND BIPAP REMOVED. PATIENT SATING ABOVE 95% ON 5L NASAL CANNULA. ABLE TO TELL ME WHO SHE IS, WHERE SHE IS AND WHAT YEAR IT IS. AT TIMES SLOW TO RESPOND, STRUGGLING TO FIND SOME WORDS AND REPETITIVE AT TIMES. FOLLOWING ALL COMMANDS. WEAKNESS. BEDSIDE SWALLOW EVAL DONE AND NO ISSUES NOTED WITH SWALLOWING. RESPIRTORY UPDATED ON 5L NASAL CANNULA. DR. GARZA UPDATED ON RESPIRATORY STATUS, BEDSIDE SWALLOW AND PATIENT MENTATION. MILO CALLED BY THIS RN TO PROVIDE UPDATE. PLANS TO BRING IN HOME TRIOLOGY AND PATIENT GLASSES THIS AFTERNOON.
[2024-11-22 11:57] LABS: Base Excess Venous 0.4 mmol/L; Bicarbonate Venous 23.5 mmol/L (24.0-30.0); PCO2 Venous 63.1 mmHg (38-42); pH Blood Venous 7.25 (7.34-7.37)
--- NOTE | 2024-11-22 12:09 | NUR ---
VBG RESULTS CALLED INTO DR. GARZA. PATIENT BACK ON BIPAP AT THIS TIME.
--- NOTE | 2024-11-22 12:25 | NUR ---
DR. PROCTOR TO BEDSIDE AT THIS TIME. PLAN TO CONTINUE WITH BIPAP, OBTAIN HOME TRIOLOGY AND REDRAW VBG LATER THIS AFTERNOON. PATIENT WEARING BIPAP AT THIS TIME, SITTING UP IN BED. DENIES NEEDS. CALL LIGHT IN REACH.
[2024-11-22] MEDS ORDERED: Piperacillin/Tazobactam Sod 3.375 GM in NS 100 ML IV SCH (14:00)
--- NOTE | 2024-11-22 15:20 | NUR ---
ECHO BEING DONE AT THIS TIME
[2024-11-22 16:00] LABS: pH Blood Venous 7.35 (7.34-7.37)
[2024-11-22 16:01] LABS: Base Excess Venous 1.5 mmol/L; Bicarbonate Venous 25.4 mmol/L (24.0-30.0); PCO2 Venous 49.6 mmHg (38-42)
--- NOTE | 2024-11-22 19:21 | NUR ---
SHIFT SUMMARY: NO ACUTE CHANGES. PATIENT REMAINS ON BIPAP WITH SMALL BREAK FOR ORAL CARE/SIPS OF WATER. TELE REMAINS SR WITH HR 60-80'S. BLOOD PRESSURE REMAINS SOFT WITH SBP 90-100'S. DENIES PAINS. Q2 TURNING AND NEEDED. PUREWICK IN PLACE DRAINING YELLOW URINE. NO BOWEL MOVEMENT THIS SHIFT. ATTENDS IN PLACE. IN TO DROP OFF HOME TRILOGY. DR. PROCTOR CALLED TO UPDATED ON AFTERNOON VBG AND HOME TRILOGY, PATIENT OKAY TO STAY ON HOSPITAL BIPAP THIS EVENING PER DR. PROCTOR. DR. VÁSQUEZ TO BEDSIDE. NO NEW ORDERS FOR THIS RN TO PLACE. CALL LIGHT IN REACH. DENIES NEEDS.
[2024-11-23] VITALS (12 sets, daily range): BP systolic 81–112; BP diastolic 46–67
[2024-11-23 04:00] LABS: BASOPHILS ABSOLUTE AUTO 0.03 K/mm3 (0.00-0.23); BASOPHILS PERCENT AUTO 0 % (0-2); EOSINOPHILS ABSOLUTE AUTO 0.24 K/mm3 (0.00-0.68); EOSINOPHILS PERCENT AUTO 3 % (0-6); Hematocrit 26.5 % (33.0-51.0); Hemoglobin 8.2 g/dL (11.5-16.0); IMMATURE GRAN ABSOLUTE AUTO 0.04 K/mm3 (0.00-0.10); IMMATURE GRAN PERCENT AUTO 1 % (0-1); LYMPHOCYTES ABSOLUTE AUTO 1.27 K/mm3 (0.84-5.20); LYMPHOCYTES PERCENT AUTO 17 % (21-46); MONOCYTES ABSOLUTE AUTO 0.83 K/mm3 (0.16-1.47); MONOCYTES PERCENT AUTO 11 % (4-13); Mean Corpuscular HGB 30.5 pg (26.0-34.0); Mean Corpuscular HGB Conc 30.9 g/dL (31.5-36.5); Mean Corpuscular Volume 99 fL (80-100); Mean Platelet Volume 10.5 fL (9.1-12.4); NEUTROPHILS ABSOLUTE AUTO 5.12 K/mm3 (1.96-9.15); NEUTROPHILS PERCENT AUTO 68 % (41-73); Platelet Count 237 K/mm3 (150-400); RDW Coefficient Variation 15.2 % (11.7-14.2); RDW Standard Deviation 54.5 fL (35.1-46.3); Red Blood Cell Count 2.69 M/mm3 (3.80-5.20); White Blood Cell Count 7.53 K/mm3 (4.00-11.30)
[2024-11-23 04:32] LABS: Albumin, Blood 1.9 g/dL (3.4-5.0); Albumin/Globulin Ratio 0.4 (0.8-1.8); Bilirubin, Total 0.2 mg/dL (0.1-1.0); Bun/Creatinine Ratio 11.7 (12.0-20.0); Calcium, Blood 8.7 mg/dL (8.5-10.1); Creatinine, Blood 2.31 mg/dL (0.40-1.00); Globulin, Blood 4.5 g/dL (2.2-4.0); Potassium, Blood 4.1 mmol/L (3.5-5.5); Total Protein, Blood 6.4 g/dL (6.4-8.2)
--- NOTE | 2024-11-23 07:32 | NUR ---
SHIFT SUMMARY: PT IS A&OX3, FLAT AFFECT AND CONFUSED AT TIMES. FREQUENTLY REPEATS SAME WORD. BP SOFT SYS 90'S-100, SR IN THE 80'S, PT ON BIPAP WITH AVAP SETTINGS 25% FiO2, FEBRILE, TMAX 99.4. PT TAKES A BREAK FROM BIPAP, ON 3L NC SATTING >95%. DENIES PAIN. PT IS DRINKING WATER FREQUENTLY, SO SET LIMITS WITH PT. VOIDING LARGE AMOUNTS OF CLOUDY YELLOW URINE VIA WICKING SYSTEM. NO BM THIS SHIFT. BRIEF IN PLACE. REPOSITIONED Q2. AT BEDSIDE THIS EVENING WITH PT'S DOG. CONTACT PRECAUTIONS MAINTAINED. BED IN LOWEST POSITION, CALL LIGHT WITHIN REACH.
[2024-11-23] MEDS ORDERED: Midodrine 5 MG Tab PO SCH (12:00)
--- NOTE | 2024-11-23 14:27 | NUR ---
10 MG MIDODRINE GIVEN AT 1159 PER EMAR. PT BP 85/48 AT 1307. PT SLEEPING AND RESPONDED TO VERBAL STIMULI. PT REPORTED NO DIZZINESS AND ASYMPTOMATIC. DR. GARZA NOTIFIED AND INSTRUCTED TO RETAKE IN 30 MIN. BP OF 81/48 (58) ON LUE AND 87/49 (62) ON RUE TAKEN AT 1337. DR. GARZA NOTIFIED AT 1341 AND INSTRUCTED TO MONITOR AND RETAKE BP IN ANOTHER 30 MINUTES. BP 97/50 (65) AT 1416. DR. GARZA NOTIFIED AND INSTRUCTED TO RESUME NORMAL VS AND PRN.
[2024-11-23 15:01] LABS: Valproic Acid 14.6 ug/mL (50.0-100.0)
[2024-11-23] MEDS ORDERED: CefTRIAXone Sodium 1,000 MG in NS 100 ML IV SCH (16:00)
[2024-11-23] MEDS ORDERED: Acetaminophen 325 MG TABLET PO PRN (16:25)
--- NOTE | 2024-11-23 18:40 | NUR ---
SHIFT SUMMARY PT A/0X1 TO SELF. SP02 GOAL 90-92%. PT MAINTAINED GOAL ON RA WITH OCCASIONAL NEED FOR 1-2L NC. KEEP BIPAP ON WHILE SLEEPING. SOFT SBP 80S-90S. GREG NOTIFIED AND ORDERED MIDODRINE 5 MG TIDD. SBP INCREASED TO 100S-120S. BED LOW AND LOCKED.
[2024-11-23] MEDS ORDERED: Lactobacil 2-S.Thermo-Bifido 1 1 Cap PO SCH (21:00)
[2024-11-24] VITALS (7 sets, daily range): BP systolic 124–134; BP diastolic 62–87
[2024-11-24 04:47] LABS: BASOPHILS ABSOLUTE AUTO 0.02 K/mm3 (0.00-0.23); BASOPHILS PERCENT AUTO 0 % (0-2); EOSINOPHILS ABSOLUTE AUTO 0.26 K/mm3 (0.00-0.68); EOSINOPHILS PERCENT AUTO 3 % (0-6); IMMATURE GRAN ABSOLUTE AUTO 0.06 K/mm3 (0.00-0.10); IMMATURE GRAN PERCENT AUTO 1 % (0-1); LYMPHOCYTES ABSOLUTE AUTO 0.92 K/mm3 (0.84-5.20); LYMPHOCYTES PERCENT AUTO 10 % (21-46); MONOCYTES ABSOLUTE AUTO 0.83 K/mm3 (0.16-1.47); MONOCYTES PERCENT AUTO 9 % (4-13); Mean Corpuscular HGB 30.8 pg (26.0-34.0); Mean Corpuscular HGB Conc 32.1 g/dL (31.5-36.5); Mean Corpuscular Volume 96 fL (80-100); Mean Platelet Volume 10.6 fL (9.1-12.4); NEUTROPHILS ABSOLUTE AUTO 7.22 K/mm3 (1.96-9.15); NEUTROPHILS PERCENT AUTO 78 % (41-73); Platelet Count 244 K/mm3 (150-400); RDW Coefficient Variation 14.9 % (11.7-14.2); RDW Standard Deviation 52.8 fL (35.1-46.3); Red Blood Cell Count 2.92 M/mm3 (3.80-5.20); White Blood Cell Count 9.31 K/mm3 (4.00-11.30)
[2024-11-24 05:15] LABS: Bun/Creatinine Ratio 11.6 (12.0-20.0); Creatinine, Blood 2.24 mg/dL (0.40-1.00); Potassium, Blood 3.9 mmol/L (3.5-5.5)
--- NOTE | 2024-11-24 06:57 | NUR ---
SHIFT SUMMARY: PT IS A&OX3, FLAT AFFECT AND CONFUSED AT TIMES. PT AWAKE AND VERY ANXIOUS MUCH OF THIS SHIFT. IRRITATED AND UNCOMFORTABLE, STATES SHE JUST WANTS TO BE HOME. VSS ON 1L NC, ON PT S HOME TRILOGY MACHINE WHILE ASLEEP. SR 80'S-90'S WITH PVC'S. DENIES PAIN. TOLERATING A HEART HEALTHY DIET. VOIDING LARGE AMOUNTS OF CLOUDY YELLOW URINE VIA WICKING SYSTEM. MEDIUM FORMED, INCONTINENT BM THIS SHIFT. BRIEF IN PLACE. REPOSITIONED Q2. AT BEDSIDE THIS EVENING WITH PT'S DOG. CONTACT PRECAUTIONS MAINTAINED. BED IN LOWEST POSITION, CALL LIGHT WITHIN REACH.
--- NOTE | 2024-11-24 13:26 | NUR ---
TRANSFER UPDATE REPORT CALLED TO MED FLOOR RN AT 1305. PT TRANSFERED TO MED FLOOR AT 1310 VIA HOSPITAL BED AND ON 1L NC. HOME TRILOGY MACHINE TRANSFERED WITH PT. PT PERSIONAL BELONGINGS TRANSFERED WITH PT. PT CONTACTED AND UPDATED ON TRANSFER.
[2024-11-24] MEDS ORDERED: BusPIRone HCl 10 MG Tab PO SCH (14:00)
--- NOTE | 2024-11-24 15:09 | NUR ---
DR. GARZA NOTIFIED OF TELE CHANGES, CLINICAL EDUCATION COORDINATOR AND PCU CHARGE VERIFIED PATIENT HAD A BUNDLE BRANCH FRLIP, BUNDLE BRANCH BLOCK AND BIGEMINY. DR. GARZA MADE AWARE. NO CHANGES TO PLAN OF CARE. CONTINUING TO MONITOR ON TELE.
[2024-11-24] MEDS ORDERED: Calcium/Vit D 600 mg-400 Unit Tab PO SCH (17:00)
[2024-11-24] MEDS ORDERED: NS 250 ML IV PRN (18:05)
[2024-11-24] MEDS ORDERED: Divalproex Sodium 250 MG TABCR PO SCH (21:00)
[2024-11-25 03:04] VITALS: BP 134/62
--- NOTE | 2024-11-25 05:34 | NUR ---
REPORTED CHANGE OF HEART RHYTHM ON TELE TO HOSPITALIST. FROM SR W/ BBB TO TRIGEMINY. RECIEVED ORDERS TO ADD MG TO MORNING LABS AND CONT TO MONITOR.
--- NOTE | 2024-11-25 06:35 | NUR ---
SHIFT SUMMARY PT HAS BEEN RESTING COMFORTABLY IN BED OVERNIGHT. PT WAS ACCOMPANIED BY AND DOG UUNTIL APPROX 2200 LAST NIGHT. SHE HAS BEEN ON TELEMETRY, AND HAD CHANGE OF RHYTHM (SEE NOTE AT 0534). PT HAS BEEN ON 1LNC, NOT TOLERATING HOME CPAP. PT HAS BEEN 2PA W/ FWW AND GAIT BELT. SHE HAS BEEN VERY WEAK WHEN UP. PT HAS HAD PURWIK ON FOR INCONTINENCE. PT HAS HAD NO COMPLAINTS OVERNIGHT. NO ACUTE EVENTS OVERNIGHT.
[2024-11-25 07:24] VITALS: BP 133/72
[2024-11-25] MEDS ORDERED: Cyanocobalamin 500 MCG Tab PO SCH (09:00)
[2024-11-25] MEDS ORDERED: Ascorbic Acid 250 MG Chew PO SCH (09:00)
[2024-11-25] MEDS ORDERED: Multivitamins 1 Tab PO SCH (09:00)
[2024-11-25 11:52] VITALS: BP 132/71
[2024-11-25 12:22] LABS: BASOPHILS ABSOLUTE AUTO 0.05 K/mm3 (0.00-0.23); BASOPHILS PERCENT AUTO 1 % (0-2); EOSINOPHILS ABSOLUTE AUTO 0.26 K/mm3 (0.00-0.68); EOSINOPHILS PERCENT AUTO 3 % (0-6); Hematocrit 30.8 % (33.0-51.0); Hemoglobin 9.8 g/dL (11.5-16.0); IMMATURE GRAN ABSOLUTE AUTO 0.08 K/mm3 (0.00-0.10); IMMATURE GRAN PERCENT AUTO 1 % (0-1); LYMPHOCYTES ABSOLUTE AUTO 1.22 K/mm3 (0.84-5.20); LYMPHOCYTES PERCENT AUTO 13 % (21-46); MONOCYTES ABSOLUTE AUTO 0.78 K/mm3 (0.16-1.47); MONOCYTES PERCENT AUTO 8 % (4-13); Mean Corpuscular HGB 30.4 pg (26.0-34.0); Mean Corpuscular HGB Conc 31.8 g/dL (31.5-36.5); Mean Corpuscular Volume 96 fL (80-100); Mean Platelet Volume 10.4 fL (9.1-12.4); NEUTROPHILS ABSOLUTE AUTO 7.27 K/mm3 (1.96-9.15); NEUTROPHILS PERCENT AUTO 75 % (41-73); Platelet Count 289 K/mm3 (150-400); RDW Coefficient Variation 14.8 % (11.7-14.2); RDW Standard Deviation 51.8 fL (35.1-46.3); Red Blood Cell Count 3.22 M/mm3 (3.80-5.20); White Blood Cell Count 9.66 K/mm3 (4.00-11.30)
[2024-11-25 12:52] LABS: Bun/Creatinine Ratio 10.2 (12.0-20.0); Calcium, Blood 9.4 mg/dL (8.5-10.1); Creatinine, Blood 1.67 mg/dL (0.40-1.00); Potassium, Blood 3.9 mmol/L (3.5-5.5)
[2024-11-25] MEDS ORDERED: Loperamide HCl 2 MG Cap PO PRN (14:20)
[2024-11-25 15:07] VITALS: BP 142/73
[2024-11-25 18:27] VITALS: BP 142/78
--- NOTE | 2024-11-25 19:21 | NUR ---
SHIFT SUMMARY PT IS A/OX3, CONFUSION AT FORGETFUL AT TIMES. UP WITH 1-2 PERSON ASSIST AND FWW TO BS. NO ACUTE CHANGES THROUGHOUT THIS SHIFT. PT IS ON 1L NC, RA AT BASELINE. ON CONT PULSE OX, SATS DROPPING IN THE 70'S WITH EXERTION WHEN REMINDED TO TAKE DEEP BREATHS O2 SATS BACK UP IN THE 90'S. PT IS WITHDRAWN FROM CARE. AT BEDSIDE THIS AFTERNOON AND OFTEN SPEAKS FOR THE PT. PT IS INCONT OF BOWELS AND BLADDER, ATTENDS IN PLACE AND CHANGED NEEDED.
[2024-11-25 19:26] VITALS: BP 120/70
[2024-11-26 00:25] VITALS: BP 122/82
--- NOTE | 2024-11-26 04:38 | NUR ---
GRADUATE RECRUITER SUMMARY PT A/OX3. PT AT BEDSIDE AT START OF SHIFT WITH DOG. NO ACUTE CHANGES. PT ON CONTINOUS PULSE OX AND 1LPM OF OXYGEN VIA NASAL CANNULA. PT O2 SATS WNL T/O THE SHIFT. PT ON TELE WITH NOT EVENTS REPORTED--PT ATRIAL PACED, NORMAL SINUS, RATE IN THE 70'S. CALL LIGHT ACCESSIBLE. PT ABLE TO MAKE NEEDS KNOWN WITH PROMPTING. REGULAR INTERVAL ROUNDING MAINTAINED, CARE WILL CONTINUE UNTIL REPORT GIVEN TO ONCOMING NURSE.
[2024-11-26 04:42] VITALS: BP 135/79
[2024-11-26 07:28] VITALS: BP 143/89
[2024-11-26 11:01] VITALS: BP 139/69
[2024-11-26 13:31] VITALS: BP 130/68
[2024-11-26] MEDS ORDERED: BusPIRone HCl 10 MG Tab PO ONE (15:15)
--- NOTE | 2024-11-26 17:52 | NUR ---
PT DISCHARGED TO HOME WITH . ALL VALUABLES RETURNED AND SENT HOME WITH THE PT. DISCHARGE INSTRUCTIONS PROVIDED AND EDUCATED ON AT TIME OF DISCHARGE.
== END 2024-11-26 16:25 | disposition home or self-care (01) | DRG 917 ==
LOC: ER 11:52 → MEDS 14:21 → PCU 14:21 → MEDS 11-24 13:41 → ENPENDDIS 11-26 12:49 → MEDS 11-26 16:25
PROVIDERS: Student in an Organized Health Care Education/Training Program; ADMIT Family Medicine
PROC: 5A09357 Assistance with Respiratory Ventilation, Less than 24 Consecutive Hours, Continuous Positive Airway Pressure (ICD-10-PCS; principal; 2024-11-21)
DX: T40.2X1A Poisoning by other opioids, accidental (unintentional), initial encounter (principal); G92.8 Other toxic encephalopathy; J96.21 Acute and chronic respiratory failure with hypoxia; J96.22 Acute and chronic respiratory failure with hypercapnia; I50.23 Acute on chronic systolic (congestive) heart failure; I13.0 Hypertensive heart and chronic kidney disease with heart failure and stage 1 through stage 4 chronic kidney disease, or unspecified chronic kidney disease; I48.92 Unspecified atrial flutter; E87.1 Hypo-osmolality and hyponatremia; N17.9 Acute kidney failure, unspecified; N39.0 Urinary tract infection, site not specified; A04.71 Enterocolitis due to Clostridium difficile, recurrent; E03.9 Hypothyroidism, unspecified; I11.0 Hypertensive heart disease with heart failure; N18.30 Chronic kidney disease, stage 3 unspecified; F31.9 Bipolar disorder, unspecified; G43.909 Migraine, unspecified, not intractable, without status migrainosus; I45.10 Unspecified right bundle-branch block; D63.1 Anemia in chronic kidney disease; F41.9 Anxiety disorder, unspecified; G89.29 Other chronic pain; I72.8 Aneurysm of other specified arteries; R00.8 Other abnormalities of heart beat; R94.5 Abnormal results of liver function studies; F41.8 Other specified anxiety disorders; Z91.51 Personal history of suicidal behavior; Z79.899 Other long term (current) drug therapy; Z87.19 Personal history of other diseases of the digestive system; Z95.810 Presence of automatic (implantable) cardiac defibrillator; Z90.721 Acquired absence of ovaries, unilateral; Z74.01 Bed confinement status; X58.XXXA Exposure to other specified factors, initial encounter
CPT/HCPCS: 36415; 36600; 70450; 71045; 76700; 76857; 80048; 80053; 80164; 81001; 82140; 82803; 82947; 83735; 83880; 84443; 85025; 87077; 87086; 87186; 93005; 93010; 94660; 94762; 96374; 96375; 96376; 97110; 97161; 97165; 97530; 99285-25; A9270; C8929; J0696; J1650; J1940; J2310; J2405; J2543; J7042; J7050; Q9957

== ENCOUNTER → 2024-12-06 | Outpatient (CLI) | payer OTHER ==
[~2024-12-06] MED LIST changes: +GLUCOSAMINE SULFATE PO
== END ==
LOC: LAB 19:22 → LAB SHORT 19:22
DX: N39.0 Urinary tract infection, site not specified (principal)
CPT/HCPCS: 87077; 87086; 87186

== ENCOUNTER 2025-03-17 11:42 | Day surgery (SDC) | payer OTHER ==
[~2025-03-17] VITALS: Ht 160 cm; Wt 79.0 kg
[~2025-03-17 11:42] MED LIST changes: +Balanced Salt Epinephrine Irrigation Solution 500 mL IR SCH; +Moxifloxacin HCL 0.5 MG/0.1 ML 0.4MLSYR LEFTEYE SCH; +PHENYLEPHRINE\\TROPICAMIDE\\TETRACAINE OPHTHALMIC DILATING SOLN LEFTEYE PRN; +Povidone-Iodine 450 DROP/30 ML Solution LEFTEYE SCH; +Povidone-Iodine 450 DROP/30 ML Solution ONE; +Tetracaine HCl/Pf 0.5% Opth Soln 4 ml ONE; +Triamcinolone Inj Susp 40 MG / ML 1ML Vial INJ SCH; +Triamcinolone Inj Susp 40 MG / ML 1ML Vial ONE
[2025-03-17] MEDS ORDERED: NS 500 ML IV ONE ×2 (11:49→13:00)
[2025-03-17] MEDS ORDERED: Midazolam HCl 1MG / ML 2ML Vial ONE (12:09)
[2025-03-17] MEDS ORDERED: CLOMIPRAMINE HC (13:06)
[2025-03-17] MEDS ORDERED: ENTRESTO 24 MG1 EAC3 (13:08)
[2025-03-17] MEDS ORDERED: NORTHERA100 MG (13:09)
[2025-03-17] MEDS ORDERED: FAMO20 (13:10)
[2025-03-17] MEDS ORDERED: GABA300 (13:11)
[2025-03-17] MEDS ORDERED: GLUCHON (13:11)
[2025-03-17] MEDS ORDERED: PROP10 PO (13:12)
[2025-03-17] MEDS ORDERED: TROSPIUM CHLORI60 MG (13:13)
[2025-03-17] MEDS ORDERED: SOAANZ20 M1 (13:13)
[2025-03-17] MEDS ORDERED: MECL25 (13:14)
[2025-03-17] MEDS ORDERED: POTA10T (13:14)
[2025-03-17] MEDS ORDERED: Robaxin750 MG (13:14)
[2025-03-17] MEDS ORDERED: Tetracaine HCl 0.5% Opth Soln 15 ml LEFTEYE ONE (13:21)
--- NOTE | 2025-03-17 13:23 | NUR ---
03/17/25 [facility]3 Danita García 1240: PATIENT ASSISTED INTO BED, 1 PA FROM HER INTO [facility].
[2025-03-17 13:43] VITALS: BP 117/77
== END 2025-03-17 14:14 | disposition home or self-care (01) ==
LOC: ORSCSDS 11:42
PROVIDERS: Ophthalmology
PROC: 08RK3JZ Replacement of Left Lens with Synthetic Substitute, Percutaneous Approach (ICD-10-PCS; principal; 2025-03-17 13:30)
DX: H25.813 Combined forms of age-related cataract, bilateral (principal); G47.33 Obstructive sleep apnea (adult) (pediatric); I12.9 Hypertensive chronic kidney disease with stage 1 through stage 4 chronic kidney disease, or unspecified chronic kidney disease; N18.9 Chronic kidney disease, unspecified; Z79.899 Other long term (current) drug therapy
CPT/HCPCS: J2250; J3301; J7040; V2632

== ENCOUNTER → 2025-05-16 | Outpatient (CLI) | payer OTHER ==
[~2025-05-16] MED LIST changes: -Balanced Salt Epinephrine Irrigation Solution 500 mL IR SCH; +CLOMIPRAMINE HC; +ENTRESTO 24 MG1 EAC3; +FAMO20; +GABA300; +GLUCHON; +MECL25; -Moxifloxacin HCL 0.5 MG/0.1 ML 0.4MLSYR LEFTEYE SCH; +NORTHERA100 MG; -PHENYLEPHRINE\\TROPICAMIDE\\TETRACAINE OPHTHALMIC DILATING SOLN LEFTEYE PRN; +POTA10T; +PROP10 PO; -Povidone-Iodine 450 DROP/30 ML Solution LEFTEYE SCH; -Povidone-Iodine 450 DROP/30 ML Solution ONE; +Robaxin750 MG; +SOAANZ20 M1; +TROSPIUM CHLORI60 MG; -Tetracaine HCl/Pf 0.5% Opth Soln 4 ml ONE; -Triamcinolone Inj Susp 40 MG / ML 1ML Vial INJ SCH; -Triamcinolone Inj Susp 40 MG / ML 1ML Vial ONE
[2025-05-17 10:00] LABS: U Amphetamine Screen Not Detected; U Barbituate Screen Not Detected; U Benzodiazapine Screen Not Detected; U Buprenorphine Screen Not Detected; U Cannabinoids Screen Not Detected; U Cocaine Screen Not Detected; U Methadone Screen Not Detected; U Methamphetamine Screen Not Detected; U Opiates Screen Not Detected; U Oxycodone Screen Not Detected; U Phencyclidine Screen Not Detected
== END ==
LOC: LAB SHORT 15:05 → LAB 15:05
PROVIDERS: Internal Medicine Nephrology
DX: N18.30 Chronic kidney disease, stage 3 unspecified (principal); D63.1 Anemia in chronic kidney disease; N25.81 Secondary hyperparathyroidism of renal origin; R76.9 Abnormal immunological finding in serum, unspecified; R94.5 Abnormal results of liver function studies; R94.6 Abnormal results of thyroid function studies; Z79.899 Other long term (current) drug therapy; E55.9 Vitamin D deficiency, unspecified; E78.00 Pure hypercholesterolemia, unspecified

== ENCOUNTER → 2025-07-12 | Outpatient (CLI) | payer OTHER ==
[2025-07-12 17:28] LABS: Microalbumin, Urine Quant. 30.2 mg/L (0.000-20.000); Protein, Urine Quantitative 13.9 mg/dL (0.0-11.9)
== END | disposition home or self-care (01) ==
LOC: LAB SHORT 15:38 → LAB 15:38 → LAB FUT 07-06 12:15 → EDSTATUS 07-06 12:15
PROVIDERS: Internal Medicine Nephrology
DX: N18.30 Chronic kidney disease, stage 3 unspecified (principal); D63.1 Anemia in chronic kidney disease; N25.81 Secondary hyperparathyroidism of renal origin; E55.9 Vitamin D deficiency, unspecified; E78.00 Pure hypercholesterolemia, unspecified; R76.9 Abnormal immunological finding in serum, unspecified; R94.5 Abnormal results of liver function studies; R94.6 Abnormal results of thyroid function studies
CPT/HCPCS: 81050; 82043; 82570; 84156

== ENCOUNTER → 2025-07-19 | Outpatient (CLI) | payer OTHER | END | disposition home or self-care (01) | LOC: LAB 20:30 → LAB SHORT 20:30 | DX: N39.0 Urinary tract infection, site not specified (principal) | CPT/HCPCS: 87077; 87086; 87186 ==

== ENCOUNTER → 2025-07-22 | Outpatient (CLI) | payer OTHER ==
[2025-07-23 13:47] LABS: C DIFFICILE DNA NEGATIVE (Negative)
== END ==
LOC: LAB 17:19 → LAB SHORT 17:19
PROVIDERS: Internal Medicine Nephrology
DX: N18.30 Chronic kidney disease, stage 3 unspecified (principal); D63.1 Anemia in chronic kidney disease; E55.9 Vitamin D deficiency, unspecified; E78.00 Pure hypercholesterolemia, unspecified; R76.9 Abnormal immunological finding in serum, unspecified; R94.5 Abnormal results of liver function studies; R94.6 Abnormal results of thyroid function studies; G60.0 Hereditary motor and sensory neuropathy; D51.8 Other vitamin B12 deficiency anemias; D52.8 Other folate deficiency anemias; D50.8 Other iron deficiency anemias
CPT/HCPCS: 87493

== ENCOUNTER 2025-08-22 00:35 | Day surgery (SDC) | payer OTHER ==
[2025-08-22] MEDS ORDERED: NS 1,000 ML IV SCH (07:15)
[2025-08-22 14:46] VITALS: BP 118/79
== END 2025-08-22 15:18 | disposition home or self-care (01) ==
LOC: ATC 00:35
DX: E86.9 Volume depletion, unspecified (principal); N18.4 Chronic kidney disease, stage 4 (severe); I12.9 Hypertensive chronic kidney disease with stage 1 through stage 4 chronic kidney disease, or unspecified chronic kidney disease; N25.81 Secondary hyperparathyroidism of renal origin; D63.1 Anemia in chronic kidney disease
CPT/HCPCS: 76770; 96360; J7030

== ENCOUNTER 2025-08-26 02:14 | Day surgery (SDC) | payer OTHER ==
[2025-08-26] MEDS ORDERED: NS 1,000 ML IV SCH (06:00)
[2025-08-26 16:53] VITALS: BP 107/51
--- NOTE | 2025-08-26 17:45 | NUR ---
Pt's states Dr. Cisneros would like pt to have 3 more days of IV fluids. Called Dr. Cisneros and clarified his wishes for Renetta's fluids. New orders received for an additional liter of fluid daily for 3 days starting 08/27/25. Updated Renetta and her on the plan for additional fluids.
== END 2025-08-26 18:33 | disposition home or self-care (01) ==
LOC: ATC 02:14
DX: E86.9 Volume depletion, unspecified (principal); N18.4 Chronic kidney disease, stage 4 (severe); I12.9 Hypertensive chronic kidney disease with stage 1 through stage 4 chronic kidney disease, or unspecified chronic kidney disease; N25.81 Secondary hyperparathyroidism of renal origin; Z79.899 Other long term (current) drug therapy
CPT/HCPCS: 96360; J7030

== ENCOUNTER 2025-08-27 00:47 | Day surgery (SDC) | payer OTHER ==
[2025-08-27] MEDS ORDERED: NS 1,000 ML IV SCH (06:00)
[2025-08-27 16:00] VITALS: BP 119/67
== END 2025-08-27 17:38 | disposition home or self-care (01) ==
LOC: ATC 00:47
DX: E86.9 Volume depletion, unspecified (principal); I12.9 Hypertensive chronic kidney disease with stage 1 through stage 4 chronic kidney disease, or unspecified chronic kidney disease; N18.4 Chronic kidney disease, stage 4 (severe); N25.81 Secondary hyperparathyroidism of renal origin; D63.1 Anemia in chronic kidney disease; G60.9 Hereditary and idiopathic neuropathy, unspecified; Z79.899 Other long term (current) drug therapy
CPT/HCPCS: 96360; C1751; J7030

== ENCOUNTER 2025-08-28 00:19 | Day surgery (SDC) | payer OTHER ==
[2025-08-28] MEDS ORDERED: NS 1,000 ML IV SCH (07:20)
[2025-08-28 15:50] VITALS: BP 99/57
[2025-08-28 17:00] VITALS: BP 112/68
== END 2025-08-28 17:02 | disposition home or self-care (01) ==
LOC: ATC 00:19
DX: E86.9 Volume depletion, unspecified (principal); I12.9 Hypertensive chronic kidney disease with stage 1 through stage 4 chronic kidney disease, or unspecified chronic kidney disease; N18.4 Chronic kidney disease, stage 4 (severe); D63.1 Anemia in chronic kidney disease; N25.81 Secondary hyperparathyroidism of renal origin; E87.5 Hyperkalemia; N28.1 Cyst of kidney, acquired; G60.9 Hereditary and idiopathic neuropathy, unspecified; E55.9 Vitamin D deficiency, unspecified; Z79.01 Long term (current) use of anticoagulants; Z79.899 Other long term (current) drug therapy
CPT/HCPCS: 96360; J7030

== ENCOUNTER 2025-08-29 02:56 | Day surgery (SDC) | payer OTHER ==
[2025-08-29] MEDS ORDERED: NS 1,000 ML IV SCH (06:00)
[2025-08-29 16:04] VITALS: BP 107/62
== END 2025-08-29 17:28 | disposition home or self-care (01) ==
LOC: ATC 02:56
DX: E86.9 Volume depletion, unspecified (principal); I12.9 Hypertensive chronic kidney disease with stage 1 through stage 4 chronic kidney disease, or unspecified chronic kidney disease; N18.4 Chronic kidney disease, stage 4 (severe); D63.1 Anemia in chronic kidney disease; N25.81 Secondary hyperparathyroidism of renal origin; G60.9 Hereditary and idiopathic neuropathy, unspecified; Z79.899 Other long term (current) drug therapy
CPT/HCPCS: 96360; J7030